=== PATIENT | female | born 1945 | race Caucasian/White ===

== ENCOUNTER 2016-05-29 12:43 | Outpatient (RCR) | payer MEDICARE, MEDICAID ==
--- OUTSIDE RECORDS SUMMARY | 2016-04-24 13:38 | XMS REPORT | Continuity of Care Document ---
Author Author [facility] Organization [facility] Address Unknown Phone Unavailable Allergies Active Description Code Type Severity Reaction Onset Reported/Identified Relationship to Patient Clinical Status Yes No Known Drug Allergies [id number] Drug Allergy Unknown N/ A 12/26/2015 Medications Problems Date Dx Coded Attending Type Code Diagnosis Diagnosed By 01/19/2014 FAB BEAVER MD Ot V76.12 02/19/2014 VERONA SHERIDAN APRN Ot 959.5 02/19/2014 VERONA SHERIDAN APRN Ot E849.0 02/19/2014 VERONA SHERIDAN APRN Ot E888.9 05/12/2014 Ot 173.31 05/12/2014 Ot 250.00 05/12/2014 Ot V58.69 06/01/2014 Ot 709.9 06/01/2014 Ot V72.63 06/01/2014 Ot V72.81 06/01/2014 Ot V74.8 06/08/2014 Ot 709.9 06/08/2014 Ot V72.63 06/08/2014 Ot V72.81 06/08/2014 Ot V74.8 12/29/2014 YU CASTRO Ot I34.8 01/03/2015 YU CASTRO Ot I34.8 01/19/2015 FAB BEAVER MD Ot Z12.31 01/24/2015 FAB BEAVER MD Ot Z12.31 12/03/2015 Ot 707.15 12/03/2015 Ot 715.36 12/03/2015 Ot 715.37 12/22/2015 SANJIV FRIEND, ENRIQUE Raymundo Ot Z01.818 ENCOUNTER FOR OTHER PREPROCEDURAL EXAMIN 12/22/2015 ENRIQUE KINCAID MD Ot Z86.010 PERSONAL HISTORY OF COLONIC POLYPS 12/22/2015 ENRIQUE KINCAID MD Ot Z01.818 ENCOUNTER FOR OTHER PREPROCEDURAL EXAMIN 12/22/2015 ENRIQUE KINCAID MD Ot Z86.010 PERSONAL HISTORY OF COLONIC POLYPS 12/26/2015 ENRIQUE KINCAID MD Ot K57.90 DVRTCLOS OF INTEST, PART UNSP, W/O PERF 12/26/2015 ENRIQUE KINCAID MD Ot Z12.11 ENCOUNTER FOR SCREENING FOR MALIGNANT NE 12/26/2015 ENRIQUE KINCAID MD Ot Z86.010 PERSONAL HISTORY OF COLONIC POLYPS 12/28/2015 FAB BEAVER MD Ot Z12.31 ENCNTR SCREEN MAMMOGRAM FOR MALIGNANT NE 12/29/2015 FAB BEAVER MD Ot Z12.31 ENCNTR SCREEN MAMMOGRAM FOR MALIGNANT NE 12/29/2015 FAB BEAVER MD Ot Z12.31 ENCNTR SCREEN MAMMOGRAM FOR MALIGNANT NE 01/05/2016 FAB BEAVER MD Ot Z12.31 ENCNTR SCREEN MAMMOGRAM FOR MALIGNANT NE 01/16/2016 FAB BEAVER MD Ot M25.551 PAIN IN RIGHT HIP 01/16/2016 FAB BEAVER MD Ot M25.552 PAIN IN LEFT HIP 01/17/2016 FAB BEAVER MD Ot M25.551 PAIN IN RIGHT HIP 01/17/2016 FAB BEAVER MD Ot M25.552 PAIN IN LEFT HIP 01/23/2016 FAB BEAVER MD Ot M25.551 PAIN IN RIGHT HIP 01/23/2016 FAB BEAVER MD Ot M25.552 PAIN IN LEFT HIP 01/24/2016 FAB BEAVER MD Ot M25.551 PAIN IN RIGHT HIP 01/24/2016 FAB BEAVER MD Ot M25.552 PAIN IN LEFT HIP 02/03/2016 FAB BEAVER MD Ot M25.551 PAIN IN RIGHT HIP 02/03/2016 FAB BEAVER MD Ot M25.552 PAIN IN LEFT HIP 02/15/2016 FAB BEAVER MD Ot M25.551 PAIN IN RIGHT HIP 02/15/2016 FAB BEAVER MD Ot M25.552 PAIN IN LEFT HIP 02/15/2016 FAB BEAVER MD Ot M25.551 PAIN IN RIGHT HIP 02/15/2016 FAB BEAVER MD Ot M25.552 PAIN IN LEFT HIP 03/01/2016 FAB BEAVER MD Ot M25.551 PAIN IN RIGHT HIP 03/01/2016 FAB BEAVER MD Ot M25.552 PAIN IN LEFT HIP 03/01/2016 SARANYA FRIEND, FAB Napoles Ot Z12.31 ENCNTR SCREEN MAMMOGRAM FOR MALIGNANT NE 04/04/2016 Ot 707.15 04/04/2016 Ot 715.36 04/04/2016 Ot 715.37 Procedures Results Encounters ACCT No. Visit Date/Time Discharge Status Pt. Type Provider Facility Loc./Unit Complaint [id number] 12/26/2015 06:35:00 2015 11:00:00 DIS Outpatient ENRIQUE KINCAID MD [facility] SDC POLYPS [id number] 12/22/2015 05:50:00 2015 12:20:00 DIS Outpatient ENRIQUE KINCAID MD [facility] PREOP POLYPS [id number] 12/29/2014 10:36:00 2014 23:59:59 CLS Outpatient FAB BEAVER MD [facility] RAD [id number] 12/09/2014 13:32:00 2014 23:59:59 CLS Outpatient YU CASTRO [facility] CARD [id number] 01/08/2014 12:39:00 2013 23:59:59 CLS Outpatient VERONA SHERIDAN APRN [facility] RAD [id number] 12/18/2013 10:46:00 2013 23:59:59 CLS Outpatient FAB BEAVER MD [facility] RAD [id number] 08/14/2013 10:08:00 2013 23:59:59 CLS Outpatient [id number] 12/22/2012 08:00:00 2012 10:55:00 DIS Outpatient [id number] 12/17/2012 07:18:00 2012 23:59:59 CLS Outpatient [id number] 12/10/2012 09:45:00 2012 23:59:59 CLS Outpatient [id number] 12/05/2012 09:20:00 2012 23:59:59 CLS Outpatient [id number] 12/05/2012 09:18:00 2012 23:59:59 CLS Outpatient [id number] 10/27/2012 09:33:00 2012 23:59:59 CLS Outpatient [id number] 10/17/2012 09:08:00 2012 23:59:59 CLS Outpatient [id number] 04/24/2016 11:01:00 PEN Preadmit VERONA SHERIDAN APRN [facility] WOUNDCARE [id number] 01/21/2016 09:01:00 ACT Outpatient FAB BEAVER MD [facility] RAD B HIP PAIN, ABNORMAL HIP XRAY [id number] 01/13/2016 13:10:00 ACT Outpatient FAB BEAVER MD [facility] RAD HIP PAIN [id number] 12/28/2015 11:28:00 ACT Outpatient FAB BEAVER MD [facility] RAD SCREENING [id number] 12/09/2015 15:07:00 ACT Outpatient DARRION REMY DO [facility] QUICK [id number] 05/12/2014 10:30:00 Document Registration [id number] 05/05/2014 10:35:00 Document Registration [id number] 12/27/2006 09:56:00 Document Registration
[~2016-05-29 12:43] MED LIST: ARPZ10T PO; ATEN25TA PO; ATRV10T PO; CLD600T PO; EST.625T PO; FENO135C PO; GEMF600T3 PO; KCL20TCR PO; LORA10TA7 PO; LYSI1000 PO; MEMA10TA PO; MEMA28CA PO; MTF500T PO; NF-LOVAZAC PO; NIA500ERT PO; OMEG1CAP PO; OMEG1CAP51 PO; PNT40TEC PO; POTA10TA6 PO; QTP100T PO; QTP25T PO; QUET100T PO; ROPI1TAB PO; ROPI1TAB2 PO; SITA50TA PO; TOPI100T PO; TRAM-21 PO; TRIA1CAP4 PO; VENL150T4 PO; VIT1CAPS31 PO; VITA0.4T4 PO; VNL75T PO
== END 2016-05-29 16:00 | disposition home or self-care (01) ==
LOC: WOUNDCARE 12:43
PROVIDERS: ATTEND Nurse Practitioner
DX: L03.011 Cellulitis of right finger (principal); S61.202D Unspecified open wound of right middle finger without damage to nail, subsequent encounter
CPT/HCPCS: 11042; 97597; 99212

== ENCOUNTER 2016-07-14 19:59 | Emergency (ER) | payer MEDICARE, MEDICAID ==
[~2016-07-14] VITALS: Ht 165.1 cm; Wt 70.8 kg
--- NOTE | 2016-07-14 21:02 | ED Fall/Injury ---
General Chief Complaint: Trauma-Non Activation Stated Complaint: FALL INJ L KNEE Nursing Triage Note: patient reports taking the trash out and tripped and fell, patient reports hematoma to LLE, denies hitting head or LOC. denies other injury Source: patient, family Exam Limitations: no limitations History of Present Illness Time seen by provider: 20:20 Allergies and Home Medications Allergies Coded Allergies: No Known Drug Allergies (Verified , 12/25/06) Home Medications Atenolol 25 Mg Tablet, 25 MG PO DAILY, (Reported) Fenofibrate 135 Mg Capsule.dr, 135 MG PO DAILY, (Reported) Loratadine 10 Mg Tablet, 10 MG PO DAILY, (Reported) Memantine HCl 28 Mg Cap.spr.24, 28 MG PO DAILY, (Reported) Metformin Hcl 500 Mg Tablet, 500 MG PO BID, (Reported) [place]-3 Acid Ethyl Esters 1 Gm Capsule, 1 GM PO BID, (Reported) Quetiapine Fumarate 100 Mg Tablet, 100 MG PO BID, (Reported) Ropinirole Hcl 1 Mg Tablet, 1 MG PO HS, (Reported) Sitagliptin Phosphate 50 Mg Tablet, 50 MG PO DAILY, (Reported) Venlafaxine Hcl 150 Mg Tab.osm.24, 150 MG PO BID, (Reported) Vit A/Vit C/Vit E/Zinc/Copper 1 Each Capsule, 1 CAP PO DAILY, (Reported) Past Ypxehww-Phkqmk-Kppzre Hx Patient Social History Alcohol Use: Denies Use Recreational Drug Use: No Smoking Status: Never a Smoker Recent Foreign Travel: No Contact w/Someone Who Travel: No Recent Infectious Disease Expo: No Recent Hopitalizations: No Immunizations Up To Date Date of Pneumonia Vaccine: July 22, 2015 Date of Influenza Vaccine: Dec 02, 2015 Seasonal Allergies Seasonal Allergies: Yes Surgeries HX Surgeries: Yes (skin lesions) Surgeries: Gallbladder, 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 Respiratory Hx Respiratory Disorders: No Cardiovascular Hx Cardiac Disorders: Yes Cardiac Disorders: Hypertension Neurological Hx Neurological Disorders: No Neurological Disorders: Dementia Reproductive System Hx Reproductive Disorders: No Genitourinary Hx Genitourinary Disorders: No Gastrointestinal Hx Gastrointestinal Disorders: No Musculoskeletal Hx Musculoskeletal Disorders: No Endocrine Hx Endocrine Disorders: Yes Endocrine Disorders: Diabetes, Non-Insulin dep HEENT HX ENT Disorders: No Cancer Hx Cancer: No Psychosocial Hx Psychiatric Problems: Yes Integumentary HX Skin/Integumentary Disorder: No Blood Transfusions Hx Blood Disorders: No Physical Exam Vital Signs Vital Sign - Last 12Hours 07/14/16 20:11 Temp 98.2 Pulse 91 Resp 18 B/P (MAP) 208/111 Pulse Ox 92 O2 Delivery Room Air Capillary Refill : Less Than 3 Seconds Progress/Results/Core Measures Results/Orders My Orders Orders - DUSTIN FRANKLIN Ct Head Wo (07/14/16 20:50) Tibia/Fibula, Left, 2 Views (07/14/16 20:50) Atenolol Tablet (Tenormin Tablet) (07/14/16 21:45) Vital Signs/I&O Vital Sign - Last 12Hours 07/14/16 20:11 Temp 98.2 Pulse 91 Resp 18 B/P (MAP) 208/111 Pulse Ox 92 O2 Delivery Room Air Blood Pressure Mean: 143 Departure Impression Impression: Primary Impression: Hematoma of left lower extremity Additional Impressions: Fall Hypertension Disposition: 01 HOME, SELF-CARE Condition: Improved Departure-Patient Inst. Decision time for Depature: 21:22 Referrals: FAB GRAVES MD (PCP/Family) Primary Care Physician Patient Instructions: HEMATOMA Add. Discharge Instructions: All discharge instructions reviewed with patient and/or family. Voiced understanding. Continue usual home medications. Ice pack for 20 minute intervals as needed for pain and swelling. Andrew wrap as instructed. Elevate the left leg on pillows. Follow-up with Dr. Graves this week for recheck, call for appointment time Saturday. Monitor blood pressures closely and record readings. Take the record to your appointment with Dr. Graves. Return to the emergency department for worsened pain, swelling, numbness, weakness, changes in behavior, neck pain, back pain, headache, vomiting, seizure, shortness of air, chest pain, or any other concerns. DUSTIN FRANKLIN July 14, 2016 21:02
--- NOTE | 2016-07-14 21:14 | Diagnostic Imaging Report ---
Clinical indication: Patient status post fall. Patient hurt her left lower leg. Patient has bruising noted on proximal end of the left tibia and fibula. Exam: X-ray of the left tibia and fibula, 4 views. Comparison: None. Findings: There is mild soft tissue swelling involving the soft tissue adjacent to the proximal tibia and fibula. There is no evidence of acute fracture or dislocation. There is no knee effusion. There is mild degenerative patellar spurs seen. There is mild spurring of the medial compartment. There is bony lucency and irregularity involving the distal tibia and distal fibula and mild irregularity of the talar dome. These findings may be from remote traumatic changes. Clinical correlation is suggested. Impression: 1.: There is no acute fracture or dislocation. 2: There is bony lucency, bony deformity, and hypertrophic changes involving the distal tibia, distal fibula, and talar dome which may be from remote traumatic changes. Clinical correlation for prior injury is suggested. If there is no history of injury to the left ankle region and there is pain in this region, then x-ray of the left ankle would be suggested. Dictated by: Dictated on workstation # [id number]
--- NOTE | 2016-07-14 21:18 | Diagnostic Imaging Report ---
Clinical indication: Patient fell. Patient didn't hit head. Exam: Axial CT scan of the brain performed without IV contrast. Comparison: Head CT without IV contrast dated 11/09/2006. Findings: There is no evidence of intracranial hemorrhage. There is no hydrocephalus or intraventricular hemorrhage. There is interval development of a roughly 9 mm low-density area in the right basal ganglia region which may represent a chronic lacunar infarct. Stable encephalomalacia involving the right frontal lobe region consistent with chronic cerebral infarct. This extends to the lateral right frontal lobe region and involves the centrum semiovale. There is also slight progression of some focal and patchy areas of low-attenuation changes in both cerebral hemispheres, likely representing chronic small vessel ischemic disease. There is brain parenchymal volume loss with the right side more than the left which has minimally progressed compared to the prior study. The extracranial soft tissue and skull are unremarkable. 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 Otherwise orbits are unremarkable. There is a small amount of mucosal thickening in the ethmoid sinus. Otherwise paranasal sinuses are unremarkable. Temporal bone structures are unremarkable. Impression: 1.: There is no definite CT evidence of interval acute cerebral infarction, intracranial hemorrhage, or mass seen. Given the diffuse low attenuation changes throughout the brain parenchyma which can obscure more subtle findings, if there is clinical concern for acute cerebral infarction, MRI of the brain would better evaluate. 2: There is progression of chronic small vessel ischemic disease and a chronic lacunar infarct in the right basal ganglia region. 3. Stable right cerebral hemisphere chronic cerebral infarct. Dictated by: Dictated on workstation # [id number]
[2016-07-14] MEDS ORDERED: ATENOLOL 25 MG (TENORMIN) TAB PO ONE (21:45)
[2016-07-14 22:09] VITALS: BP 199/110
== END 2016-07-14 22:09 | disposition home or self-care (01) ==
LOC: EDUNIT# 19:59 → ER 20:02
DX: S80.02XA Contusion of left knee, initial encounter (principal); I10 Essential (primary) hypertension; E11.9 Type 2 diabetes mellitus without complications; Z79.899 Other long term (current) drug therapy; Z79.84 Long term (current) use of oral hypoglycemic drugs; W01.0XXA Fall on same level from slipping, tripping and stumbling without subsequent striking against object, initial encounter; Y92.009 Unspecified place in unspecified non-institutional (private) residence as the place of occurrence of the external cause; Y99.8 Other external cause status
CPT/HCPCS: 70450; 73590; 99282

== ENCOUNTER → 2016-07-17 | Outpatient (CLI) | payer MEDICARE, MEDICAID | LOC: RAD 13:58 | PROVIDERS: ATTEND Internal Medicine Cardiovascular Disease | DX: I73.89 Other specified peripheral vascular diseases (principal) | CPT/HCPCS: 93923 ==

== ENCOUNTER 2016-10-15 19:39 | Emergency (ER) | payer MEDICARE, MEDICAID ==
[~2016-10-15] VITALS: Ht 165.1 cm; Wt 70.8 kg
[2016-10-15] MEDS ORDERED: ATOR10TA66 (20:12)
--- NOTE | 2016-10-15 20:41 | ED Lower Extremity ---
General Chief Complaint: Lower Extremity Stated Complaint: RT LEG SWELLING/BRUISING Nursing Triage Note: C/O RIGHT LEG SWELLING, OLD APPEARING BRUISE TON RIGHT POSTERIOR LEG, NO KNOWN INJURY. Nursing Sepsis Screen: No Definite Risk Source: patient Exam Limitations: no limitations History of Present Illness Time seen by provider: 20:40 Initial Comments To ER with bruising and pain behind the right knee. Uncertain when this may have started but the pain began today. No known injury. Onset: just prior to arrival Severity: moderate Pain/Injury Location: right knee Allergies and Home Medications Allergies Coded Allergies: No Known Drug Allergies (Verified , 12/25/06) Home Medications Atenolol 25 Mg Tablet, 25 MG PO DAILY, (Reported) Atorvastatin Calcium 10 Mg Tablet, #90 (Reported) Fenofibrate 135 Mg Capsule.dr, 135 MG PO DAILY, (Reported) Hydrocodone/Acetaminophen 1 Each Tablet, 1 EACH PO Q6H PRN for PAIN-SEVERE, #10 Prescribed by: ROD FLEMING on 10/15/162204 Loratadine 10 Mg Tablet, 10 MG PO DAILY, (Reported) Memantine HCl 28 Mg Cap.spr.24, 28 MG PO DAILY, (Reported) Metformin Hcl 500 Mg Tablet, 500 MG PO BID, (Reported) [place]-3 Acid Ethyl Esters 1 Gm Capsule, 1 GM PO BID, (Reported) Quetiapine Fumarate 100 Mg Tablet, 100 MG PO BID, (Reported) Ropinirole Hcl 1 Mg Tablet, 1 MG PO HS, (Reported) Sitagliptin Phosphate 50 Mg Tablet, 50 MG PO DAILY, (Reported) Venlafaxine Hcl 150 Mg Tab.osm.24, 150 MG PO BID, (Reported) Vit A/Vit C/Vit E/Zinc/Copper 1 Each Capsule, 1 CAP PO DAILY, (Reported) Constitutional: see HPI EENTM: see HPI Respiratory: no symptoms reported Cardiovascular: no symptoms reported Genitourinary: no symptoms reported Musculoskeletal: see HPI Skin: no symptoms reported Psychiatric/Neurological: No Symptoms Reported Past Utttyfi-Fnmjoj-Apljnd Hx Patient Social History Alcohol Use: Denies Use Recreational Drug Use: No Smoking Status: Never a Smoker 2nd Hand Smoke Exposure: No Recent Foreign Travel: No Contact w/Someone Who Travel: No Recent Infectious Disease Expo: No Recent Hopitalizations: No Immunizations Up To Date Tetanus Booster (TDap): Less than 5yrs Date of Pneumonia Vaccine: July 22, 2015 Date of Influenza Vaccine: Dec 02, 2015 Seasonal Allergies Seasonal Allergies: Yes Surgeries HX Surgeries: Yes (skin lesions) Surgeries: Gallbladder, 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 Respiratory Hx Respiratory Disorders: No Cardiovascular Hx Cardiac Disorders: Yes Cardiac Disorders: Hypertension Neurological Hx Neurological Disorders: No Neurological Disorders: Dementia Reproductive System : No Hx Reproductive Disorders: No 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 Genitourinary Hx Genitourinary Disorders: No Gastrointestinal Hx Gastrointestinal Disorders: No Musculoskeletal Hx Musculoskeletal Disorders: No Endocrine Hx Endocrine Disorders: Yes Endocrine Disorders: Diabetes, Non-Insulin dep HEENT HX ENT Disorders: No Cancer Hx Cancer: No Psychosocial Hx Psychiatric Problems: Yes Behavioral Health Disorders: Anxiety, Depression Integumentary HX Skin/Integumentary Disorder: No Blood Transfusions Hx Blood Disorders: No Physical Exam Vital Signs Vital Sign - Last 12Hours 10/15/16 20:12 Temp 98.9 Pulse 91 Resp 18 B/P (MAP) 190/110 Pulse Ox 96 O2 Delivery Room Air Capillary Refill : Less Than 3 Seconds General Appearance: WD/WN, no apparent distress HEENT: PERRL/EOMI, normal ENT inspection Neck: non-tender, full range of motion Cardiovascular: regular rate, rhythm, no murmur Respiratory: normal breath sounds, no respiratory distress, no accessory muscle use Gastrointestinal: normal bowel sounds, non tender, soft Hips: bilateral hip non-tender, bilateral hip normal inspection, bilateral hip normal range of motion Legs: right leg ecchymosis, right leg pain Knees: right knee ecchymosis, right knee pain Ankles: bilateral ankle non-tender, bilateral ankle normal inspection, bilateral ankle normal range of motion Feet: bilateral foot non-tender, bilateral foot normal inspection, bilateral foot normal range of motion Neurologic/Psychiatric: alert, normal mood/affect, oriented x 3 Skin: normal color, warm/dry Comments She has a strong dorsalis pedis pulse Progress/Results/Core Measures Results/Orders Lab Results Laboratory Tests Test 10/15/16 20:44 Range/Units White Blood Count 6.4 4.3-11.0 10^3/uL Red Blood Count 4.13 L 4.35-5.85 10^6/uL Hemoglobin 12.0 11.5-16.0 G/DL Hematocrit 36 35-52 % Mean Corpuscular Volume 87 80-99 FL Mean Corpuscular Hemoglobin 29 25-34 PG Mean Corpuscular Hemoglobin Concent 33 32-36 G/DL Red Cell Distribution Width 15.0 H 10.0-14.5 % Platelet Count 155 130-400 10^3/uL Mean Platelet Volume 9.3 7.4-10.4 FL Neutrophils (%) (Auto) 75 42-75 % Lymphocytes (%) (Auto) 15 12-44 % Monocytes (%) (Auto) 8 0-12 % Eosinophils (%) (Auto) 3 0-10 % Basophils (%) (Auto) 0 0-10 % Neutrophils # (Auto) 4.8 1.8-7.8 X 10^3 Lymphocytes # (Auto) 1.0 1.0-4.0 X 10^3 Monocytes # (Auto) 0.5 0.0-1.0 X 10^3 Eosinophils # (Auto) 0.2 0.0-0.3 10^3/uL Basophils # (Auto) 0.0 0.0-0.1 10^3/uL Sodium Level 140 135-145 MMOL/L Potassium Level 3.7 3.6-5.0 MMOL/L Chloride Level 102 98-107 MMOL/L Carbon Dioxide Level 28 21-32 MMOL/L Anion Gap 10 5-14 MMOL/L Blood Urea Nitrogen 27 H 7-18 MG/DL Creatinine 0.79 0.60-1.30 MG/DL Estimat Glomerular Filtration Rate > 60 BUN/Creatinine Ratio 34 Glucose Level 172 H 70-105 MG/DL Calcium Level 9.4 8.5-10.1 MG/DL Total Bilirubin 0.5 0.1-1.0 MG/DL Aspartate Amino Transf (AST/SGOT) 17 5-34 U/L Alanine Aminotransferase (ALT/SGPT) 19 0-55 U/L Alkaline Phosphatase 44 40-136 U/L Total Protein 6.6 6.4-8.2 GM/DL Albumin 4.0 3.2-4.5 GM/DL My Orders Orders - ROD FLEMING [employer]ATE MEDIA DIRECTOR Cbc With Automated Diff (10/15/16 20:39) Comprehensive Metabolic Panel (10/15/16 20:39) Us Venous Lower Ext Rt (10/15/16 20:39) Vital Signs/I&O Vital Sign - Last 12Hours 10/15/16 20:12 Temp 98.9 Pulse 91 Resp 18 B/P (MAP) 190/110 Pulse Ox 96 O2 Delivery Room Air Blood Pressure Mean: 136 Diagnostic Imaging Diagonstic Imaging: Xray Comments NAME: WILLIAM DO [facility] REC#: [id number] PT STATUS: REG ER : 1945 PHYSICIAN: ROD FLEMING APRN ADMIT DATE: 10/15/16/ER Draft Date of Exam:10/15/16 US VENOUS LOWER EXT RT INDICATION: Right leg pain. Redness. Swelling. COMPARISON: None TECHNIQUE: Duplex, lara-scale and color-flow imaging of the right lower extremity venous system was performed. FINDINGS: The common femoral vein, superficial femoral vein, profunda femoris, and popliteal veins are normal. These vessels show normal compressibility, color flow, and doppler augmentation. The deep calf veins, although not very well seen, demonstrate no distinct intraluminal thrombus. Complex fluid collection is seen behind the knee extending into the mid calf and measures 11 x 1.8 x 3.5 cm. Findings are likely on the basis of a large Castano's cyst. There is some edema of the soft tissues of the calf, as well. IMPRESSION: 1. No evidence of DVT in the right lower extremity. 2. Probable complex/hemorrhagic large Castano's cyst. Dictated on workstation # [id number] Dict: 10/15/162157 Trans: 10/15/162200 [facility] [id number] Interpreted by: NEGAR VILLELA Electronically signed by: Departure Impression Impression: Primary Impression: Hemorrhagic bakers cyst Disposition: 01 HOME, SELF-CARE Condition: Stable Departure-Patient Inst. Decision time for Depature: 22:04 Referrals: FAB BEAVER MD (PCP/Family) Primary Care Physician Patient Instructions: Castano's Cyst Add. Discharge Instructions: 1.. Nadrew wrap to the knee 2. Cool compresses to the leg 3. Follow-up with Dr. Beaver later this week for recheck 4. All discharge instructions reviewed with patient and/or family. Voiced understanding. Scripts Hydrocodone/Acetaminophen (Popejoy 5-325 Tablet) 1 Each Tablet 1 EACH PO Q6H Y for PAIN-SEVERE, #10 TAB Prov: ROD FLEMING APRN 10/15/16 Copy Copies To 1: FAB BEAVER MD, PETER J APRN Oct 15, 2016 20:41
[2016-10-15 20:49] LABS: BASOPHILS % (AUTO) 0 % (0-10); EOSINOPHILS # (AUTO) 0.2 10^3/uL (0.0-0.3); EOSINOPHILS % (AUTO) 3 % (0-10); LYMPHOCYTES % (AUTO) 15 % (12-44); MEAN CORPUSCULAR HEMOGLOBIN 29 PG (25-34); MEAN CORPUSCULAR HGB CONC 33 G/DL (32-36); MEAN CORPUSCULAR VOLUME 87 FL (80-99); MEAN PLATELET VOLUME 9.3 FL (7.4-10.4); MONOCYTES # (AUTO) 0.5 X 10^3 (0.0-1.0); MONOCYTES % (AUTO) 8 % (0-12); NEUTROPHILS # (AUTO) 4.8 X 10^3 (1.8-7.8); NEUTROPHILS % (AUTO) 75 % (42-75); PLATELET COUNT 155 10^3/uL (130-400); RED BLOOD COUNT 4.13 10^6/uL (4.35-5.85); WHITE BLOOD COUNT 6.4 10^3/uL (4.3-11.0)
[2016-10-15 21:10] LABS: ALANINE AMINOTRANSFERASE 19 U/L (0-55); ANION GAP 10 MMOL/L (5-14); ASPARTATE AMINO TRANSFERASE 17 U/L (5-34); BILIRUBIN,TOTAL 0.5 MG/DL (0.1-1.0); BLOOD UREA NITROGEN 27 MG/DL (7-18); BUN/CREATININE RATIO 34; CALCIUM 9.4 MG/DL (8.5-10.1); CARBON DIOXIDE 28 MMOL/L (21-32); CHLORIDE 102 MMOL/L (98-107); CREATININE SERUM 0.79 MG/DL (0.60-1.30); GFR ESTIMATED > 60; GLUCOSE 172 MG/DL (70-105); POTASSIUM 3.7 MMOL/L (3.6-5.0); SODIUM 140 MMOL/L (135-145); TOTAL PROTEIN 6.6 GM/DL (6.4-8.2)
--- NOTE | 2016-10-15 22:02 | Diagnostic Imaging Report ---
INDICATION: Right leg pain. Redness. Swelling. COMPARISON: None TECHNIQUE: Duplex, lara-scale and color-flow imaging of the right lower extremity venous system was performed. FINDINGS: The common femoral vein, superficial femoral vein, profunda femoris, and popliteal veins are normal. These vessels show normal compressibility, color flow, and doppler augmentation. The deep calf veins, although not very well seen, demonstrate no distinct intraluminal thrombus. Complex fluid collection is seen behind the knee extending into the mid calf and measures 11 x 1.8 x 3.5 cm. Findings are likely on the basis of a large Castano's cyst. There is some edema of the soft tissues of the calf, as well. IMPRESSION: 1. No evidence of DVT in the right lower extremity. 2. Probable complex/hemorrhagic large Castano's cyst. Dictated by: Dictated on workstation # [id number]
[2016-10-15] MEDS ORDERED: HYDR-757 PO (22:05)
[2016-10-15 22:30] VITALS: BP 198/112
== END 2016-10-15 22:29 | disposition home or self-care (01) ==
LOC: EDUNIT# 19:39 → ER 19:41
DX: Z04.3 Encounter for examination and observation following other accident (principal)
CPT/HCPCS: 36415; 80053; 85025; 99283

== ENCOUNTER → 2016-12-28 | Outpatient (CLI) | payer MEDICARE, MEDICAID ==
[~2016-12-28] MED LIST changes: +ATOR10TA66; +HYDR-757 PO
--- NOTE | 2017-01-01 13:56 | Diagnostic Imaging Report ---
EXAMINATION: Bilateral screening mammogram 2D views with tomosynthesis. The current study was also evaluated with a Computer Aided Detection (CAD) system. INDICATION: Screening. PERSONAL HISTORY: No current complaints stated on the questionnaire. COMPARISON: 12/28/2015. FINDINGS: The breasts are composed of scattered fibroglandular densities. There are occasional benign-appearing calcifications. Allowing for technique and positional differences, no suspicious change is seen. IMPRESSION: No significant change. ACR BI-RADS Category 2: Benign findings. Result letter will be mailed to the patient. Note: At least 10% of breast cancer is not imaged by mammography. Dictated by: Dictated on workstation # [id number]
== END ==
LOC: RAD 10:42
PROVIDERS: ATTEND Nurse Practitioner
DX: Z12.31 Encounter for screening mammogram for malignant neoplasm of breast (principal)
CPT/HCPCS: 77067

== ENCOUNTER → 2017-01-18 | Outpatient (CLI) | payer MEDICARE, MEDICAID ==
--- NOTE | 2017-01-18 15:27 | Diagnostic Imaging Report ---
INDICATION: Right hip pain. COMPARISON: 01/13/2016 FINDINGS: Two dedicated radiographic views of the right hip were obtained. There are moderate degenerative changes of the right hip. There is also moderate prominence of the femoral neck in the subcapital region suggestive of underlying cam deformity. No acute abnormalities are seen. There is no radiographic evidence of acute fracture or dislocation. Femoral acetabular joint spaces otherwise maintained. No unexpected radiopaque foreign bodies are seen. IMPRESSION: 1. No radiographic evidence of acute fracture or dislocation of the right hip. 2. Moderate degenerative changes with potential cam type deformity. Dictated by: Dictated on workstation # [id number]
== END ==
LOC: RAD 14:07
PROVIDERS: ATTEND Internal Medicine
DX: M16.11 Unilateral primary osteoarthritis, right hip (principal)
CPT/HCPCS: 73502

== ENCOUNTER 2017-06-10 21:22 | Emergency (ER) | payer MEDICARE, MEDICAID ==
[~2017-06-10] VITALS: Ht 166.4 cm; Wt 66.5 kg
[~2017-06-10 21:22] MED LIST changes: +ACET-2267 PO; +ACET-2469 PO; +ANTI1CAP2 PO; +ASPI-586 PO; +ATEN50TA PO; -ATOR10TA66; +ATOR10TA66 PO; +LOSA100T28 PO; +LOSA50TA36 PO; +NAPR-1071 PO
--- OUTSIDE RECORDS SUMMARY | 2017-06-10 21:52 | XMS REPORT | Continuity of Care Document ---
Author Author [facility] Organization [facility] Address Unknown Phone Unavailable Allergies Active Description Code Type Severity Reaction Onset Reported/Identified Relationship to Patient Clinical Status Yes No Known Drug Allergies [id number] Drug Allergy Unknown N/A 12/26/2015 Medications There is no data. Problems Date Dx Coded Attending Type Code Diagnosis Diagnosed By 12/22/2012 SANJIV FRIEND, ENRIQUE Raymundo Ot 211.4 BENIGN NEOPL RECTUM/ANUS 12/22/2012 SANJIV FRIEND, ENRIQUE Raymundo Ot 250.00 DIAB TOBY WO COMPL, TYPE II OR UNSPEC TY 12/22/2012 SANJIV FRIEND, ENRIQUE Raymundo Ot 272.4 HYPERLIPIDEMIA NEC/NOS 12/22/2012 SANJIV FRIEND, ENRIQUE Raymundo Ot 401.9 HYPERTENSION NOS 12/22/2012 SANJIV FRIEND, ENRIQUE Raymundo Ot 562.10 DIVERTICULOSIS COLON (W/O MENT OF HEMORR 12/22/2012 SANJIV FRIEND, ENRIQUE Raymundo Ot V16.0 FAMILY HX-GI MALIGNANCY 12/22/2012 SANJIV FRIEND, ENRIQUE Raymundo Ot V67.09 SURGERY FOLLOW-UP, OTHER SURGERY 01/19/2014 SARANYA FRIEND, FAB Napoles Ot V76.12 02/19/2014 VERONA SHERIDAN APRN Ot 959.5 02/19/2014 VERONA SHERIDAN SILHOUETTE ARTIST Ot E849.0 02/19/2014 VERONA SHERIDAN SILHOUETTE ARTIST Ot E888.9 05/12/2014 Ot 173.31 BASAL CELL CARCINOMA OF SKIN OF OTH UN 05/12/2014 Ot 250.00 DIAB TOBY WO COMPL, TYPE II OR UNSPEC TY 05/12/2014 Ot V58.69 OTH MED,LT, CURRENT USE 06/01/2014 Ot 709.9 06/01/2014 Ot V72.63 06/01/2014 Ot V72.81 06/01/2014 Ot V74.8 06/08/2014 Ot 709.9 06/08/2014 Ot V72.63 06/08/2014 Ot V72.81 06/08/2014 Ot V74.8 12/29/2014 GLORIA YU L VARITYPIST Ot I34.8 01/03/2015 YU CASTRO VARITYPIST Ot I34.8 01/19/2015 AFB BEAVER MD Ot Z12.31 01/24/2015 FAB BEAVER MD Ot Z12.31 12/03/2015 Ot 707.15 12/03/2015 Ot 715.36 12/03/2015 Ot 715.37 12/22/2015 SANJIV FRIEND, ENRIQUE Raymundo Ot Z01.818 ENCOUNTER FOR OTHER PREPROCEDURAL EXAMIN 12/22/2015 SANJIV FRIEND, ENRIQUE Raymundo Ot Z86.010 PERSONAL HISTORY OF COLONIC POLYPS 12/22/2015 SANJIV FRIEND, ENRIQUE Raymundo Ot Z01.818 ENCOUNTER FOR OTHER PREPROCEDURAL EXAMIN 12/22/2015 ENRIQUE KINCAID MD Ot Z86.010 PERSONAL HISTORY OF COLONIC POLYPS 12/22/2015 SANJIV FRIEND, ENRIQUE Raymundo Ot Z01.818 ENCOUNTER FOR OTHER PREPROCEDURAL EXAMIN 12/22/2015 SANJIV FRIEND, ENRIQUE Raymundo Ot Z86.010 PERSONAL HISTORY OF COLONIC POLYPS 12/26/2015 SANJIV FRIEND, ENRIQUE Raymundo Ot K57.90 DVRTCLOS OF INTEST, PART UNSP, W/O PERF 12/26/2015 SANJIV FRIEND, ENRIQUE Raymundo Ot Z12.11 ENCOUNTER FOR SCREENING FOR MALIGNANT NE 12/26/2015 SANJIV FRIEND, ENRIQUE Raymundo Ot Z86.010 PERSONAL HISTORY OF COLONIC POLYPS [...] Ot M25.552 PAIN IN LEFT HIP 01/23/2016 SARANYA FRIEND, FAB Napoles Ot M25.551 PAIN IN RIGHT HIP 01/23/2016 [...] LEFT HIP 03/01/2016 FAB BEAVER MD Ot Z12.31 ENCNTR SCREEN MAMMOGRAM FOR MALIGNANT NE 04/04/2016 Ot 707.15 04/04/2016 Ot 715.36 04/04/2016 Ot 715.37 05/29/2016 VERONA SHERIDAN SILHOUETTE ARTIST Ot L03.011 CELLULITIS OF RIGHT FINGER 05/29/2016 VERONA SHERIDAN SILHOUETTE ARTIST Ot S61.202D UNSP OPEN WOUND OF R MID FINGER W/O [place] 05/29/2016 VERONA SHERIDAN SILHOUETTE ARTIST Ot L03.011 CELLULITIS OF RIGHT FINGER 05/29/2016 VERONA SHERIDAN SILHOUETTE ARTIST Ot S61.202D UNSP OPEN WOUND OF R MID FINGER W/O [place] 07/14/2016 DUSTIN DESIR Ot E11.9 TYPE 2 DIABETES MELLITUS WITHOUT COMPLIC 07/14/2016 DUSTIN DESIR Ot I10 ESSENTIAL (PRIMARY) HYPERTENSION 07/14/2016 DUSTIN DESIR Ot S80.02XA CONTUSION OF LEFT KNEE, INITIAL ENCOUNTE 07/14/2016 DUSTIN DESIR Ot W01.0XXA FALL SAME LEV FROM SLIP/TRIP W/O STRIKE 07/14/2016 NOEMI MARTINEZ DUSTIN L Ot Y92.[address] IN [facility] NON-INSTITUT (PRIVATE 07/14/2016 DUSTIN DESIR Ot Y99.8 OTHER EXTERNAL CAUSE STATUS 07/14/2016 DUSTIN DESIR Ot 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 07/14/2016 DUSTIN DESIR Ot Z79.899 OTHER RAIL CAR REPAIRER (CURRENT) DRUG THERAPY 07/16/2016 MABLE FRIEND FACC, ALI FACP CCDS Ot I73.89 OTHER SPECIFIED PERIPHERAL VASCULAR DISE 07/17/2016 MABLE FRIEND FACC, ALI FACP CCDS Ot I73.89 OTHER SPECIFIED PERIPHERAL VASCULAR DISE 07/17/2016 MABLE FRIEND FACC, ALI FACP CCDS Ot I73.89 OTHER SPECIFIED PERIPHERAL VASCULAR DISE 07/20/2016 DUSTIN DESIR Ot E11.9 TYPE 2 DIABETES MELLITUS WITHOUT COMPLIC 07/20/2016 DUSTIN DESIR Ot I10 ESSENTIAL (PRIMARY) HYPERTENSION 07/20/2016 DUSTIN DESIR Ot S80.02XA CONTUSION OF LEFT KNEE, INITIAL ENCOUNTE 07/20/2016 DUSTIN DESIR Ot W01.0XXA FALL SAME LEV FROM SLIP/TRIP W/O STRIKE 07/20/2016 DUSTIN DESIR Ot Y92.[address] IN [facility] NON-INSTIT[facility] (PRIVATE 07/20/2016 DUSTIN DESIR Ot Y99.8 OTHER EXTERNAL CAUSE STATUS 07/20/2016 DUSTIN DESIR Ot Z79.84 GROUP HOME (CURRENT) USE OF ORAL HYPOGLYC 07/20/2016 DUSTIN DESIR Ot Z79.899 OTHER GROUP HOME (CURRENT) DRUG THERAPY 08/13/2016 MABLE FRIEND FACC, ALI FACP CCDS Ot I73.89 OTHER SPECIFIED PERIPHERAL VASCULAR DISE 08/17/2016 MABLE FRIEND FACC, ALI FACP CCDS Ot I73.89 OTHER SPECIFIED PERIPHERAL VASCULAR DISE 10/15/2016 ROD FLEMING SILHOUETTE ARTIST Ot E11.9 TYPE 2 DIABETES MELLITUS WITHOUT COMPLIC 10/15/2016 ROD FLEMING SILHOUETTE ARTIST Ot F32.9 MAJOR DEPRESSIVE DISORDER, SINGLE EPISOD 10/15/2016 ROD FLEMING APRN Ot F41.9 ANXIETY DISORDER, UNSPECIFIED 10/15/2016 ROD FLEMING SILHOUETTE ARTIST Ot I10 ESSENTIAL (PRIMARY) HYPERTENSION 10/15/2016 ROD FLEMING SILHOUETTE ARTIST Ot M71.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 [HENAO] 10/15/2016 ROD FLEMING APRN Ot M79.661 PAIN IN RIGHT LOWER LEG 10/15/2016 ROD FLEMING APRN Ot M79.81 NONTRAUMATIC HEMATOMA OF SOFT TISSUE 10/15/2016 ROD FLEMING SILHOUETTE ARTIST Ot Z79.84 GROUP HOME (CURRENT) USE OF ORAL HYPOGLYC 10/15/2016 ROD FLEMING SILHOUETTE ARTIST Ot Z90.710 ACQUIRED ABSENCE OF BOTH CERVIX AND UTER 10/22/2016 ROD FLEMING APRN Ot E11.9 TYPE 2 DIABETES MELLITUS WITHOUT COMPLIC 10/22/2016 ROD FLEMING APRN Ot F32.9 MAJOR DEPRESSIVE DISORDER, SINGLE EPISOD 10/22/2016 ROD FLEMING APRN Ot F41.9 ANXIETY DISORDER, UNSPECIFIED 10/22/2016 ROD FLEMING APRN Ot I10 ESSENTIAL (PRIMARY) HYPERTENSION 10/22/2016 ROD FLEMING APRN Ot M71.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 [HENAO] 10/22/2016 ROD FLEMING APRN Ot M79.81 NONTRAUMATIC HEMATOMA OF SOFT TISSUE 10/22/2016 ROD FLEMING SILHOUETTE ARTIST Ot Z79.84 GROUP HOME (CURRENT) USE OF ORAL HYPOGLYC 10/22/2016 ROD FLEMING APRN Ot Z90.710 ACQUIRED ABSENCE OF BOTH CERVIX AND UTER 12/16/2016 ROD FLEMING APRN Ot E11.9 TYPE 2 DIABETES MELLITUS WITHOUT COMPLIC 12/16/2016 ROD FLEMING APRN Ot F32.9 MAJOR DEPRESSIVE DISORDER, SINGLE EPISOD 12/16/2016 ROD FLEMING APRN Ot F41.9 ANXIETY DISORDER, UNSPECIFIED 12/16/2016 ROD FLEMING SILHOUETTE ARTIST Ot I10 ESSENTIAL (PRIMARY) HYPERTENSION 12/16/2016 ROD FLEMING SILHOUETTE ARTIST Ot M71.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 [HENAO] 12/16/2016 ROD FLEMING APRN Ot M79.661 PAIN IN RIGHT LOWER LEG 12/16/2016 ROD FLEMING APRN Ot M79.81 NONTRAUMATIC HEMATOMA OF SOFT TISSUE 12/16/2016 ROD FLEMING SILHOUETTE ARTIST Ot 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 12/16/2016 ROD FLEMING SILHOUETTE ARTIST Ot Z90.710 ACQUIRED ABSENCE OF BOTH CERVIX AND UTER 01/21/2017 VERONA SHERIDAN SILHOUETTE ARTIST Ot Z12.31 ENCNTR SCREEN MAMMOGRAM FOR MALIGNANT NE 01/29/2017 VERONA SHERIDAN SILHOUETTE ARTIST Ot Z12.31 ENCNTR SCREEN MAMMOGRAM FOR MALIGNANT NE 02/12/2017 SARANYA FRIEND, FAB Napoles Ot M16.11 UNILATERAL PRIMARY OSTEOARTHRITIS, RIGHT 02/22/2017 FAB BEAVER MD Ot M16.11 UNILATERAL PRIMARY OSTEOARTHRITIS, RIGHT 06/08/2017 Ot 272.4 HYPERLIPIDEMIA NEC/NOS 06/08/2017 Ot 401.9 HYPERTENSION NOS 06/08/2017 Ot 272.4 HYPERLIPIDEMIA NEC/NOS 06/08/2017 Ot 443.9 PERIPH VASCULAR DIS NOS 06/08/2017 Ot V58.69 OTH MED,LT, CURRENT USE 06/08/2017 Ot V58.83 ENCOUNTER FOR THERAPEUTIC DRUG MONITORIN 06/08/2017 Ot 276.8 HYPOPOTASSEMIA 06/08/2017 BAIMA, YU L VARITYPIST Ot 272.4 HYPERLIPIDEMIA NEC/NOS 06/08/2017 BAIMA, YU L VARITYPIST Ot 401.9 HYPERTENSION NOS 06/08/2017 BAIMA, YU L VARITYPIST Ot V58.69 OTH MED,LT,CURRENT USE 06/08/2017 BAIMA, YU L VARITYPIST Ot 276.8 HYPOPOTASSEMIA 06/08/2017 FAB BEAVER MD Ot V76.12 OTH SCREEN MAMMO-MALIGN NEOPLASM OF ROSALIND 06/08/2017 BAIMA, YU L VARITYPIST Ot 272.4 HYPERLIPIDEMIA NEC/NOS 06/08/2017 BAIMA, YU L VARITYPIST Ot V58.69 OTH MED,LT,CURRENT USE 06/08/2017 FAB BEAVER MD Ot 715.33 LOC OSTEOART NOS-FOREARM 06/08/2017 SANJIV FRIEND, ENRIQUE Raymundo Ot V72.84 EXAM PRE-OPERATIVE NOS 06/08/2017 BAIMA, YU L VARITYPIST Ot 250.00 DIAB TOBY WO COMPL, TYPE II OR UNSPEC TY 06/08/2017 BAIMA, YU L VARITYPIST Ot 272.4 HYPERLIPIDEMIA NEC/NOS 06/08/2017 YU CASTRO VARITYPIST Ot 401.9 HYPERTENSION NOS 06/08/2017 YU CASTRO VARITYPIST Ot 443.9 PERIPH VASCULAR DIS NOS 06/08/2017 FAB BEAVER MD Ot V76.12 OTH SCREEN MAMMO-MALIGN NEOPLASM OF ROSALIND 06/08/2017 VERONA SHERIDAN SILHOUETTE ARTIST Ot 959.5 FINGER INJURY NOS 06/08/2017 VERONA SHERIDAN SILHOUETTE ARTIST Ot E849.0 ACCIDENT IN HOME 06/08/2017 VERONA SHERIDAN SILHOUETTE ARTIST Ot E888.9 FALL NOS 06/08/2017 Ot 709.9 SKIN DISORDER NOS 06/08/2017 Ot V72.63 PRE- PROCEDURAL LABORATORY EXAMINATION 06/08/2017 Ot V72.81 EXAM-PRE- OPERATIVE CARDIOVASCULAR 06/08/2017 Ot V74.8 SCREEN- BACTERIAL DIS NEC 06/08/2017 DIOMEDESUY HUIZAR VARITYPIST Ot 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 06/08/2017 FAB BEAVER MD Ot Z12.31 ENCNTR SCREEN MAMMOGRAM FOR MALIGNANT NE 06/08/2017 FAB BEAVER MD Ot Z12.31 ENCNTR SCREEN MAMMOGRAM FOR MALIGNANT NE 06/08/2017 FAB BEAVER MD Ot M25.551 PAIN IN RIGHT HIP 06/08/2017 FAB BEAVER MD Ot M25.552 PAIN IN LEFT HIP 06/08/2017 FAB BEAVER MD Ot M25.551 PAIN IN RIGHT HIP 06/08/2017 FAB BEAVER MD Ot M25.552 PAIN IN LEFT HIP 06/08/2017 MABLE FRIEND FACC, ALI FACP CCDS Ot I73.89 OTHER SPECIFIED PERIPHERAL VASCULAR DISE 06/08/2017 VERONA SHERIDAN APRN Ot Z12.31 ENCNTR SCREEN MAMMOGRAM FOR MALIGNANT NE 06/08/2017 FAB BEAVER MD Ot M16.11 UNILATERAL PRIMARY OSTEOARTHRITIS, RIGHT Procedures There is no data. Results Test Result Range Complete blood count (CBC) with automated white blood cell (WBC) differential - 10/15/16 20:44 Blood leukocytes automated count (number/volume) 6.4 10*3/uL 4.3-11.0 Blood erythrocytes automated count (number/volume) 4.13 10*6/uL 4.35-5.85 Venous blood hemoglobin measurement (mass/volume) 12.0 g/dL 11.5-16.0 Blood hematocrit (volume fraction) 36 % 35-52 Automated erythrocyte mean corpuscular volume 87 [foz_us] 80-99 Automated erythrocyte mean corpuscular hemoglobin (mass per erythrocyte) 29 pg 25-34 Automated erythrocyte mean corpuscular hemoglobin concentration measurement ( mass/volume) 33 g/dL 32-36 Automated erythrocyte distribution width ratio 15.0 % 10.0-14.5 Automated blood platelet count (count/volume) 155 10*3/uL 130-400 Automated blood platelet mean volume measurement 9.3 [foz_us] 7.4-10.4 Automated blood neutrophils/100 leukocytes 75 % 42-75 Automated blood lymphocytes/100 leukocytes 15 % 12-44 Blood monocytes/100 leukocytes 8 % 0-12 Automated blood eosinophils/100 leukocytes 3 % 0-10 Automated blood basophils/100 leukocytes 0 % 0-10 Blood neutrophils automated count (number/volume) 4.8 10*3 1.8-7.8 Blood lymphocytes automated count (number/volume) 1.0 10*3 1.0-4.0 Blood monocytes automated count (number/volume) 0.5 10*3 0.0-1.0 Automated eosinophil count 0.2 10*3/uL 0.0-0.3 Automated blood basophil count (count/volume) 0.0 10*3/uL 0.0-0.1 Comprehensive metabolic panel - 10/15/16 20:44 Serum or plasma sodium measurement (moles/volume) 140 mmol/L 135-145 Serum or plasma potassium measurement (moles/volume) 3.7 mmol/L 3.6-5.0 Serum or plasma chloride measurement (moles/volume) 102 mmol/L 98-107 Carbon dioxide 28 mmol/L 21-32 Serum or plasma anion gap determination (moles/volume) 10 mmol/L 5-14 Serum or plasma urea nitrogen measurement (mass/volume) 27 mg/dL 7-18 Serum or plasma creatinine measurement (mass/volume) 0.79 mg/dL 0.60-1.30 Serum or plasma urea nitrogen/creatinine mass ratio 34 NRG Serum or plasma creatinine measurement with calculation of estimated glomerular filtration rate > NRG Serum or plasma glucose measurement (mass/volume) 172 mg/dL 70-105 Serum or plasma calcium measurement (mass/volume) 9.4 mg/dL 8.5-10.1 Serum or plasma total bilirubin measurement (mass/volume) 0.5 mg/dL 0.1-1.0 Serum or plasma alkaline phosphatase measurement (enzymatic activity/volume) 44 U/L 40-136 Serum or plasma aspartate aminotransferase measurement (enzymatic activity/ volume) 17 U/L 5-34 Serum or plasma alanine aminotransferase measurement (enzymatic activity/volume ) 19 U/L 0-55 Serum or plasma protein measurement (mass/volume) 6.6 g/dL 6.4-8.2 Serum or plasma albumin measurement (mass/volume) 4.0 g/dL 3.2-4.5 Complete blood count (CBC) with automated white blood cell (WBC) differential - 06/07/17 21:20 Blood leukocytes automated count (number/volume) 5.5 10*3/uL 4.3-11.0 Blood erythrocytes automated count (number/volume) 4.76 10*6/uL 4.35-5.85 Venous blood hemoglobin measurement (mass/volume) 13.5 g/dL 11.5-16.0 Blood hematocrit (volume fraction) 40 % 35-52 Automated erythrocyte mean corpuscular volume 84 [foz_us] 80-99 Automated erythrocyte mean corpuscular hemoglobin (mass per erythrocyte) 28 pg 25-34 Automated erythrocyte mean corpuscular hemoglobin concentration measurement ( mass/volume) 34 g/dL 32-36 Automated erythrocyte distribution width ratio 15.6 % 10.0-14.5 Automated blood platelet count (count/volume) 171 10*3/uL 130-400 Automated blood platelet mean volume measurement 9.7 [foz_us] 7.4-10.4 Automated blood neutrophils/100 leukocytes 70 % 42-75 Automated blood lymphocytes/100 leukocytes 16 % 12-44 Blood monocytes/100 leukocytes 10 % 0-12 Automated blood eosinophils/100 leukocytes 4 % 0-10 Automated blood basophils/100 leukocytes 0 % 0-10 Blood neutrophils automated count (number/volume) 3.8 10*3 1.8-7.8 Blood lymphocytes automated count (number/volume) 0.9 10*3 1.0-4.0 Blood monocytes automated count (number/volume) 0.6 10*3 0.0-1.0 Automated eosinophil count 0.2 10*3/uL 0.0-0.3 Automated blood basophil count (count/volume) 0.0 10*3/uL 0.0-0.1 PT panel in platelet poor plasma by coagulation assay - 06/07/17 21:20 Prothrombin time (PT) in platelet poor plasma by coagulation assay 14.4 s 12.2-14.7 INR in platelet poor plasma or blood by coagulation assay 1.1 0.8-1.4 Activated partial thromboplastin time (aPTT) in platelet poor plasma bycoagulation assay - 06/07/17 21:20 Activated partial thromboplastin time (aPTT) in platelet poor plasma bycoagulation assay 29 s 24-35 Comprehensive metabolic panel - 06/07/17 21:20 Serum or plasma sodium measurement (moles/volume) 137 mmol/L 135-145 Serum or plasma potassium measurement (moles/volume) 4.0 mmol/L 3.6-5.0 Serum or plasma chloride measurement (moles/volume) 100 mmol/L 98-107 Carbon dioxide 25 mmol/L 21-32 Serum or plasma anion gap determination (moles/volume) 12 mmol/L 5-14 Serum or plasma urea nitrogen measurement (mass/volume) 30 mg/dL 7-18 Serum or plasma creatinine measurement (mass/volume) 0.83 mg/dL 0.60-1.30 Serum or plasma urea nitrogen/creatinine mass ratio 36 NRG Serum or plasma creatinine measurement with calculation of estimated glomerular filtration rate > NRG Serum or plasma glucose measurement (mass/volume) 148 mg/dL 70-105 Serum or plasma calcium measurement (mass/volume) 9.5 mg/dL 8.5-10.1 Serum or plasma total bilirubin measurement (mass/volume) 0.5 mg/dL 0.1-1.0 Serum or plasma alkaline phosphatase measurement (enzymatic activity/volume) 39 U/L 40-136 Serum or plasma aspartate aminotransferase measurement (enzymatic activity/ volume) 28 U/L 5-34 Serum or plasma alanine aminotransferase measurement (enzymatic activity/volume ) 20 U/L 0-55 Serum or plasma protein measurement (mass/volume) 7.2 g/dL 6.4-8.2 Serum or plasma albumin measurement (mass/volume) 4.4 g/dL 3.2-4.5 Magnesium - 06/07/17 21:20 Magnesium 2.4 mg/dL 1.8-2.4 Serum or plasma troponin i.cardiac measurement (mass/volume) - 06/07/17 21:20 Serum or plasma troponin i.cardiac measurement (mass/volume) < ng/ mL <0.30 Serum or plasma lithium measurement (moles/volume) - 06/07/17 21:20 BNP level 333.6 pg/mL <100.0 Complete blood count (CBC) with automated white blood cell (WBC) differential - 06/08/17 05:30 Blood leukocytes automated count (number/volume) 8.9 10*3/uL 4.3-11.0 Blood erythrocytes automated count (number/volume) 4.64 10*6/uL 4.35-5.85 Venous blood hemoglobin measurement (mass/volume) 13.0 g/dL 11.5-16.0 Blood hematocrit (volume fraction) 39 % 35-52 Automated erythrocyte mean corpuscular volume 84 [foz_us] 80-99 Automated erythrocyte mean corpuscular hemoglobin (mass per erythrocyte) 28 pg 25-34 Automated erythrocyte mean corpuscular hemoglobin concentration measurement ( mass/volume) 33 g/dL 32-36 Automated erythrocyte distribution width ratio 15.7 % 10.0-14.5 Automated blood platelet count (count/volume) 186 10*3/uL 130-400 Automated blood platelet mean volume measurement 9.6 [foz_us] 7.4-10.4 Automated blood neutrophils/100 leukocytes 77 % 42-75 Automated blood lymphocytes/100 leukocytes 13 % 12-44 Blood monocytes/100 leukocytes 9 % 0-12 Automated blood eosinophils/100 leukocytes 1 % 0-10 Automated blood basophils/100 leukocytes 0 % 0-10 Blood neutrophils automated count (number/volume) 6.8 10*3 1.8-7.8 Blood lymphocytes automated count (number/volume) 1.1 10*3 1.0-4.0 Blood monocytes automated count (number/volume) 0.8 10*3 0.0-1.0 Automated eosinophil count 0.1 10*3/uL 0.0-0.3 Automated blood basophil count (count/volume) 0.0 10*3/uL 0.0-0.1 Comprehensive metabolic panel - 06/08/17 05:30 Serum or plasma sodium measurement (moles/volume) 135 mmol/L 135-145 Serum or plasma potassium measurement (moles/volume) 4.1 mmol/L 3.6-5.0 Serum or plasma chloride measurement (moles/volume) 100 mmol/L 98-107 Carbon dioxide 21 mmol/L 21-32 Serum or plasma anion gap determination (moles/volume) 14 mmol/L 5-14 Serum or plasma urea nitrogen measurement (mass/volume) 30 mg/dL 7-18 Serum or plasma creatinine measurement (mass/volume) 0.82 mg/dL 0.60-1.30 Serum or plasma urea nitrogen/creatinine mass ratio 37 NRG Serum or plasma creatinine measurement with calculation of estimated glomerular filtration rate > NRG Serum or plasma glucose measurement (mass/volume) 136 mg/dL 70-105 Serum or plasma calcium measurement (mass/volume) 9.1 mg/dL 8.5-10.1 Serum or plasma total bilirubin measurement (mass/volume) 0.5 mg/dL 0.1-1.0 Serum or plasma alkaline phosphatase measurement (enzymatic activity/volume) 36 U/L 40-136 Serum or plasma aspartate aminotransferase measurement (enzymatic activity/ volume) 29 U/L 5-34 Serum or plasma alanine aminotransferase measurement (enzymatic activity/volume ) 18 U/L 0-55 Serum or plasma protein measurement (mass/volume) 6.9 g/dL 6.4-8.2 Serum or plasma albumin measurement (mass/volume) 4.1 g/dL 3.2-4.5 THYROID STIMULATING HORMONE - 06/08/17 05:30 THYROID STIMULATING HORMONE 5.36 u[iU]/mL 0.35-4.94 Capillary blood glucose measurement by glucometer (mass/volume) - 06/08/17 05: 48 Capillary blood glucose measurement by glucometer (mass/volume) 159 mg/dL 70-110 Capillary blood glucose measurement by glucometer (mass/volume) - 06/08/17 10: 58 Capillary blood glucose measurement by glucometer (mass/volume) 172 mg/dL 70-110 Capillary blood glucose measurement by glucometer (mass/volume) - 06/08/17 15: 32 Capillary blood glucose measurement by glucometer (mass/volume) 130 mg/dL 70-110 Capillary blood glucose measurement by glucometer (mass/volume) - 06/09/17 06: 25 Capillary blood glucose measurement by glucometer (mass/volume) 135 mg/dL 70-110 Encounters ACCT No. Visit Date/Time Discharge Status Pt. Type Provider Facility Loc./Unit Complaint [id number] 01/18/2017 14:07:00 01/18/2017 23:59:59 CLS Outpatient FAB BEAVER MD [facility] RAD M25.551 [id number] 12/28/2016 10:42:00 12/28/2016 23:59:59 CLS Outpatient VERONA SHERIDAN APRN [facility] RAD SCREENING Z12.31 [id number] 10/15/2016 19:41:00 10/15/2016 22:29:00 DIS Emergency ROD FLEMING SILHOUETTE ARTIST [facility] ER RT LEG SWELLING/BRUISING [id number] 07/17/2016 13:58:00 07/17/2016 23:59:59 CLS Outpatient MABLE FRIEND FACC, BETH AGUDELO CCDS [facility] RAD I73.89 [id number] 07/14/2016 20:02:00 07/14/2016 22:09:00 DIS Emergency DUSTIN DESIR [facility] ER FALL INJ L KNEE [id number] 05/29/2016 12:43:00 05/29/2016 16:00:00 DIS Outpatient VERONA SHERIDAN APRN [facility] WOUNDCARE [id number] 01/21/2016 09:01:00 01/21/2016 23:59:59 CLS Outpatient FAB BEAVER MD [facility] RAD B HIP PAIN, ABNORMAL HIP XRAY [id number] 01/13/2016 13:10:00 01/13/2016 23:59:59 CLS Outpatient FAB BEAVER MD [facility] RAD HIP PAIN [id number] 12/28/2015 11:28:00 12/28/2015 23:59:59 CLS Outpatient FAB BEAVER MD [facility] RAD SCREENING [id number] 12/26/2015 06:35:00 12/26/2015 11:00:00 DIS Outpatient ENRIQUE KINCAID MD [facility] SDC POLYPS [id number] 12/22/2015 05:50:00 12/22/2015 12:20:00 DIS Outpatient ENRIQUE KICNAID MD [facility] PREOP POLYPS [id number] 12/09/2015 15:07:00 12/09/2015 23:59:59 CLS Outpatient COLDARRION MARTIN DO [facility] QUICK [id number] 12/29/2014 10:36:00 12/29/2014 23:59:59 CLS Outpatient FAB BEAVER MD [facility] RAD SCREENING [id number] 12/09/2014 13:32:00 12/09/2014 23:59:59 CLS Outpatient YU CASTRO [facility] CARD MITRAL REGURGITATION ,HYPERLIPIDEMIA [id number] 01/08/2014 12:39:00 01/08/2014 23:59:59 CLS Outpatient VERONA SHERIDAN APRN [facility] RAD POST TRAUMA, FELL AT HOME [id number] 12/18/2013 10:46:00 12/18/2013 23:59:59 CLS Outpatient FAB BEAVER MD [facility] RAD ROUTINE [id number] 08/14/2013 10:08:00 08/14/2013 23:59:59 CLS Outpatient YU CASTRO [facility] LAB HYPERLIPIDEMIA, HYPERTENSION,PAD,DM II [id number] 12/22/2012 08:00:00 12/22/2012 10:55:00 DIS Outpatient ENRIQUE KINCAID MD [facility] SDC HISTORY OF POLYPS [id number] 12/17/2012 07:18:00 12/17/2012 23:59:59 CLS Outpatient ENRIQUE KINCAID MD [facility] PREOP HISTORY OF POLYPS [id number] 12/10/2012 09:45:00 12/10/2012 23:59:59 CLS Outpatient FAB BEAVER MD [facility] RAD SCREENING [id number] 12/05/2012 09:20:00 12/05/2012 23:59:59 CLS Outpatient FAB BEAVER MD [facility] RAD RT WRIST WITHOUT FALL [id number] 12/05/2012 09:18:00 12/05/2012 23:59:59 CLS Outpatient YU CASTRO [facility] LAB HYPERLIADEMIA [id number] 10/27/2012 09:33:00 10/27/2012 23:59:59 CLS Outpatient DIOMEDESBHUPENDRAYU [facility] LAB HYPOKALEMIA [id number] 10/17/2012 09:08:00 10/17/2012 23:59:59 CLS Outpatient DIOMEDESBHUPENDRAYU [facility] LAB HYPERTENSION, HYPERLIPADEMIA [id number] 06/07/2017 22:55:00 ACT Inpatient KENNEDI FRIEND, ESTRELLITA Raymundo [facility] 4TH HYPERTENSIVE URGENCY;CHF [id number] 05/12/2014 10:30:00 Document Registration [id number] 05/05/2014 10:35:00 Document Registration [id number] 04/17/2012 08:37:00 Document Registration [id number] 04/11/2012 09:38:00 Document Registration [id number] 12/26/2011 09:03:00 Document Registration [id number] 12/27/2006 09:56:00 Document Registration [id number] 12/09/2014 13:34:08 ACT Document Registration
--- NOTE | 2017-06-10 22:22 | ED Cardiac General ---
History of Present Illness General Chief Complaint: Cardiac/General Problems Stated Complaint: ELEV BP Nursing Triage Note: HIGH BLOOD PRESSURE ABRIL PATRICIA'Dony FROM [facility]OS[facility] 06/09/17 FOR SAME Source: patient, family (daughter) Exam Limitations: no limitations History of Present Illness Date Seen by Provider: Jun 10, 2017 Time Seen by Provider: 21:57 Initial Comments The patient presents to the ER by private conveyance with her family and a chief complaint that she was noted to have high blood pressure this evening at 7 :00 when they checked it. Systolic was in the 180s to 190 range. The patient had just been discharged from the inpatient service in the last day with a chief complaint then of high blood pressure. She is not having any neurologic symptoms nor she ever had a stroke that they know of. There were told he had strokelike changes on the CT scan of her head however. She's not had a heart attack but she does have a history of coronary artery disease for which she is on aspirin, atorvastatin, atenolol and losartan. When she was discharged a double her losartan and atenolol. She has not been on any other blood pressure medicines nor has she had problems with her blood pressure like this before. She is not having any chest pain, shortness of breath. While she was here they found some fluid around her lungs so they did put her on some water pills, Lasix for 2 days temporarily. She has no longer on the Lasix. She started to have a left temporal/frontal headache since she got here. She has been active today and eating and drinking normal for herself. The daughter denies any facial droop, slurred speech, weakness or falls. Allergies and Home Medications Allergies Coded Allergies: No Known Drug Allergies (Verified , 12/25/06) Home Medications Acetaminophen 500 Mg Tablet, 1,000 MG PO DAILY, (Reported) Acetaminophen 500 Mg Tablet, 500 MG PO HS, (Reported) Acetaminophen/Diphenhydramine 1 Each Tablet, 1 EACH PO HS, (Reported) Antiox#10/Om3/Dha/Epa/Lut/Zeax 1 Each Capsule, 1 EACH PO DAILY, (Reported) Aspirin 81 Mg Tablet., 81 MG PO DAILY, (Reported) Atenolol 50 Mg Tablet, 50 MG PO DAILY Prescribed by: ESTRELLITA KOLB on 06/09/17 1033 Atorvastatin Calcium 10 Mg Tablet, 10 MG PO HS, (Reported) Fenofibrate 135 Mg Capsule.dr, 135 MG PO DAILY, (Reported) Loratadine 10 Mg Tablet, 10 MG PO DAILY, (Reported) Losartan Potassium 100 Mg Tablet, 100 MG PO DAILY Prescribed by: ESTRELLITA KOLB on 06/09/17 1033 Memantine HCl 28 Mg Cap.spr.24, 28 MG PO HS, (Reported) Metformin Hcl 500 Mg Tablet, 500 MG PO BID, (Reported) Naproxen 500 Mg Tablet, 500 MG PO DAILY PRN for BREAKTHROUGH PAIN, (Reported) Hartley-3 Acid Ethyl Esters 1 Gm Capsule, 2 GM PO BID, (Reported) Quetiapine Fumarate 100 Mg Tablet, 100 MG PO HS, (Reported) Quetiapine Fumarate 100 Mg Tablet, 50 MG PO DAILY, (Reported) Sitagliptin Phosphate 50 Mg Tablet, 50 MG PO DAILY, (Reported) Venlafaxine Hcl 150 Mg Tab.osm.24, 150 MG PO DAILY, (Reported) Patient Home Medication List Home Medication List Reviewed: Yes Review of Systems Constitutional: No chills, No diaphoresis, No fever, No malaise EENTM: No Blurred Vision, No Double Vision Respiratory: Denies Cough, Denies Shortness of Air Cardiovascular: Denies Chest Pain, Denies Edema Gastrointestinal: Denies Abdomen Distended, Denies Abdominal Pain, Denies Constipated, Denies Diarrhea, Denies Nausea, Denies Poor Appetite Genitourinary: Denies Burning, Denies Discharge Musculoskeletal: No back pain, No joint pain Skin: No pruritus, No rash Psychiatric/Neurological: Headache, Denies Numbness, Denies Paresthesia Past [id number] Hx Patient Social History Alcohol Use: Denies Use Recreational Drug Use: No Smoking Status: Never a Smoker 2nd Hand Smoke Exposure: No Recent Foreign Travel: No Contact w/Someone Who Travel: No Recent Infectious Disease Expo: No Recent Hopitalizations: Yes (HYPERTENSION) Immunizations Up To Date Tetanus Booster (TDap): Less than 5yrs Date of Pneumonia Vaccine: Nov 02, 2016 Date of Influenza Vaccine: Dec 02, 2015 Seasonal Allergies Seasonal Allergies: Yes Past Medical History Surgeries: Yes Eye Surgery, Gallbladder, 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, Orthopedic Respiratory: No Cardiac: Yes (MILD MITRAL REGURGITATION) High Cholesterol, Hypertension, Valvular Heart Disease Neurological: Yes Dementia, Stroke : No Reproductive Disorders: No Female Reproductive Disorders: Denies 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 History: 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, Menopausal Sexually Transmitted Disease: No HIV/AIDS: No Genitourinary: No Gastrointestinal: Yes (DYSPLASTIC COLON POLYPS) Diverticulosis, Hemorrhoids, Polyps Musculoskeletal: Yes (RESTLESS LEGS; OSTEOMYELITIS RIGHT FOOT) Arthritis Endocrine: Yes Diabetes, Non-Insulin dep HEENT: Yes (LEFT EYE REMOVED/ PROSTHETIC EYE; WEARS GLASSES; ALL TEETH REMOVED) Cataract Loss of Vision: Left Cancer: Yes Skin Did You Recieve Any Treatments: Yes What Type of Treatment Did You: Surgical Intervention Psychosocial: Yes (SELF MUTILATION-"PICKS" ) Sleep Difficulties, Anxiety, Depression Integumentary: Yes (FOOT ULCERS; STAPH INFECTION; OSTEOMYELITIS RIGHT FOOT; BEARDEN TO FINGERS) Blood Disorders: No Family Medical History No Pertinent Family Hx Physical Exam Vital Signs Vital Signs - First Documented 06/10/17 21:40 Temp 97.8 Pulse 69 Resp 18 B/P (MAP) 224/109 (147) Pulse Ox 90 O2 Delivery Room Air Capillary Refill : Less Than 3 Seconds General Appearance: No Apparent Distress, WD/WN HEENT: PERRL/EOMI, TMs Normal, Normal ENT Inspection, Pharynx Normal Neck: Full Range of Motion, Normal Inspection, Non Tender, Supple Respiratory: Chest Non Tender, Lungs Clear, Normal Breath Sounds, No Accessory Muscle Use, No Respiratory Distress Cardiovascular: Regular Rate, Rhythm, No Edema, Normal Peripheral Pulses Gastrointestinal: Normal Bowel Sounds, Non Tender, Soft Extremity: Normal Capillary Refill, No Pedal Edema Neurologic/Psychiatric: Alert, Oriented x3, No Motor/Sensory Deficits, Normal Mood/Affect, medical assembly II-XII Norm as Tested Skin: Normal Color, Warm/Dry Progress/Results/Core Measures Lab Results Laboratory Tests Test 06/10/17 22:30 06/10/17 23:00 Range/Units White Blood Count 6.7 4.3-11.0 10^3/uL Red Blood Count 5.11 4.35-5.85 10^6/uL Hemoglobin 14.3 11.5-16.0 G/DL Hematocrit 43 35-52 % Mean Corpuscular Volume 83 80-99 FL Mean Corpuscular Hemoglobin 28 25-34 PG Mean Corpuscular Hemoglobin Concent 34 32-36 G/DL Red Cell Distribution Width 15.7 H 10.0-14.5 % Platelet Count 181 130-400 10^3/uL Mean Platelet Volume 9.5 7.4-10.4 FL Neutrophils (%) (Auto) 68 42-75 % Lymphocytes (%) (Auto) 19 12-44 % Monocytes (%) (Auto) 10 0-12 % Eosinophils (%) (Auto) 3 0-10 % Basophils (%) (Auto) 0 0-10 % Neutrophils # (Auto) 4.6 1.8-7.8 X 10^3 Lymphocytes # (Auto) 1.2 1.0-4.0 X 10^3 Monocytes # (Auto) 0.7 0.0-1.0 X 10^3 Eosinophils # (Auto) 0.2 0.0-0.3 10^3/uL Basophils # (Auto) 0.0 0.0-0.1 10^3/uL Sodium Level 137 135-145 MMOL/L Potassium Level 4.0 3.6-5.0 MMOL/L Chloride Level 98 98-107 MMOL/L Carbon Dioxide Level 29 21-32 MMOL/L Anion Gap 10 5-14 MMOL/L Blood Urea Nitrogen 36 H 7-18 MG/DL Creatinine 1.04 0.60-1.30 MG/DL Estimat Glomerular Filtration Rate 52 BUN/Creatinine Ratio 35 Glucose Level 151 H 70-105 MG/DL Calcium Level 9.9 8.5-10.1 MG/DL Magnesium Level 2.3 1.8-2.4 MG/DL Total Bilirubin 0.4 0.1-1.0 MG/DL Aspartate Amino Transf (AST/SGOT) 17 5-34 U/L Alanine Aminotransferase (ALT/SGPT) 18 0-55 U/L Alkaline Phosphatase 44 40-136 U/L Troponin I < 0.30 <0.30 NG/ML Total Protein 7.0 6.4-8.2 GM/DL Albumin 4.2 3.2-4.5 GM/DL Urine Color YELLOW Urine Clarity CLEAR Urine pH 6.5 5-9 Urine Specific [place] 1.010 L 1.016-1.022 Urine Protein NEGATIVE NEGATIVE Urine Glucose (UA) NEGATIVE NEGATIVE Urine Ketones NEGATIVE NEGATIVE Urine Nitrite NEGATIVE NEGATIVE Urine Bilirubin NEGATIVE NEGATIVE Urine Urobilinogen NORMAL NORMAL MG/DL Urine Leukocyte Esterase 1+ H NEGATIVE Urine RBC (Auto) 1+ H NEGATIVE Urine RBC NONE /HPF Urine WBC 0-2 /HPF Urine Squamous Epithelial Cells RARE /HPF Urine Crystals NONE /LPF Urine Bacteria NONE /HPF Urine Casts NONE /LPF Urine Mucus NEGATIVE /LPF Urine Culture Indicated NO My Orders Orders - [facility] Cbc With Automated Diff (06/10/17 22:15) Comprehensive Metabolic Panel (06/10/17 22:15) Magnesium (06/10/17 22:15) Troponin I (06/10/17 22:15) Ua Culture If Indicated (06/10/17 22:15) Ekg Tracing (06/10/17 22:15) Continuous Ekg Monitoring (06/10/17 22:15) Hydrocodone/Apap 5/325 Tablet (Lortab 5 (06/10/17 22:45) Medications Given in ED Current Medications Medications Dose Ordered Sig/Darius Route Start Time Stop Time Status Last Admin Dose Admin Acetaminophen/ Hydrocodone Bitart 0.5 tab ONCE ONCE PO 06/10/17 22:45 06/10/17 22:46 DC 06/10/17 22:46 0.5 TAB Vital Signs/I&O 06/10/17 06/10/17 21:40 22:46 Temp 97.8 97.8 Pulse 69 Resp 18 B/P (MAP) 224/109 (147) Pulse Ox 90 O2 Delivery Room Air Blood Pressure Mean: 147 Progress Note : Time: 22:20 Progress Note For the first 15-20 minutes we'll have her rest in bed and watch her blood pressure. We'll check an EKG, some blood work included troponin, CBC, CMP. We' ll also check a CRP/ESR given her headache make sure there is no inflammatory process. Review the records demonstrates she was discharged in a higher dose of her atenolol 50 mg and losartan 100 mg with plan to do a slow decrease her blood pressure over the next few days. The patient is still asymptomatic except for the headache. The patient seemed to respond well to the Lasix so we made add some hydrochlorothiazide Initial ECG Impression Date: Jun 10, 2017 Initial ECG Impression Time: 21:59 Initial ECG Rate: 68 Initial ECG Rhythm: Normal Sinus Initial ECG Intervals: Normal Initial ECG Impression: Normal, Nonspecific Changes Comment No ST segment elevation or depression. Departure Communication (PCP) Discussed the case with True, nurse practitioner for Dr. Beaver. She will come indicate with her team about the patient's leg pain as well as her blood pressure which is 133/93 presently with the patient resting comfortably. Impression Primary Impression: Asymptomatic hypertension Disposition: HOME, SELF-CARE Condition: Stable Departure-Patient Inst. Decision time for Depature: 23:44 Referrals: FAB BEAVER MD (PCP/Family) Primary Care Physician Patient Instructions: High Blood Pressure in Adults Add. Discharge Instructions: Follow-up with your primary care provider tomorrow. Discuss your leg pain as well as your blood pressure issues. All discharge instructions reviewed with patient and/or family. Voiced understanding. Copy Copies To 1: FAB BEAVER MD, TITUS J Jun 10, 2017 22:22
[2017-06-10 22:35] LABS: BASOPHILS % (AUTO) 0 % (0-10); EOSINOPHILS # (AUTO) 0.2 10^3/uL (0.0-0.3); EOSINOPHILS % (AUTO) 3 % (0-10); HEMATOCRIT 43 % (35-52); HEMOGLOBIN 14.3 G/DL (11.5-16.0); LYMPHOCYTES # (AUTO) 1.2 X 10^3 (1.0-4.0); LYMPHOCYTES % (AUTO) 19 % (12-44); MEAN CORPUSCULAR HEMOGLOBIN 28 PG (25-34); MEAN CORPUSCULAR HGB CONC 34 G/DL (32-36); MEAN CORPUSCULAR VOLUME 83 FL (80-99); MEAN PLATELET VOLUME 9.5 FL (7.4-10.4); MONOCYTES # (AUTO) 0.7 X 10^3 (0.0-1.0); MONOCYTES % (AUTO) 10 % (0-12); NEUTROPHILS # (AUTO) 4.6 X 10^3 (1.8-7.8); NEUTROPHILS % (AUTO) 68 % (42-75); PLATELET COUNT 181 10^3/uL (130-400); RED BLOOD COUNT 5.11 10^6/uL (4.35-5.85); RED CELL DISTRIBUTION WIDTH 15.7 % (10.0-14.5); WHITE BLOOD COUNT 6.7 10^3/uL (4.3-11.0)
[2017-06-10] MEDS ORDERED: HYDROcodone/APAP 5 MG/325 MG (LORTAB) TAB PO ONE (22:45)
[2017-06-10 22:54] LABS: ALANINE AMINOTRANSFERASE 18 U/L (0-55); ALBUMIN 4.2 GM/DL (3.2-4.5); ALKALINE PHOSPHATASE 44 U/L (40-136); BILIRUBIN,TOTAL 0.4 MG/DL (0.1-1.0); BUN/CREATININE RATIO 35; CALCIUM 9.9 MG/DL (8.5-10.1); CARBON DIOXIDE 29 MMOL/L (21-32); CHLORIDE 98 MMOL/L (98-107); CREATININE SERUM 1.04 MG/DL (0.60-1.30); GFR ESTIMATED 52; GLUCOSE 151 MG/DL (70-105); MAGNESIUM 2.3 MG/DL (1.8-2.4); SODIUM 137 MMOL/L (135-145)
[2017-06-10 23:08] LABS: BILIRUBIN,URINE NEGATIVE (NEGATIVE); CLARITY,URINE CLEAR; COLOR,URINE YELLOW; GLUCOSE, URINE (UA) NEGATIVE (NEGATIVE); KETONES,URINE NEGATIVE (NEGATIVE); LEUKOCYTE ESTERASE ,URINE 1+ (NEGATIVE); NITRITE,URINE NEGATIVE (NEGATIVE); PH,URINE 6.5 (5-9); PROTEIN,URINE NEGATIVE (NEGATIVE); UROBILINOGEN,URINE NORMAL (NORMAL)
[2017-06-10 23:15] LABS: SQUAMOUS EPITHELIAL CELL,UR RARE /HPF; WBC,URINE 0-2 /HPF
[2017-06-10 23:52] VITALS: BP 133/93
== END 2017-06-10 23:48 | disposition home or self-care (01) ==
LOC: EDUNIT# 21:22 → ER 21:23
DX: I10 Essential (primary) hypertension (principal); F41.9 Anxiety disorder, unspecified; F32.9 Major depressive disorder, single episode, unspecified; E78.00 Pure hypercholesterolemia, unspecified; F03.90 Unspecified dementia, unspecified severity, without behavioral disturbance, psychotic disturbance, mood disturbance, and anxiety; G47.9 Sleep disorder, unspecified; E11.9 Type 2 diabetes mellitus without complications; G25.81 Restless legs syndrome; I25.10 Atherosclerotic heart disease of native coronary artery without angina pectoris; Z87.828 Personal history of other (healed) physical injury and trauma; Z87.2 Personal history of diseases of the skin and subcutaneous tissue; Z90.710 Acquired absence of both cervix and uterus; Z86.73 Personal history of transient ischemic attack (TIA), and cerebral infarction without residual deficits; Z79.82 Long term (current) use of aspirin; Z79.84 Long term (current) use of oral hypoglycemic drugs
CPT/HCPCS: 36415; 80053; 81000; 83735; 84484; 85025; 93005

== ENCOUNTER 2017-08-16 23:20 | Emergency (ER) | payer MEDICARE, MEDICAID ==
[~2017-08-16] VITALS: Ht 162.6 cm; Wt 65.8 kg
--- OUTSIDE RECORDS SUMMARY | 2017-08-16 23:28 | XMS REPORT | Continuity of Care Document ---
Author Author [facility] Organization [facility] Address Unknown Phone Unavailable Allergies Active Description Code Type Severity Reaction Onset Reported/Identified Relationship to Patient Clinical Status Yes No Known Drug Allergies [id number] Drug Allergy Unknown N/A 12/26/2015 Medications There [...] (W/O MENT OF HEMORR 12/22/2012 SANJIV FRIEND, ENIRQUE Raymundo Ot V16.0 FAMILY HX-GI MALIGNANCY 12/22/2012 SANJIV FRIEND, ENRIQUE Raymundo Ot V67.09 SURGERY FOLLOW-UP, OTHER SURGERY 01/19/2014 SARANYA FRIEND, FAB Napoles Ot V76.12 02/19/2014 VERONA SHERIDAN APRN Ot 959.5 02/19/2014 VERONA SHERIDAN [employer] STORAGE WORKER Ot E849.0 02/19/2014 VERONA SHERIDAN [employer] STORAGE WORKER Ot E888.9 05/12/2014 Ot 173.31 BASAL CELL CARCINOMA OF SKIN OF OTH UN 05/12/2014 Ot 250.00 DIAB TOBY WO COMPL, TYPE II OR UNSPEC TY 05/12/2014 Ot V58.69 OTH MED,LT, CURRENT USE 06/01/2014 Ot 709.9 06/01/2014 Ot V72.63 06/01/2014 Ot V72.81 06/01/2014 Ot V74.8 06/08/2014 Ot 709.9 06/08/2014 Ot V72.63 06/08/2014 Ot V72.81 06/08/2014 Ot V74.8 12/29/2014 GLORIA YU L FRONT END TECHNICIAN Ot I34.8 01/03/2015 YU CASTRO FRONT END TECHNICIAN Ot I34.8 01/19/2015 FAB BEAVER MD Ot [...] 715.36 04/04/2016 Ot 715.37 05/29/2016 VERONA SHERIDAN [employer]ORAGE WORKER Ot L03.011 CELLULITIS OF RIGHT FINGER 05/29/2016 VERONA SHERIDAN MET[employer] STORAGE WORKER Ot S61.202D UNSP OPEN WOUND OF R MID FINGER W/O [place] 05/29/2016 VERONA SHERIDAN MET[employer] STORAGE WORKER Ot L03.011 CELLULITIS OF RIGHT FINGER 05/29/2016 VERONA SHERIDAN MET[employer] STORAGE WORKER Ot S61.202D UNSP OPEN WOUND OF R MID FINGER W/O [place] 07/14/2016 DUSTIN DESIR Ot E11.9 TYPE 2 DIABETES MELLITUS WITHOUT COMPLIC 07/14/2016 DUSTIN DESIR Ot I10 ESSENTIAL (PRIMARY) HYPERTENSION 07/14/2016 DUSTIN DESIR Ot S80.02XA CONTUSION OF LEFT KNEE, INITIAL ENCOUNTE 07/14/2016 DUSTIN DESIR Ot W01.0XXA FALL SAME LEV FROM SLIP/TRIP W/O STRIKE 07/14/2016 NOEMI MARTINEZ DUSTIN L Ot Y92.[address] IN [facility] NON-INSTIT[facility] (PRIVATE 07/14/2016 DUSTIN DESIR Ot Y99.8 OTHER EXTERNAL CAUSE STATUS 07/14/2016 DUSTIN DESIR Ot Z79.84 TRANSPORTATION REFRIGERATION TECHNICIAN (CURRENT) USE OF ORAL HYPOGLYC 07/14/2016 DUSTIN DESIR Ot Z79.899 OTHER TRANSPORTATION REFRIGERATION TECHNICIAN (CURRENT) DRUG THERAPY 07/16/2016 MABLE FRIEND FACC, [...] DUSTIN DESIR Ot Y92.[address] IN [facility] NON-INSTIT[facility] (PRIVATE 07/20/2016 DUSTIN DESIR Ot Y99.8 OTHER EXTERNAL CAUSE STATUS 07/20/2016 DUSTIN DESIR Ot Z79.84 JAIL (CURRENT) USE OF ORAL HYPOGLYC 07/20/2016 DUSTIN DESIR Ot Z79.899 OTHER JAIL (CURRENT) DRUG THERAPY 08/13/2016 MABLE FRIEND FACC, ALI FACP CCDS Ot I73.89 OTHER SPECIFIED PERIPHERAL VASCULAR DISE 08/17/2016 MABLE FRIEND FACC, ALI FACP CCDS Ot I73.89 OTHER SPECIFIED PERIPHERAL VASCULAR DISE 10/15/2016 ROD FLEMING [employer] STORAGE WORKER Ot E11.9 TYPE 2 DIABETES MELLITUS WITHOUT COMPLIC 10/15/2016 ROD FLEMING [employer] STORAGE WORKER Ot F32.9 MAJOR DEPRESSIVE DISORDER, SINGLE EPISOD 10/15/2016 ROD FLEMING APRN Ot F41.9 ANXIETY DISORDER, UNSPECIFIED 10/15/2016 ROD FLEMING [employer] STORAGE WORKER Ot I10 ESSENTIAL (PRIMARY) HYPERTENSION 10/15/2016 ROD FLEMING [employer] STORAGE WORKER Ot M71.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 [HENAO] 10/15/2016 ROD FLEMING APRN Ot M79.661 PAIN IN RIGHT LOWER LEG 10/15/2016 ROD FLEMING APRN Ot M79.81 NONTRAUMATIC HEMATOMA OF SOFT TISSUE 10/15/2016 ROD FLEMING [employer]ORAGE WORKER Ot Z79.84 JAIL (CURRENT) USE OF ORAL HYPOGLYC 10/15/2016 ROD FLEMING MET[employer] STORAGE WORKER Ot Z90.710 ACQUIRED ABSENCE OF BOTH CERVIX AND UTER 10/22/2016 ROD FLEMING APRN Ot E11.9 TYPE 2 DIABETES MELLITUS WITHOUT COMPLIC 10/22/2016 ROD FLEMING APRN Ot F32.9 MAJOR DEPRESSIVE DISORDER, SINGLE EPISOD 10/22/2016 ROD FLEMING APRN Ot F41.9 ANXIETY DISORDER, UNSPECIFIED 10/22/2016 ROD FLEMING APRN Ot I10 ESSENTIAL (PRIMARY) HYPERTENSION 10/22/2016 ROD FLEIMNG APRN Ot M71.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 [HENAO] 10/22/2016 ROD FLEMING APRN Ot M79.81 NONTRAUMATIC HEMATOMA OF SOFT TISSUE 10/22/2016 ROD FLEMING MET[employer] STORAGE WORKER Ot Z79.84 JAIL (CURRENT) USE OF ORAL HYPOGLYC 10/22/2016 ROD FLEMING APRN Ot Z90.710 ACQUIRED ABSENCE OF BOTH CERVIX AND UTER 12/16/2016 ROD FLEMING APRN Ot E11.9 TYPE 2 DIABETES MELLITUS WITHOUT COMPLIC 12/16/2016 ROD FLEMING APRN Ot F32.9 MAJOR DEPRESSIVE DISORDER, SINGLE EPISOD 12/16/2016 ROD FLEMING APRN Ot F41.9 ANXIETY DISORDER, UNSPECIFIED 12/16/2016 ROD FLEMING MET[employer] STORAGE WORKER Ot I10 ESSENTIAL (PRIMARY) HYPERTENSION 12/16/2016 ROD FLEMING METAL STORAGE WORKER Ot M71.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 [HENAO] 12/16/2016 ROD FLEMING APRN Ot M79.661 PAIN IN RIGHT LOWER LEG 12/16/2016 ROD FLEMING APRN Ot M79.81 NONTRAUMATIC HEMATOMA OF SOFT TISSUE 12/16/2016 ROD FLEMING [employer] STORAGE WORKER Ot Z79.84 TRANSPORTATION REFRIGERATION TECHNICIAN (CURRENT) USE OF ORAL HYPOGLYC 12/16/2016 ROD FLEMING MET[employer] STORAGE WORKER Ot Z90.710 ACQUIRED ABSENCE OF BOTH CERVIX AND UTER 01/21/2017 VERONA SHERIDAN MET[employer] STORAGE WORKER Ot Z12.31 ENCNTR SCREEN MAMMOGRAM FOR MALIGNANT NE 01/29/2017 VERONA SHERIDAN [employer]ORAGE WORKER Ot Z12.31 ENCNTR SCREEN MAMMOGRAM FOR MALIGNANT [...] Ot 276.8 HYPOPOTASSEMIA 06/08/2017 BAIMA, YU L FRONT END TECHNICIAN Ot 272.4 HYPERLIPIDEMIA NEC/NOS 06/08/2017 BAIMA, YU L FRONT END TECHNICIAN Ot 401.9 HYPERTENSION NOS 06/08/2017 BAIMA, YU L FRONT END TECHNICIAN Ot V58.69 OTH MED,LT,CURRENT USE 06/08/2017 BAIMA, YU L FRONT END TECHNICIAN Ot 276.8 HYPOPOTASSEMIA 06/08/2017 FAB BEAVER MD Ot V76.12 OTH SCREEN MAMMO-MALIGN NEOPLASM OF [place] 06/08/2017 BAIMA, YU L FRONT END TECHNICIAN Ot 272.4 HYPERLIPIDEMIA NEC/NOS 06/08/2017 BAIMA, YU L FRONT END TECHNICIAN Ot V58.69 OTH MED,LT,CURRENT USE 06/08/2017 FAB BEAVER MD Ot 715.33 LOC OSTEOART NOS-FOREARM 06/08/2017 SANJIV FRIEND, ENRIQUE Raymundo Ot V72.84 EXAM PRE-OPERATIVE NOS 06/08/2017 BAIMA, YU L FRONT END TECHNICIAN Ot 250.00 DIAB TOBY WO COMPL, TYPE II OR UNSPEC TY 06/08/2017 BAIMA, YU L FRONT END TECHNICIAN Ot 272.4 HYPERLIPIDEMIA NEC/NOS 06/08/2017 YU CASTRO FRONT END TECHNICIAN Ot 401.9 HYPERTENSION NOS 06/08/2017 YU CASTRO FRONT END TECHNICIAN Ot 443.9 PERIPH VASCULAR DIS NOS 06/08/2017 FAB BEAVER MD Ot V76.12 OTH SCREEN MAMMO-MALIGN NEOPLASM OF [place] 06/08/2017 VERONA SHERIDAN [employer]ORAGE WORKER Ot 959.5 FINGER INJURY NOS 06/08/2017 VERONA SHERIDAN [employer] STORAGE WORKER Ot E849.0 ACCIDENT IN HOME 06/08/2017 VERONA SHERIDAN [employer] STORAGE WORKER Ot E888.9 FALL NOS 06/08/2017 Ot 709.9 SKIN DISORDER NOS 06/08/2017 Ot V72.63 PRE- PROCEDURAL LABORATORY EXAMINATION 06/08/2017 Ot V72.81 EXAM-PRE- OPERATIVE CARDIOVASCULAR 06/08/2017 Ot V74.8 SCREEN- BACTERIAL DIS NEC 06/08/2017 DIOMEDESYU HUIZAR FRONT END TECHNICIAN Ot 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 [...] MD Ot M16.11 UNILATERAL PRIMARY OSTEOARTHRITIS, RIGHT 06/09/2017 ESTRELLITA KOLB MD Ot E11.9 TYPE 2 DIABETES MELLITUS WITHOUT COMPLIC 06/09/2017 ESTRELLITA KOLB MD Ot E78.00 PURE HYPERCHOLESTEROLEMIA, UNSPECIFIED 06/09/2017 ESTRELLITA KOLB MD Ot F03.90 UNSPECIFIED DEMENTIA WITHOUT BEHAVIORAL 06/09/2017 ESTRELLITA KOLB MD Ot F32.9 MAJOR DEPRESSIVE DISORDER, SINGLE EPISOD 06/09/2017 ESTRELLITA KOLB MD Ot F41.9 ANXIETY DISORDER, UNSPECIFIED 06/09/2017 ESTRELLITA KOLB MD Ot G25.81 RESTLESS LEGS SYNDROME 06/09/2017 ESTRELLITA KOLB MD Ot I10 ESSENTIAL (PRIMARY) HYPERTENSION 06/09/2017 ESTRELLITA KOLB MD Ot I16.0 HYPERTENSIVE URGENCY 06/09/2017 ESTRELLITA KOLB MD Ot I34.0 NONRHEUMATIC MITRAL (VALVE) INSUFFICIENC 06/09/2017 ESTRELLITA KOLB MD Ot M19.91 PRIMARY OSTEOARTHRITIS, UNSPECIFIED SITE 06/09/2017 ESTRELLITA KOLB MD Ot Z79.82 TRANSPORTATION REFRIGERATION TECHNICIAN (CURRENT) USE OF ASPIRIN 06/09/2017 ESTRELLITA KOLB MD Ot Z79.84 JAIL (CURRENT) USE OF ORAL HYPOGLYC 06/09/2017 ESTRELLITA KOLB MD Ot Z79.899 OTHER TRANSPORTATION REFRIGERATION TECHNICIAN (CURRENT) DRUG THERAPY 06/09/2017 ESTRELLITA KOLB MD Ot E11.9 TYPE 2 DIABETES MELLITUS WITHOUT COMPLIC 06/09/2017 ESTRELLITA KOLB MD Ot E78.00 PURE HYPERCHOLESTEROLEMIA, UNSPECIFIED 06/09/2017 ESTRELLITA KOLB MD Ot F03.90 UNSPECIFIED DEMENTIA WITHOUT BEHAVIORAL 06/09/2017 ESTRELLITA KOLB MD, Ot F32.9 MAJOR DEPRESSIVE DISORDER, SINGLE EPISOD 06/09/2017 ESTRELLITA KOLB MD Ot F41.9 ANXIETY DISORDER, UNSPECIFIED 06/09/2017 ESTRELLITA KOLB MD Ot G25.81 RESTLESS LEGS SYNDROME 06/09/2017 ESTRELLITA KOLB MD Ot I10 ESSENTIAL (PRIMARY) HYPERTENSION 06/09/2017 ESTRELLITA KOLB MD Ot I16.0 HYPERTENSIVE URGENCY 06/09/2017 ESTRELLITA KOLB MD Ot I34.0 NONRHEUMATIC MITRAL (VALVE) INSUFFICIENC 06/09/2017 ESTRELLITA KOLB MD Ot M19.91 PRIMARY OSTEOARTHRITIS, UNSPECIFIED SITE 06/09/2017 ESTRELLITA KOLB MD Ot Z79.82 JAIL (CURRENT) USE OF ASPIRIN 06/09/2017 ESTRELLITA KOLB MD, Ot Z79.84 TRANSPORTATION REFRIGERATION TECHNICIAN (CURRENT) USE OF ORAL HYPOGLYC 06/09/2017 ESTRELLITA KOLB MD Ot Z79.899 OTHER JAIL (CURRENT) DRUG THERAPY 06/10/2017 GENO HARMON MD Ot E11.9 TYPE 2 DIABETES MELLITUS WITHOUT COMPLIC 06/10/2017 GENO HARMON MD Ot E78.00 PURE HYPERCHOLESTEROLEMIA, UNSPECIFIED 06/10/2017 GENO HARMON MD Ot F03.90 UNSPECIFIED DEMENTIA WITHOUT BEHAVIORAL 06/10/2017 GENO HARMON MD Ot F32.9 MAJOR DEPRESSIVE DISORDER, SINGLE EPISOD 06/10/2017 GENO HARMON MD Ot F41.9 ANXIETY DISORDER, UNSPECIFIED 06/10/2017 GENO HARMON MD Ot G25.81 RESTLESS LEGS SYNDROME 06/10/2017 GENO HARMON MD Ot G47.9 SLEEP DISORDER, UNSPECIFIED 06/10/2017 GENO HARMON MD Ot I10 ESSENTIAL (PRIMARY) HYPERTENSION 06/10/2017 GENO HARMON MD Ot I25.10 ATHSCL HEART DISEASE OF [place] CORONARY 06/10/2017 GENO HARMON MD Ot Z79.82 JAIL (CURRENT) USE OF ASPIRIN 06/10/2017 GENO HARMON MD Ot Z79.84 JAIL (CURRENT) USE OF ORAL HYPOGLYC 06/10/2017 GENO HARMON MD Ot Z86.73 PRSNL HX OF TIA (TIA), AND CEREB INFRC W 06/10/2017 GENO HARMON MD Ot Z87.2 PERSONAL HISTORY OF DISEASES OF THE SKIN 06/10/2017 GENO HARMON MD Ot Z87.828 PERSONAL HISTORY OF OTH (HEALED) PHYSICA 06/10/2017 GENO HARMON MD Ot Z90.710 ACQUIRED ABSENCE OF BOTH CERVIX AND UTER 06/12/2017 GENO HARMON MD Ot E11.9 TYPE 2 DIABETES MELLITUS WITHOUT COMPLIC 06/12/2017 GENO HARMON MD Ot E78.00 PURE HYPERCHOLESTEROLEMIA, UNSPECIFIED 06/12/2017 GENO HARMON MD Ot F03.90 UNSPECIFIED DEMENTIA WITHOUT BEHAVIORAL 06/12/2017 GENO HARMON MD Ot F32.9 MAJOR DEPRESSIVE DISORDER, SINGLE EPISOD 06/12/2017 GENO HARMON MD Ot F41.9 ANXIETY DISORDER, UNSPECIFIED 06/12/2017 GENO HARMON MD, Ot G25.81 RESTLESS LEGS SYNDROME 06/12/2017 GENO HARMON MD, Ot G47.9 SLEEP DISORDER, UNSPECIFIED 06/12/2017 GEON HARMON MD Ot I10 ESSENTIAL (PRIMARY) HYPERTENSION 06/12/2017 GENO HARMON MD, Ot I25.10 ATHSCL HEART DISEASE OF [place] CORONARY 06/12/2017 GENO HARMON MD, Ot Z79.82 JAIL (CURRENT) USE OF ASPIRIN 06/12/2017 GENO HARMON MD, Ot Z79.84 JAIL (CURRENT) USE OF ORAL HYPOGLYC 06/12/2017 GENO HARMON MD, Ot Z86.73 PRSNL HX OF TIA (TIA), AND CEREB INFRC W 06/12/2017 GENO HARMON MD, Ot Z87.2 PERSONAL HISTORY OF DISEASES OF THE SKIN 06/12/2017 GENO HARMON MD, Ot Z87.828 PERSONAL HISTORY OF OTH (HEALED) PHYSICA 06/12/2017 GENO HARMON MD, Ot Z90.710 ACQUIRED ABSENCE OF BOTH CERVIX AND UTER Procedures There is no data. Results Test [...] measurement by glucometer (mass/volume) 135 mg/dL 70-110 Capillary blood glucose measurement by glucometer (mass/volume) - 06/09/17 09: 48 Capillary blood glucose measurement by glucometer (mass/volume) 145 mg/dL 70-110 Complete blood count (CBC) with automated white blood cell (WBC) differential - 06/10/17 22:30 Blood leukocytes automated count (number/volume) 6.7 10*3/uL 4.3-11.0 Blood erythrocytes automated count (number/volume) 5.11 10*6/uL 4.35-5.85 Venous blood hemoglobin measurement (mass/volume) 14.3 g/dL 11.5-16.0 Blood hematocrit (volume fraction) 43 % 35-52 Automated erythrocyte mean corpuscular volume 83 [foz_us] 80-99 Automated erythrocyte mean corpuscular hemoglobin (mass per erythrocyte) 28 pg 25-34 Automated erythrocyte mean corpuscular hemoglobin concentration measurement ( mass/volume) 34 g/dL 32-36 Automated erythrocyte distribution width ratio 15.7 % 10.0-14.5 Automated blood platelet count (count/volume) 181 10*3/uL 130-400 Automated blood platelet mean volume measurement 9.5 [foz_us] 7.4-10.4 Automated blood neutrophils/100 leukocytes 68 % 42-75 Automated blood lymphocytes/100 leukocytes 19 % 12-44 Blood monocytes/100 leukocytes 10 % 0-12 Automated blood eosinophils/100 leukocytes 3 % 0-10 Automated blood basophils/100 leukocytes 0 % 0-10 Blood neutrophils automated count (number/volume) 4.6 10*3 1.8-7.8 Blood lymphocytes automated count (number/volume) 1.2 10*3 1.0-4.0 Blood monocytes automated count (number/volume) 0.7 10*3 0.0-1.0 Automated eosinophil count 0.2 10*3/uL 0.0-0.3 Automated blood basophil count (count/volume) 0.0 10*3/uL 0.0-0.1 Comprehensive metabolic panel - 06/10/17 22:30 Serum or plasma sodium measurement (moles/volume) 137 mmol/L 135-145 Serum or plasma potassium measurement (moles/volume) 4.0 mmol/L 3.6-5.0 Serum or plasma chloride measurement (moles/volume) 98 mmol/L 98-107 Carbon dioxide 29 mmol/L 21-32 Serum or plasma anion gap determination (moles/volume) 10 mmol/L 5-14 Serum or plasma urea nitrogen measurement (mass/volume) 36 mg/dL 7-18 Serum or plasma creatinine measurement (mass/volume) 1.04 mg/dL 0.60-1.30 Serum or plasma urea nitrogen/creatinine mass ratio 35 NRG Serum or plasma creatinine measurement with calculation of estimated glomerular filtration rate 52 NRG Serum or plasma glucose measurement (mass/volume) 151 mg/dL 70-105 Serum or plasma calcium measurement (mass/volume) 9.9 mg/dL 8.5-10.1 Serum or plasma total bilirubin measurement (mass/volume) 0.4 mg/dL 0.1-1.0 Serum or plasma alkaline phosphatase measurement (enzymatic activity/volume) 44 U/L 40-136 Serum or plasma aspartate aminotransferase measurement (enzymatic activity/ volume) 17 U/L 5-34 Serum or plasma alanine aminotransferase measurement (enzymatic activity/volume ) 18 U/L 0-55 Serum or plasma protein measurement (mass/volume) 7.0 g/dL 6.4-8.2 Serum or plasma albumin measurement (mass/volume) 4.2 g/dL 3.2-4.5 Magnesium - 06/10/17 22:30 Magnesium 2.3 mg/dL 1.8-2.4 Serum or plasma troponin i.cardiac measurement (mass/volume) - 06/10/17 22:30 Serum or plasma troponin i.cardiac measurement (mass/volume) < ng/ mL <0.30 Complete urinalysis with reflex to culture - 06/10/17 23:00 Urine color determination YELLOW NRG Urine clarity determination CLEAR NRG Urine pH measurement by test strip 6.5 5-9 Specific gravity of urine by test strip 1.010 1.016- 1.022 Urine protein assay by test strip, semi-quantitative NEGATIVE NEGATIVE Urine glucose detection by automated test strip NEGATIVE NEGATIVE Erythrocytes detection in urine sediment by light microscopy 1+ NEGATIVE Urine ketones detection by automated test strip NEGATIVE NEGATIVE Urine nitrite detection by test strip NEGATIVE NEGATIVE Urine total bilirubin detection by test strip NEGATIVE NEGATIVE Urine urobilinogen measurement by automated test strip (mass/volume) NORMAL NORMAL Urine leukocyte esterase detection by dipstick 1+ NEGATIVE Automated urine sediment erythrocyte count by microscopy (number/high power field) NONE NRG Automated urine sediment leukocyte count by microscopy (number/high power field ) [HPF] NRG Bacteria detection in urine sediment by light microscopy NONE NRG Squamous epithelial cells detection in urine sediment by light microscopy RARE NRG Crystals detection in urine sediment by light microscopy NONE NRG Casts detection in urine sediment by light microscopy NONE NRG Mucus detection in urine sediment by light microscopy NEGATIVE NRG Complete urinalysis with reflex to culture NO NRG Encounters ACCT No. Visit Date/Time Discharge Status Pt. Type Provider Facility Loc./Unit Complaint [id number] 06/10/2017 21:23:00 06/10/2017 23:48:00 DIS Emergency GENO HARMON MD [facility] ER ELEV BP [id number] 06/07/2017 22:55:00 06/09/2017 10:35:00 DIS Outpatient ESTRELLITA KOLB MD [facility] 4TH HYPERTENSIVE URGENCY;CHF [id number] 01/18/2017 14:07:00 01/18/2017 23:59:59 CLS Outpatient FAB BEAVER MD [facility] RAD M25.551 [id number] 12/28/2016 10:42:00 12/28/2016 23:59:59 CLS Outpatient VERONA SHERIDAN APRN [facility] RAD SCREENING Z12.31 [id number] 10/15/2016 19:41:00 10/15/2016 22:29:00 DIS Emergency ROD FLEMING [employer]ORAGE WORKER [facility] ER RT LEG SWELLING/BRUISING [id number] 07/17/2016 13:58:00 07/17/2016 23:59:59 CLS Outpatient AMBLE FRIEND FACC, BETH AGUDELO CCDS [facility] RAD I73.89 [id number] 07/14/2016 20:02:00 07/14/2016 22:09:00 DIS Emergency DUSTIN DESIR [facility] ER FALL INJ L KNEE [id number] 05/29/2016 12:43:00 05/29/2016 16:00:00 DIS Outpatient VERONA SHERIDAN APRN [facility] WOUNDCARE [id number] 01/21/2016 09:01:00 01/21/2016 23:59:59 CLS Outpatient FAB BEAVER MD [facility] RAD B HIP PAIN, ABNORMAL HIP XRAY [id number] 01/13/2016 13:10:00 01/13/2016 23:59:59 CLS Outpatient FAB BEAVER MD [facility] RAD HIP PAIN [id number] 12/28/2015 11:28:00 12/28/2015 23:59:59 CLS Outpatient FAB BEAVER MD [facility] RAD SCREENING [id number] 12/26/2015 06:35:00 12/26/2015 11:00:00 DIS Outpatient ENRIQUE KINCAID MD [facility] SDC POLYPS [id number] 12/22/2015 05:50:00 12/22/2015 12:20:00 DIS Outpatient ENRIQUE KINCAID MD [facility] PREOP POLYPS [id number] 12/09/2015 15:07:00 12/09/2015 23:59:59 CLS Outpatient DARRION REMY DO [facility] QUICK [id number] 12/29/2014 10:36:00 12/29/2014 23:59:59 CLS Outpatient FAB BEAVER MD [facility] RAD SCREENING [id number] 12/09/2014 13:32:00 12/09/2014 23:59:59 CLS Outpatient YU CASTRO [facility] CARD MITRAL REGURGITATION ,HYPERLIPIDEMIA [id number] 01/08/2014 12:39:00 01/08/2014 23:59:59 CLS Outpatient VERONA SHERIDAN APRN [facility] RAD POST TRAUMA, FELL AT HOME [id number] 12/18/2013 10:46:00 12/18/2013 23:59:59 CLS Outpatient FAB BEAVER MD [facility] RAD ROUTINE [id number] 08/14/2013 10:08:00 08/14/2013 23:59:59 CLS Outpatient YU CASTRO [facility] LAB HYPERLIPIDEMIA, HYPERTENSION,PAD,DM II [id number] 12/22/2012 08:00:00 12/22/2012 10:55:00 DIS Outpatient ENRIQUE KINCAID MD [facility] SDC HISTORY OF POLYPS [id number] 12/17/2012 07:18:00 12/17/2012 23:59:59 CLS Outpatient ENRIQUE KINCAID MD [facility] PREOP HISTORY OF POLYPS [id number] 12/10/2012 09:45:00 12/10/2012 23:59:59 CLS Outpatient FAB BEAVER MD [facility] RAD SCREENING [id number] 12/05/2012 09:20:00 12/05/2012 23:59:59 CLS Outpatient FAB BEAVER MD [facility] RAD RT WRIST WITHOUT FALL [id number] 12/05/2012 09:18:00 12/05/2012 23:59:59 CLS Outpatient YU CASTRO [facility] LAB HYPERLIADEMIA [id number] 10/27/2012 09:33:00 10/27/2012 23:59:59 CLS Outpatient YU CASTRO [facility] LAB HYPOKALEMIA [id number] 10/17/2012 09:08:00 10/17/2012 23:59:59 CLS Outpatient YU CASTRO [facility] LAB HYPERTENSION, HYPERLIPADEMIA [id number] 05/12/2014 10:30:00 Document Registration [id number] 05/05/2014 10:35:00 Document Registration [id number] 04/17/2012 08:37:00 Document Registration [id number] 04/11/2012 09:38:00 Document Registration [id number] 12/26/2011 09:03:00 Document Registration [id number] 12/27/2006 09:56:00 Document Registration [email or web address] 12/09/2014 13:34:08 ACT Document Registration
[2017-08-16] MEDS ORDERED: KETOROLAC 30 MG/ML VIAL IM ONE (23:30)
[2017-08-16] MEDS ORDERED: GABAPENTIN 300 MG (NEURONTIN) CAP PO ONE (23:30)
[2017-08-17] MEDS ORDERED: oxyCODONE/APAP 5/325MG (PERCOCET 5) TABLET PO ONE ×2 (00:45→01:45)
[2017-08-17] MEDS ORDERED: amLODIPine 5 MG (NORVASC) TAB PO ONE (01:45)
[2017-08-17] MEDS ORDERED: predniSONE 20 MG TAB PO ONE (01:45)
[2017-08-17] MEDS ORDERED: PRD10T PO (03:02)
[2017-08-17] MEDS ORDERED: OXYC-197 PO (03:02)
[2017-08-17] MEDS ORDERED: AMLO10TA2 PO (03:04)
--- NOTE | 2017-08-17 03:04 | ED General ---
General Chief Complaint: General Problems/Pain Stated Complaint: BACK PAIN Nursing Triage Note: PATIENT IS HERE FOR SCIATIC PAIN THAT SHE STATES IS MORE SEVERE TODAY. Nursing Sepsis Screen: No Definite Risk Source of Information: Patient, Caregiver, EMS Exam Limitations: No Limitations History of Present Illness Date Seen by Provider: Aug 16, 2017 Time Seen by Provider: 23:21 Initial Comments This 71-year-old woman presents to the emergency room via EMS with reports of uncontrolled sciatic pain that radiates down her right thigh. This has been an ongoing problem for her but has worsened in recent days. She is accompanied later by a care provider to states patient use to be fairly sedated with multiple medications. She is much more alert and active since reducing those medications but now her pain is less controlled. She has not had any MRI imaging of the affected areas. She has been seen by [facility] and is scheduled to have some injection therapy performed. Patient is also noted to be significantly hypertensive. They report having x-rays of the affected area done previously. Allergies and Home Medications Allergies Coded Allergies: No Known Drug Allergies (Verified , 12/25/06) Home Medications Acetaminophen 500 Mg Tablet, 1,000 MG PO DAILY, (Reported) Acetaminophen 500 Mg Tablet, 500 MG PO HS, (Reported) Acetaminophen/Diphenhydramine 1 Each Tablet, 1 EACH PO HS, (Reported) Amlodipine Besylate 10 Mg Tablet, 10 MG PO DAILY Prescribed by: AARTI GROSS on 08/17/17 0304 Antiox#10/Om3/Dha/Epa/Lut/Zeax 1 Each Capsule, 1 EACH PO DAILY, (Reported) Aspirin 81 Mg Tablet., 81 MG PO DAILY, (Reported) Atenolol 50 Mg Tablet, 50 MG PO DAILY Prescribed by: ESTRELLITA KOLB on 06/09/17 1033 Atorvastatin Calcium 10 Mg Tablet, 10 MG PO HS, (Reported) Fenofibrate 135 Mg Capsule.dr, 135 MG PO DAILY, (Reported) Loratadine 10 Mg Tablet, 10 MG PO DAILY, (Reported) Losartan Potassium 100 Mg Tablet, 100 MG PO DAILY Prescribed by: ESTRELLITA KOLB on 06/09/17 1033 Memantine HCl 28 Mg Cap.spr.24, 28 MG PO HS, (Reported) Metformin Hcl 500 Mg Tablet, 500 MG PO BID, (Reported) Naproxen 500 Mg Tablet, 500 MG PO DAILY PRN for BREAKTHROUGH PAIN, (Reported) Stuart-3 Acid Ethyl Esters 1 Gm Capsule, 2 GM PO BID, (Reported) Oxycodone HCl/Acetaminophen 1 Each Tablet, 0.5-1 EACH PO Q4H PRN for PAIN- MODERATE TO SEVERE Prescribed by: AARTI GROSS on 08/17/17301 Prednisone 10 Mg Tab, 10 MG PO DAILY Prescribed by: AARTI GROSS on 08/17/17301 Quetiapine Fumarate 100 Mg Tablet, 100 MG PO HS, (Reported) Quetiapine Fumarate 100 Mg Tablet, 50 MG PO DAILY, (Reported) Sitagliptin Phosphate 50 Mg Tablet, 50 MG PO DAILY, (Reported) Venlafaxine Hcl 150 Mg Tab.osm.24, 150 MG PO DAILY, (Reported) Patient Home Medication List Home Medication List Reviewed: Yes Review of Systems Constitutional: no symptoms reported EENTM: no symptoms reported Respiratory: no symptoms reported Cardiovascular: no symptoms reported Gastrointestinal: no symptoms reported Genitourinary: no symptoms reported : No Musculoskeletal: see HPI Skin: no symptoms reported Psychiatric/Neurological: Other (Dystonic facial movements, chronic) Hematologic/Lymphatic: No Symptoms Reported Past Sbhvfsp-Xuovbr-Olxogz Hx Patient Social History Alcohol Use: Denies Use Recreational Drug Use: No Smoking Status: Never a Smoker 2nd Hand Smoke Exposure: No Recent Foreign Travel: No Contact w/Someone Who Travel: No Recent Infectious Disease Expo: No Recent Hopitalizations: Yes (HYPERTENSION) Physical Abuse: No Sexual Abuse: No Immunizations Up To Date Tetanus Booster (TDap): Less than 5yrs Date of Pneumonia Vaccine: Nov 02, 2016 Date of Influenza Vaccine: Dec 02, 2015 Seasonal Allergies Seasonal Allergies: Yes Past Medical History Surgeries: Yes Eye Surgery, Gallbladder, 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, Orthopedic Respiratory: No Cardiac: Yes (MILD MITRAL REGURGITATION) High Cholesterol, Hypertension, Valvular Heart Disease Neurological: Yes Dementia, Stroke Reproductive Disorders: No Female Reproductive Disorders: Denies 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, Menopausal Sexually Transmitted Disease: No HIV/AIDS: No Genitourinary: No Gastrointestinal: Yes (DYSPLASTIC COLON POLYPS) Diverticulosis, Hemorrhoids, Polyps Musculoskeletal: Yes (RESTLESS LEGS; OSTEOMYELITIS RIGHT FOOT, sciatica) Arthritis Endocrine: Yes Diabetes, Non-Insulin dep HEENT: Yes (LEFT EYE REMOVED/ PROSTHETIC EYE; WEARS GLASSES; ALL TEETH REMOVED) Cataract Loss of Vision: Left Cancer: Yes Skin Did You Recieve Any Treatments: Yes What Type of Treatment Did You: Surgical Intervention Psychosocial: Yes (SELF MUTILATION-"PICKS" ) Sleep Difficulties, Anxiety, Depression Nursing Suicide Risk Score: 0 Integumentary: Yes (FOOT ULCERS; STAPH INFECTION; OSTEOMYELITIS RIGHT FOOT; BEARDEN TO FINGERS) Blood Disorders: No Family Medical History No Pertinent Family Hx Physical Exam Vital Signs Vital Signs - First Documented 08/16/17 23:21 Temp 98.0 Pulse 92 Resp 18 B/P (MAP) 191/101 (131) Pulse Ox 94 O2 Delivery Room Air Capillary Refill : Less Than 3 Seconds General Appearance: No Apparent Distress, WD/WN HEENT: PERRL/EOMI, Normal ENT Inspection Neck: Normal Inspection Respiratory: Lungs Clear, Normal Breath Sounds, No Accessory Muscle Use, No Respiratory Distress Cardiovascular: Regular Rate, Rhythm, No Edema, No Murmur, Normal Peripheral Pulses Gastrointestinal: Normal Bowel Sounds, Non Tender, Soft Back: Normal Inspection, No Vertebral Tenderness Extremity: Normal Inspection, Non Tender, Other (Normal right pedal pulse) Neurologic/Psychiatric: Alert, Oriented x3, No Motor/Sensory Deficits, Normal Mood/Affect, va underwriter II-XII Norm as Tested, Other (Dystonic facial movements, chronic) Skin: Normal Color, Warm/Dry Progress/Results/Core Measures Suspected Sepsis Recent Fever Within 48 Hours: No Infection Criteria Present: None New/Unexplained Altered Menta: No Sepsis Screen: No Definite Risk SIRS Temperature:98.0 Pulse: 92 Respiratory Rate: 18 Blood Pressure 191 /101 Mean: 131 Results/Orders My Orders Orders - AARTI OREILLY MD Ketorolac Injection (Toradol Injection) (08/16/17 23:30) Gabapentin Capsule/Tablet (Neurontin Cap (08/16/17 23:30) Oxycodone/Apap 5/325mg Tablet (Percocet (08/17/17 00:45) Amlodipine Tablet (Norvasc Tablet) (08/17/17 01:45) Prednisone Tablet (Deltasone Tablet) (08/17/17 01:45) Oxycodone/Apap 5/325mg Tablet (Percocet (08/17/17 01:45) Medications Given in ED Vital Signs/I&O Capillary Refill : Less Than 3 Seconds Blood Pressure Mean: 131 Progress Note : Progress Note Series of treatments were tried. First an injection of Toradol and oral dose of gabapentin. This did not significantly improve her pain or hypertension. Next oxycodone 2.5 mg was given. This also did not significantly improve her symptoms. She was next given amlodipine and prednisone. She comments that prednisone has been the treatment most effective in the past. Finally, she was given a second dose of oxycodone 2.5 mg. She finally was beginning to get relief and blood pressure was dropping after those treatments. See discharge instructions. Departure Impression Primary Impression: Sciatica Qualified Codes: M54.31 - Sciatica, right side Additional Impression: Hypertensive urgency Disposition: HOME, SELF-CARE Condition: Improved Departure-Patient Inst. Decision time for Depature: 02:50 Referrals: FAB BEAVER MD (PCP/Family) Primary Care Physician Patient Instructions: High Blood Pressure (DC), Sciatica Add. Discharge Instructions: Follow-up with your primary care provider as soon as possible. Use your medications as prescribed. Consider using a stool softener such as Colace when you're taking narcotic pain medications such as Percocet. Monitor your blood sugars closely while you are taking steroids (prednisone). Increase your amlodipine to 10 mg daily as prescribed. Return to care if symptoms worsen. All discharge instructions reviewed with patient and/or family. Voiced understanding. Scripts Amlodipine Besylate (Amlodipine Besylate) 10 Mg Tablet 10 MG PO DAILY, #30 TAB Prov: AARTI OREILLY MD 08/17/17 Oxycodone HCl/Acetaminophen (Percocet 5-325 mg Tablet) 1 Each Tablet 0.5-1 EACH PO Q4H PRN for PAIN-MODERATE TO SEVERE, #15 TAB Prov: AARTI OREILLY MD 08/17/17 Prednisone (Prednisone) 10 Mg Tab 10 MG PO DAILY, #5 TAB Prov: AARTI OREILLY MD 08/17/17 Copy Copies To 1: FAB BEAVER MD, JOSHUA T MD Aug 17, 2017 03:04
[2017-08-17 03:10] VITALS: BP 175/98
== END 2017-08-17 03:10 | disposition home or self-care (01) ==
LOC: EDUNIT# 23:20 → ER 23:21
DX: M54.31 Sciatica, right side (principal); E78.00 Pure hypercholesterolemia, unspecified; I10 Essential (primary) hypertension; F03.90 Unspecified dementia, unspecified severity, without behavioral disturbance, psychotic disturbance, mood disturbance, and anxiety; E11.9 Type 2 diabetes mellitus without complications; F41.9 Anxiety disorder, unspecified; F32.9 Major depressive disorder, single episode, unspecified; G25.81 Restless legs syndrome; Z86.73 Personal history of transient ischemic attack (TIA), and cerebral infarction without residual deficits; Z90.710 Acquired absence of both cervix and uterus; Z87.2 Personal history of diseases of the skin and subcutaneous tissue; Z79.82 Long term (current) use of aspirin; Z79.84 Long term (current) use of oral hypoglycemic drugs; Z79.52 Long term (current) use of systemic steroids
CPT/HCPCS: 96372; 99284

== ENCOUNTER → 2017-08-21 | Outpatient (CLI) | payer MEDICARE, MEDICAID ==
[~2017-08-21] MED LIST changes: +AMLO10TA2 PO; +OXYC-197 PO; +PRD10T PO
--- NOTE | 2017-08-21 16:19 | Diagnostic Imaging Report ---
INDICATION: Fall. Pain. COMPARISON: 06/08/2017. FINDINGS: Two views of the chest are obtained. Heart size is mildly enlarged unchanged. There is no central venous congestion. No pneumothorax, mediastinal widening or pleural fluid. Lungs are clear. Osseous structures appear unremarkable. IMPRESSION: No acute abnormalities demonstrated. Stable mild cardiomegaly without evidence of failure. Dictated by: Dictated on workstation # [id number]
--- NOTE | 2017-08-21 18:38 | Diagnostic Imaging Report ---
INDICATION: Right rib pain. FINDINGS: Three views of the right ribs show no fracture, dislocation or other acute abnormalities. IMPRESSION: Negative right ribs. Dictated by: Dictated on workstation # [id number]
== END ==
LOC: RAD 12:18
PROVIDERS: ATTEND Nurse Practitioner
DX: I51.7 Cardiomegaly (principal); R07.81 Pleurodynia; R06.02 Shortness of breath; W19.XXXA Unspecified fall, initial encounter; Y92.009 Unspecified place in unspecified non-institutional (private) residence as the place of occurrence of the external cause
CPT/HCPCS: 71046; 71100

== ENCOUNTER → 2017-11-07 | Outpatient (CLI) | payer MEDICARE, MEDICAID ==
[~2017-11-07] MED LIST changes: -AMLO10TA2 PO; +AMLO10TA6 PO; +HYDR-4226 PO; -HYDR-757 PO; -LOSA100T28 PO; +LOSA100T8 PO; -LOSA50TA36 PO; +LOSA50TA7 PO; -OXYC-197 PO; +OXYC1TAB87 PO
== END ==
LOC: CARD 12:43
PROVIDERS: ATTEND Nurse Practitioner Family
DX: I34.0 Nonrheumatic mitral (valve) insufficiency (principal); I10 Essential (primary) hypertension
CPT/HCPCS: 93306

== ENCOUNTER → 2017-12-06 | Outpatient (CLI) | payer MEDICARE, MEDICAID ==
--- NOTE | 2017-12-06 12:53 | Diagnostic Imaging Report ---
INDICATION: Routine screening. COMPARISON: Comparison is made with prior exam from 12/28/2016 and 12/28/2015. TECHNIQUE: 2D and 3D bilateral screening mammography was performed with CAD. FINDINGS: Both breasts are heterogeneously dense, limiting the sensitivity of mammography. There are scattered benign-appearing calcifications. No mass or malignant appearing microcalcifications are seen. Axillae are unremarkable. IMPRESSION: No mammographic features suspicious for malignancy are identified. ACR BI-RADS Category 2: Benign findings. Result letter will be mailed to the patient. Note: At least 10% of breast cancer is not imaged by mammography. Dictated by: Dictated on workstation # [id number]
== END ==
LOC: RAD 09:04
PROVIDERS: ATTEND Physician Assistant
DX: Z12.31 Encounter for screening mammogram for malignant neoplasm of breast (principal)
CPT/HCPCS: 77067

== ENCOUNTER 2018-02-08 12:13 | Emergency (ER) | payer MEDICARE, MEDICAID ==
[~2018-02-08] VITALS: Ht 162.6 cm; Wt 65.8 kg
--- OUTSIDE RECORDS SUMMARY | 2018-02-08 12:20 | XMS REPORT | Continuity of Care Document ---
Author Author [facility] Organization [facility] Address Unknown Phone Unavailable Allergies Active Description Code Type Severity Reaction Onset Reported/Identified Relationship to Patient Clinical Status Yes No Known Drug Allergies [id number] Drug Allergy Unknown N/A 12/26/2015 Medications There is no data. Problems Date Dx Coded Attending Type Code Diagnosis Diagnosed By 12/22/2012 SANJIV FRIEND, ENRIQUE Raymundo Ot 211.4 BENIGN NEOPL RECTUM/ANUS 12/22/2012 SANJIV FRIEND, ENRIQUE Raymundo Ot 250.00 DIAB TOBY WO COMPL, TYPE II OR UNSPEC TY 12/22/2012 ENRIQUE KINCAID MD Ot 272.4 HYPERLIPIDEMIA NEC/NOS 12/22/2012 SANJIV FRIEND, ENRIQUE Raymundo Ot 401.9 HYPERTENSION NOS 12/22/2012 SANJIV FRIEND, ENRIQUE Raymundo Ot 562.10 DIVERTICULOSIS COLON (W/O MENT OF HEMORR 12/22/2012 SANJIV FRIEND, ENRIQUE Raymundo Ot V16.0 FAMILY HX-GI MALIGNANCY 12/22/2012 SANJIV FRIEND, ENRIQUE Raymundo Ot V67.09 SURGERY FOLLOW-UP, OTHER SURGERY 01/19/2014 SARANYA FRIEND, FAB Napoles Ot V76.12 02/19/2014 VERONA SHERIDAN APRN Ot 959.5 02/19/2014 VERONA SHERIDAN LEAF STRIPPER Ot E849.0 02/19/2014 VERONA SHERIDAN LEAF STRIPPER Ot E888.9 05/12/2014 Ot 173.31 BASAL CELL CARCINOMA OF SKIN OF OTH UN 05/12/2014 Ot 250.00 DIAB TOBY WO COMPL, TYPE II OR UNSPEC TY 05/12/2014 Ot V58.69 OTH MED,LT, CURRENT USE 06/01/2014 Ot 709.9 06/01/2014 Ot V72.63 06/01/2014 Ot V72.81 06/01/2014 Ot V74.8 06/08/2014 Ot 709.9 06/08/2014 Ot V72.63 06/08/2014 Ot V72.81 06/08/2014 Ot V74.8 12/29/2014 YU CASTRO CLOSER ON Ot I34.8 01/03/2015 YU CASTRO CLOSER ON Ot I34.8 01/19/2015 FAB BEAVER MD Ot [...] Ot M25.551 PAIN IN RIGHT HIP 01/23/2016 SARANYA FRIEND, FAB Napoles Ot M25.552 PAIN IN LEFT HIP 01/24/2016 SARANYA FRIEND, FAB Napoles Ot M25.551 PAIN IN RIGHT HIP 01/24/2016 FAB BEAVER MD Ot M25.552 PAIN IN LEFT HIP 02/03/2016 SARANYA FRIEND, FAB Napoles Ot M25.551 PAIN IN RIGHT HIP 02/03/2016 FAB BEAVER MD Ot M25.552 PAIN IN LEFT HIP 02/15/2016 FAB BEAVER MD Ot M25.551 PAIN IN RIGHT HIP 02/15/2016 SARANYA FRIEND, FAB Napoles Ot M25.552 PAIN IN LEFT HIP 02/15/2016 [...] 715.36 04/04/2016 Ot 715.37 05/29/2016 VERONA SHERIDAN APRN Ot L03.011 CELLULITIS OF RIGHT FINGER 05/29/2016 VERONA SHERIDAN LEAF STRIPPER Ot S61.202D UNSP OPEN WOUND OF R MID FINGER W/O [place] 05/29/2016 VERONA SHERIDAN LEAF STRIPPER Ot L03.011 CELLULITIS OF RIGHT FINGER 05/29/2016 VERONA SHERIDAN LEAF STRIPPER Ot S61.202D UNSP OPEN WOUND OF R MID FINGER W/O [place] 07/14/2016 DUSTIN DESIR Ot E11.9 TYPE 2 DIABETES MELLITUS WITHOUT COMPLIC 07/14/2016 DUSTIN DESIR Ot I10 ESSENTIAL (PRIMARY) HYPERTENSION 07/14/2016 DUSTIN DESIR Ot S80.02XA CONTUSION OF LEFT KNEE, INITIAL ENCOUNTE 07/14/2016 DUSTIN DESIR Ot W01.0XXA FALL SAME LEV FROM SLIP/TRIP W/O STRIKE 07/14/2016 NOEMI MARTINEZ DUSTIN L Ot Y92.[address] IN [facility] NON[facility] (PRIVATE 07/14/2016 DUSTIN DESIR Ot Y99.8 OTHER EXTERNAL CAUSE STATUS 07/14/2016 DUSTIN DESIR Ot Z79.84 FPC (CURRENT) USE OF ORAL HYPOGLYC 07/14/2016 DUSTIN DESIR Ot Z79.899 OTHER FPC (CURRENT) DRUG THERAPY 07/16/2016 MABLE FRIEND FACC, [...] Ot I10 ESSENTIAL (PRIMARY) HYPERTENSION 07/20/2016 DUSTIN DSEIR Ot S80.02XA CONTUSION OF LEFT KNEE, INITIAL ENCOUNTE 07/20/2016 DUSTIN DESIR Ot W01.0XXA FALL SAME LEV FROM SLIP/TRIP W/O STRIKE 07/20/2016 DUSTIN DESIR Ot Y92.[address] IN [facility] NON[facility] (PRIVATE 07/20/2016 DUSTIN DESIR Ot Y99.8 OTHER EXTERNAL CAUSE STATUS 07/20/2016 DUSTIN DESIR Ot Z79.84 INTERLOCKING AND SIGNAL MECHANIC (CURRENT) USE OF ORAL HYPOGLYC 07/20/2016 DUSTIN DESIR Ot Z79.899 OTHER INTERLOCKING AND SIGNAL MECHANIC (CURRENT) DRUG THERAPY 08/13/2016 MABLE FRIEND FACC, ALI FACP CCDS Ot I73.89 OTHER SPECIFIED PERIPHERAL VASCULAR DISE 08/17/2016 MABLE FRIEND FACC, ALI FACP CCDS Ot I73.89 OTHER SPECIFIED PERIPHERAL VASCULAR DISE 10/15/2016 ROD FLEMING LEAF STRIPPER Ot E11.9 TYPE 2 DIABETES MELLITUS WITHOUT COMPLIC 10/15/2016 ROD FLEMING LEAF STRIPPER Ot F32.9 MAJOR DEPRESSIVE DISORDER, SINGLE EPISOD 10/15/2016 ROD FLEMING APRN Ot F41.9 ANXIETY DISORDER, UNSPECIFIED 10/15/2016 ROD FLEMING LEAF STRIPPER Ot I10 ESSENTIAL (PRIMARY) HYPERTENSION 10/15/2016 ROD FLEMING LEAF STRIPPER Ot M71.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 [[place]NAO] 10/15/2016 ROD FLEMING APRN Ot M79.661 PAIN IN RIGHT LOWER LEG 10/15/2016 ROD FLEMING APRN Ot M79.81 NONTRAUMATIC HEMATOMA OF SOFT TISSUE 10/15/2016 ROD FLEMING LEAF STRIPPER Ot Z79.84 FPC (CURRENT) USE OF ORAL HYPOGLYC 10/15/2016 ROD FLEMING LEAF STRIPPER Ot Z90.710 ACQUIRED ABSENCE OF BOTH CERVIX [...] HEMATOMA OF SOFT TISSUE 10/22/2016 ROD FLEMING LEAF STRIPPER Ot Z79.84 INTERLOCKING AND SIGNAL MECHANIC (CURRENT) USE OF ORAL HYPOGLYC 10/22/2016 ROD FLEMING APRN Ot Z90.710 ACQUIRED ABSENCE OF BOTH CERVIX AND UTER 12/16/2016 ROD FLEMING APRN Ot E11.9 TYPE 2 DIABETES MELLITUS WITHOUT COMPLIC 12/16/2016 ROD FLEMING APRN Ot F32.9 MAJOR DEPRESSIVE DISORDER, SINGLE EPISOD 12/16/2016 ROD FLEMING APRN Ot F41.9 ANXIETY DISORDER, UNSPECIFIED 12/16/2016 ROD FLEMING APRN Ot I10 ESSENTIAL (PRIMARY) HYPERTENSION 12/16/2016 ROD FLEMING LEAF STRIPPER Ot M71.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 [[place]] 12/16/2016 ROD FLEMING APRN Ot M79.661 PAIN IN RIGHT LOWER LEG 12/16/2016 ROD FLEMING APRN Ot M79.81 NONTRAUMATIC HEMATOMA OF SOFT TISSUE 12/16/2016 ROD FLEMING LEAF STRIPPER Ot Z79.84 FPC (CURRENT) USE OF ORAL HYPOGLYC 12/16/2016 ROD FLEMING LEAF STRIPPER Ot Z90.710 ACQUIRED ABSENCE OF BOTH CERVIX AND UTER 01/21/2017 VERONA SHERIDAN LEAF STRIPPER Ot Z12.31 ENCNTR SCREEN MAMMOGRAM FOR MALIGNANT NE 01/29/2017 VERONA SHERIDAN LEAF STRIPPER Ot Z12.31 ENCNTR SCREEN MAMMOGRAM FOR MALIGNANT [...] Ot 276.8 HYPOPOTASSEMIA 06/08/2017 BAIMA, YU L CLOSER ON Ot 272.4 HYPERLIPIDEMIA NEC/NOS 06/08/2017 BAIMA, YU L CLOSER ON Ot 401.9 HYPERTENSION NOS 06/08/2017 BAIMA, YU L CLOSER ON Ot V58.69 OTH MED,LT,CURRENT USE 06/08/2017 BAIMA, YU L CLOSER ON Ot 276.8 HYPOPOTASSEMIA 06/08/2017 FAB BEAVER MD Ot V76.12 OTH SCREEN MAMMO-MALIGN NEOPLASM OF [place] 06/08/2017 BAIMA, YU L CLOSER ON Ot 272.4 HYPERLIPIDEMIA NEC/NOS 06/08/2017 BAIMA, YU L CLOSER ON Ot V58.69 OTH MED,LT,CURRENT USE 06/08/2017 FAB BEAVER MD Ot 715.33 LOC OSTEOART NOS-FOREARM 06/08/2017 SANJIV FRIEND, ENRIQUE Raymundo Ot V72.84 EXAM PRE-OPERATIVE NOS 06/08/2017 BAIMA, YU L CLOSER ON Ot 250.00 DIAB TOBY WO COMPL, TYPE II OR UNSPEC TY 06/08/2017 BAIMA, YU L CLOSER ON Ot 272.4 HYPERLIPIDEMIA NEC/NOS 06/08/2017 YU CASTRO CLOSER ON Ot 401.9 HYPERTENSION NOS 06/08/2017 YU CASTRO CLOSER ON Ot 443.9 PERIPH VASCULAR DIS NOS 06/08/2017 FAB BEAVER MD Ot V76.12 OTH SCREEN MAMMO-MALIGN NEOPLASM OF [place] 06/08/2017 VERONA SHERIDAN LEAF STRIPPER Ot 959.5 FINGER INJURY NOS 06/08/2017 VERONA SHERIDAN LEAF STRIPPER Ot E849.0 ACCIDENT IN HOME 06/08/2017 VERONA SHERIDAN LEAF STRIPPER Ot E888.9 FALL NOS 06/08/2017 Ot 709.9 SKIN DISORDER NOS 06/08/2017 Ot V72.63 PRE- PROCEDURAL LABORATORY EXAMINATION 06/08/2017 Ot V72.81 EXAM-PRE- OPERATIVE CARDIOVASCULAR 06/08/2017 Ot V74.8 SCREEN- BACTERIAL DIS NEC 06/08/2017 YU CASTRO CLOSER ON Ot 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 06/08/2017 FAB BEAVER MD Ot Z12.31 ENCNTR SCREEN MAMMOGRAM FOR MALIGNANT NE 06/08/2017 FAB BEAVER MD Ot Z12.31 ENCNTR SCREEN MAMMOGRAM FOR MALIGNANT NE 06/08/2017 FAB EBAVER MD Ot M25.551 PAIN IN RIGHT HIP [...] SITE 06/09/2017 ESTRELLITA KOLB MD Ot Z79.82 INTERLOCKING AND SIGNAL MECHANIC (CURRENT) USE OF ASPIRIN 06/09/2017 ESTRELLITA KOLB MD Ot Z79.84 FPC (CURRENT) USE OF ORAL HYPOGLYC 06/09/2017 ESTRELLITA KOLB MD Ot Z79.899 OTHER INTERLOCKING AND SIGNAL MECHANIC (CURRENT) DRUG THERAPY 06/09/2017 ESTRELLITA KOLB MD Ot E11.9 TYPE 2 DIABETES MELLITUS WITHOUT COMPLIC 06/09/2017 ESTRELLITA KOLB MD Ot E78.00 PURE HYPERCHOLESTEROLEMIA, UNSPECIFIED 06/09/2017 ESTRELLITA KOLB MD Ot F03.90 UNSPECIFIED DEMENTIA WITHOUT BEHAVIORAL 06/09/2017 ESTRELLITA KOLB MD, Ot F32.9 MAJOR DEPRESSIVE DISORDER, SINGLE EPISOD 06/09/2017 ESTRELLITA KOLB MD, Ot F41.9 ANXIETY DISORDER, UNSPECIFIED 06/09/2017 ESTRELLITA KOLB MD Ot G25.81 RESTLESS LEGS SYNDROME 06/09/2017 ESTRELLITA KOLB MD Ot I10 ESSENTIAL (PRIMARY) HYPERTENSION 06/09/2017 ESTRELLITA KOLB MD Ot I16.0 HYPERTENSIVE URGENCY 06/09/2017 ESTRELLITA KOLB MD Ot I34.0 NONRHEUMATIC MITRAL (VALVE) INSUFFICIENC 06/09/2017 ESTRELLITA KOLB MD Ot M19.91 PRIMARY OSTEOARTHRITIS, UNSPECIFIED SITE 06/09/2017 ESTRELLITA KOLB MD Ot Z79.82 INTERLOCKING AND SIGNAL MECHANIC (CURRENT) USE OF ASPIRIN 06/09/2017 ESTRELLITA KOLB MD Ot Z79.84 FPC (CURRENT) USE OF ORAL HYPOGLYC 06/09/2017 ESTRELLITA KOLB MD Ot Z79.899 OTHER INTERLOCKING AND SIGNAL MECHANIC (CURRENT) DRUG THERAPY 06/10/2017 GENO HARMON MD [...] MD Ot I25.10 ATHSCL HEART DISEASE OF [place] CORONARY 06/10/2017 GENO HARMON MD Ot Z79.82 FPC (CURRENT) USE OF ASPIRIN 06/10/2017 GENO HARMON MD Ot Z79.84 FPC (CURRENT) USE OF ORAL HYPOGLYC 06/10/2017 GENO [...] MAJOR DEPRESSIVE DISORDER, SINGLE EPISOD 06/12/2017 GENO HAMRON MD, Ot F41.9 ANXIETY DISORDER, UNSPECIFIED 06/12/2017 GENO HARMON MD, Ot G25.81 RESTLESS LEGS SYNDROME 06/12/2017 GENO HARMON MD, Ot G47.9 SLEEP DISORDER, UNSPECIFIED 06/12/2017 GENO HARMON MD, Ot I10 ESSENTIAL (PRIMARY) HYPERTENSION 06/12/2017 GENO HARMON MD, Ot I25.10 ATHSCL HEART DISEASE OF [place] CORONARY 06/12/2017 GENO HARMON MD, Ot Z79.82 FPC (CURRENT) USE OF ASPIRIN 06/12/2017 GENO HARMON MD, Ot Z79.84 INTERLOCKING AND SIGNAL MECHANIC (CURRENT) USE OF ORAL HYPOGLYC 06/12/2017 GENO HARMON MD, Ot Z86.73 PRSNL HX OF TIA (TIA), AND CEREB INFRC W 06/12/2017 GENO HARMON MD, Ot Z87.2 PERSONAL HISTORY OF DISEASES OF THE SKIN 06/12/2017 GENO HARMON MD, Ot Z87.828 PERSONAL HISTORY OF OTH (HEALED) PHYSICA 06/12/2017 GENO HARMON MD, Ot Z90.710 ACQUIRED ABSENCE OF BOTH CERVIX AND UTER 08/17/2017 AARTI OREILLY MD Ot E11.9 TYPE 2 DIABETES MELLITUS WITHOUT COMPLIC 08/17/2017 AARTI OREILLY MD Ot E78.00 PURE HYPERCHOLESTEROLEMIA, UNSPECIFIED 08/17/2017 AARTI OREILLY MD Ot F03.90 UNSPECIFIED DEMENTIA WITHOUT BEHAVIORAL 08/17/2017 AARTI OREILLY MD Ot F32.9 MAJOR DEPRESSIVE DISORDER, SINGLE EPISOD 08/17/2017 AARTI OREILLY MD, Ot F41.9 ANXIETY DISORDER, UNSPECIFIED 08/17/2017 AARTI OREILLY MD, Ot G25.81 RESTLESS LEGS SYNDROME 08/17/2017 AARTI OREILLY MD, Ot I10 ESSENTIAL (PRIMARY) HYPERTENSION 08/17/2017 AARTI OREILLY MD, Ot M54.31 SCIATICA, RIGHT SIDE 08/17/2017 AARTI OREILLY MD Ot Z79.52 FPC (CURRENT) USE OF SYSTEMIC STER 08/17/2017 AARTI OREILLY MD, Ot Z79.82 FPC (CURRENT) USE OF ASPIRIN 08/17/2017 AARTI OREILLY MD Ot Z79.84 INTERLOCKING AND SIGNAL MECHANIC (CURRENT) USE OF ORAL HYPOGLYC 08/17/2017 AARTI OREILLY MD Ot Z86.73 PRSNL HX OF TIA (TIA), AND CEREB INFRC W 08/17/2017 AARTI OREILLY MD, Ot Z87.2 PERSONAL HISTORY OF DISEASES OF THE SKIN 08/17/2017 AARTI OREILLY MD, Ot Z90.710 ACQUIRED ABSENCE OF BOTH CERVIX AND UTER 08/19/2017 AARTI OREILLY MD Ot E11.9 TYPE 2 DIABETES MELLITUS WITHOUT COMPLIC 08/19/2017 AARTI OREILLY MD Ot E78.00 PURE HYPERCHOLESTEROLEMIA, UNSPECIFIED 08/19/2017 AARTI OREILLY MD Ot F03.90 UNSPECIFIED DEMENTIA WITHOUT BEHAVIORAL 08/19/2017 AARTI OREILLY MD Ot F32.9 MAJOR DEPRESSIVE DISORDER, SINGLE EPISOD 08/19/2017 AARTI OREILLY MD Ot F41.9 ANXIETY DISORDER, UNSPECIFIED 08/19/2017 AARTI OREILLY MD, Ot G25.81 RESTLESS LEGS SYNDROME 08/19/2017 AARTI OREILLY MD Ot I10 ESSENTIAL (PRIMARY) HYPERTENSION 08/19/2017 AARTI OREILLY MD Ot M54.31 SCIATICA, RIGHT SIDE 08/19/2017 AARTI OREILLY MD Ot Z79.52 INTERLOCKING AND SIGNAL MECHANIC (CURRENT) USE OF SYSTEMIC STER 08/19/2017 AARTI OREILLY MD Ot Z79.82 FPC (CURRENT) USE OF ASPIRIN 08/19/2017 AARTI OREILLY MD Ot Z79.84 INTERLOCKING AND SIGNAL MECHANIC (CURRENT) USE OF ORAL HYPOGLYC 08/19/2017 AARTI OREILLY MD Ot Z86.73 PRSNL HX OF TIA (TIA), AND CEREB INFRC W 08/19/2017 AARTI OREILLY MD, Ot Z87.2 PERSONAL HISTORY OF DISEASES OF THE SKIN 08/19/2017 AARTI OREILLY MD Ot Z90.710 ACQUIRED ABSENCE OF BOTH CERVIX AND UTER 08/22/2017 VERONA SHERIDAN LEAF STRIPPER Ot I51.7 CARDIOMEGALY 08/22/2017 VERONA SHERIDAN R LEAF STRIPPER Ot R06.02 SHORTNESS OF BREATH 08/22/2017 VERONA SHERIDAN R LEAF STRIPPER Ot R07.81 PLEURODYNIA 08/22/2017 VERONA SHERIDAN LEAF STRIPPER Ot W19.XXXA UNSPECIFIED FALL, INITIAL ENCOUNTER 08/22/2017 VERONA SHERIDAN LEAF STRIPPER Ot Y92.[address] IN [facility] (PRIVATE 08/30/2017 VERONA SHERIDAN LEAF STRIPPER Ot I51.7 CARDIOMEGALY 08/30/2017 VERONA SHERIDAN LEAF STRIPPER Ot R06.02 SHORTNESS OF BREATH 08/30/2017 VERONA SHERIDAN R LEAF STRIPPER Ot R07.81 PLEURODYNIA 08/30/2017 VERONA SHERIDAN R LEAF STRIPPER Ot W19.XXXA UNSPECIFIED FALL, INITIAL ENCOUNTER 08/30/2017 VERONA SHERIDAN R LEAF STRIPPER Ot Y92.[address] IN [facility] (PRIVATE 11/01/2017 BAIMA, YU L CLOSER ON Ot 272.4 HYPERLIPIDEMIA NEC/NOS 11/01/2017 BAIMA, YU L CLOSER ON Ot 401.9 HYPERTENSION NOS 11/01/2017 BAIMA, YU L CLOSER ON Ot V58.69 OTH MED,LT,CURRENT USE 11/01/2017 BAIMA, YU L CLOSER ON Ot 276.8 HYPOPOTASSEMIA 11/01/2017 SARANYA FRIEND, FAB Napoles Ot V76.12 OTH SCREEN MAMMO-MALIGN NEOPLASM OF ROSAILND 11/01/2017 BAIMA, YU L CLOSER ON Ot 272.4 HYPERLIPIDEMIA NEC/NOS 11/01/2017 BAIMA, YU L CLOSER ON Ot V58.69 OTH MED,LT,CURRENT USE 11/01/2017 SARANYA FRIEND, FAB Napoles Ot 715.33 LOC OSTEOART NOS-FOREARM 11/01/2017 SANJIV FRIEND, ENRIQUE Raymundo Ot V72.84 EXAM PRE-OPERATIVE NOS 11/01/2017 BAIMA, YU L CLOSER ON Ot 250.00 DIAB TOBY WO COMPL, TYPE II OR UNSPEC TY 11/01/2017 BAIMA, YU L CLOSER ON Ot 272.4 HYPERLIPIDEMIA NEC/NOS 11/01/2017 YU CASTRO CLOSER ON Ot 401.9 HYPERTENSION NOS 11/01/2017 YU CASTRO CLOSER ON Ot 443.9 PERIPH VASCULAR DIS NOS 11/01/2017 FAB BEAVER MD Ot V76.12 OTH SCREEN MAMMO-MALIGN NEOPLASM OF [place] 11/01/2017 VERONA SHERIDAN LEAF STRIPPER Ot 959.5 FINGER INJURY NOS 11/01/2017 VERONA SHERIDNA APRN Ot E849.0 ACCIDENT IN HOME 11/01/2017 VERONA SHERIDAN LEAF STRIPPER Ot E888.9 FALL NOS 11/01/2017 Ot 709.9 SKIN DISORDER NOS 11/01/2017 Ot V72.63 PRE- PROCEDURAL LABORATORY EXAMINATION 11/01/2017 Ot V72.81 EXAM-PRE- OPERATIVE CARDIOVASCULAR 11/01/2017 Ot V74.8 SCREEN- BACTERIAL DIS NEC 11/01/2017 DIOMEDESYU HUIZAR CLOSER ON Ot 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 11/01/2017 FAB BEAVER MD Ot Z12.31 ENCNTR SCREEN MAMMOGRAM FOR MALIGNANT NE 11/01/2017 FAB BEAVER MD Ot Z12.31 ENCNTR SCREEN MAMMOGRAM FOR MALIGNANT NE 11/01/2017 FAB BEAVER MD Ot M25.551 PAIN IN RIGHT HIP 11/01/2017 FAB BEAVER MD Ot M25.552 PAIN IN LEFT HIP 11/01/2017 FAB BEAVER MD Ot M25.551 PAIN IN RIGHT HIP 11/01/2017 FAB BEAVER MD Ot M25.552 PAIN IN LEFT HIP 11/01/2017 MABLE FRIEND FACC, BETH FACP CCDS Ot I73.89 OTHER SPECIFIED PERIPHERAL VASCULAR DISE 11/01/2017 VERONA SHERIDAN LEAF STRIPPER Ot Z12.31 ENCNTR SCREEN MAMMOGRAM FOR MALIGNANT NE 11/01/2017 FAB BEAVER MD Ot M16.11 UNILATERAL PRIMARY OSTEOARTHRITIS, RIGHT 11/01/2017 VERONA SHERIDAN LEAF STRIPPER Ot I51.7 CARDIOMEGALY 11/01/2017 VERONA SHERIDAN LEAF STRIPPER Ot R06.02 SHORTNESS OF BREATH 11/01/2017 VERONA SHERIDAN LEAF STRIPPER Ot R07.81 PLEURODYNIA 11/01/2017 VERONA SHERIDAN LEAF STRIPPER Ot W19.XXXA UNSPECIFIED FALL, INITIAL ENCOUNTER 11/01/2017 VERONA SHERIDAN LEAF STRIPPER Ot Y92.[address] [facility] [address] IN [facility] (PRIVATE 11/11/2017 BAIMA, YU L CLOSER ON Ot I10 ESSENTIAL (PRIMARY) HYPERTENSION 11/11/2017 BAIMA, YU L CLOSER ON Ot I34.0 NONRHEUMATIC MITRAL (VALVE) INSUFFICIENC 11/20/2017 BAIMA, YU L CLOSER ON Ot I10 ESSENTIAL (PRIMARY) HYPERTENSION 11/20/2017 BAIMA, YU L CLOSER ON Ot I34.0 NONRHEUMATIC MITRAL (VALVE) INSUFFICIENC 12/06/2017 BAIMA, YU L CLOSER ON Ot 272.4 HYPERLIPIDEMIA NEC/NOS 12/06/2017 BAIMA, YU L CLOSER ON Ot 401.9 HYPERTENSION NOS 12/06/2017 BAIMA, YU L CLOSER ON Ot V58.69 OTH MED,LT,CURRENT USE 12/06/2017 BAIMA, YU L CLOSER ON Ot 276.8 HYPOPOTASSEMIA 12/06/2017 SARANYA FRIEND, FAB Napoles Ot V76.12 OTH SCREEN MAMMO-MALIGN NEOPLASM OF [place] 12/06/2017 BAIMA, YU L CLOSER ON Ot 272.4 HYPERLIPIDEMIA NEC/NOS 12/06/2017 BAIMA, YU L CLOSER ON Ot V58.69 OTH MED,LT,CURRENT USE 12/06/2017 SARANYA FRIEND, FAB Napoles Ot 715.33 LOC OSTEOART NOS-FOREARM 12/06/2017 SANJIV FRIEND, ENRIQUE Raymundo Ot V72.84 EXAM PRE-OPERATIVE NOS 12/06/2017 BAIMA, YU L CLOSER ON Ot 250.00 DIAB TOBY WO COMPL, TYPE II OR UNSPEC TY 12/06/2017 BAIMA, YU L CLOSER ON Ot 272.4 HYPERLIPIDEMIA NEC/NOS 12/06/2017 BAIMA, YU L CLOSER ON Ot 401.9 HYPERTENSION NOS 12/06/2017 BAIMA, YU L CLOSER ON Ot 443.9 PERIPH VASCULAR DIS NOS 12/06/2017 SARANYA FRIEND, FAB Napoles Ot V76.12 OTH SCREEN MAMMO-MALIGN NEOPLASM OF ROSALIND 12/06/2017 VERONA SHERIDAN LEAF STRIPPER Ot 959.5 FINGER INJURY NOS 12/06/2017 VERONA SHERIDAN LEAF STRIPPER Ot E849.0 ACCIDENT IN HOME 12/06/2017 VERONA SHERIDAN LEAF STRIPPER Ot E888.9 FALL NOS 12/06/2017 Ot 709.9 SKIN DISORDER NOS 12/06/2017 Ot V72.63 PRE- PROCEDURAL LABORATORY EXAMINATION 12/06/2017 Ot V72.81 EXAM-PRE- OPERATIVE CARDIOVASCULAR 12/06/2017 Ot V74.8 SCREEN- BACTERIAL DIS NEC 12/06/2017 YU CASTRO Ot 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 12/06/2017 FAB BEAVER MD Ot Z12.31 ENCNTR SCREEN MAMMOGRAM FOR MALIGNANT NE 12/06/2017 FAB BEAVER MD Ot Z12.31 ENCNTR SCREEN MAMMOGRAM FOR MALIGNANT NE 12/06/2017 FAB BEAVER MD Ot M25.551 PAIN IN RIGHT HIP 12/06/2017 FAB BEAVER MD Ot M25.552 PAIN IN LEFT HIP 12/06/2017 FAB BEAVER MD Ot M25.551 PAIN IN RIGHT HIP 12/06/2017 FAB BEAVER MD Ot M25.552 PAIN IN LEFT HIP 12/06/2017 MABLE FRIEND FACC, ALI FACP CCDS Ot I73.89 OTHER SPECIFIED PERIPHERAL VASCULAR DISE 12/06/2017 VERONA SHERIDAN APRN Ot Z12.31 ENCNTR SCREEN MAMMOGRAM FOR MALIGNANT NE 12/06/2017 FAB BEAVER MD Ot M16.11 UNILATERAL PRIMARY OSTEOARTHRITIS, RIGHT 12/06/2017 VERONA SHERIDAN APRN Ot I51.7 CARDIOMEGALY 12/06/2017 VERONA SHERIDAN APRN Ot R06.02 SHORTNESS OF BREATH 12/06/2017 VERONA SHERIDAN APRN Ot R07.81 PLEURODYNIA 12/06/2017 VERONA SHERIDAN APRN Ot W19.XXXA UNSPECIFIED FALL, INITIAL ENCOUNTER 12/06/2017 VERONA SHERIDAN APRN Ot Y92.[address] [facility] [address] IN [facility] (PRIVATE 12/06/2017 YU CASTRO Ot I10 ESSENTIAL (PRIMARY) HYPERTENSION 12/06/2017 YU CASTRO Ot I34.0 NONRHEUMATIC MITRAL (VALVE) INSUFFICIENC 12/06/2017 DUSTIN DESIR Ot Z12.31 ENCNTR SCREEN MAMMOGRAM FOR MALIGNANT NE 12/09/2017 DUSTIN DESIR Ot Z12.31 ENCNTR SCREEN MAMMOGRAM FOR MALIGNANT NE 12/12/2017 DUSTIN DESIR Ot Z12.31 ENCNTR SCREEN MAMMOGRAM FOR MALIGNANT NE Procedures There is no data. Results Test [...] Status Pt. Type Provider Facility Loc./Unit Complaint [id number] 12/06/2017 09:04:00 12/06/2017 23:59:59 CLS Outpatient DUSTIN DESIR [facility] RAD SCREENING [id number] 11/07/2017 12:43:00 11/07/2017 23:59:59 CLS Outpatient YU CASTRO CLOSER ON [facility] CARD MITRAL VALVE REGURGITATION,HTN [id number] 08/21/2017 12:18:00 08/21/2017 23:59:59 CLS Outpatient VERONA SHERIDAN APRN [facility] RAD FALL AT HOME ON RIGHT SIDE,SOB,PAIN R RIBS [id number] 08/16/2017 23:21:00 08/17/2017 03:10:00 DIS Emergency DENILSON FRIEND, AARTI Gonzalez [facility] ER BACK PAIN [id number] 06/10/2017 21:23:00 06/10/2017 23:48:00 DIS Emergency EDEN FRIEND, GENO Dougherty [facility] ER ELEV BP [id number] 06/07/2017 22:55:00 06/09/2017 10:35:00 DIS Inpatient KENNEDI FRIEND, ESTRELLITA Raymundo [facility] 4TH HYPERTENSIVE URGENCY;CHF [id number] 01/18/2017 14:07:00 01/18/2017 23:59:59 CLS Outpatient FAB BEAVER MD [facility] RAD M25.551 [id number] 12/28/2016 10:42:00 12/28/2016 23:59:59 CLS Outpatient VERONA SHERIDAN APRN [facility] RAD SCREENING Z12.31 [id number] 10/15/2016 19:41:00 10/15/2016 22:29:00 DIS Emergency ROD FLEMING LEAF STRIPPER [facility] ER RT LEG SWELLING/BRUISING [id number] 07/17/2016 13:58:00 07/17/2016 23:59:59 CLS Outpatient MABLE FRIEND FACC, BETH AGUDELO CCDS [facility] RAD I73.89 [id number] 07/14/2016 20:02:00 07/14/2016 22:09:00 DIS Emergency DUSTIN DESIR [facility] ER FALL INJ L KNEE [id number] 05/29/2016 12:43:00 05/29/2016 16:00:00 DIS Outpatient VERONA SHERIDAN APRN [facility] WOUNDCARE [id number] 01/21/2016 09:01:00 01/21/2016 23:59:59 CLS Outpatient FAB BEAVER MD [facility] RAD B HIP PAIN, ABNORMAL HIP XRAY [id number] 01/13/2016 13:10:00 01/13/2016 23:59:59 CLS Outpatient FAB BEAVER MD [facility] RAD HIP PAIN [id number] 12/28/2015 11:28:00 12/28/2015 23:59:59 CLS Outpatient FAB BEAVER MD [facility] RAD SCREENING [id number] 12/26/2015 06:35:00 12/26/2015 11:00:00 DIS Outpatient ENRIQUE KINCAID MD [facility] SDC POLYPS [id number] 12/22/2015 05:50:00 12/22/2015 12:20:00 DIS Outpatient ENRIQUE KINCAID MD [facility] PREOP POLYPS [id number] 12/09/2015 15:07:00 12/09/2015 23:59:59 CLS Outpatient COLDARRION MARTIN DO [facility] QUICK [id number] 12/29/2014 10:36:00 12/29/2014 23:59:59 CLS Outpatient FAB BEAVER MD [facility] RAD SCREENING [id number] 12/09/2014 13:32:00 12/09/2014 23:59:59 CLS Outpatient YU CASTRO [facility] CARD MITRAL REGURGITATION ,HYPERLIPIDEMIA [id number] 01/08/2014 12:39:00 01/08/2014 23:59:59 CLS Outpatient ARVIN VERONAOscar Stephen APRN [facility] RAD POST TRAUMA, FELL AT HOME [id number] 12/18/2013 10:46:00 12/18/2013 23:59:59 CLS Outpatient FAB BEAVER MD [facility] RAD ROUTINE [id number] 08/14/2013 10:08:00 08/14/2013 23:59:59 CLS Outpatient YU CASTRO [facility] LAB HYPERLIPIDEMIA, HYPERTENSION,PAD,DM II [id number] 12/22/2012 08:00:00 12/22/2012 10:55:00 DIS [facility] [id number] 12/17/2012 07:18:00 12/17/2012 23:59:59 CLS Outpatient ENRIQUE KINCAID MD [facility] PREOP HISTORY OF POLYPS [id number] 12/10/2012 09:45:00 12/10/2012 23:59:59 CLS Outpatient FAB BEAVER MD [facility] RAD SCREENING [id number] 12/05/2012 09:20:00 12/05/2012 23:59:59 CLS Outpatient FAB BEAVER MD [facility] RAD RT WRIST WITHOUT FALL [id number] 12/05/2012 09:18:00 12/05/2012 23:59:59 CLS Outpatient YU CASTRO [facility] LAB HYPERLIADEMIA [id number] 10/27/2012 09:33:00 10/27/2012 23:59:59 CLS Outpatient DIOMEDESBHUPENDRAYU [facility] LAB HYPOKALEMIA [id number] 10/17/2012 09:08:00 10/17/2012 23:59:59 CLS Outpatient DIOMEDESBHUPENDRAYU [facility] LAB HYPERTENSION, HYPERLIPADEMIA [id number] 05/12/2014 10:30:00 Document Registration [id number] 05/05/2014 10:35:00 Document Registration [id number] 04/17/2012 08:37:00 Document Registration [id number] 04/11/2012 09:38:00 Document Registration [id number] 12/26/2011 09:03:00 Document Registration [id number] 12/27/2006 09:56:00 Document Registration [email or web address] 12/09/2014 13:34:08 ACT Document Registration
--- NOTE | 2018-02-08 12:26 | ED Cough/URI ---
General Stated Complaint: CHEST CONGESTION/COUGH Source: patient, caregiver Exam Limitations: no limitations History of Present Illness Date Seen by Provider: Feb 08, 2018 Time Seen by Provider: 12:26 Initial Comments To ER with c/o dry cough x4 days with no fevers. TO Er per pOV from home with her caregiver thru [facility]. Timing/Duration: constant Severity/Quality: dry cough Prior Episodes/Possible Cause: no prior episodes Modifying Factors: Worse With Activity Associated Symptoms: cough Allergies and Home Medications Allergies Coded Allergies: No Known Drug Allergies (Verified , 12/25/06) Home Medications Acetaminophen 500 Mg Tablet, 1,000 MG PO DAILY, (Reported) Acetaminophen 500 Mg Tablet, 500 MG PO HS, (Reported) Acetaminophen/Diphenhydramine 1 Each Tablet, 1 EACH PO HS, (Reported) Albuterol Sulfate 1 Puff Puff, 2 PUFF IH Q4H 1 PUFF = 90 MCG Prescribed by: ROD FLEMING on 02/08/18 1327 Amlodipine Besylate 10 Mg Tablet, 10 MG PO DAILY Prescribed by: AARTI GROSS on 08/17/17 0304 Antiox#10/Om3/Dha/Epa/Lut/Zeax 1 Each Capsule, 1 EACH PO DAILY, (Reported) Aspirin 81 Mg Tablet.dr, 81 MG PO DAILY, (Reported) Atenolol 50 Mg Tablet, 50 MG PO DAILY Prescribed by: ESTRELLITA KOLB on 06/09/17 1033 Atorvastatin Calcium 10 Mg Tablet, 10 MG PO HS, (Reported) Cefuroxime Axetil 250 Mg Tablet, 250 MG PO BID Prescribed by: ROD FLEMING on 02/08/18 1327 Fenofibrate 135 Mg Capsule.dr, 135 MG PO DAILY, (Reported) Loratadine 10 Mg Tablet, 10 MG PO DAILY, (Reported) Losartan Potassium 100 Mg Tablet, 100 MG PO DAILY Prescribed by: ESTRELLITA KOLB on 06/09/17 1033 Memantine HCl 28 Mg Cap.spr.24, 28 MG PO HS, (Reported) Metformin Hcl 500 Mg Tablet, 500 MG PO BID, (Reported) Naproxen 500 Mg Tablet, 500 MG PO DAILY PRN for BREAKTHROUGH PAIN, (Reported) Peridot-3 Acid Ethyl Esters 1 Gm Capsule, 2 GM PO BID, (Reported) Oxycodone HCl/Acetaminophen 1 Each Tablet, 0.5-1 EACH PO Q4H PRN for PAIN- MODERATE TO SEVERE Prescribed by: AARTI GROSS on 08/17/17301 Prednisone 10 Mg Tab, 10 MG PO DAILY Prescribed by: AARTI GROSS on 08/17/17301 Prednisone 20 Mg Tab, 40 MG PO DAILY Prescribed by: ROD FLEMING on 02/08/18 1327 Quetiapine Fumarate 100 Mg Tablet, 100 MG PO HS, (Reported) Quetiapine Fumarate 100 Mg Tablet, 50 MG PO DAILY, (Reported) Sitagliptin Phosphate 50 Mg Tablet, 50 MG PO DAILY, (Reported) Venlafaxine Hcl 150 Mg Tab.osm.24, 150 MG PO DAILY, (Reported) Patient Home Medication List Home Medication List Reviewed: Yes Review of Systems Review of Systems Constitutional: see HPI; No chills EENTM: see HPI Respiratory: see HPI, cough; No short of breath Cardiovascular: no symptoms reported Genitourinary: no symptoms reported Musculoskeletal: no symptoms reported Skin: no symptoms reported Psychiatric/Neurological: No Symptoms Reported Past Lfdddcr-Gmynvc-Epneqt Hx Patient Social History 2nd Hand Smoke Exposure: No Recent Foreign Travel: No Contact w/Someone Who Travel: No Recent Hopitalizations: Yes (HYPERTENSION) Immunizations Up To Date Tetanus Booster (TDap): Less than 5yrs Date of Pneumonia Vaccine: Nov 02, 2016 Date of Influenza Vaccine: Dec 02, 2015 Seasonal Allergies Seasonal Allergies: Yes Past Medical History Surgeries: Yes Eye Surgery, Gallbladder, 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, Orthopedic Respiratory: No Cardiac: Yes (MILD MITRAL REGURGITATION) High Cholesterol, Hypertension, Valvular Heart Disease Neurological: Yes Dementia, Stroke Reproductive Disorders: No Female Reproductive Disorders: Denies 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: 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, Menopausal Sexually Transmitted Disease: No HIV/AIDS: No Genitourinary: No Gastrointestinal: Yes (DYSPLASTIC COLON POLYPS) Diverticulosis, Hemorrhoids, Polyps Musculoskeletal: Yes (RESTLESS LEGS; OSTEOMYELITIS RIGHT FOOT, sciatica) Arthritis Endocrine: Yes Diabetes, Non-Insulin dep HEENT: Yes (LEFT EYE REMOVED/ PROSTHETIC EYE; WEARS GLASSES; ALL TEETH REMOVED) Cataract Loss of Vision: Left Cancer: Yes Skin Did You Recieve Any Treatments: Yes What Type of Treatment Did You: Surgical Intervention Psychosocial: Yes (SELF MUTILATION-"PICKS" ) Sleep Difficulties, Anxiety, Depression Integumentary: Yes (FOOT ULCERS; STAPH INFECTION; OSTEOMYELITIS RIGHT FOOT; BEARDEN TO FINGERS) Blood Disorders: No Family Medical History No Pertinent Family Hx Physical Exam Vital Signs - First Documented Capillary Refill : Height: 5'4.00" Weight: 145lbs. 0oz. 65.206436rt; 24.0 BMI Method:Stated General Appearance: WD/WN, no apparent distress Eyes: Bilateral Eye Normal Inspection, Bilateral Eye PERRL, Bilateral Eye EOMI HEENT: PERRL/EOMI, normal ENT inspection Respiratory: no respiratory distress, no accessory muscle use, crackles (RLL) Gastrointestinal: normal bowel sounds, non tender, soft Extremities: normal capillary refill; No pedal edema Neurologic/Psychiatric: alert, normal mood/affect, oriented x 3 Skin: normal color, warm/dry Progress/Results/Core Measures Suspected Sepsis SIRS Temperature: Pulse: Respiratory Rate: Blood Pressure / Mean: Results/Orders My Orders Orders - ROD FLEMING APRN Chest Pa/Lat (2 View) (02/08/18 12:20) Albuterol/Ipra Inhalation Soln (Duoneb I (02/08/18 12:30) Svn Small Volume Nebulizer (02/08/18 12:20) Medications Given in ED Current Medications Medications Dose Ordered Sig/Darius Route Start Time Stop Time Status Last Admin Dose Admin Albuterol/ Ipratropium 3 ml ONCE ONCE INH 02/08/18 12:30 02/08/18 12:31 DC 02/08/18 12:42 3 ML Vital Signs/I&O 02/08/18 02/08/18 12:17 12:17 Temp 97.5 Pulse 71 Resp 20 B/P (MAP) 156/65 (95) Pulse Ox 93 O2 Delivery Room Air Room Air Capillary Refill : Diagnostic Imaging Diagonstic Imaging: Xray Plain Films/CT/US/NM/MRI: chest Comments NAME: WILLIAM DO MED REC#: [id number] PT STATUS: REG ER : 1945 PHYSICIAN: ROD FLEMING APRN ADMIT DATE: 02/08/18/ER Draft Date of Exam:02/08/18 CHEST PA/LAT (2 VIEW) EXAM: CHEST PA/LAT (2 VIEWS). INDICATION: Cough. Shortness of air. COMPARISON: Rib radiographs 08/21/2017. FINDINGS: Normal heart size and central pulmonary vascularity. No dense consolidation, pleural effusion, or pneumothorax. No acute osseous findings. IMPRESSION: No acute radiographic findings. Dictated on workstation # [id number] Dict: 02/08/18 1318 Trans: 02/08/18 1323 [id number] Interpreted by: TARA CAMARENA MD Electronically signed by: Departure Communication (Admissions) She did drop to 89% on room air prior to the breathing treatment so 1 L of supplemental oxygen was applied via nasal cannula. 1335- She has been off of the supplemental oxygen for about 25 minutes and she is at 93% SPO2 on room air. Impression Primary Impression: Bronchitis Disposition: HOME, SELF-CARE Condition: Stable Departure-Patient Inst. Decision time for Depature: 13:25 Referrals: FAB BEAVER MD (PCP/Family) Primary Care Physician Patient Instructions: Acute Bronchitis, Adult (DC) Add. Discharge Instructions: 1. Use 2 puffs of the inhaler every 4 hours 2. Steroids and antibiotics as directed. Scripts Prednisone (Prednisone) 20 Mg Tab 40 MG PO DAILY, #8 TAB Prov: ROD FLEMING WEB CONTENT WRITER 02/08/18 Cefuroxime Axetil (Cefuroxime) 250 Mg Tablet 250 MG PO BID, #10 TAB Prov: ROD FLEMING APRN 02/08/18 Albuterol Sulfate (PROAIR HFA) 1 Puff Puff 2 PUFF IH Q4H, #1 PUFF 1 PUFF = 90 MCG Prov: ROD FLEMING APRN 02/08/18 ROD FLEMING APRN Feb 08, 2018 12:26
[2018-02-08] MEDS ORDERED: RT-ALBUTEROL/IPRATROPIUM 3 ML (DUONEB) VIAL INH ONE (12:30)
--- NOTE | 2018-02-08 13:24 | Diagnostic Imaging Report ---
EXAM: CHEST PA/LAT (2 VIEWS). INDICATION: Cough. Shortness of air. COMPARISON: Rib radiographs 08/21/2017. FINDINGS: Normal heart size and central pulmonary vascularity. No dense consolidation, pleural effusion, or pneumothorax. No acute osseous findings. IMPRESSION: No acute radiographic findings. Dictated by: Dictated on workstation # [id number]
[2018-02-08] MEDS ORDERED: RT-ALBUINH IH (13:27)
[2018-02-08] MEDS ORDERED: CEFU250T80 PO (13:27)
[2018-02-08] MEDS ORDERED: PRD20T PO (13:27)
[2018-02-08 13:39] VITALS: BP 164/87
== END 2018-02-08 13:39 | disposition home or self-care (01) ==
LOC: EDUNIT# 12:13 → ER 12:15
DX: J40 Bronchitis, not specified as acute or chronic (principal); E78.00 Pure hypercholesterolemia, unspecified; I10 Essential (primary) hypertension; F03.90 Unspecified dementia, unspecified severity, without behavioral disturbance, psychotic disturbance, mood disturbance, and anxiety; E11.9 Type 2 diabetes mellitus without complications; F41.9 Anxiety disorder, unspecified; F32.9 Major depressive disorder, single episode, unspecified; Z85.828 Personal history of other malignant neoplasm of skin; Z86.010 Personal history of colon polyps; Z87.19 Personal history of other diseases of the digestive system; Z86.73 Personal history of transient ischemic attack (TIA), and cerebral infarction without residual deficits; Z79.82 Long term (current) use of aspirin; Z79.52 Long term (current) use of systemic steroids; Z79.84 Long term (current) use of oral hypoglycemic drugs; Z90.710 Acquired absence of both cervix and uterus
CPT/HCPCS: 71046

== ENCOUNTER → 2018-07-01 | Outpatient (CLI) | payer MEDICARE, MEDICAID ==
[~2018-07-01] VITALS: Ht 172.7 cm; Wt 71.2 kg
[~2018-07-01] MED LIST changes: -AMLO10TA6 PO; +AMLO10TA7 PO; +CATHETER FLUSH 10 ML SYR IV PRN; +CEFU250T80 PO; +LOSA100T57 PO; -LOSA100T8 PO; +LOSA50TA63 PO; -LOSA50TA7 PO; +PRD20T PO; +REGADENOSON 0.4 MG/5 ML SYR (LEXISCAN) IV ONE; +RT-ALBUINH IH
[2018-07-01 09:12] VITALS: BP 149/88
[2018-07-01 09:14] VITALS: BP 152/85
--- NOTE | 2018-07-03 15:43 | STRESS TEST ---
DATE OF SERVICE: 07/01/2018 RESTING AND POST REGADENOSON TECHNETIUM-99M TETROFOSMIN SPECT CT IMAGING ORDERING PHYSICIAN: Amy Leon APRN PRIMARY PHYSICIAN: Dr. Graves. CLINICAL DIAGNOSIS: Chest discomfort. Baseline images were carried out after injection of 10.55 mCi of technetium-99m Tetrofosmin. This was followed by 0.4 mg of Regadenoson and 31.5 mCi of technetium-99m Tetrofosmin for stress imaging. The electrocardiogram showed sinus rhythm at baseline. It did not change significantly with the Regadenoson infusion. The patient tolerated the procedure well and did not report symptoms. Review of images at rest and following stress does not indicate any significant perfusion defects consistent with the significant myocardial ischemia or infarction. Gated images showed normal global left ventricular systolic function with a normal regional wall motion. Left ventricular ejection fraction is calculated to be 73%. Left ventricular end diastolic volume is 55 mL. TID is absent (1). CONCLUSIONS: 1. No evidence of any significant myocardial ischemia or infarction on this study. 2. Normal regional wall motion. 3. Normal global left ventricular systolic function with a calculated ejection fraction of 73%. Job ID: [id number] DocumentID: [id number] Dictated Date: 07/03/2018 13:12:38 Progressive Care Unit Registered Nurse Date: 07/03/2018 15:43:00 Dictated By: BETH AKINS MD, MA, FACP, FACC,
== END ==
LOC: CARD 07:36
PROVIDERS: ATTEND Nurse Practitioner Family
DX: R07.89 Other chest pain (principal); E11.9 Type 2 diabetes mellitus without complications
CPT/HCPCS: 78452; 93017

== ENCOUNTER 2018-08-31 01:13 | Emergency (ER) | payer MEDICARE, MEDICAID ==
[~2018-08-31] VITALS: Ht 165.1 cm; Wt 68.0 kg
[~2018-08-31 01:13] MED LIST changes: -CATHETER FLUSH 10 ML SYR IV PRN; -REGADENOSON 0.4 MG/5 ML SYR (LEXISCAN) IV ONE
--- OUTSIDE RECORDS SUMMARY | 2018-08-31 01:20 | XMS REPORT | Continuity of Care Document ---
Author Organization Unknown Address Unknown Allergies Active Description Code Type Severity Reaction Onset Reported/Identified Relationship to Patient Clinical Status Yes No Known Drug Allergies [id number] Drug Allergy Unknown N/A 12/26/2015 Medications There [...] SHERIDAN APRN Ot 959.5 02/19/2014 VERONA SHERIDAN MAGISTRATE ASSISTANT Ot E849.0 02/19/2014 VERONA SHERIDAN MAGISTRATE ASSISTANT Ot E888.9 05/12/2014 Ot 173.31 BASAL CELL CARCINOMA OF SKIN OF OTH UN 05/12/2014 Ot 250.00 DIAB TOBY WO COMPL, TYPE II OR UNSPEC TY 05/12/2014 Ot V58.69 OTH MED,LT,CURRENT USE 06/01/2014 Ot 709.9 06/01/2014 Ot V72.63 06/01/2014 Ot V72.81 06/01/2014 Ot V74.8 06/08/2014 Ot 709.9 06/08/2014 Ot V72.63 06/08/2014 Ot V72.81 06/08/2014 Ot V74.8 12/29/2014 YU CASTRO SHOW HOST Ot I34.8 01/03/2015 YU CASTRO SHOW HOST Ot I34.8 01/19/2015 FAB BEAVER MD Ot [...] M25.551 PAIN IN RIGHT HIP 02/03/2016 FAB BEVAER MD Ot M25.552 PAIN IN LEFT HIP [...] CELLULITIS OF RIGHT FINGER 05/29/2016 VERONA SHERIDAN MAGISTRATE ASSISTANT Ot S61.202D UNSP OPEN WOUND OF R MID FINGER W/O [place] 05/29/2016 VERONA SHERIDAN APRN Ot L03.011 CELLULITIS OF RIGHT FINGER 05/29/2016 VERONA SHERIDAN MAGISTRATE ASSISTANT Ot S61.202D UNSP OPEN WOUND OF R MID FINGER W/O [place] 07/14/2016 DUSTIN DESIR Ot E11.9 TYPE 2 DIABETES MELLITUS WITHOUT COMPLIC 07/14/2016 DUSTIN DESIR Ot I10 ESSENTIAL (PRIMARY) HYPERTENSION 07/14/2016 DUSTIN DESIR Ot S80.02XA CONTUSION OF LEFT KNEE, INITIAL ENCOUNTE 07/14/2016 DUSTIN DESIR Ot W01.0XXA FALL SAME LEV FROM SLIP/TRIP W/O STRIKE 07/14/2016 DUSTIN DESIR Ot Y92.[address] IN [facility] NON-[facility] (PRIVATE 07/14/2016 DUSTIN DESIR Ot Y99.8 OTHER EXTERNAL CAUSE STATUS 07/14/2016 DUSTIN DESIR Ot Z79.84 CONSTRUCTION CODE ADMINISTRATOR (CURRENT) USE OF ORAL HYPOGLYC 07/14/2016 DUSTIN DESIR Ot Z79.899 OTHER CONSTRUCTION CODE ADMINISTRATOR (CURRENT) DRUG THERAPY 07/16/2016 MABLE FRIEND FACC, BETH FACP CCDS Ot [...] DUSTIN DESIR Ot Y92.[address] IN [facility] NON[facility] (PRIVATE 07/20/2016 DUSTIN DESIR Ot Y99.8 OTHER EXTERNAL CAUSE STATUS 07/20/2016 DUSTIN DESIR Ot Z79.84 CONSTRUCTION CODE ADMINISTRATOR (CURRENT) USE OF ORAL HYPOGLYC 07/20/2016 DUSTIN DESIR Ot Z79.899 OTHER [facility] (CURRENT) DRUG THERAPY 08/13/2016 MABLE FRIEND FACC, ALI FACP CCDS Ot I73.89 OTHER SPECIFIED PERIPHERAL VASCULAR DISE 08/17/2016 MABLE FRIEND FACC, ALI FACP CCDS Ot I73.89 OTHER SPECIFIED PERIPHERAL VASCULAR DISE 10/15/2016 ROD FLEMING APRN Ot E11.9 TYPE 2 DIABETES MELLITUS WITHOUT COMPLIC 10/15/2016 ROD FLEMING MAGISTRATE ASSISTANT Ot F32.9 MAJOR DEPRESSIVE DISORDER, SINGLE EPISOD 10/15/2016 ROD FLEMING MAGISTRATE ASSISTANT Ot F41.9 ANXIETY DISORDER, UNSPECIFIED 10/15/2016 ROD FLEMING MAGISTRATE ASSISTANT Ot I10 ESSENTIAL (PRIMARY) HYPERTENSION 10/15/2016 ROD FLEMING APRN Ot M71.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 [[place]] 10/15/2016 ROD FLEMING APRN Ot M79.661 PAIN IN RIGHT LOWER LEG 10/15/2016 ROD FLEMING APRN Ot M79.81 NONTRAUMATIC HEMATOMA OF SOFT TISSUE 10/15/2016 ROD FLEMING APRN Ot Z79.84 CONSTRUCTION CODE ADMINISTRATOR (CURRENT) USE OF ORAL HYPOGLYC 10/15/2016 ROD FLEMING APRN Ot Z90.710 ACQUIRED ABSENCE [...] HEMATOMA OF SOFT TISSUE 10/22/2016 ROD FLEMING APRN Ot Z79.84 CONSTRUCTION CODE ADMINISTRATOR (CURRENT) USE OF ORAL HYPOGLYC 10/22/2016 ROD FLEMING APRN Ot Z90.710 ACQUIRED ABSENCE OF BOTH CERVIX AND UTER 12/16/2016 ROD FLEMING APRN Ot E11.9 TYPE 2 DIABETES MELLITUS WITHOUT COMPLIC 12/16/2016 ROD FLEMING APRN Ot F32.9 MAJOR DEPRESSIVE DISORDER, SINGLE EPISOD 12/16/2016 ROD FLEMING APRN Ot F41.9 ANXIETY DISORDER, UNSPECIFIED 12/16/2016 ROD FLEMING MAGISTRATE ASSISTANT Ot I10 ESSENTIAL (PRIMARY) HYPERTENSION 12/16/2016 ROD FLEMING MAGISTRATE ASSISTANT Ot M71.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 [HENAO] 12/16/2016 ROD FLEMING APRN Ot M79.661 PAIN IN RIGHT LOWER LEG 12/16/2016 ROD FLEMING APRN Ot M79.81 NONTRAUMATIC HEMATOMA OF SOFT TISSUE 12/16/2016 ROD FLEMING MAGISTRATE ASSISTANT Ot Z79.84 CONSTRUCTION CODE ADMINISTRATOR (CURRENT) USE OF ORAL HYPOGLYC 12/16/2016 ROD FLEMING MAGISTRATE ASSISTANT Ot Z90.710 ACQUIRED ABSENCE OF BOTH CERVIX AND UTER 01/21/2017 VERONA SHERIDAN MAGISTRATE ASSISTANT Ot Z12.31 ENCNTR SCREEN MAMMOGRAM FOR MALIGNANT NE 01/29/2017 VERONA SHERIDAN MAGISTRATE ASSISTANT Ot Z12.31 ENCNTR SCREEN MAMMOGRAM FOR MALIGNANT NE 02/12/2017 SARANYA FRIEND, FAB Napoles Ot M16.11 UNILATERAL PRIMARY OSTEOARTHRITIS, RIGHT 02/22/2017 FAB BEAVER MD Ot M16.11 UNILATERAL PRIMARY OSTEOARTHRITIS, RIGHT 06/08/2017 Ot 272.4 HYPERLIPIDEMIA NEC/NOS 06/08/2017 Ot 401.9 HYPERTENSION NOS 06/08/2017 Ot 272.4 HYPERLIPIDEMIA NEC/NOS 06/08/2017 Ot 443.9 PERIPH VASCULAR DIS NOS 06/08/2017 Ot V58.69 OTH MED,LT,CURRENT USE 06/08/2017 Ot V58.83 ENCOUNTER FOR THERAPEUTIC DRUG MONITORIN 06/08/2017 Ot 276.8 HYPOPOTASSEMIA 06/08/2017 BAIMA, YU L SHOW HOST Ot 272.4 HYPERLIPIDEMIA NEC/NOS 06/08/2017 BAIMA, YU L SHOW HOST Ot 401.9 HYPERTENSION NOS 06/08/2017 BAIMA, YU L SHOW HOST Ot V58.69 OTH MED,LT,CURRENT USE 06/08/2017 BAIMA, YU L SHOW HOST Ot 276.8 HYPOPOTASSEMIA 06/08/2017 SARANYA FRIEND, FAB Napoles Ot V76.12 OTH SCREEN MAMMO-MALIGN NEOPLASM OF [place] 06/08/2017 BAIMA, YU L SHOW HOST Ot 272.4 HYPERLIPIDEMIA NEC/NOS 06/08/2017 BAIMA, YU L SHOW HOST Ot V58.69 OTH MED,LT,CURRENT USE 06/08/2017 FAB BEAVER MD Ot 715.33 LOC OSTEOART NOS-FOREARM 06/08/2017 SANJIV FRIEND, ENRIQUE Raymundo Ot V72.84 EXAM PRE-OPERATIVE NOS 06/08/2017 BAIMA, YU L SHOW HOST Ot 250.00 DIAB TOBY WO COMPL, TYPE II OR UNSPEC TY 06/08/2017 BAIMA, YU L SHOW HOST Ot 272.4 HYPERLIPIDEMIA NEC/NOS 06/08/2017 YU CASTRO SHOW HOST Ot 401.9 HYPERTENSION NOS 06/08/2017 DIOMEDESYU HUIZAR SHOW HOST Ot 443.9 PERIPH VASCULAR DIS NOS 06/08/2017 FAB BEAVER MD Ot V76.12 OTH SCREEN MAMMO-MALIGN NEOPLASM OF [place] 06/08/2017 VERONA SHERIDAN MAGISTRATE ASSISTANT Ot 959.5 FINGER INJURY NOS 06/08/2017 VERONA SHERIDAN MAGISTRATE ASSISTANT Ot E849.0 ACCIDENT IN HOME 06/08/2017 VERONA SHERIDAN MAGISTRATE ASSISTANT Ot E888.9 FALL NOS 06/08/2017 Ot 709.9 SKIN DISORDER NOS 06/08/2017 Ot V72.63 PRE-PROCEDURAL LABORATORY EXAMINATION 06/08/2017 Ot V72.81 [id number] CARDIOVASCULAR 06/08/2017 Ot V74.8 SCREEN-BACTERIAL DIS NEC 06/08/2017 GLORIA YU Treva SHOW HOST Ot 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 [...] IN LEFT HIP 06/08/2017 MABLE FRIEND FACC, BETH FACP CCDS Ot I73.89 OTHER SPECIFIED PERIPHERAL VASCULAR DISE 06/08/2017 VERONA SHERIDAN MAGISTRATE ASSISTANT Ot Z12.31 ENCNTR SCREEN MAMMOGRAM FOR MALIGNANT [...] SITE 06/09/2017 ESTRELLITA KOLB MD Ot Z79.82 FCI (CURRENT) USE OF ASPIRIN 06/09/2017 ESTRELLITA KOLB MD Ot Z79.84 CONSTRUCTION CODE ADMINISTRATOR (CURRENT) USE OF ORAL HYPOGLYC 06/09/2017 ESTRELLITA KOLB MD Ot Z79.899 OTHER CONSTRUCTION CODE ADMINISTRATOR (CURRENT) DRUG THERAPY 06/09/2017 ESTRELLITA KOLB MD [...] SITE 06/09/2017 ESTRELLITA KOLB MD Ot Z79.82 CONSTRUCTION CODE ADMINISTRATOR (CURRENT) USE OF ASPIRIN 06/09/2017 ESTRELLITA KOLB MD Ot Z79.84 [facility]CI (CURRENT) USE OF ORAL HYPOGLYC 06/09/2017 KENNEDI FRIENDESTRELLITA M Ot Z79.899 OTHER CONSTRUCTION CODE ADMINISTRATOR (CURRENT) DRUG THERAPY 06/10/2017 GENO HARMON MD [...] MD Ot I25.10 ATHSCL HEART DISEASE OF [place] CORONARY 06/10/2017 GENO HARMON MD Ot Z79.82 CONSTRUCTION CODE ADMINISTRATOR (CURRENT) USE OF ASPIRIN 06/10/2017 GENO HARMON MD Ot Z79.84 [facility] (CURRENT) USE OF ORAL HYPOGLYC 06/10/2017 GENO [...] I10 ESSENTIAL (PRIMARY) HYPERTENSION 06/12/2017 GENO HARMON MD Ot I25.10 ATHSCL HEART DISEASE OF [place] CORONARY 06/12/2017 GENO HARMON MD, Ot Z79.82 CONSTRUCTION CODE ADMINISTRATOR (CURRENT) USE OF ASPIRIN 06/12/2017 GENO HARMON MD, Ot Z79.84 [facility] (CURRENT) USE OF ORAL HYPOGLYC 06/12/2017 GENO [...] I10 ESSENTIAL (PRIMARY) HYPERTENSION 08/17/2017 AARTI OREILLY MD Ot M54.31 SCIATICA, RIGHT SIDE 08/17/2017 AARTI OREILLY MD Ot Z79.52 [facility]CI (CURRENT) USE OF SYSTEMIC STER 08/17/2017 AARTI OREILLY MD Ot Z79.82 CONSTRUCTION CODE ADMINISTRATOR (CURRENT) USE OF ASPIRIN 08/17/2017 AARTI OREILLY MD Ot Z79.84 CONSTRUCTION CODE ADMINISTRATOR (CURRENT) USE OF ORAL HYPOGLYC 08/17/2017 AARTI [...] DEPRESSIVE DISORDER, SINGLE EPISOD 08/19/2017 AARTI OREILLY MD, Ot F41.9 ANXIETY DISORDER, UNSPECIFIED 08/19/2017 AARTI OREILLY MD, Ot G25.81 RESTLESS LEGS SYNDROME 08/19/2017 AARTI OREILLY MD, Ot I10 ESSENTIAL (PRIMARY) HYPERTENSION 08/19/2017 AARTI OREILLY MD, Ot M54.31 SCIATICA, RIGHT SIDE 08/19/2017 AARTI OREILLY MD Ot Z79.52 CONSTRUCTION CODE ADMINISTRATOR (CURRENT) USE OF SYSTEMIC STER 08/19/2017 AARTI OREILLY MD, Ot Z79.82 [facility]CI (CURRENT) USE OF ASPIRIN 08/19/2017 AARTI OREILLY MD Ot Z79.84 [facility] (CURRENT) USE OF ORAL HYPOGLYC 08/19/2017 AARTI OREILLY MD, Ot Z86.73 PRSNL HX OF TIA (TIA), AND CEREB INFRC W 08/19/2017 AARTI OREILLY MD, Ot Z87.2 PERSONAL HISTORY OF DISEASES OF THE SKIN 08/19/2017 AARTI OREILLY MD, Ot Z90.710 ACQUIRED ABSENCE OF BOTH CERVIX AND UTER 08/22/2017 VERONA SHERIDAN MAGISTRATE ASSISTANT Ot I51.7 CARDIOMEGALY 08/22/2017 VERONA SHERIDAN MAGISTRATE ASSISTANT Ot R06.02 SHORTNESS OF BREATH 08/22/2017 VERONA SHERIDAN MAGISTRATE ASSISTANT Ot R07.81 PLEURODYNIA 08/22/2017 VERONA SHERIDAN MAGISTRATE ASSISTANT Ot W19.XXXA UNSPECIFIED FALL, INITIAL ENCOUNTER 08/22/2017 VERONA SHERIDAN MAGISTRATE ASSISTANT Ot Y92.[address] IN [facility] 08/30/2017 VERONA SHERIDAN MAGISTRATE ASSISTANT Ot I51.7 CARDIOMEGALY 08/30/2017 VERONA SHERIDAN MAGISTRATE ASSISTANT Ot R06.02 SHORTNESS OF BREATH 08/30/2017 VERONA SHERIDAN MAGISTRATE ASSISTANT Ot R07.81 PLEURODYNIA 08/30/2017 VERONA SHERIDAN MAGISTRATE ASSISTANT Ot W19.XXXA UNSPECIFIED FALL, INITIAL ENCOUNTER 08/30/2017 VERONA SHERIDAN MAGISTRATE ASSISTANT Ot Y92.[address] IN [facility] NON[facility] (PRIVATE 11/01/2017 BAIMA, YU L SHOW HOST Ot 272.4 HYPERLIPIDEMIA NEC/NOS 11/01/2017 BAIMA, YU L SHOW HOST Ot 401.9 HYPERTENSION NOS 11/01/2017 BAIMA, YU L SHOW HOST Ot V58.69 OTH MED,LT,CURRENT USE 11/01/2017 BAIMA, UY L SHOW HOST Ot 276.8 HYPOPOTASSEMIA 11/01/2017 SARANYA FRIEND, FAB Napoles Ot V76.12 OTH SCREEN MAMMO-MALIGN NEOPLASM OF [place] 11/01/2017 BAIMA, YU L SHOW HOST Ot 272.4 HYPERLIPIDEMIA NEC/NOS 11/01/2017 BAIMA, YU L SHOW HOST Ot V58.69 OTH MED,LT,CURRENT USE 11/01/2017 SARANYA FRIEND, FAB Napoles Ot 715.33 LOC OSTEOART NOS-FOREARM 11/01/2017 SANJIV FRIEND, ENRIQUE Raymundo Ot V72.84 EXAM PRE-OPERATIVE NOS 11/01/2017 BAIMA, YU L SHOW HOST Ot 250.00 DIAB TOBY WO COMPL, TYPE II OR UNSPEC TY 11/01/2017 BAIMA, YU L SHOW HOST Ot 272.4 HYPERLIPIDEMIA NEC/NOS 11/01/2017 BAIMA, YU L SHOW HOST Ot 401.9 HYPERTENSION NOS 11/01/2017 YU CASTRO SHOW HOST Ot 443.9 PERIPH VASCULAR DIS NOS 11/01/2017 SARANYA FRIEND, FAB Napoles Ot V76.12 OTH SCREEN MAMMO-MALIGN NEOPLASM OF [place] 11/01/2017 VERONA SHERIDAN MAGISTRATE ASSISTANT Ot 959.5 FINGER INJURY NOS 11/01/2017 VERONA SHERIDAN APRN Ot E849.0 ACCIDENT IN HOME 11/01/2017 VERONA SHERIDAN MAGISTRATE ASSISTANT Ot E888.9 FALL NOS 11/01/2017 Ot 709.9 SKIN DISORDER NOS 11/01/2017 Ot V72.63 PRE-PROCEDURAL LABORATORY EXAMINATION 11/01/2017 Ot V72.81 [id number] CARDIOVASCULAR 11/01/2017 Ot V74.8 SCREEN-BACTERIAL DIS NEC 11/01/2017 YU CASTRO SHOW HOST Ot 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 [...] SPECIFIED PERIPHERAL VASCULAR DISE 11/01/2017 VERONA SHERIDAN APRN Ot Z12.31 ENCNTR SCREEN MAMMOGRAM FOR MALIGNANT NE 11/01/2017 FAB BEAVER MD Ot M16.11 UNILATERAL PRIMARY OSTEOARTHRITIS, RIGHT 11/01/2017 VERONA SHERIDAN APRN Ot I51.7 CARDIOMEGALY 11/01/2017 VERONA SHERIDAN APRN Ot R06.02 SHORTNESS OF BREATH 11/01/2017 VERONA SHERIDAN APRN Ot R07.81 PLEURODYNIA 11/01/2017 VERONA SHERIDAN APRN Ot W19.XXXA UNSPECIFIED FALL, INITIAL ENCOUNTER 11/01/2017 VERONA SHERIDAN APRN Ot Y92.[address] [facility] [address] IN [facility] NON-[facility] (PRIVATE 11/11/2017 BAIMA, YU L SHOW HOST Ot I10 ESSENTIAL (PRIMARY) HYPERTENSION 11/11/2017 BAIMA, YU L SHOW HOST Ot I34.0 NONRHEUMATIC MITRAL (VALVE) INSUFFICIENC 11/20/2017 BAIMA, YU L SHOW HOST Ot I10 ESSENTIAL (PRIMARY) HYPERTENSION 11/20/2017 BAIMA, YU L SHOW HOST Ot I34.0 NONRHEUMATIC MITRAL (VALVE) INSUFFICIENC 12/06/2017 BAIMA, YU L SHOW HOST Ot 272.4 HYPERLIPIDEMIA NEC/NOS 12/06/2017 BAIMA, YU L SHOW HOST Ot 401.9 HYPERTENSION NOS 12/06/2017 BAIMA, YU L SHOW HOST Ot V58.69 OTH MED,LT,CURRENT USE 12/06/2017 BAIMA, YU L SHOW HOST Ot 276.8 HYPOPOTASSEMIA 12/06/2017 SARANYA FRIEND, FAB Napoles Ot V76.12 OTH SCREEN MAMMO-MALIGN NEOPLASM OF [place] 12/06/2017 BAIMA, YU L SHOW HOST Ot 272.4 HYPERLIPIDEMIA NEC/NOS 12/06/2017 BAIMA, YU L SHOW HOST Ot V58.69 OTH MED,LT,CURRENT USE 12/06/2017 SARANYA FRIEND, FAB Napoles Ot 715.33 LOC OSTEOART NOS-FOREARM 12/06/2017 SANJIV FRIEND, ENRIQUE Raymundo Ot V72.84 EXAM PRE-OPERATIVE NOS 12/06/2017 BAIMA, YU L SHOW HOST Ot 250.00 DIAB TOBY WO COMPL, TYPE II OR UNSPEC TY 12/06/2017 BAIMA, YU L SHOW HOST Ot 272.4 HYPERLIPIDEMIA NEC/NOS 12/06/2017 BAIMA, YU L SHOW HOST Ot 401.9 HYPERTENSION NOS 12/06/2017 BAIMA, YU L SHOW HOST Ot 443.9 PERIPH VASCULAR DIS NOS 12/06/2017 SARANYA FRIEND, FAB Napoles Ot R76.12 OTH SCREEN MAMMO-MALIGN NEOPLASM OF [place] 12/06/2017 VERONA SHERIDAN MAGISTRATE ASSISTANT Ot 959.5 FINGER INJURY NOS 12/06/2017 VERONA SHERIDAN MAGISTRATE ASSISTANT Ot E849.0 ACCIDENT IN HOME 12/06/2017 VERONA SHERIDAN MAGISTRATE ASSISTANT Ot E888.9 FALL NOS 12/06/2017 Ot 709.9 SKIN DISORDER NOS 12/06/2017 Ot V72.63 PRE-PROCEDURAL LABORATORY EXAMINATION 12/06/2017 Ot V72.81 [id number] CARDIOVASCULAR 12/06/2017 Ot V74.8 SCREEN-BACTERIAL DIS NEC 12/06/2017 YU CASTRO Ot 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 12/06/2017 FAB BEAVRE MD Ot Z12.31 ENCNTR SCREEN MAMMOGRAM FOR [...] SHERIDAN APRN Ot R07.81 PLEURODYNIA 12/06/2017 VERONA SHERIADN APRN Ot W19.XXXA UNSPECIFIED FALL, INITIAL ENCOUNTER 12/06/2017 VERONA SHERIDAN APRN Ot Y92.[address] [facility] [address] IN [facility] NON[facility] (PRIVATE 12/06/2017 YU CASTRO Ot I10 ESSENTIAL (PRIMARY) HYPERTENSION 12/06/2017 YU CASTRO Ot I34.0 NONRHEUMATIC MITRAL (VALVE) INSUFFICIENC 12/06/2017 DUSTIN DESIR Ot Z12.31 ENCNTR SCREEN MAMMOGRAM FOR MALIGNANT NE 12/09/2017 DUSTIN DESIR Ot Z12.31 ENCNTR SCREEN MAMMOGRAM FOR MALIGNANT NE 12/12/2017 DUSTIN DESIR Ot Z12.31 ENCNTR SCREEN MAMMOGRAM FOR MALIGNANT NE 02/08/2018 ROD FLEMING APRN Ot E11.9 TYPE 2 DIABETES MELLITUS WITHOUT COMPLIC 02/08/2018 ROD FLEMING APRN Ot E78.00 PURE HYPERCHOLESTEROLEMIA, UNSPECIFIED 02/08/2018 ROD FLEMING APRN Ot F03.90 UNSPECIFIED DEMENTIA WITHOUT BEHAVIORAL 02/08/2018 ROD FLEMING APRN Ot F32.9 MAJOR DEPRESSIVE DISORDER, SINGLE EPISOD 02/08/2018 ROD FLEMING APRN Ot F41.9 ANXIETY DISORDER, UNSPECIFIED 02/08/2018 ROD FLEMING APRN Ot I10 ESSENTIAL (PRIMARY) HYPERTENSION 02/08/2018 ROD FLEMING APRN Ot J40 BRONCHITIS, NOT SPECIFIED ACUTE OR CH 02/08/2018 ROD FLEMING APRN Ot R05 COUGH 02/08/2018 ROD FLEMING APRN Ot Z79.52 FCI (CURRENT) USE OF SYSTEMIC STER 02/08/2018 ROD FLEMING APRN Ot Z79.82 [facility] (CURRENT) USE OF ASPIRIN 02/08/2018 ROD FLEMING APRN Ot Z79.84 [facility] (CURRENT) USE OF ORAL HYPOGLYC 02/08/2018 ROD FLEMING APRN Ot Z85.828 PERSONAL HISTORY OF OTHER MALIGNANT NEOP 02/08/2018 ROD FLEMING APRN Ot Z86.010 PERSONAL HISTORY OF COLONIC POLYPS 02/08/2018 ROD FLEMING APRN Ot Z86.73 PRSNL HX OF TIA (TIA), AND CEREB INFRC W 02/08/2018 ROD FLEMING APRN Ot Z87.19 PERSONAL HISTORY OF OTHER DISEASES OF TH 02/08/2018 ROD FLEMING APRN Ot Z90.710 ACQUIRED ABSENCE OF BOTH CERVIX AND UTER 02/11/2018 ROD FLEMING APRN Ot E11.9 TYPE 2 DIABETES MELLITUS WITHOUT COMPLIC 02/11/2018 ROD FLEMING APRN Ot E78.00 PURE HYPERCHOLESTEROLEMIA, UNSPECIFIED 02/11/2018 ROD FLEMING APRN Ot F03.90 UNSPECIFIED DEMENTIA WITHOUT BEHAVIORAL 02/11/2018 ROD FLEMING APRN Ot F32.9 MAJOR DEPRESSIVE DISORDER, SINGLE EPISOD 02/11/2018 ROD FLEMING APRN Ot F41.9 ANXIETY DISORDER, UNSPECIFIED 02/11/2018 ROD FLEMING APRN Ot I10 ESSENTIAL (PRIMARY) HYPERTENSION 02/11/2018 ROD FLEMING APRN Ot J40 BRONCHITIS, NOT SPECIFIED ACUTE OR CH 02/11/2018 ROD FLEMING APRN Ot R05 COUGH 02/11/2018 ROD FLEMING APRN Ot Z79.52 [facility]CI (CURRENT) USE OF SYSTEMIC STER 02/11/2018 ROD FLEMING APRN Ot Z79.82 CONSTRUCTION CODE ADMINISTRATOR (CURRENT) USE OF ASPIRIN 02/11/2018 ROD FLEMING APRN Ot Z79.84 CONSTRUCTION CODE ADMINISTRATOR (CURRENT) USE OF ORAL HYPOGLYC 02/11/2018 ROD FLEMING APRN Ot Z85.828 PERSONAL HISTORY OF OTHER MALIGNANT NEOP 02/11/2018 ROD FLEMING APRN Ot Z86.010 PERSONAL HISTORY OF COLONIC POLYPS 02/11/2018 ROD FLEMING APRN Ot Z86.73 PRSNL HX OF TIA (TIA), AND CEREB INFRC W 02/11/2018 ROD FLEMING APRN Ot Z87.19 PERSONAL HISTORY OF OTHER DISEASES OF TH 02/11/2018 ROD FLEMING APRN Ot Z90.710 ACQUIRED ABSENCE OF BOTH CERVIX AND UTER 02/11/2018 ROD FLEMING APRN Ot E11.9 TYPE 2 DIABETES MELLITUS WITHOUT COMPLIC 02/11/2018 ROD FLEMING APRN Ot E78.00 PURE HYPERCHOLESTEROLEMIA, UNSPECIFIED 02/11/2018 ROD FLEMING APRN Ot F03.90 UNSPECIFIED DEMENTIA WITHOUT BEHAVIORAL 02/11/2018 ROD FLEMING APRN Ot F32.9 MAJOR DEPRESSIVE DISORDER, SINGLE EPISOD 02/11/2018 ROD FLEMING APRN Ot F41.9 ANXIETY DISORDER, UNSPECIFIED 02/11/2018 ROD FLEMING APRN Ot I10 ESSENTIAL (PRIMARY) HYPERTENSION 02/11/2018 ROD FLEMING APRN Ot J40 BRONCHITIS, NOT SPECIFIED ACUTE OR CH 02/11/2018 ROD FLEMING APRN Ot R05 COUGH 02/11/2018 ROD FLEMING APRN Ot Z79.52 CONSTRUCTION CODE ADMINISTRATOR (CURRENT) USE OF SYSTEMIC STER 02/11/2018 ROD FLEMING APRN Ot Z79.82 CONSTRUCTION CODE ADMINISTRATOR (CURRENT) USE OF ASPIRIN 02/11/2018 ROD FLEMING MAGISTRATE ASSISTANT Ot Z79.84 [facility]CI (CURRENT) USE OF ORAL HYPOGLYC 02/11/2018 ROD FLEMING MAGISTRATE ASSISTANT Ot Z85.828 PERSONAL HISTORY OF OTHER MALIGNANT NEOP 02/11/2018 ROD FLEMING MAGISTRATE ASSISTANT Ot Z86.010 PERSONAL HISTORY OF COLONIC POLYPS 02/11/2018 ROD FLEMING MAGISTRATE ASSISTANT Ot Z86.73 PRSNL HX OF TIA (TIA), AND CEREB INFRC W 02/11/2018 ROD FLEMING MAGISTRATE ASSISTANT Ot Z87.19 PERSONAL HISTORY OF OTHER DISEASES OF TH 02/11/2018 ROD FLEMING MAGISTRATE ASSISTANT Ot Z90.710 ACQUIRED ABSENCE OF BOTH CERVIX AND UTER 06/17/2018 YU CASTRO SHOW HOST Ot 250.00 DIAB TOBY WO COMPL, TYPE II OR UNSPEC TY 06/17/2018 YU CASTRO L SHOW HOST Ot 272.4 HYPERLIPIDEMIA NEC/NOS 06/17/2018 YU CASTRO L SHOW HOST Ot 401.9 HYPERTENSION NOS 06/17/2018 YU CASTRO L SHOW HOST Ot 443.9 PERIPH VASCULAR DIS NOS 06/17/2018 FAB BEAVER MD Ot V76.12 OTH SCREEN MAMMO-MALIGN NEOPLASM OF [place] 06/17/2018 VERONA SHERIDAN MAGISTRATE ASSISTANT Ot 959.5 FINGER INJURY NOS 06/17/2018 VERONA SHERIDAN MAGISTRATE ASSISTANT Ot E849.0 ACCIDENT IN HOME 06/17/2018 VERONA SHERIDAN MAGISTRATE ASSISTANT Ot E888.9 FALL NOS 06/17/2018 Ot 709.9 SKIN DISORDER NOS 06/17/2018 Ot V72.63 PRE-PROCEDURAL LABORATORY EXAMINATION 06/17/2018 Ot V72.81 [id number] CARDIOVASCULAR 06/17/2018 Ot V74.8 SCREEN-BACTERIAL DIS NEC 06/17/2018 YU CASTRO SHOW HOST Ot 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 06/17/2018 FAB BEAVER MD Ot Z12.31 ENCNTR SCREEN MAMMOGRAM FOR MALIGNANT NE 06/17/2018 FAB BEAVER MD Ot Z12.31 ENCNTR SCREEN MAMMOGRAM FOR MALIGNANT NE 06/17/2018 FAB BEAVER MD Ot M25.551 PAIN IN RIGHT HIP 06/17/2018 FAB BEAVER MD Ot M25.552 PAIN IN LEFT HIP 06/17/2018 FAB BEAVER MD Ot M25.551 PAIN IN RIGHT HIP 06/17/2018 FAB BEAVER MD Ot M25.552 PAIN IN LEFT HIP 06/17/2018 MABLE FRIEND FAC, [facility] CCDS Ot I73.89 OTHER SPECIFIED PERIPHERAL VASCULAR DISE 06/17/2018 VERONA SHERIDAN MAGISTRATE ASSISTANT Ot Z12.31 ENCNTR SCREEN MAMMOGRAM FOR MALIGNANT NE 06/17/2018 SARANYA FRIEND, FAB Napoles Ot M16.11 UNILATERAL PRIMARY OSTEOARTHRITIS, RIGHT 06/17/2018 VERONA SHERIDAN MAGISTRATE ASSISTANT Ot I51.7 CARDIOMEGALY 06/17/2018 VERONA SHERIDAN MAGISTRATE ASSISTANT Ot R06.02 SHORTNESS OF BREATH 06/17/2018 VERONA SHERIDAN MAGISTRATE ASSISTANT Ot R07.81 PLEURODYNIA 06/17/2018 VERONA SHERIDAN MAGISTRATE ASSISTANT Ot W19.XXXA UNSPECIFIED FALL, INITIAL ENCOUNTER 06/17/2018 VERONA SHERIDAN MAGISTRATE ASSISTANT Ot Y92.[address] [facility] [address] IN [facility]PR[facility] 06/17/2018 YU CASTRO L SHOW HOST Ot I10 ESSENTIAL (PRIMARY) HYPERTENSION 06/17/2018 GLORIA YU L SHOW HOST Ot I34.0 NONRHEUMATIC MITRAL (VALVE) INSUFFICIENC 06/17/2018 DUSTIN DESIR Ot Z12.31 ENCNTR SCREEN MAMMOGRAM FOR MALIGNANT NE 07/02/2018 GLORIA YU L SHOW HOST Ot E11.9 TYPE 2 DIABETES MELLITUS WITHOUT COMPLIC 07/02/2018 BAIMA, YU L SHOW HOST Ot R07.89 OTHER CHEST PAIN 07/07/2018 BAIMA, YU L SHOW HOST Ot E11.9 TYPE 2 DIABETES MELLITUS WITHOUT COMPLIC 07/07/2018 BAIMA, YU L SHOW HOST Ot R07.89 OTHER CHEST PAIN 07/18/2018 BAIMA, YU L SHOW HOST Ot E11.9 TYPE 2 DIABETES MELLITUS WITHOUT COMPLIC 07/18/2018 BAIMA, YU L SHOW HOST Ot R07.89 OTHER CHEST PAIN 08/01/2018 BAIMA, YU L SHOW HOST Ot E11.9 TYPE 2 DIABETES MELLITUS WITHOUT COMPLIC 08/01/2018 BAIMA, YU L SHOW HOST Ot R07.89 OTHER CHEST PAIN Procedures There is no data. Results Test [...] Automated erythrocyte mean corpuscular hemoglobin concentration measurement (mass/volume) 33 g/dL 32-36 Automated erythrocyte distribution width ratio 15.0 % 10.0- 14.5 Automated blood platelet count (count/volume) 155 10*3/uL [...] Blood monocytes automated count (number/volume) 0.5 10*3 0.0- 1.0 Automated eosinophil count 0.2 10*3/uL 0.0-0.3 Automated [...] Serum or plasma aspartate aminotransferase measurement (enzymatic activity/volume) 17 U/L 5-34 Serum or plasma alanine aminotransferase measurement (enzymatic activity/volume) 19 U/L 0-55 Serum or plasma protein [...] Automated erythrocyte mean corpuscular hemoglobin concentration measurement (mass/volume) 34 g/dL 32-36 Automated erythrocyte distribution width ratio 15.6 % 10.0- 14.5 Automated blood platelet count (count/volume) 171 10*3/uL [...] Blood monocytes automated count (number/volume) 0.6 10*3 0.0- 1.0 Automated eosinophil count 0.2 10*3/uL 0.0-0.3 Automated [...] Serum or plasma aspartate aminotransferase measurement (enzymatic activity/volume) 28 U/L 5-34 Serum or plasma alanine aminotransferase measurement (enzymatic activity/volume) 20 U/L 0-55 Serum or plasma protein measurement (mass/volume) 7.2 g/dL 6.4-8.2 Serum or plasma albumin measurement (mass/volume) 4.4 g/dL 3.2-4.5 Magnesium - 06/07/17 21:20 Magnesium 2.4 mg/dL 1.8-2.4 Serum or plasma troponin i.cardiac measurement (mass/volume) - 06/07/17 21:20 Serum or plasma troponin i.cardiac measurement (mass/volume) < ng/mL <0.30 Serum or plasma lithium measurement (moles/volume) [...] Automated erythrocyte mean corpuscular hemoglobin concentration measurement (mass/volume) 33 g/dL 32-36 Automated erythrocyte distribution width ratio 15.7 % 10.0- 14.5 Automated blood platelet count (count/volume) 186 10*3/uL [...] Blood monocytes automated count (number/volume) 0.8 10*3 0.0- 1.0 Automated eosinophil count 0.1 10*3/uL 0.0-0.3 Automated [...] Serum or plasma aspartate aminotransferase measurement (enzymatic activity/volume) 29 U/L 5-34 Serum or plasma alanine aminotransferase measurement (enzymatic activity/volume) 18 U/L 0-55 Serum or plasma protein measurement (mass/volume) 6.9 g/dL 6.4-8.2 Serum or plasma albumin measurement (mass/volume) 4.1 g/dL 3.2-4.5 THYROID STIMULATING HORMONE - 06/08/17 05:30 THYROID STIMULATING HORMONE 5.36 u[iU]/mL 0.35-4.94 Capillary blood glucose measurement by glucometer (mass/volume) - 06/08/17 05:48 Capillary blood glucose measurement by glucometer (mass/volume) 159 mg/dL 70-110 Capillary blood glucose measurement by glucometer (mass/volume) - 06/08/17 10:58 Capillary blood glucose measurement by glucometer (mass/volume) 172 mg/dL 70-110 Capillary blood glucose measurement by glucometer (mass/volume) - 06/08/17 15:32 Capillary blood glucose measurement by glucometer (mass/volume) 130 mg/dL 70-110 Capillary blood glucose measurement by glucometer (mass/volume) - 06/09/17 06:25 Capillary blood glucose measurement by glucometer (mass/volume) 135 mg/dL 70-110 Capillary blood glucose measurement by glucometer (mass/volume) - 06/09/17 09:48 Capillary blood glucose measurement by glucometer (mass/volume) [...] Automated erythrocyte mean corpuscular hemoglobin concentration measurement (mass/volume) 34 g/dL 32-36 Automated erythrocyte distribution width ratio 15.7 % 10.0- 14.5 Automated blood platelet count (count/volume) 181 10*3/uL [...] Blood monocytes automated count (number/volume) 0.7 10*3 0.0- 1.0 Automated eosinophil count 0.2 10*3/uL 0.0-0.3 Automated [...] Serum or plasma aspartate aminotransferase measurement (enzymatic activity/volume) 17 U/L 5-34 Serum or plasma alanine aminotransferase measurement (enzymatic activity/volume) 18 U/L 0-55 Serum or plasma protein measurement (mass/volume) 7.0 g/dL 6.4-8.2 Serum or plasma albumin measurement (mass/volume) 4.2 g/dL 3.2-4.5 Magnesium - 06/10/17 22:30 Magnesium 2.3 mg/dL 1.8-2.4 Serum or plasma troponin i.cardiac measurement (mass/volume) - 06/10/17 22:30 Serum or plasma troponin i.cardiac measurement (mass/volume) < ng/mL <0.30 Complete urinalysis with reflex to culture - 06/10/17 23:00 Urine color determination YELLOW NRG Urine clarity determination CLEAR NRG Urine pH measurement by test strip 6.5 5-9 Specific gravity of urine by test strip 1.010 1.016-1.022 Urine protein assay by test strip, semi-quantitative [...] sediment leukocyte count by microscopy (number/high power field) [HPF] NRG Bacteria detection in urine sediment [...] Status Pt. Type Provider Facility Loc./Unit Complaint [id number] 07/01/2018 07:36:00 07/01/2018 23:59:59 CLS Outpatient YU CASTRO SHOW HOST Via [facility] CARD CHEST PAIN [id number] 02/08/2018 12:15:00 02/08/2018 13:39:00 DIS Emergency ROD FLEMING MAGISTRATE ASSISTANT Via [facility] ER CHEST CONGESTION/COUGH [id number] 12/06/2017 09:04:00 12/06/2017 23:59:59 CLS Outpatient DUSTIN DESIR [facility] RAD SCREENING [id number] 11/07/2017 12:43:00 11/07/2017 23:59:59 CLS Outpatient YU CASTRO SHOW HOST Via [facility] CARD MITRAL VALVE REGURGITATION,HTN [id number] 08/21/2017 12:18:00 08/21/2017 23:59:59 CLS Outpatient VERONA SHERIDAN MAGISTRATE ASSISTANT Via [facility] RAD FALL AT HOME ON RIGHT SIDE,SOB,PAIN R RIBS [id number] 08/16/2017 23:21:00 08/17/2017 03:10:00 DIS Emergency DENILSON FRIEND, AARTI Gonzalez [facility] ER BACK PAIN [id number] 06/10/2017 21:23:00 06/10/2017 23:48:00 DIS Emergency EDEN FRIEND, GENO Dougherty [facility] ER ELEV BP [id number] 06/07/2017 22:55:00 06/09/2017 10:35:00 DIS Inpatient KENNEDI FRIEND, ESTRELLITA Raymundo [facility] 4TH HYPERTENSIVE URGENCY;CHF [id number] 01/18/2017 14:07:00 01/18/2017 23:59:59 CLS Outpatient FAB BEAVER MD [facility] RAD M25.551 [id number] 12/28/2016 10:42:00 12/28/2016 23:59:59 CLS Outpatient VERONA SHERIDAN APRN [facility] RAD SCREENING Z12.31 [id number] 10/15/2016 19:41:00 10/15/2016 22:29:00 DIS Emergency ROD FLEMING APRN [facility] ER RT LEG SWELLING/BRUISING [id number] 07/17/2016 13:58:00 07/17/2016 23:59:59 CLS Outpatient MABLE FRIEND FACC, BETH AGUDELO CCDS [facility] RAD I73.89 [id number] 07/14/2016 20:02:00 07/14/2016 22:09:00 DIS Emergency DUSTIN DESIR [facility] ER FALL INJ L KNEE [id number] 05/29/2016 12:43:00 05/29/2016 16:00:00 DIS Outpatient VERONA SHERIDAN APRN [facility] WOUNDCARE [id number] 01/21/2016 09:01:00 01/21/2016 23:59:59 CLS Outpatient FAB BEAVER MD [facility] RAD B HIP PAIN, ABNORMAL HIP XRAY [id number] 01/13/2016 13:10:00 01/13/2016 23:59:59 CLS Outpatient FAB BEAVER MD [facility] RAD HIP PAIN [id number] 12/28/2015 11:28:00 12/28/2015 23:59:59 CLS Outpatient FAB BEAVER MD [facility] RAD SCREENING [id number] 12/26/2015 06:35:00 12/26/2015 11:00:00 DIS Outpatient ENRIQUE KINCAID MD [facility] SDC POLYPS [id number] 12/22/2015 05:50:00 12/22/2015 12:20:00 DIS Outpatient ENRIQUE KINCAID MD [facility] PREOP POLYPS [id number] 12/09/2015 15:07:00 12/09/2015 23:59:59 CLS Outpatient DARRION REMY DO [facility] QUICK [id number] 12/29/2014 10:36:00 12/29/2014 23:59:59 CLS Outpatient FAB BEAVER MD [facility] RAD SCREENING [id number] 12/09/2014 13:32:00 12/09/2014 23:59:59 CLS Outpatient YU CASTRO [facility] CARD MITRAL REGURGITATION,HYPERLIPIDEMIA [id number] 01/08/2014 12:39:00 01/08/2014 23:59:59 CLS Outpatient VERONA SHERIDAN APRN [facility] RAD POST TRAUMA, FELL AT HOME [id number] 12/18/2013 10:46:00 12/18/2013 23:59:59 CLS Outpatient FAB BEAVER MD [facility] RAD ROUTINE [id number] 08/14/2013 10:08:00 08/14/2013 23:59:59 CLS Outpatient YU CASTRO [facility] LAB HYPERLIPIDEMIA,HYPERTENSION,PAD,DM II [id number] 12/22/2012 08:00:00 12/22/2012 10:55:00 DIS Outpatient ENRIQUE KINCAID MD [facility] SDC HISTORY OF POLYPS [id number] 12/17/2012 07:18:00 12/17/2012 23:59:59 CLS Outpatient ENRIQUE KINCAID MD [facility] PREOP HISTORY OF POLYPS [id number] 12/10/2012 09:45:00 12/10/2012 23:59:59 CLS Outpatient FAB BEAVER MD [facility] RAD SCREENING [id number] 12/05/2012 09:20:00 12/05/2012 23:59:59 CLS Outpatient FAB BEAVER MD [facility] RAD RT WRIST WITHOUT FALL [id number] 12/05/2012 09:18:00 12/05/2012 23:59:59 CLS Outpatient YU CASTROP [facility] LAB HYPERLIADEMIA [id number] 10/27/2012 09:33:00 10/27/2012 23:59:59 CLS Outpatient YU CASTROP [facility] LAB HYPOKALEMIA [id number] 10/17/2012 09:08:00 10/17/2012 23:59:59 CLS Outpatient YU CASTROP [facility] LAB HYPERTENSION,HYPERLIPADEMIA [id number] 05/12/2014 10:30:00 Document Registration [id number] 05/05/2014 10:35:00 Document Registration [id number] 04/17/2012 08:37:00 Document Registration [id number] 04/11/2012 09:38:00 Document Registration [id number] 12/26/2011 09:03:00 Document Registration [id number] 12/27/2006 09:56:00 Document Registration
--- NOTE | 2018-08-31 02:20 | ED Lower Extremity ---
General Chief Complaint: Lower Extremity Stated Complaint: RIGHT FOOT SWELLING Nursing Triage Note: Pt amb to room #5 via personal walker assistance with care partner @ side. C/o swelling and diabetic ulcer to rt foot. Pt reports @ approx 2130 yesterday evening (08/30/18) she woke up with swelling to rt lower extremity and a "new" ulcer to superior aspect of foot. superficial ulcer noted to 4th toe of rt foot. Trace edema noted to rt lower extremity. Denies pain. Nursing Sepsis Screen: No Definite Risk Source: patient (PT IS LIMITED HISTORIAN--HAS HX OF DEMENTIA), old records (ALL PMH IS FROM OLD RECORDS) History of Present Illness Date Seen by Provider: Aug 31, 2018 Time Seen by Provider: 01:40 Initial Comments PT ARRIVES VIA POV FROM HOME, WITH TIME STUDY STATISTICIAN ( PT HAS TIME STUDY STATISTICIAN DURING THE DAY ) C/O SWELLING TO RIGHT FOOT--NOTICED WHEN SHE WOKE UP AT 2130 TONIGHT PT HAS SORE TO TOP OF RIGHT FOOT FOR A COUPLE OF WEEKS--STATES SHE HAS HIT HER FOOT ON HER WALKER SEVERAL TIMES NOTICED THAT IT "BROKE OPEN AGAIN" --NOTICED THAT EARLIER TODAY NO DRAINAGE NO BLEEDING NO STREAKS NO PARESTHESIAS OR MOTOR DEFICITS PT IS DIABETIC PT DENIES HISTORY OF FOOT ULCERS OR INFECTIONS, BUT PER OLD CHART, SHE HAS HAD OSTEOMYELITIS OF RIGHT FOOT IN 2009, AND HISTORY OF FOOT ULCERS AND DEBRIDEMENTS, ALONG WITH OTHER FOOT SURGERIES TO RIGHT FOOT. PT HAS MULTIPLE SORES/SCARS/SCABS TO FEET, LOWER LEGS, FOREARMS AND HANDS, AND FACE FROM CHRONIC "PICKING" PCP: DR. BEAVER Allergies and Home Medications Allergies Coded Allergies: No Known Drug Allergies (Verified , 12/25/06) Home Medications Acetaminophen 500 Mg Tablet, 1,000 MG PO DAILY, (Reported) Acetaminophen 500 Mg Tablet, 500 MG PO HS, (Reported) Acetaminophen/Diphenhydramine 1 Each Tablet, 1 EACH PO HS, (Reported) Albuterol Sulfate 1 Puff Puff, 2 PUFF IH Q4H 1 PUFF = 90 MCG Prescribed by: ROD FELMING on 02/08/18 1327 Amlodipine Besylate 10 Mg Tablet, 10 MG PO DAILY Prescribed by: AARTI GROSS on 08/17/17 0304 Antiox#10/Om3/Dha/Epa/Lut/Zeax 1 Each Capsule, 1 EACH PO DAILY, (Reported) Aspirin 81 Mg Tablet.dr, 81 MG PO DAILY, (Reported) Atenolol 50 Mg Tablet, 50 MG PO DAILY Prescribed by: ESTRELLITA KOLB on 06/09/17 1033 Atorvastatin Calcium 10 Mg Tablet, 10 MG PO HS, (Reported) Cefuroxime Axetil 250 Mg Tablet, 250 MG PO BID Prescribed by: ROD FLEMING on 02/08/18 132 Fenofibrate 135 Mg Capsule.dr, 135 MG PO DAILY, (Reported) Loratadine 10 Mg Tablet, 10 MG PO DAILY, (Reported) Losartan Potassium 100 Mg Tablet, 100 MG PO DAILY Prescribed by: ESTRELLITA KOLB on 06/09/17 1033 Memantine HCl 28 Mg Cap.spr.24, 28 MG PO HS, (Reported) Metformin Hcl 500 Mg Tablet, 500 MG PO BID, (Reported) Naproxen 500 Mg Tablet, 500 MG PO DAILY PRN for BREAKTHROUGH PAIN, (Reported) [place]-3 Acid Ethyl Esters 1 Gm Capsule, 2 GM PO BID, (Reported) Oxycodone HCl/Acetaminophen 1 Each Tablet, 0.5-1 EACH PO Q4H PRN for PAIN- MODERATE TO SEVERE Prescribed by: AARTI GROSS on 08/17/17 030 Prednisone 10 Mg Tab, 10 MG PO DAILY Prescribed by: AARTI GROSS on 08/17/17301 Prednisone 20 Mg Tab, 40 MG PO DAILY Prescribed by: ROD FLEMING on 02/08/18 132 Quetiapine Fumarate 100 Mg Tablet, 100 MG PO HS, (Reported) Quetiapine Fumarate 100 Mg Tablet, 50 MG PO DAILY, (Reported) Sitagliptin Phosphate 50 Mg Tablet, 50 MG PO DAILY, (Reported) Venlafaxine Hcl 150 Mg Tab.osm.24, 150 MG PO DAILY, (Reported) Patient Home Medication List Home Medication List Reviewed: Yes Review of Systems Constitutional: No fever Musculoskeletal: see HPI Skin: see HPI Psychiatric/Neurological: No Symptoms Reported Past Wwwzekk-Kcltac-Owymwn Hx Patient Social History Alcohol Use: Denies Use Recreational Drug Use: No Smoking Status: Never a Smoker 2nd Hand Smoke Exposure: No Recent Foreign Travel: No Contact w/Someone Who Travel: No Recent Infectious Disease Expo: No Recent Hopitalizations: Yes (HYPERTENSION) Immunizations Up To Date Tetanus Booster (TDap): Less than 5yrs Date of Pneumonia Vaccine: Nov 02, 2016 Date of Influenza Vaccine: Dec 02, 2015 Seasonal Allergies Seasonal Allergies: Yes Past Medical History Surgeries: Yes (COLONOSCOPIES/POLYPECTOMIES; REMOVAL OF SKIN LESIONS; DEBRIDEMENT OF FOOT ULCER; RIGHT GREAT TOE PINNING; PLATING OF RIGHT 5TH METATARSAL; LEFT EYE REMOVED. ) Eye Surgery, Gallbladder, 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, Orthopedic Respiratory: No Cardiac: Yes (MILD MITRAL REGURGITATION) High Cholesterol, Hypertension, Valvular Heart Disease Neurological: Yes Dementia, Stroke Reproductive Disorders: No Female Reproductive Disorders: Denies RN APPEALS History: 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, Menopausal Sexually Transmitted Disease: No HIV/AIDS: No Genitourinary: No Gastrointestinal: Yes (DYSPLASTIC COLON POLYPS) Diverticulosis, Hemorrhoids, Polyps Musculoskeletal: Yes (RESTLESS LEGS; OSTEOMYELITIS RIGHT FOOT, SCIATICA) Arthritis Endocrine: Yes Diabetes, Non-Insulin dep HEENT: Yes (LEFT EYE REMOVED/ PROSTHETIC EYE; WEARS GLASSES; ALL TEETH REMOVED) Cataract Loss of Vision: Left Cancer: Yes Skin Did You Recieve Any Treatments: Yes What Type of Treatment Did You: Surgical Intervention Psychosocial: Yes (SELF MUTILATION-"PICKS" ) Sleep Difficulties, Anxiety, Depression Integumentary: Yes (FOOT ULCERS; STAPH INFECTION; OSTEOMYELITIS RIGHT FOOT; BEARDEN TO FINGERS) Blood Disorders: No Family Medical History No Pertinent Family Hx Physical Exam Vital Signs Vital Signs - First Documented 08/31/18 01:28 Temp 96.5 Pulse 77 Resp 17 B/P (MAP) 166/95 (118) Pulse Ox 94 O2 Delivery Room Air Capillary Refill : Less Than 3 Seconds Height, Weight, BMI Height: 5'5.00" Weight: 150lbs. 0.0oz. 68.466471pn; 23.9 BMI Method:Stated General Appearance: WD/WN, no apparent distress, other (CONSTANT BODY MOVEMENTS; CONSTANT MOUTH MOVEMENTS AND LIP LICKING) HEENT: other (LEFT EYE MISSING/PROSTHETIC EYE IN PLACE; EDENTULOUS/DENTURES IN PLACE, WITH VERY CHAPPED LIPS AND PERIORAL SKIN FROM CONSTANT LIP LICKING. ) Cardiovascular: regular rate, rhythm Respiratory: normal breath sounds Feet: right foot other (DORSAL ASPECT OF RIGHT FOOT WITH QUARTER-SIZED SHALLOW ULCER, AND SMALLER ONE TO DORSAL ASPECT OF 4TH TOE. MILD / EARLY SCABBING NOTED. NO ACTIVE BLEEDING, NO DRAINAGE, NO STREAKS. MILD ERYTHEMA TO SURROUNDING SKIN TO DORSUM OF FOOT, AND SWELLING AND ERYTHEMA TO RIGHT 4TH TOE. RIGHT FOOT WITH MILD SWELLING. NO STREAKS. NO AREAS OF FLUCTUANCE; MOTOR/SENSORY/VASCULAR INTACT. MULJTIPLE SORES/SCARS/SCABS TO LOWER LEGS AND FEET OF VARIOUS AGES. 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, no motor/sensory deficits, alert, normal mood/affect, oriented x 3 (BUT LIMITED MEMORY) Progress/Results/Core Measures Results/Orders Lab Results Laboratory Tests Test 08/31/18 01:37 08/31/18 03:16 Range/Units Glucometer 153 H 70-110 MG/DL White Blood Count 5.8 4.3-11.0 10^3/uL Red Blood Count 4.73 4.35-5.85 10^6/uL Hemoglobin 13.1 11.5-16.0 G/DL Hematocrit 39 35-52 % Mean Corpuscular Volume 83 80-99 FL Mean Corpuscular Hemoglobin 28 25-34 PG Mean Corpuscular Hemoglobin Concent 33 32-36 G/DL Red Cell Distribution Width 15.5 H 10.0-14.5 % Platelet Count 164 130-400 10^3/uL Mean Platelet Volume 9.4 7.4-10.4 FL Neutrophils (%) (Auto) 70 42-75 % Lymphocytes (%) (Auto) 19 12-44 % Monocytes (%) (Auto) 9 0-12 % Eosinophils (%) (Auto) 3 0-10 % Basophils (%) (Auto) 0 0-10 % Neutrophils # (Auto) 4.1 1.8-7.8 X 10^3 Lymphocytes # (Auto) 1.1 1.0-4.0 X 10^3 Monocytes # (Auto) 0.5 0.0-1.0 X 10^3 Eosinophils # (Auto) 0.2 0.0-0.3 10^3/uL Basophils # (Auto) 0.0 0.0-0.1 10^3/uL Sodium Level 141 135-145 MMOL/L Potassium Level 3.8 3.6-5.0 MMOL/L Chloride Level 104 98-107 MMOL/L Carbon Dioxide Level 25 21-32 MMOL/L Anion Gap 12 5-14 MMOL/L Blood Urea Nitrogen 30 H 7-18 MG/DL Creatinine 0.96 0.60-1.30 MG/DL Estimat Glomerular Filtration Rate 57 BUN/Creatinine Ratio 31 Glucose Level 137 H 70-105 MG/DL Calcium Level 10.1 8.5-10.1 MG/DL Corrected Calcium 8.5-10.1 MG/DL Total Bilirubin 0.4 0.1-1.0 MG/DL Aspartate Amino Transf (AST/SGOT) 19 5-34 U/L Alanine Aminotransferase (ALT/SGPT) 22 0-55 U/L Alkaline Phosphatase 50 40-136 U/L Total Protein 7.4 6.4-8.2 GM/DL Albumin 4.6 H 3.2-4.5 GM/DL My Orders Orders - ALESSIA PARKER DO Foot, Right, 3 View (08/31/18 01:50) Accucheck Stat ONCE (08/31/18 03:05) Ed Iv/Invasive Line Start (08/31/18 03:05) Cbc With Automated Diff (08/31/18 03:05) Comprehensive Metabolic Panel (08/31/18 03:05) Erythrocyte Sedimentation Rate (08/31/18 03:05) Wound Culture (08/31/18 03:05) Ketorolac Injection (Toradol Injection) (08/31/18 03:05) Clindamycin Injection (Cleocin Injection (08/31/18 03:05) Wound Dressing-Ed (08/31/18 03:05) Mupirocin Ointment (Bactroban Ointment (08/31/18 09:00) Mupirocin Ointment (Bactroban Ointment (08/31/18 03:18) Clindamycin Injection (Cleocin Injection (08/31/18 03:19) Vital Signs/I&O 08/31/18 01:28 Temp 96.5 Pulse 77 Resp 17 B/P (MAP) 166/95 (118) Pulse Ox 94 O2 Delivery Room Air Blood Pressure Mean: 118 FSBG Bedside Testing Finger Stick Blood Glucose: 153 Blood Glucose Action Taken: rn notified Departure Impression Primary Impression: CELLULITIS RIGHT FOOT, INCLUDING TOES Additional Impression: Diabetic foot ulcer Disposition: 01 HOME, SELF-CARE Condition: Stable Departure-Patient Inst. Referrals: FAB BEAVER MD (PCP/Family) Primary Care Physician Patient Instructions: Cellulitis (Skin Infection), Adult (DC), Diabetic Foot Ulcer (DC) Add. Discharge Instructions: CLEAN WOUNDS TWICE A DAY WITH ANTIBACTERIAL SOAP AND WATER, APPLY ANTIBIOTIC OINTMENT AND FRESH DRESSING TWICE A DAY ELEVATE FOOT MUCH POSSIBLE CONTINUE YOUR REGULAR MEDICATIONS PRESCRIBED FOLLOW UP WITH DR. BEAVER IN 1-2 DAYS FOR FURTHER CARE All discharge instructions reviewed with patient and/or family. Voiced understanding. Scripts Mupirocin (Mupirocin) 1 Gm Oin.pf.stephanie 1 GM TP BID, #22 TUBE Prov: ALESSIA PARKER DO 08/31/18 Clindamycin HCl (Clindamycin HCl) 300 Mg Capsule 300 MG PO QID for FOR INFECTION, #40 CAP Prov: ALESSIA PARKER DO 08/31/18 ALESSIA PARKER DO Aug 31, 2018 02:20
[2018-08-31] MEDS ORDERED: KETOROLAC 30 MG/ML VIAL IVP STA (03:05)
[2018-08-31] MEDS ORDERED: CLINDAMYCIN 600 MG/4ML (CLEOCIN) VIAL IV STA (03:05)
[2018-08-31] MEDS ORDERED: MUPIROCIN 2% OINT 22 GM (BACTROBAN) TUBE ONE (03:18)
[2018-08-31] MEDS ORDERED: CLINDAMYCIN 300 MG/2ML (CLEOCIN) VIAL ONE (03:19)
[2018-08-31 03:34] LABS: BASOPHILS % (AUTO) 0 % (0-10); EOSINOPHILS # (AUTO) 0.2 10^3/uL (0.0-0.3); EOSINOPHILS % (AUTO) 3 % (0-10); HEMATOCRIT 39 % (35-52); HEMOGLOBIN 13.1 G/DL (11.5-16.0); LYMPHOCYTES # (AUTO) 1.1 X 10^3 (1.0-4.0); LYMPHOCYTES % (AUTO) 19 % (12-44); MEAN CORPUSCULAR HEMOGLOBIN 28 PG (25-34); MEAN CORPUSCULAR HGB CONC 33 G/DL (32-36); MEAN CORPUSCULAR VOLUME 83 FL (80-99); MEAN PLATELET VOLUME 9.4 FL (7.4-10.4); MONOCYTES # (AUTO) 0.5 X 10^3 (0.0-1.0); MONOCYTES % (AUTO) 9 % (0-12); NEUTROPHILS # (AUTO) 4.1 X 10^3 (1.8-7.8); NEUTROPHILS % (AUTO) 70 % (42-75); PLATELET COUNT 164 10^3/uL (130-400); RED CELL DISTRIBUTION WIDTH 15.5 % (10.0-14.5); WHITE BLOOD COUNT 5.8 10^3/uL (4.3-11.0)
[2018-08-31 03:48] LABS: ALANINE AMINOTRANSFERASE 22 U/L (0-55); ALBUMIN 4.6 GM/DL (3.2-4.5); ALKALINE PHOSPHATASE 50 U/L (40-136); BILIRUBIN,TOTAL 0.4 MG/DL (0.1-1.0); BUN/CREATININE RATIO 31; CALCIUM 10.1 MG/DL (8.5-10.1); CARBON DIOXIDE 25 MMOL/L (21-32); CHLORIDE 104 MMOL/L (98-107); CREATININE SERUM 0.96 MG/DL (0.60-1.30); GFR ESTIMATED 57; GLUCOSE 137 MG/DL (70-105); POTASSIUM 3.8 MMOL/L (3.6-5.0); SODIUM 141 MMOL/L (135-145); TOTAL PROTEIN 7.4 GM/DL (6.4-8.2)
[2018-08-31 04:03] LABS: ERYTHROCYTE SEDIMENTATION RATE 4 MM/HR (0-30)
[2018-08-31] MEDS ORDERED: CLIN300C11 PO (04:04)
[2018-08-31] MEDS ORDERED: MUPI1OIN6 TP (04:04)
[2018-08-31 04:30] VITALS: BP 152/84
--- NOTE | 2018-08-31 07:06 | Diagnostic Imaging Report ---
INDICATION: Right foot pain, history of ORIF. COMPARISON: 06/02/2007. FINDINGS: 3 views of the right foot demonstrate stable prior ORIF. There is worsening degeneration of first metatarsophalangeal joint and third metatarsophalangeal joint. Healed fracture deformity seen in the fourth metatarsal. There is no acute fracture or dislocation. No unexpected radiopaque foreign body. IMPRESSION: No acute fracture or dislocation. Dictated by: Dictated on workstation # [id number]
[2018-08-31] MEDS ORDERED: MUPIROCIN 2% OINT 22 GM (BACTROBAN) TUBE TOP SCH (09:00)
== END 2018-08-31 04:30 | disposition home or self-care (01) ==
LOC: EDUNIT# 01:13 → ER 01:15
DX: L03.115 Cellulitis of right lower limb (principal); E11.621 Type 2 diabetes mellitus with foot ulcer; E11.69 Type 2 diabetes mellitus with other specified complication; M86.9 Osteomyelitis, unspecified; I10 Essential (primary) hypertension; E78.00 Pure hypercholesterolemia, unspecified; F03.90 Unspecified dementia, unspecified severity, without behavioral disturbance, psychotic disturbance, mood disturbance, and anxiety; F41.9 Anxiety disorder, unspecified; F32.9 Major depressive disorder, single episode, unspecified; Z85.828 Personal history of other malignant neoplasm of skin; Z86.010 Personal history of colon polyps; Z86.73 Personal history of transient ischemic attack (TIA), and cerebral infarction without residual deficits; Z90.710 Acquired absence of both cervix and uterus; Z79.82 Long term (current) use of aspirin; Z79.84 Long term (current) use of oral hypoglycemic drugs
CPT/HCPCS: 36415; 73630; 80053; 82962; 85025; 85652; 87070; 87077; 87186; 87205

== ENCOUNTER → 2018-09-23 | Outpatient (CLI) | payer MEDICARE, MEDICAID ==
[~2018-09-23] MED LIST changes: +CLIN300C11 PO; +MUPI1OIN6 TP
== END ==
LOC: WOUNDCARE 09:27
PROVIDERS: ATTEND Nurse Practitioner
DX: E11.621 Type 2 diabetes mellitus with foot ulcer (principal); L97.512 Non-pressure chronic ulcer of other part of right foot with fat layer exposed
CPT/HCPCS: 11042; 87070; 87075; 87077; 87186; 87205

== ENCOUNTER → 2018-09-30 | Outpatient (CLI) | payer MEDICARE, MEDICAID | LOC: WOUNDCARE 08:13 | PROVIDERS: ATTEND Nurse Practitioner | DX: E11.621 Type 2 diabetes mellitus with foot ulcer (principal); E11.52 Type 2 diabetes mellitus with diabetic peripheral angiopathy with gangrene; L97.512 Non-pressure chronic ulcer of other part of right foot with fat layer exposed; I96 Gangrene, not elsewhere classified | CPT/HCPCS: 11042 ==

== ENCOUNTER → 2018-10-07 | Outpatient (CLI) | payer MEDICARE, MEDICAID | LOC: WOUNDCARE 09:23 | PROVIDERS: ATTEND Nurse Practitioner | DX: E11.621 Type 2 diabetes mellitus with foot ulcer (principal); L97.512 Non-pressure chronic ulcer of other part of right foot with fat layer exposed; E11.52 Type 2 diabetes mellitus with diabetic peripheral angiopathy with gangrene; I96 Gangrene, not elsewhere classified | CPT/HCPCS: 11042 ==

== ENCOUNTER → 2018-10-14 | Outpatient (CLI) | payer MEDICARE, MEDICAID | LOC: WOUNDCARE 09:17 | PROVIDERS: ATTEND Nurse Practitioner | DX: E11.621 Type 2 diabetes mellitus with foot ulcer (principal); L97.511 Non-pressure chronic ulcer of other part of right foot limited to breakdown of skin; E11.52 Type 2 diabetes mellitus with diabetic peripheral angiopathy with gangrene; I96 Gangrene, not elsewhere classified | CPT/HCPCS: 99213 ==

== ENCOUNTER → 2018-10-21 | Outpatient (CLI) | payer MEDICARE, MEDICAID | LOC: WOUNDCARE 09:27 | PROVIDERS: ATTEND Nurse Practitioner | DX: E11.621 Type 2 diabetes mellitus with foot ulcer (principal); E11.52 Type 2 diabetes mellitus with diabetic peripheral angiopathy with gangrene; L97.511 Non-pressure chronic ulcer of other part of right foot limited to breakdown of skin; I96 Gangrene, not elsewhere classified | CPT/HCPCS: 99212 ==

== ENCOUNTER → 2018-12-16 | Outpatient (CLI) | payer MEDICARE, MEDICAID ==
--- NOTE | 2018-12-16 13:15 | Diagnostic Imaging Report ---
INDICATION: Routine screening. COMPARISON: Comparison is made with prior mammograms from 12/06/2017 and 12/28/2016. TECHNIQUE: 2-D and 3-D bilateral screening mammography was performed. The current study was also evaluated with a Computer Aided Detection (CAD) system. 3-D tomosynthesis was also performed and reviewed. FINDINGS: Scattered fibroglandular densities are identified bilaterally. There are benign calcifications bilaterally. Asymmetric density in the medial anterior right breast has been stable from multiple years. No new mass or malignant-appearing microcalcifications are seen. The axillae are unremarkable. IMPRESSION: No mammographic features suspicious for malignancy are identified. ACR BI-RADS Category 2: Benign findings. Result letter will be mailed to the patient. Note: At least 10% of breast cancer is not imaged by mammography. Dictated by: Dictated on workstation # [id number]
== END ==
LOC: RAD 10:07
PROVIDERS: ATTEND Internal Medicine
DX: Z12.31 Encounter for screening mammogram for malignant neoplasm of breast (principal)
CPT/HCPCS: 77067

== ENCOUNTER 2019-01-10 10:12 | Inpatient (IN) | payer MEDICARE, MEDICAID ==
[~2019-01-10] VITALS: Ht 165.1 cm; Wt 72.9 kg
[2019-01-10] VITALS (14 sets, daily range): BP systolic 89–132; BP diastolic 50–85
[2019-01-10] MEDS ORDERED: RT-ALBUTEROL/IPRATROPIUM 3 ML (DUONEB) VIAL ONE ×2 (10:23→18:35)
[2019-01-10] MEDS ORDERED: NS IV 500 ML 500 ML IV ONE (10:31)
[2019-01-10] MEDS ORDERED: RT-ALBUTEROL SULF 2.5 MG/3 ML PRE-MIX VIAL INH STA ×2 (10:43→10:59)
[2019-01-10] MEDS ORDERED: RT-ALBUTEROL SULF 2.5 MG/3 ML PRE-MIX VIAL ONE (10:43)
[2019-01-10 10:44] LABS: BASOPHILS % (AUTO) 0 % (0-10); EOSINOPHILS % (AUTO) 0 % (0-10); HEMATOCRIT 32 % (35-52); HEMOGLOBIN 10.7 G/DL (11.5-16.0); LYMPHOCYTES # (AUTO) 0.3 X 10^3 (1.0-4.0); LYMPHOCYTES % (AUTO) 2 % (12-44); MEAN CORPUSCULAR HEMOGLOBIN 28 PG (25-34); MEAN CORPUSCULAR HGB CONC 33 G/DL (32-36); MEAN CORPUSCULAR VOLUME 83 FL (80-99); MEAN PLATELET VOLUME 10.5 FL (7.4-10.4); MONOCYTES # (AUTO) 0.6 X 10^3 (0.0-1.0); MONOCYTES % (AUTO) 4 % (0-12); NEUTROPHILS # (AUTO) 14.3 X 10^3 (1.8-7.8); NEUTROPHILS % (AUTO) 94 % (42-75); PLATELET COUNT 171 10^3/uL (130-400); RED CELL DISTRIBUTION WIDTH 16.3 % (10.0-14.5); WHITE BLOOD COUNT 15.2 10^3/uL (4.3-11.0)
[2019-01-10] MEDS ORDERED: RT-ALBUTEROL/IPRATROPIUM 3 ML (DUONEB) VIAL INH ONE (10:45)
[2019-01-10 10:46] LABS: ABG BASE EXCESS -3.6 MMOL/L (-2.5-2.5); ABG OXYGEN SATURATION 91 % (94-100); ABG PCO2 34 MMHG (35-45); ABG PH 7.39 (7.37-7.43); ABG PO2 61 MMHG (79-93); ABG TCO2 21.6 MMOL/L (21.0-31.0)
[2019-01-10 10:47] LABS: ALLENS TEST POSITIVE; INSPIRED O2 10 L; PATIENT TEMP 36.6; VENTILATOR NO
[2019-01-10 10:48] LABS: BILIRUBIN,URINE 1+ (NEGATIVE); CLARITY,URINE CLOUDY; COLOR,URINE AMBER; GLUCOSE, URINE (UA) NEGATIVE (NEGATIVE); KETONES,URINE NEGATIVE (NEGATIVE); LEUKOCYTE ESTERASE ,URINE 1+ (NEGATIVE); NITRITE,URINE NEGATIVE (NEGATIVE); PROTEIN,URINE 1+ (NEGATIVE)
[2019-01-10 10:49] LABS: INR 1.6 (0.8-1.4); PROTHROMBIN TIME PATIENT 19.3 SEC (12.2-14.7)
--- NOTE | 2019-01-10 10:56 | Diagnostic Imaging Report ---
INDICATION: Shortness of breath. Frontal chest obtained at 10:40 a.m. and compared to 02/08/2018. Heart is normal in size. There is extensive new infiltrate in the left mid lung and base, suspicious for pneumonia. There is no pneumothorax or gross pleural fluid. Right lung shows no focal abnormality. IMPRESSION: New large area of extensive infiltrate in the left mid lung and base, suspicious for pneumonia. Follow-up is recommended. Dictated by: Dictated on workstation # [id number]
[2019-01-10] MEDS ORDERED: RT-IPRATROPIUM (ATROVENT) 0.5MG/2.5ML AMP IH ONE ×2 (10:58→11:00)
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
[2019-01-10] MEDS ORDERED: PIPERACILLIN SODIUM/TAZOBACTAM 4.5 GM in NS (IVPB) 100 ML IV ONE (11:00)
[2019-01-10 11:01] LABS: ALBUMIN 3.4 GM/DL (3.2-4.5); BILIRUBIN,TOTAL 0.8 MG/DL (0.1-1.0); CALCIUM 9.8 MG/DL (8.5-10.1); CREATININE SERUM 2.2 MG/DL (0.60-1.30); POTASSIUM 4.4 MMOL/L (3.6-5.0); TOTAL PROTEIN 6.8 GM/DL (6.4-8.2)
[2019-01-10] MEDS ORDERED: LACTATED RINGERS 1,000 ML IV ONE (11:10)
[2019-01-10 11:40] LABS: WBC,URINE 50-100 /HPF
[2019-01-10 11:42] LABS: BACTERIA,URINE FEW /HPF
[2019-01-10 11:43] LABS: AMORPHOUS SEDIMENT,UR MOD AMOR URATES /LPF; GRANULAR CASTS,URINE 0-2 /LPF; SQUAMOUS EPITHELIAL CELL,UR 0-2 /HPF
--- NOTE | 2019-01-10 12:15 | NUR ---
DR NUGENT NOTIFIED OF LACTIC ACID 3.74
[2019-01-10 12:32] LABS: LYMPHOCYTES % (MANUAL) 2 %; MONOCYTES % (MANUAL) 3 %; NEUTROPHILS % (MANUAL) 95 %; RBC MORPH NORMAL
[2019-01-10] MEDS ORDERED: VANCOMYCIN 1250 MG/NS 250 ML IVPB IV NR ×2 (13:41)
[2019-01-10] MEDS ORDERED: ONDANSETRON 4 MG/2 ML (SDV) Z0FRAN IVP PRN (13:45)
[2019-01-10] MEDS: NS IV 1000 ML 1,000 ML IV SCH ×2 (13:55→23:54)
[2019-01-10] MEDS ORDERED: VASOPRESSIN 20 UNITS/NS 100 ML DRIP IV SCH ×2 (14:15)
[2019-01-10] MEDS ORDERED: NOREPINEPHRINE 4 MG/NS 250 ML DRIP IV SCH ×2 (14:15)
--- NOTE | 2019-01-10 14:27 | History & Physical-Hospitalist ---
History of Present Illness HPI/Chief Complaint 73-year-old white female who is high functioning MR eze. She had been in her usual state of health until about 5 to 8 days ago when she choked on [place] grapes. since then she's been coughing and has become progressively hypoxic. She relates that she's been having trouble with choking and was told by her healthcare worker to put in her teeth when she eats but she is uncertain whether the that has helped recently or not. She denies having any recent weight loss or weight gain that she knows of. She has oral mouth movements most consistent with probable tardive diet. She is awake and alert and in no res piratory distress at the time of my interview and has no complaints other than related to her cough. Source: patient, RN/MD Exam Limitations: other Date Seen 01/10/19 Time Seen by a Provider: 14:00 Attending Physician Fab Hines MD Referring Physician Date of Admission Jan 10, 2019 at 11:50 Home Medications & Allergies Home Medications Reviewed patient Home Medication Reconciliation performed by pharmacy medication reconciliations copier repair technician and/or nursing. Patients Allergies have been reviewed. Allergies Allergies Coded Allergies No Known Drug Allergies ([id number]/24/07) Past Lvhtfjw-Isocej-Wqghso Hx Past Med/Social Hx: Reviewed Nursing Past Med/Soc Hx Patient Social History Marrital Status: single Employed/Student: unemployed Alcohol Use: Denies Use Recreational Drug Use: No Smoking Status: Never a Smoker Type Used: Cigarettes 2nd Hand Smoke Exposure: No Recent Foreign Travel: No Contact w/other who traveled: No Recent Hopitalizations: No Recent Infectious Disease Expo: No Immunizations Up To Date Tetanus Booster (TDap): Less than 5yrs Date of Pneumonia Vaccine: Nov 02, 2016 Date of Influenza Vaccine: Nov 30, 2018 Seasonal Allergies Seasonal Allergies: Yes Past Medical History Surgeries: Eye Surgery, Gallbladder, 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, Orthopedic Cardiac: High Cholesterol, Hypertension, Valvular Heart Disease Neurological: Dementia, Stroke Reproductive: No Sexually Transmitted Disease: No HIV/AIDS: No Female Reproductive Disorders: Denies 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, Menopausal Gastrointestinal: Diverticulosis, Hemorrhoids, Polyps Musculoskeletal: Arthritis Endocrine: Diabetes, Non-Insulin dep HEENT: Cataract Loss of Vision: Left Cancer: Skin Did You Recieve Any Treatments: Yes What Type of Treatment Did You: Surgical Intervention Psychosocial: Sleep Difficulties, Anxiety, Depression History of Blood Disorders: No Family History Reviewed Nursing Family Hx No Pertinent Family Hx Review of Systems Constitutional: see HPI EENTM: no symptoms reported Respiratory: cough, short of breath Cardiovascular: no symptoms reported Gastrointestinal: no symptoms reported Musculoskeletal: no symptoms reported Skin: no symptoms reported Psychiatric/Neurological: No Symptoms Reported Physical Exam Physical Exam Vital Signs Vital Signs - First Documented 01/10/19 11:05 FiO2 100 Capillary Refill : Less Than 3 Seconds Height, Weight, BMI Height: 5'5.00" Weight: 150lbs. 0.0oz. 68.344882zk; 26.74 BMI Method:Stated General Appearance: Chronically ill HEENT: Other (dry) Neck: Limited Range of Motion Respiratory: Crackles, Decreased Breath Sounds, Rales Cardiovascular: Regular Rate, Rhythm, Systolic Murmur Gastrointestinal: Normal Bowel Sounds, Non Tender, Soft Rectal: Deferred Back: Normal Inspection Extremity: No Calf Tenderness, No Pedal Edema Neurologic/Psychiatric: Alert, Normal Mood/Affect Skin: Warm/Dry Lymphatic: No Adenopathy Results Results/Procedures Labs Laboratory Tests 01/10/19 10:17 Patient resulted labs reviewed. Imaging: Reviewed Imaging Report Assessment/Plan Admission Diagnosis sepsis secondary to aspiration pneumonia-with an elevated lactic acid Hypoxia secondary to aspiration pneumonia Left lower lobe infiltrate-may require bronchoscopy because of the configuration of the pneumonia and possibility of obstruction Hypertension by history Will hold blood pressure medications because of hypotension Dysphagia we'll get speech study and changed to mechanical soft diet for now acute renal failure creatinine at 2.2 which was 0.9 in August of this year Elevated liver function tests most likely secondary to sepsis Admission Status: Inpatient Order (span 2 midnights) Reason for Inpatient Admission: Multiple comorbidities in a critically ill patient with multisystems been affected Clinical Quality Measures DVT/VTE Risk/Contraindication: Risk Factor Score Per Nursin RFS Level Per Nursing on Admit: 3=High Copy Copies To 1: FAB BEAVER MD, KATHLEEN M MD Jan 10, 2019 14:27 POS
[2019-01-10] MEDS: EPINEPHrine 1 MG INJECTION 2 MG in NS (IVPB) 248 ML IV SCH (14:36)
--- NOTE | 2019-01-10 15:50 | NUR ---
1550 This nurse notified of patients elevated HR, EKG obtained. Order received to consult Eleazar. Will continue to monitor. 1600 on ICU floor, this nurse notified of consult and updated him on patient. Orders received. Will continue to monitor. 1740 Cardizem protocol followed as ordered, HR remains elevated. This nurse updated , orders received. Will continue to monitor.
--- NOTE | 2019-01-10 16:09 | Consultation-Cardiology ---
HPI-Cardiology Cardiology Consultation: Date of Consultation 01/10/19 Time Seen by a Provider: 15:55 Date of Admission Attending Physician Roberta Vazquez MD Admitting Physician Al Graves MD Consulting Physician BETH AKINS MD, MA, FACP, FACC, FSCAI, CCDS HPI: Chief Complaint: Reason for consultation: PAF with RVR HPI 73 yo woman who suffers from tardive dyskinesia and states that she has been choking on her food and experiencing bouts of cough at home. She has been diagnosed with aspiration pneumonia and admitted to Dr Vazquez. Has developed A Fib in the hosp. Denies palp. Denies cp. Has chronic shortness of breath. Does not report focal weakness Review of Systems-Cardiology Review of Systems Constitutional: As described under HPI Eyes: No vision change Ears/Nose/Throat: No ear discharge, No nasal drainage, No recent hearing loss Respiratory: As described under HPI Cardiovascular: As described under HPI Gastrointestinal: No diarrhea, No nausea, No vomiting Genitourinary: No dysuria, No hematuria, No urine frequency changes Musculoskeletal: back pain (chronic) Skin: No rash, No ulcerations Psychiatric/Neurological: As described under HPI; No seizure, No focal weakness, No syncope Hematologic: No bleeding abnormalities All Other Systems Reviewed Negative Unless Noted: Yes QKY-Uhyruu-Hecefd Hx Patient Social History Marrital Status: single Employed/Student: unemployed Alcohol Use: Denies Use Recreational Drug Use: No Smoking Status: Never a Smoker Type Used: Cigarettes 2nd Hand Smoke Exposure: No Recent Foreign Travel: No Recent Infectious Disease Expo: No Hospitalization with Isolation: Denies Immunizations Up To Date Tetanus Booster (TDap): Less than 5yrs Date of Pneumonia Vaccine: Nov 02, 2016 Date of Influenza Vaccine: Nov 30, 2018 Past Medical History PMH As described under Assessment. Family Medical History Family Medical History: Does not report fam h/o early CAD or SCD Allergies and Home Medications Allergies Coded Allergies: No Known Drug Allergies (Verified , 12/25/06) Home Medications Acetaminophen 500 Mg Tablet, 1,000 MG PO DAILY, (Reported) Acetaminophen 500 Mg Tablet, 500 MG PO HS, (Reported) Acetaminophen/Diphenhydramine 1 Each Tablet, 1 EACH PO HS, (Reported) Albuterol Sulfate 1 Puff Puff, 2 PUFF IH Q4H 1 PUFF = 90 MCG Prescribed by: ROD FLEMING on 02/08/181326 Amlodipine Besylate 10 Mg Tablet, 10 MG PO DAILY Prescribed by: AARTI GROSS on 08/17/17303 Antiox#10/Om3/Dha/Epa/Lut/Zeax 1 Each Capsule, 1 EACH PO DAILY, (Reported) Aspirin 81 Mg Tablet.dr, 81 MG PO DAILY, (Reported) Atenolol 50 Mg Tablet, 50 MG PO DAILY Prescribed by: ESTRELLITA KOLB on 06/09/17 103 Atorvastatin Calcium 10 Mg Tablet, 10 MG PO HS, (Reported) Cefuroxime Axetil 250 Mg Tablet, 250 MG PO BID Prescribed by: ROD FLEMING on 02/08/181326 Clindamycin HCl 300 Mg Capsule, 300 MG PO QID Prescribed by: ALESSIA PARKER on 08/31/18403 Fenofibrate 135 Mg Capsule.dr, 135 MG PO DAILY, (Reported) Loratadine 10 Mg Tablet, 10 MG PO DAILY, (Reported) Losartan Potassium 100 Mg Tablet, 100 MG PO DAILY Prescribed by: ESTRELLITA KOLB on 06/09/171032 Memantine HCl 28 Mg Cap.spr.24, 28 MG PO HS, (Reported) Metformin Hcl 500 Mg Tablet, 500 MG PO BID, (Reported) Mupirocin 1 Gm Oin.pf.stephanie, 1 GM TP BID Prescribed by: ALESSIA PARKER on 08/31/18403 Naproxen 500 Mg Tablet, 500 MG PO DAILY PRN for BREAKTHROUGH PAIN, (Reported) [place]-3 Acid Ethyl Esters 1 Gm Capsule, 2 GM PO BID, (Reported) Oxycodone HCl/Acetaminophen 1 Each Tablet, 0.5-1 EACH PO Q4H PRN for PAIN- MODERATE TO SEVERE Prescribed by: AARTI GROSS on 08/17/17301 Prednisone 10 Mg Tab, 10 MG PO DAILY Prescribed by: AARTI GROSS on 08/17/17301 Prednisone 20 Mg Tab, 40 MG PO DAILY Prescribed by: ROD FLEMING on 02/08/181326 Quetiapine Fumarate 100 Mg Tablet, 100 MG PO HS, (Reported) Quetiapine Fumarate 100 Mg Tablet, 50 MG PO DAILY, (Reported) Sitagliptin Phosphate 50 Mg Tablet, 50 MG PO DAILY, (Reported) Venlafaxine Hcl 150 Mg Tab.osm.24, 150 MG PO DAILY, (Reported) Patient Home Medication List Home Medication List Reviewed: Yes Physical Exam-Cardiology Physical Exam Vital Signs/I&O 01/10/19 01/10/19 01/10/19 01/10/19 10:16 10:16 10:40 10:45 Temp 36.5 Pulse 103 Resp 28 B/P (MAP) 114/69 (84) Pulse Ox 92 92 91 90 O2 Delivery Non Rebreather Non Rebreather OxyMask OxyMask O2 Flow Rate 15.00 15.00 11.00 11.00 01/10/19 01/10/19 01/10/19 01/10/19 11:05 12:12 12:24 12:33 Pulse 111 112 Resp 17 B/P (MAP) 95/62 Pulse Ox 98 O2 Delivery Vapotherm Vapotherm Vapotherm O2 Flow Rate 93.00 35.00 100.00 FiO2 100 01/10/19 01/10/19 01/10/19 01/10/19 13:00 13:00 13:31 14:00 Pulse 109 109 105 Resp 11 39 B/P (MAP) 91/57 (68) 89/50 (63) Pulse Ox 98 93 O2 Delivery Vapotherm Vapotherm Vapotherm O2 Flow Rate 35.00 35.00 35.00 100.00 100.00 FiO2 100 01/10/19 01/10/19 15:00 15:41 Pulse 104 160 Resp 24 B/P (MAP) 104/67 (79) Pulse Ox 84 O2 Delivery Vapotherm O2 Flow Rate 35.00 100.00 Capillary Refill : Less Than 3 Seconds Constitutional: AAO x 3, well-developed, well-nourished HEENT: PERRL, other (edentulous jaws), EOMI, hearing is well preserved; No xanthelasmas are seen Respiratory: accessory muscle use, other (diminished air entry at both bases; diminished air entry in the L mid zone; scattered coarse rales and rhonchi) Cardiovascular: irregularly irregular, S1 and S2, systolic murmur (soft YI at card base) Gastrointestinal: No tender; soft; No guarding, No rebound; audible bowel sounds Extremities: No clubbing, No cyanosis, No significant edema Neurologic/Psychiatric: oriented x 3, other (coarse, involuntary movements of the face and neck; moves all limbs equally) Skin: normal color, warm/dry Data Review Labs Laboratory Tests 01/10/19 10:17: White Blood Count 15.2H, Red Blood Count 3.89L, Hemoglobin 10.7L, Hematocrit 32L , Mean Corpuscular Volume 83, Mean Corpuscular Hemoglobin 28, Mean Corpuscular Hemoglobin Concent 33, Red Cell Distribution Width 16.3H, Platelet Count 171, Mean Platelet Volume 10.5H, Neutrophils (%) (Auto) 94H, Lymphocytes (%) (Auto) 2L, Monocytes (%) (Auto) 4, Eosinophils (%) (Auto) 0, Basophils (%) (Auto) 0, Neutrophils # (Auto) 14.3H, Lymphocytes # (Auto) 0.3L, Monocytes # (Auto) 0.6, Eosinophils # (Auto) 0.0, Basophils # (Auto) 0.0, Neutrophils % (Manual) 95, Lymphocytes % (Manual) 2, Monocytes % (Manual) 3, Blood Morphology Comment NORMAL, Prothrombin Time 19.3H, INR Comment 1.6H, Activated Partial Thromboplast Time 34, Sodium Level 136, Potassium Level 4.4, Chloride Level 101, Carbon Dioxide Level 18L, Anion Gap 17H, Blood Urea Nitrogen 59H, Creatinine 2.20H, Estimat Glomerular Filtration Rate 22, BUN/Creatinine Ratio 27, Glucose Level 215H, Lactic Acid Level 3.31*H, Calcium Level 9.8, Corrected Calcium 10.3H, Total Bilirubin 0.8, Aspartate Amino Transf (AST/SGOT) 49H, Alanine Aminotransferase (ALT/SGPT) 61H, Alkaline Phosphatase 97, Total Protein 6.8, Albumin 3.4 01/10/19 10:26: Urine Color AMBERH, Urine Clarity CLOUDY, Urine pH 5.0, Urine Specific [place] >=1.030, Urine Protein 1+H, Urine Glucose (UA) NEGATIVE, Urine Ketones NEGATIVE, Urine Nitrite NEGATIVE, Urine Bilirubin 1+H, Urine Urobilinogen 0.2, Urine Leukocyte Esterase 1+H, Urine RBC (Auto) TRACE-I, Urine RBC 2-5H, Urine WBC 50- 100H, Urine Squamous Epithelial Cells 0-2, Urine Crystals PRESENTH, Urine Amorphous Sediment MOD PEGGY URATESH, Urine Bacteria FEWH, Urine Casts PRESENT, Urine Granular Casts 0-2H, Urine Mucus NEGATIVE, Urine Culture Indicated CULTURE PENDING 11/9/19 10:41: Blood Gas Puncture Site RIGHT RADIAL, Blood Gas Patient Temperature 36.6, Art erial Blood pH 7.39, Arterial Blood Partial Pressure CO2 34L, Arterial Blood Partial Pressure O2 61L, Arterial Blood HCO3 21L, Arterial Blood Total CO2 21.6, Arterial Blood Oxygen Saturation 91L, Arterial Blood Base Excess -3.6L, Filippo Test POSITIVE, Blood Gas Ventilator Setting NO, Blood Gas Inspired Oxygen 10 L 01/10/19 11:50: Lactic Acid Level 3.74*H 01/10/19 15:56: Glucometer 275H Microbiology 01/10/19 Influenza Types A,B Antigen (ZANDER) - Final, Complete Laboratory Tests 01/10/19 10:17 A/P-Cardiology Assessment/Admission Diagnosis Aspiration pneumonia with sepsis Acute kidney injury (PAULA) 3 PAF with RVR Peripheral arterial disease per seg pressures of 07/17/16 that showed TONG of 1.26 on th R and 0.78 on the Left (at the level of Left PT). 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 Harris H/o CVA. CT Head of 07/14/16: no acute changes, chronic small vessel disease, chronic lacunar infart in the R basal gaglia, chronic R cerebral hemisphere infarct Hypertension, by history Hyperlipidemia, primarily consisting of hypertriglyceridemia. This has been treated with a combination of Trilipix and Lovaza that the patient has tolerated well, followed by Dr Graves Borderline diabetes mellitus, maturity onset, being followed by Dr. Graves Tardive dyskinesia Echocardiogram of November 07, 2017 showed LVEF 60-65%. Mildly to moderately calcified annulus. Mild MR MPI o f 07/01/18: No ischemia or infarction, LVEF 73% Psychologic diathesis, including anxiety/depression, currently controlled. Mild bilat carotid arterial disease per September 2016 No evidence of any abdominal aortic aneurysm on abdominal aorta scan from Discussion and Recomendations * iv dilt for vent rate control * Apixaban for stroke prophylaxis * Monitor labs Clinical Quality Measures DVT/VTE Risk/Contraindication: Risk Factor Score Per Nursin RFS Level Per Nursing on Admit: 3=High BETH KAINS MD FACP FACC CCDS Jan 10, 2019 16:09 POS
[2019-01-10] MEDS ORDERED: APIXABAN 5 MG (ELIQUIS) TABLET PO NR (16:22)
[2019-01-10] MEDS: DILTIAZEM IV FOR DRIP 125 MG in NS (IVPB) 100 ML IV SCH (16:47)
[2019-01-10] MEDS: PIPERACILLIN/TAZO 4.5 GM/NS 100 ML IV SCH ×2 (16:50)
[2019-01-10] MEDS: inSUlin ASPART (NovoLOG) 1 UNIT/0.01 ML (CHARGE PER UNIT) SQ SCH ×2 (16:53→20:09)
[2019-01-10] MEDS ORDERED: RT-ALBUTEROL/IPRATROPIUM 3 ML (DUONEB) VIAL INH PRN (17:00)
[2019-01-10] MEDS ORDERED: meTOprolol 5 MG/5 ML (LOPRESSOR) VIAL ONE ×2 (17:49→19:44)
[2019-01-10] MEDS: meTOprolol 5 MG/5 ML (LOPRESSOR) VIAL IV SCH ×4 (17:58→23:54)
[2019-01-10] MEDS: oxyCODONE/APAP 5/325MG (PERCOCET 5) TABLET PO PRN (17:58)
[2019-01-10] MEDS: RT-ALBUTEROL/IPRATROPIUM 3 ML (DUONEB) VIAL INH SCH ×2 (18:40→22:13)
[2019-01-10] MEDS: QUEtiapine 100 MG (SEROquel) TAB IMMEDIATE RELEASE PO SCH (19:58)
[2019-01-10] MEDS: APIXABAN 5 MG (ELIQUIS) TABLET PO SCH (19:59)
[2019-01-10] MEDS: ACETAMINOPHEN 500 MG TAB (TYLENOL) PO SCH (19:59)
[2019-01-10] MEDS ORDERED: NS (IVPB) 50 ML ONE (20:55)
[2019-01-10] MEDS ORDERED: MEMANTINE 10 MG (NAMENDA) TABLET PO SCH (21:00)
[2019-01-10] MEDS: LACTATED RINGERS 1,000 ML IV ONE ×2 (21:12→21:49)
[2019-01-10] MEDS: DEXMEDETOMIDINE INJECTION 200 MCG in NS (IVPB) 50 ML IV SCH (21:13)
[2019-01-10] MEDS ORDERED: LACTATED RINGERS 500 ML IV SCH (21:15)
[2019-01-11] VITALS (27 sets, daily range): BP systolic 75–139; BP diastolic 43–83
[2019-01-11] MEDS: DEXMEDETOMIDINE INJECTION 200 MCG in NS (IVPB) 50 ML IV SCH ×3 (00:29→11:29)
[2019-01-11] MEDS ORDERED: LACTATED RINGERS 500 ML IV SCH (00:30)
[2019-01-11] MEDS: NS IV 1000 ML 1,000 ML IV SCH ×5 (00:30→21:14)
[2019-01-11 01:11] LABS: ABG BASE EXCESS -1.3 MMOL/L (-2.5-2.5); ABG OXYGEN SATURATION 95 % (94-100); ABG PCO2 37 MMHG (35-45); ABG PO2 66 MMHG (79-93); ABG TCO2 24.3 MMOL/L (21.0-31.0)
[2019-01-11 01:15] LABS: ALLENS TEST POSITIVE; INSPIRED O2 70% BIPAP; PATIENT TEMP 35.9; VENTILATOR NO
[2019-01-11] MEDS: PIPERACILLIN/TAZO 4.5 GM/NS 100 ML IV SCH ×6 (01:15→16:58)
[2019-01-11] MEDS: meTOprolol 5 MG/5 ML (LOPRESSOR) VIAL IV SCH ×4 (01:46→10:04)
[2019-01-11] MEDS: RT-ALBUTEROL/IPRATROPIUM 3 ML (DUONEB) VIAL INH SCH ×6 (01:49→21:53)
[2019-01-11 04:04] LABS: BASOPHILS % (AUTO) 0 % (0-10); EOSINOPHILS % (AUTO) 0 % (0-10); HEMATOCRIT 27 % (35-52); HEMOGLOBIN 8.8 G/DL (11.5-16.0); LYMPHOCYTES # (AUTO) 0.5 X 10^3 (1.0-4.0); LYMPHOCYTES % (AUTO) 5 % (12-44); MEAN CORPUSCULAR HEMOGLOBIN 27 PG (25-34); MEAN CORPUSCULAR HGB CONC 32 G/DL (32-36); MEAN CORPUSCULAR VOLUME 84 FL (80-99); MEAN PLATELET VOLUME 10.3 FL (7.4-10.4); MONOCYTES # (AUTO) 0.3 X 10^3 (0.0-1.0); MONOCYTES % (AUTO) 3 % (0-12); NEUTROPHILS # (AUTO) 9.5 X 10^3 (1.8-7.8); NEUTROPHILS % (AUTO) 93 % (42-75); PLATELET COUNT 138 10^3/uL (130-400); RED CELL DISTRIBUTION WIDTH 16.2 % (10.0-14.5); WHITE BLOOD COUNT 10.3 10^3/uL (4.3-11.0)
[2019-01-11 04:30] LABS: ALBUMIN 2.5 GM/DL (3.2-4.5); BILIRUBIN,TOTAL 0.6 MG/DL (0.1-1.0); CALCIUM 8.5 MG/DL (8.5-10.1); CREATININE SERUM 2.02 MG/DL (0.60-1.30); MAGNESIUM 2.1 MG/DL (1.6-2.4); PHOSPHORUS 2.1 MG/DL (2.3-4.7); POTASSIUM 4.6 MMOL/L (3.6-5.0); TOTAL PROTEIN 5.6 GM/DL (6.4-8.2)
[2019-01-11] MEDS ORDERED: DIGOXIN 0.25 MG/ML (LANOXIN) 2 ML AMP ONE (04:37)
[2019-01-11] MEDS ORDERED: DIGOXIN 0.25 MG/ML (LANOXIN) 2 ML AMP IV ONE (04:45)
[2019-01-11] MEDS: POTASSIUM CL 10MEQ/50ML IVPB 50 ML IV SCH (05:59)
[2019-01-11] MEDS: MAGNESIUM 1 GM/100 ML IVPB 100 ML IV SCH (06:00)
[2019-01-11] MEDS: KCL 20 MEQ TAB (K-DUR) PO SCH (06:00)
[2019-01-11] MEDS: inSUlin ASPART (NovoLOG) 1 UNIT/0.01 ML (CHARGE PER UNIT) SQ SCH ×3 (06:01→17:45)
--- NOTE | 2019-01-11 07:42 | Diagnostic Imaging Report ---
INDICATION: Dyspnea. TECHNIQUE: Single view chest 3:25 AM. CORRELATION STUDY: 01/10/2019 FINDINGS: Heart size remains enlarged. Increasing severity pulmonary vascular congestion and perihilar edema left greater than right. Asymmetric opacity over the left mid and lower lung field does persist but overall has increased. IMPRESSION: 1. Cardiac enlargement with increasing pulmonary vascular congestion. 2. Significant opacity over the left mid and lower lung field likely largely consolidation favoring pneumonia. Underlying effusions also suspect. Dictated by: Dictated on workstation # [id number]
--- NOTE | 2019-01-11 08:03 | Pulmonary Consultation ---
History of Present Illness History of Present Illness Date of Consultation 01/11/19 07:58 Time Seen by Provider: 07:58 Date of Admission History of Present Illness 73yo with hx of MR presented to ED secondary to progressive SOB and coughing. 6- 8 days ago she choked on grapes. She was found to be hypoxic in the ED and CXR shows left sided pneumonia. 73-year-old white female who is high functioning MR eze. She had been in her usual state of health until about 5 to 8 days ago when she choked on [place] grapes. since then she's been coughing and has become progressively hypo xic. She relates that she's been having trouble with choking and was told by her healthcare worker to put in her teeth when she eats but she is uncertain whether the that has helped recently or not. She denies having any recent weight loss or weight gain that she knows of. She has oral mouth movements most consistent with probable tardive diet. She is awake and alert and in no respiratory distress at the time of my interview and has no complaints other than related to her cough. Allergies and Home Medications Allergies Coded Allergies: No Known Drug Allergies (Verified , 12/25/06) Home Medications Acetaminophen 500 Mg Tablet, 1,000 MG PO DAILY, (Reported) Acetaminophen 500 Mg Tablet, 500 MG PO HS, (Reported) Acetaminophen/Diphenhydramine 1 Each Tablet, 1 EACH PO HS, (Reported) Albuterol Sulfate 1 Puff Puff, 2 PUFF IH Q4H 1 PUFF = 90 MCG Prescribed by: ROD FLEMING on 02/08/18 1327 Amlodipine Besylate 10 Mg Tablet, 10 MG PO DAILY Prescribed by: AARTI GROSS on 08/17/17 0304 Antiox#10/Om3/Dha/Epa/Lut/Zeax 1 Each Capsule, 1 EACH PO DAILY, (Reported) Aspirin 81 Mg Tablet.dr, 81 MG PO DAILY, (Reported) Atenolol 50 Mg Tablet, 50 MG PO DAILY Prescribed by: ESTRELLITA KOLB on 06/09/17 1033 Atorvastatin Calcium 10 Mg Tablet, 10 MG PO HS, (Reported) Cefuroxime Axetil 250 Mg Tablet, 250 MG PO BID Prescribed by: ROD FLEMING on 02/08/18 1327 Clindamycin HCl 300 Mg Capsule, 300 MG PO QID Prescribed by: ALESSIA PARKER on 08/31/18 0404 Fenofibrate 135 Mg Capsule.dr, 135 MG PO DAILY, (Reported) Loratadine 10 Mg Tablet, 10 MG PO DAILY, (Reported) Losartan Potassium 100 Mg Tablet, 100 MG PO DAILY Prescribed by: ESTRELLITA KOLB on 06/09/17 1033 Memantine HCl 28 Mg Cap.spr.24, 28 MG PO HS, (Reported) Metformin Hcl 500 Mg Tablet, 500 MG PO BID, (Reported) Mupirocin 1 Gm Oin.pf.stephanie, 1 GM TP BID Prescribed by: ALESSIA PARKER on 08/31/18 0404 Naproxen 500 Mg Tablet, 500 MG PO DAILY PRN for BREAKTHROUGH PAIN, (Reported) [place]-3 Acid Ethyl Esters 1 Gm Capsule, 2 GM PO BID, (Reported) Oxycodone HCl/Acetaminophen 1 Each Tablet, 0.5-1 EACH PO Q4H PRN for PAIN- MODERATE TO SEVERE Prescribed by: AARTI GROSS on 08/17/17 0302 Prednisone 10 Mg Tab, 10 MG PO DAILY Prescribed by: AARTI GROSS on 08/17/17 030 Prednisone 20 Mg Tab, 40 MG PO DAILY Prescribed by: ROD FLEMING on 02/08/18 1327 Quetiapine Fumarate 100 Mg Tablet, 100 MG PO HS, (Reported) Quetiapine Fumarate 100 Mg Tablet, 50 MG PO DAILY, (Reported) Sitagliptin Phosphate 50 Mg Tablet, 50 MG PO DAILY, (Reported) Venlafaxine Hcl 150 Mg Tab.osm.24, 150 MG PO DAILY, (Reported) Past Rqmqyad-Wqwety-Uylzde Hx Past Med/Social Hx: Reviewed Nursing Past Med/Soc Hx Patient Social History Alcohol Use: Denies Use Recreational Drug Use: No Smoking Status: Never a Smoker Type Used: Cigarettes 2nd Hand Smoke Exposure: No Recent Foreign Travel: No Contact w/Someone Who Travel: No Recent Infectious Disease Expo: No Recent Hopitalizations: No Physical Abuse: No Sexual Abuse: No Mistreated: No Fear: No Immunizations Up To Date Tetanus Booster (TDap): Less than 5yrs Date of Pneumonia Vaccine: Nov 02, 2016 Date of Influenza Vaccine: Nov 30, 2018 Seasonal Allergies Seasonal Allergies: Yes Past Medical History Surgeries: Yes Eye Surgery, Gallbladder, 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, Orthopedic Respiratory: No Cardiac: Yes (MILD MITRAL REGURGITATION) High Cholesterol, Hypertension, Valvular Heart Disease Neurological: Yes Dementia, Stroke Reproductive Disorders: No Female Reproductive Disorders: Denies 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, Menopausal Sexually Transmitted Disease: No HIV/AIDS: No Genitourinary: No Gastrointestinal: Yes (DYSPLASTIC COLON POLYPS) Diverticulosis, Hemorrhoids, Polyps Musculoskeletal: Yes (RESTLESS LEGS; OSTEOMYELITIS RIGHT FOOT, SCIATICA) Arthritis Endocrine: Yes Diabetes, Non-Insulin dep HEENT: Yes (LEFT EYE REMOVED/ PROSTHETIC EYE; WEARS GLASSES; ALL TEETH REMOVED) Cataract Loss of Vision: Left Cancer: Yes Skin Did You Recieve Any Treatments: Yes What Type of Treatment Did You: Surgical Intervention Psychosocial: Yes (SELF MUTILATION-"PICKS" ) Sleep Difficulties, Anxiety, Depression Integumentary: Yes (FOOT ULCERS; STAPH INFECTION; OSTEOMYELITIS RIGHT FOOT; BEARDEN TO FINGERS) Blood Disorders: No Family Medical History Reviewed Nursing Family Hx No Pertinent Family Hx Sepsis Event Evaluation Height, Weight, BMI Height: 5'5.00" Weight: 150lbs. 0.0oz. [id number]; 26.74 BMI Method:Stated Exam Exam Vital Signs Date Time Temp Pulse Resp B/P (MAP) Pulse Ox O2 Delivery O2 Flow Rate FiO2 01/11/19 06:51 99 33 94 60.00 01/11/19 06:00 118 28 96/71 (79) 97 NIV Bilevel 70.00 01/11/19 05:00 117 31 92/66 (75) 97 NIV Bilevel 70.00 01/11/19 04:00 35.9 01/11/19 04:00 118 32 81/64 (70) 95 NIV Bilevel 70.00 01/11/19 04:00 96 NIV Bilevel 70 01/11/19 03:00 110 21 87/66 (73) 96 NIV Bilevel 70.00 01/11/19 02:00 112 26 85/62 (70) 96 NIV Bilevel 70.00 01/11/19 01:50 100 30 95 70.00 01/11/19 01:00 95 01/11/19 01:00 95 22 82/58 (66) 92 NIV Bilevel 70.00 01/11/19 00:18 98 22 96 NIV Bilevel 70.00 01/11/19 00:00 96 NIV Bilevel 70 01/11/19 00:00 120 28 86/62 (70) 96 NIV Bilevel 80.00 01/10/19 23:25 80.00 01/10/19 23:18 101 95 NIV Bilevel 80.00 01/10/19 23:00 100 27 94/76 (82) 97 NIV Bilevel 100.00 01/10/19 22:14 99 19 96 100.00 01/10/19 21:24 141 32 92 100.00 01/10/19 21:20 130 28 104/68 (80) 93 NIV Bilevel 100.00 01/10/19 21:00 144 132/85 (101) 85 Vapotherm 40.00 100.00 01/10/19 20:46 120 29 121/77 (92) 89 Vapotherm 40.00 100.00 01/10/19 20:30 140 36 111/69 (83) 88 Vapotherm 40.00 100.00 01/10/19 20:00 131 111/72 (85) 90 Vapotherm 35.00 100.00 01/10/19 20:00 94 Vapotherm 35.00 100 01/10/19 19:00 157 01/10/19 19:00 137 115/74 (88) Vapotherm 35.00 100.00 01/10/19 18:37 Vapotherm 92.00 100 01/10/19 18:00 149 38 104/72 (83) 91 Vapotherm 35.00 100.00 01/10/19 17:00 163 41 96/71 (79) 91 Vapotherm 35.00 100.00 01/10/19 16:47 168 96/57 01/10/19 16:15 36.5 103 92 01/10/19 16:00 94 Vapotherm 35.00 100 01/10/19 16:00 163 42 107/66 (80) 93 Vapotherm 35.00 100.00 01/10/19 15:41 160 01/10/19 15:00 104 24 104/67 (79) 84 Vapotherm 35.00 100.00 01/10/19 14:00 105 39 89/50 (63) 93 Vapotherm 35.00 100.00 01/10/19 13:31 Vapotherm 35.00 100 01/10/19 13:00 109 01/10/19 13:00 109 11 91/57 (68) 98 Vapotherm 35.00 100.00 01/10/19 12:33 112 01/10/19 12:24 Vapotherm 35.00 100.00 01/10/19 12:12 111 17 95/62 98 Vapotherm 01/10/19 11:05 Vapotherm 93.00 100 01/10/19 10:45 90 OxyMask 11.00 01/10/19 10:40 91 OxyMask 11.00 01/10/19 10:16 92 Non Rebreather 15.00 01/10/19 10:16 36.5 103 28 114/69 (84) 92 Non Rebreather 15.00 I & O 01/11/19 07:00 Intake Total 3232.5 ml Output Total 590 ml Balance 2642.5 ml Height & Weight Height: 5'5.00" Weight: 150lbs. 0.0oz. [id number]; 26.74 BMI Method:Stated General Appearance: Chronically ill HEENT: Other (dry) Neck: Limited Range of Motion Respiratory: Crackles, Decreased Breath Sounds, Rales Cardiovascular: Regular Rate, Rhythm, Systolic Murmur Capillary Refill: Less Than 3 Seconds Extremity: No Calf Tenderness, No Pedal Edema Neurologic/Psychiatric: Alert, Normal Mood/Affect Skin: Warm/Dry Lymphatic: No Adenopathy Results Lab Laboratory Tests 01/10/19 10:17 01/11/19 03:47 Assessment/Plan Assessment/Plan Acute Respiratory failure PNA with probable aspiration -Currently on Vanco Zozyn -Currently on BiPAP -Pt has worsening respiratory failure. While in the ED she said no intubation but ok for chest compressions. Pt will without intubation and aggressive care. She is currently hypotensive, tachycardic and worsening respiratory failure. When I asked pt at bedside with RN present she stated "well I don't want to ". We tried to call patient's brother and when he didn't answer we called caregiver. Caregiver said pt is out of town on camping trip. Dr. Vazquez called Dr. Graves who is patient's PCP and he said pt has always wanted everything done. Dr. Graves advised to proceed with intubation based off of his previous interaction with pt and family. Will proceed with intubation, central line, and bronchoscopy. -MRSA swab pending Strep bacteremia -Continue Zosyn for now and await final cultures Afib RVR -Cardiology following Hypotension -Will do central line after intubation -Start Levophed -Give liter bolus Anemia -Monitor -Repeat later today and continue to monitor -Protonix -Check ARMANDO SANDRA DO Jan 11, 2019 08:03 POS
--- NOTE | 2019-01-11 08:15 | NUR ---
Attempted to contact brother, per Dr. Isabel's request, to discuss treatment goals. Unable to contact brother. This RN was able to contact care givers who will try to contact family. This RN et Dr. Isabel discussed with pt care goals and potential intubation. Pt in agreeance with intubation at this time
[2019-01-11] MEDS ORDERED: NOREPINEPHRINE 4 MG/4 ML (LEVOPHED) AMP IV ONE (08:31)
[2019-01-11] MEDS ORDERED: PROPOFOL DRIP (ICU) 100 ML IV ONE (08:31)
[2019-01-11] MEDS ORDERED: NS (IVPB) 250 ML ONE (08:31)
--- NOTE | 2019-01-11 09:24 | Progress Note - Hospitalist ---
Subjective HPI/CC On Admission Date Seen by Provider: Jan 11, 2019 Time Seen by Provider: 08:30 73-year-old white female who is high functioning MR eze. She had been in her usual state of health until about 5 to 8 days ago when she choked on [place] grapes. since then she's been coughing and has become progressively hypoxic. She relates that she's been having trouble with choking and was told by her healthcare worker to put in her teeth when she eats but she is uncertain whether the that has helped recently or not. She denies having any recent weight loss or weight gain that she knows of. She has oral mouth movements most consistent with probable tardive diet. She is awake and alert and in no respiratory distress at the time of my interview and has no complaints other than related to her cough. Subjective/Events-last exam The patient has become progressively more hypoxic overnight with increasing respiratory failure. Blood cultures become positive for gram-positive cocci in chains. The patient is on vancomycin and Zosyn. Dr. Isabel's currently placed a central line and is intubating the patient and progressing with a bronchoscopy. Patient's condition was discussed with Dr. LILY Graves this morning who advocates for aggressive treatment in this patient as these have been her previous wishes. Her zoo caretaker also expresses that the patient has desired aggressive medical care. She is currently on pressors and again being intubated and undergoing bronchoscopy by Dr. Isabel and is not available for further comment. In addition she went into atrial fibrillation yesterday afternoon with rapid ventricular response and is been on a Cardizem drip by Dr. Epperson. Review of Systems Pulmonary: Dyspnea Focused Exam Lactate Level 01/10/19 10:17: Lactic Acid Level 3.31*H 01/10/19 11:50: Lactic Acid Level 3.74*H 01/11/19 05:19: Lactic Acid Level 1.11 Lactic Acid Level Laboratory Tests Test 01/11/19 05:19 Lactic Acid Level 1.11 MMOL/L (0.50-2.00) Objective Exam Vital Signs Vital Signs Date Time Temp Pulse Resp B/P (MAP) Pulse Ox O2 Delivery O2 Flow Rate FiO2 01/11/19 08:00 36.2 01/11/19 06:51 94 60.00 01/11/19 06:00 NIV Bilevel 01/11/19 04:00 70 Capillary Refill : Less Than 3 Seconds General Appearance: Chronically ill Neck: Limited Range of Motion Respiratory: Crackles, Decreased Breath Sounds Cardiovascular: Irregularly Irregular, Tachycardia Gastrointestinal: Normal Bowel Sounds, Non Tender, Soft Extremity: No Pedal Edema Results/Procedures Lab Laboratory Tests 01/10/19 10:17 01/11/19 03:47 Patient resulted labs reviewed. Imaging: Reviewed Imaging Report Assessment/Plan Assessment and Plan Assess & Plan/Chief Complaint Sepsis secondary to aspiration pneumonia-with an elevated lactic acid-now with acute respiratory failure Hypoxia secondary to aspiration pneumonia- Undergoing bronchoscopy Left lower lobe infiltrate-may require bronchoscopy because of the configuration of the pneumonia and possibility of obstruction Hypertension by history Will hold blood pressure medications because of hypotension Dysphagia we'll get speech study and changed to mechanical soft diet for now- will need further evaluation when extubated acute renal failure creatinine at 2.2 which was 0.9 in August of this year- secondary to sepsis Elevated liver function tests most likely secondary to sepsis Admission Status: Inpatient Order (span 2 midnights) Reason for Inpatient Admission: Multiple comorbidities in a critically ill patient with multisystems been affected Problem List Diagnosis/Problems Critical Care Critically Ill Patient CC TIME : Critical Care Start Date: Jan 11, 2019 Critical Care Start Time: 08:30 Stop date: Jan 11, 2019 Stop Time: 09:30 Clinical Quality Measures DVT/VTE Risk/Contraindication: Risk Factor Score Per Nursin RFS Level Per Nursing on Admit: 3=High ALLISON HUI MD Jan 11, 2019 09:24 POS
--- NOTE | 2019-01-11 09:45 | NUR ---
Intubation timeline - 904 administered 4mg versed IV 904 administered 5mL propofol IV 905 - Bronch started by Dr. Isabel 06 - 3mL propofol given, pt intubated with size 8.0ETT 912 Bronch complete 918 OG placed, auscultated, et placed to LIWS 27 - 50mg rocuronium given 43 - Rt IJ TL CL placed by Dr. Isabel
--- NOTE | 2019-01-11 09:58 | Pulmonary Procedures ---
Pulmonary Procedures Date of Procedure Date of Service: Jan 11, 2019 Bronch Bronchoscopy with bilateral bronchial washes Preop DX Aspiration Postop DX: Copious amounts of sputum Complications: none After informed consent obtained and formal time out pt was sedated using propofol and Versed. Bronchoscope was advanced through ET tube. An anatomical tour was undertaken down to the segmental bronchi bilaterally. No endobronchial lesions noted. Bilateral washes were obtained. Pt tolerated procedure well. No complications noted. Stat CXR is pending. ARMANDO SANDRA DO Jan 11, 2019 09:58 POS
--- NOTE | 2019-01-11 09:59 | Pulmonary Procedures ---
Pulmonary Procedures Date of Procedure Date of Service: Jan 11, 2019 Reason for Intubation: acute respiratory failure Time of Intubation: 09:00 Intubation Method: orotracheal Tube Size: 8 Medications: Propofol, Versed Positive End Tide CO2: Yes Breath Sounds after Intubation: bilateral-equal Intubation Complications: no complications Post Intubation Xray: Yes ARMANDO SANDRA DO Jan 11, 2019 09:59 POS
--- NOTE | 2019-01-11 10:00 | Pulmonary Procedures ---
Pulmonary Procedures Date of Procedure Date of Service: Jan 11, 2019 Lumen: triple (US guided) Central Line Procedure: betadine prep, sterile drapes applied Position: internal jugular (R) Anesthesia: Lidocaine Complications: none Post Position: sutured, good blood return (Distal port not working), position confirmed w/ CXR ARMANDO SANDRA DO Jan 11, 2019 10:00 POS
[2019-01-11] MEDS: NOREPINEPHRINE 4 MG in NS (IVPB) 250 ML IV SCH ×2 (10:06→17:05)
[2019-01-11] MEDS: PROPOFOL DRIP (ICU) 100 ML IV SCH ×3 (10:06→23:24)
--- NOTE | 2019-01-11 10:10 | Diagnostic Imaging Report ---
INDICATION: Mechanical ventilation, infiltrate. TECHNIQUE: Single view chest 9:54 AM. CORRELATION STUDY: 01/11/2019 FINDINGS: Since prior study, there has been interval intubation. ET tube projects over the trachea, tip below the clavicles. Gastric tube has been placed, passed below left hemidiaphragm and edge of film. A right IJ central line has also been placed. There is medial angulation at the tip. This may be reflective of positioning into the azygos vein. Heart size and mediastinum are generally stable with presence of pulmonary vascular congestion and edema. Scattered bilateral pulmonary opacities are present. This remains most pronounced over the left mid and lower lung field. IMPRESSION: 1. Interval intubation placement of additional support lines and tubes. The right IJ central line tip may be positioned in the azygos vein. 2. Extensive infiltrate and likely effusion through the left lung again demonstrated. Additional probable right pleural effusion. Some atelectasis or infiltrate at the right lung base also suggested. Vascular congestion is present. Called to [facility] at 10:07 a.m. by cvb. Dictated by: Dictated on workstation # [id number]
--- NOTE | 2019-01-11 10:35 | NUR ---
Anesthesia in room et Lt radial art line placed
[2019-01-11] MEDS ORDERED: ROCURONIUM 10 MG/ML 5 ML SYRINGE IV ONE (10:48)
[2019-01-11] MEDS ORDERED: MIDAZOLAM 5 MG/5 ML (VERSED) VIAL IV ONE (10:48)
--- NOTE | 2019-01-11 10:53 | Anesthesia-Procedure Note ---
Procedures/Interventions Procedure Start/Stop/Diagnosis Date of Procedure: Jan 11, 2019 Start Time: 10:20 Referring Physician: Maame Preprocedural Diagnosis: Resp Failure Brief History Called by House Joey to start A-Line on newly intubated pt per consult request of Dr. Isabel. Brief hx obtained from chart and RN. Pt was sedated on vent. Rt arm prepped and draped. Attempted x2 with #20 G Arrow cath with good blood return but unable to thread catheter either time. I moved to left arm which was also prepped and draped. #22 g Arrow passed easily x1 attempt with good blood return and waveform on monitor. Sterile dressing applied and secured with tape. Left pt in care of RN with report, wrist restraints per RN. Stop Time: 10:45 Postprocedural Diagnosis: Resp Failure Arterial Line Arterial Line Catheter: 22G Type: Radial Location: Left Procedure: prepped, draped in sterile fashion, good wave-form was obtained, patient tolerated procedure well, no immediate complications, post procedure a marques cleaned, post procedure dressing applied NNEKA GOMEZ CRNA Jan 11, 2019 10:52 POS
[2019-01-11 11:07] LABS: ABG BASE EXCESS -6.8 MMOL/L (-2.5-2.5); ABG OXYGEN SATURATION 98 % (94-100); ABG PCO2 44 MMHG (35-45); ABG PO2 103 MMHG (79-93); ABG TCO2 20.7 MMOL/L (21.0-31.0)
[2019-01-11 11:09] LABS: ABG PH 7.25 (7.37-7.43); ALLENS TEST POSITIVE; PATIENT TEMP 36; VENTILATOR YES
--- NOTE | 2019-01-11 11:14 | Progress Note - Cardiology ---
Cardiology SOAP Progress Note Subjective: Worsening shortness of breath led to intubation and mech vent Currently sedated and not able to provide history Objective: I&O/Vital Signs 01/10/19 01/10/19 01/11/19 01/11/19 23:18 23:25 00:00 00:00 Pulse 101 120 Resp 28 B/P (MAP) 86/62 (70) Pulse Ox 95 96 96 O2 Delivery NIV Bilevel NIV Bilevel NIV Bilevel O2 Flow Rate 80.00 80.00 80.00 FiO2 70 01/11/19 01/11/19 01/11/19 01/11/19 00:18 01:00 01:00 01:50 Pulse 98 95 95 100 Resp 22 22 30 B/P (MAP) 82/58 (66) Pulse Ox 96 92 95 O2 Delivery NIV Bilevel NIV Bilevel O2 Flow Rate 70.00 70.00 70.00 01/11/19 01/11/19 01/11/19 01/11/19 02:00 03:00 04:00 04:00 Pulse 112 110 118 Resp 26 21 32 B/P (MAP) 85/62 (70) 87/66 (73) 81/64 (70) Pulse Ox 96 96 96 95 O2 Delivery NIV Bilevel NIV Bilevel NIV Bilevel NIV Bilevel O2 Flow Rate 70.00 70.00 70.00 FiO2 70 01/11/19 01/11/19 01/11/19 01/11/19 04:00 05:00 06:00 06:51 Temp 35.9 Pulse 117 118 99 Resp 31 28 33 B/P (MAP) 92/66 (75) 96/71 (79) Pulse Ox 97 97 94 O2 Delivery NIV Bilevel NIV Bilevel O2 Flow Rate 70.00 70.00 60.00 01/11/19 01/11/19 01/11/19 01/11/19 07:00 07:00 08:00 08:00 Temp 36.2 Pulse 115 115 128 Resp 32 32 B/P (MAP) 101/59 (73) 79/57 (64) Pulse Ox 96 95 O2 Delivery NIV Bilevel NIV Bilevel O2 Flow Rate 70.00 70.00 01/11/19 01/11/19 01/11/19 01/11/19 09:00 09:15 10:00 10:05 Pulse 118 106 Resp 36 17 B/P (MAP) 96/69 (78) 75/52 (60) 75/52 Pulse Ox 98 98 O2 Delivery NIV Bilevel Mechanical Ventilator NIV Bilevel O2 Flow Rate 70.00 100.00 100.00 01/11/19 01/11/19 01/11/19 10:06 10:30 11:00 Pulse 114 Resp 23 B/P (MAP) 84/62 Pulse Ox 95 FiO2 90 01/11/19 00:00 Intake Total 2732.5 ml Output Total 400 ml Balance 2332.5 ml Weight (Pounds): 150 Weight (Ounces): 0.0 Weight (Calculated Kilograms): 68.505943 Constitutional: well-developed, well-nourished, other (on mech vent) Respiratory: accessory muscle use, other (diminished air entry at both bases; diminished air entry in the L mid zone; scattered coarse rales and rhonchi) Cardiovascular: irregularly irregular, S1 and S2, systolic murmur (soft YI at card base) Gastrointestional: No tender; soft; No guarding, No rebound; audible bowel sounds Extremities: No clubbing, No cyanosis, No significant edema Neurologic/Psychiatric: oriented x 3, other (coarse, involuntary movements of the face and neck; moves all limbs equally) Skin: normal color, warm/dry; No rash on exposed areas, No ulcerations on exposed areas Results/Procedures: Labs Laboratory Tests 01/10/19 11:50: Lactic Acid Level 3.74*H 01/10/19 15:56: Glucometer 275H 01/10/19 16:50: Glucometer 292H 01/10/19 20:06: Glucometer 261H 01/11/19 01:05: Blood Gas Puncture Site RIGH TBRACHIAL, Blood Gas Patient Temperature 35.9, Arterial Blood pH 7.40, Arterial Blood Partial Pressure CO2 37, Arterial Blood Partial Pressure O2 66L, Arterial Blood HCO3 23, Arterial Blood Total CO2 24.3, Arterial Blood Oxygen Saturation 95, Arterial Blood Base Excess -1.3, Filippo Test POSITIVE, Blood Gas Ventilator Setting NO, Blood Gas Inspired Oxygen 70% BIPAP 01/11/19 03:47: White Blood Count 10.3, Red Blood Count 3.25L, Hemoglobin 8.8L, Hematocrit 27L, Mean Corpuscular Volume 84, Mean Corpuscular Hemoglobin 27, Mean Corpuscular Hemoglobin Concent 32, Red Cell Distribution Width 16.2H, Platelet Count 138, Mean Platelet Volume 10.3, Neutrophils (%) (Auto) 93H, Lymphocytes (%) (Auto) 5L , Monocytes (%) (Auto) 3, Eosinophils (%) (Auto) 0, Basophils (%) (Auto) 0, Neutrophils # (Auto) 9.5H, Lymphocytes # (Auto) 0.5L, Monocytes # (Auto) 0.3, Eosinophils # (Auto) 0.0, Basophils # (Auto) 0.0, Sodium Level 139, Potassium Level 4.6, Chloride Level 107, Carbon Dioxide Level 20L, Anion Gap 12, Blood Urea Nitrogen 62H, Creatinine 2.02H, Estimat Glomerular Filtration Rate 24, BUN/Creatinine Ratio 31, Glucose Level 165H, Calcium Level 8.5, Corrected Calcium 9.7, Phosphorus Level 2.1L, Magnesium Level 2.1, Total Bilirubin 0.6, Aspartate Amino Transf (AST/SGOT) 38H, Alanine Aminotransferase (ALT/SGPT) 47, Alkaline Phosphatase 70, Total Protein 5.6L, Albumin 2.5L, Triglycerides Level 318H 01/11/19 05:19: Lactic Acid Level 1.11 01/11/19 08:25: Glucometer 167H 01/11/19 10:58: Blood Gas Puncture Site LEFT RADIAL, Blood Gas Patient Temperature 36, Arterial Blood pH 7.25*L, Arterial Blood Partial Pressure CO2 44, Arterial Blood Partial Pressure O2 103H, Arterial Blood HCO3 19L, Arterial Blood Total CO2 20.7L, Arterial Blood Oxygen Saturation 98, Arterial Blood Base Excess -6.8L, Filippo Test POSITIVE, Blood Gas Ventilator Setting YES, Blood Gas Inspired Oxygen UNK Microbiology 01/10/19 Blood Culture - Preliminary, Resulted Gram Positive Cocci In Chains See Comments 01/10/19 Influenza Types A,B Antigen (ZANDER) - Final, Complete 01/10/19 Urine Culture - Preliminary, Resulted Gram Negative David Laboratory Tests 01/10/19 10:17 01/11/19 03:47 A/P: Assessment: Type 1 acute respiratory failure due to aspiration pneumonia with sepsis Acute kidney injury (PAULA) 3 PAF with RVR Peripheral arterial disease per seg pressures of 07/17/16 that showed TONG of 1.26 on th R and 0.78 on the Left (at the level of Left PT). 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 Harris H/o CVA. CT Head of 07/14/16: no acute changes, chronic small vessel disease, chronic lacunar infart in the R basal gaglia, chronic R cerebral hemisphere infarct Hypertension, by history Hyperlipidemia, primarily consisting of hypertriglyceridemia. This has been treated with a combination of Trilipix and Lovaza that the patient has tolerated well, followed by Dr Graves Borderline diabetes mellitus, maturity onset, being followed by Dr. Graves Tardive dyskinesia Echocardiogram of November 07, 2017 showed LVEF 60-65%. Mildly to moderately calcified annulus. Mild MR MPI o f 07/01/18: No ischemia or infarction, LVEF 73% Psychologic diathesis, including anxiety/depression, currently controlled. Mild bilat carotid arterial disease per September 2016 No evidence of any abdominal aortic aneurysm on abdominal aorta scan from Plan: * Vent rate improved after [facility] vent. D/c iv beta-nuha * Continue and titrate iv dilt for vent rate control * Change oral apixaban to enoxaparin for stroke prophylaxis * Adjust dose of enoxaparin for renal failure * Repeat echo * Continue iv fluids * Monitor labs Clinical Quality Measures Type of Care: Type of Care: BETH Gaines MD FACP FAC CCDS Jan 11, 2019 11:14 POS
[2019-01-11] MEDS: ASPIRIN E.C. 81 MG (ECOTRIN) TAB PO SCH (11:20)
[2019-01-11] MEDS: APIXABAN 5 MG (ELIQUIS) TABLET PO SCH (11:21)
[2019-01-11] MEDS: VENlafaxine 75 MG (EFFEXOR) TAB PO SCH (11:21)
[2019-01-11] MEDS: QUEtiapine 25 MG (SEROquel) TAB IMMEDIATE RELEASE PO SCH (11:21)
[2019-01-11] MEDS ORDERED: ENOXAPARIN 100 MG/1 ML (LOVENOX) SYR SC SCH (12:00)
[2019-01-11 12:32] LABS: ABG BASE EXCESS -6.9 MMOL/L (-2.5-2.5); ABG OXYGEN SATURATION 96 % (94-100); ABG PCO2 39 MMHG (35-45); ABG PO2 84 MMHG (79-93); ABG TCO2 19.8 MMOL/L (21.0-31.0)
[2019-01-11 12:33] LABS: ALLENS TEST POSITIVE; VENTILATOR YES
[2019-01-11 12:34] LABS: PATIENT TEMP 36
[2019-01-11] MEDS: VANCOMYCIN 1 GM/NS 250 ML IVPB IV SCH ×2 (13:04)
[2019-01-11] MEDS: DILTIAZEM IV FOR DRIP 125 MG in NS (IVPB) 100 ML IV SCH (13:05)
[2019-01-11] MEDS: EPINEPHrine 1 MG INJECTION 2 MG in NS (IVPB) 248 ML IV SCH (14:18)
[2019-01-11] MEDS: DEXMEDETOMIDINE INJECTION 1,000 MCG in NS (IVPB) 250 ML IV SCH ×2 (14:39→23:25)
[2019-01-11] MEDS ORDERED: LIDOCAINE PF 1% 2 ML VIAL IJ ONE (15:52)
[2019-01-11] MEDS: QUEtiapine 100 MG (SEROquel) TAB IMMEDIATE RELEASE PO SCH (20:54)
[2019-01-11] MEDS: ARTIFICIAL TEARS OINT (LACRI-LUBE) 3.5 GM TUBE OU SCH (20:54)
[2019-01-11] MEDS: ACETAMINOPHEN 500 MG TAB (TYLENOL) PO SCH (20:55)
[2019-01-11] MEDS: MEMANTINE 5 MG (NAMENDA) TABLET PO SCH (20:55)
--- NOTE | 2019-01-11 21:09 | NUR ---
This RN notified EICU of coffee ground output from , this RN also requested order for Protonix.
[2019-01-11] MEDS: PANTOPRAZOLE 40 MG (PROTONIX) VIAL IV SCH (22:22)
[2019-01-12] VITALS (30 sets, daily range): BP systolic 94–132; BP diastolic 35–53
[2019-01-12] MEDS: PIPERACILLIN/TAZO 4.5 GM/NS 100 ML IV SCH ×4 (00:23→08:13)
[2019-01-12] MEDS: inSUlin ASPART (NovoLOG) 1 UNIT/0.01 ML (CHARGE PER UNIT) SQ SCH ×4 (00:23→18:16)
[2019-01-12 00:50] LABS: OCCULT BLOOD,GASTRIC FLUID POSITIVE (NEGATIVE)
[2019-01-12 01:34] LABS: BASOPHILS % (AUTO) 0 % (0-10); EOSINOPHILS % (AUTO) 0 % (0-10); HEMATOCRIT 28 % (35-52); HEMOGLOBIN 9.1 G/DL (11.5-16.0); LYMPHOCYTES # (AUTO) 0.4 X 10^3 (1.0-4.0); LYMPHOCYTES % (AUTO) 3 % (12-44); MEAN CORPUSCULAR HEMOGLOBIN 27 PG (25-34); MEAN CORPUSCULAR HGB CONC 33 G/DL (32-36); MEAN CORPUSCULAR VOLUME 84 FL (80-99); MEAN PLATELET VOLUME 10.3 FL (7.4-10.4); MONOCYTES # (AUTO) 0.4 X 10^3 (0.0-1.0); MONOCYTES % (AUTO) 3 % (0-12); NEUTROPHILS # (AUTO) 12.3 X 10^3 (1.8-7.8); NEUTROPHILS % (AUTO) 94 % (42-75); PLATELET COUNT 175 10^3/uL (130-400); RED CELL DISTRIBUTION WIDTH 16.9 % (10.0-14.5)
[2019-01-12 01:52] LABS: CALCIUM 7.6 MG/DL (8.5-10.1); CREATININE SERUM 1.28 MG/DL (0.60-1.30); MAGNESIUM 2.1 MG/DL (1.6-2.4); PHOSPHORUS 2.7 MG/DL (2.3-4.7); POTASSIUM 3.7 MMOL/L (3.6-5.0)
[2019-01-12] MEDS: RT-ALBUTEROL/IPRATROPIUM 3 ML (DUONEB) VIAL INH SCH ×6 (01:53→22:01)
[2019-01-12 03:10] LABS: ABG BASE EXCESS -7.3 MMOL/L (-2.5-2.5); ABG OXYGEN SATURATION 99 % (94-100); ABG PCO2 32 MMHG (35-45); ABG PH 7.35 (7.37-7.43); ABG PO2 106 MMHG (79-93); ABG TCO2 18.4 MMOL/L (21.0-31.0)
[2019-01-12 03:23] LABS: ALLENS TEST POSITIVE; INSPIRED O2 75%; PATIENT TEMP 36.1; VENTILATOR YES
[2019-01-12] MEDS: POTASSIUM CL 10MEQ/50ML IVPB 50 ML IV SCH (04:14)
[2019-01-12] MEDS: MAGNESIUM 1 GM/100 ML IVPB 100 ML IV SCH (04:14)
[2019-01-12] MEDS: KCL 20 MEQ TAB (K-DUR) PO SCH (04:14)
[2019-01-12] MEDS: PROPOFOL DRIP (ICU) 100 ML IV SCH ×4 (05:12→22:05)
--- NOTE | 2019-01-12 05:41 | Pulmonary Progress Note ---
Subjective Time Seen by a Provider: 05:14 Subjective/Events-last exam Pt is sedated on vent Sepsis Event Evaluation Height, Weight, BMI Height: 5'5.00" Weight: 150lbs. 0.0oz. 68.792299eb; 26.74 BMI Method:Stated Focused Exam Lactate Level 01/10/19 10:17: Lactic Acid Level 3.31*H 01/10/19 11:50: Lactic Acid Level 3.74*H 01/11/19 05:19: Lactic Acid Level 1.11 Exam Exam Vital Signs Date Time Temp Pulse Resp B/P (MAP) Pulse Ox O2 Delivery O2 Flow Rate FiO2 01/12/19 05:12 122/51 01/12/19 04:00 96 Mechanical Ventilator 75 01/12/19 04:00 77 26 121/50 (73) 97 Mechanical Ventilator 75.00 01/12/19 03:34 36.1 01/12/19 03:00 82 25 115/44 (67) 97 Mechanical Ventilator 75.00 01/12/19 02:00 77 24 114/44 (67) 96 Mechanical Ventilator 75.00 01/12/19 01:53 76 26 96 75 01/12/19 01:00 79 26 110/46 (67) 96 Mechanical Ventilator 75.00 01/12/19 00:49 80 01/12/19 00:00 96 Mechanical Ventilator 75 01/12/19 00:00 84 26 118/47 (70) 96 Mechanical Ventilator 75.00 01/12/19 00:00 36.6 01/11/19 23:24 115/47 01/11/19 23:00 89 28 115/48 (70) 96 Mechanical Ventilator 75.00 01/11/19 22:00 85 25 113/43 (66) 96 Mechanical Ventilator 75.00 01/11/19 21:53 86 28 96 75 01/11/19 21:00 92 27 129/47 (74) 96 Mechanical Ventilator 75.00 01/11/19 20:00 98 27 136/48 (77) 95 Mechanical Ventilator 75.00 01/11/19 20:00 96 Mechanical Ventilator 75 01/11/19 19:35 37.2 01/11/19 19:00 97 29 135/50 (78) 96 Mechanical Ventilator 75.00 01/11/19 19:00 97 01/11/19 18:23 81 31 96 75 01/11/19 18:00 81 31 138/55 (82) 96 Mechanical Ventilator 75.00 01/11/19 17:00 82 20 139/55 (83) 95 Mechanical Ventilator 75.00 01/11/19 16:59 139/57 01/11/19 16:00 96 Mechanical Ventilator 75 01/11/19 16:00 81 26 138/54 (82) 96 Mechanical Ventilator 75.00 01/11/19 15:21 36.4 01/11/19 15:00 83 26 128/48 (74) 96 Mechanical Ventilator 75.00 01/11/19 14:00 84 21 96/83 (87) 93 Mechanical Ventilator 100.00 01/11/19 13:52 78 26 95 75 01/11/19 13:05 135/48 01/11/19 13:00 80 01/11/19 13:00 80 24 134/47 (76) 97 Mechanical Ventilator 100.00 01/11/19 12:30 125 01/11/19 12:00 96 Mechanical Ventilator 100 01/11/19 12:00 123 24 104/45 (64) 94 Mechanical Ventilator 100.00 01/11/19 11:00 109 19 114/53 (73) 96 Mechanical Ventilator 100.00 01/11/19 11:00 114 23 95 90 01/11/19 10:30 01/11/19 10:06 84/62 01/11/19 10:05 75/52 01/11/19 10:00 106 17 75/52 (60) 98 Mechanical Ventilator 100.00 01/11/19 09:15 Mechanical Ventilator 100.00 01/11/19 09:15 20 01/11/19 09:00 118 36 96/69 (78) 98 NIV Bilevel 70.00 01/11/19 08:00 128 32 79/57 (64) 95 NIV Bilevel 70.00 01/11/19 08:00 93 NIV Bilevel 70 01/11/19 08:00 36.2 01/11/19 07:00 115 32 101/59 (73) 96 NIV Bilevel 70.00 01/11/19 07:00 115 01/11/19 06:51 99 33 94 60.00 01/11/19 06:00 118 28 96/71 (79) 97 NIV Bilevel 70.00 I & O 01/12/19 07:00 Intake Total 4257 ml Output Total 900 ml Balance 3357 ml Height & Weight Height: 5'5.00" Weight: 150lbs. 0.0oz. 68.262561ow; 26.74 BMI Method:Stated General Appearance: Chronically ill, Other (sedated on vent) Neck: Limited Range of Motion Respiratory: Crackles, Decreased Breath Sounds Cardiovascular: Irregularly Irregular, Tachycardia Capillary Refill: Less Than 3 Seconds Extremity: No Pedal Edema Neurologic/Psychiatric: Alert, Normal Mood/Affect Skin: Warm/Dry Lymphatic: No Adenopathy Results Lab Laboratory Tests 01/10/19 10:17 01/11/19 03:47 01/12/19 01:25 Assessment/Plan Assessment/Plan Acute Respiratory failure PNA with probable aspiration -Currently on Vanco Zozyn -Cont vent care -MRSA swab pending Strep bacteremia -Continue Zosyn for now and await final cultures Afib RVR -Cardiology following Hypotension - Levophed -Give liter bolus Anemia -Monitor -Protonix ARMANDO SANDRA DO Jan 12, 2019 05:41 POS
[2019-01-12] MEDS: NS IV 1000 ML 1,000 ML IV SCH ×2 (06:45→16:53)
--- NOTE | 2019-01-12 07:48 | Diagnostic Imaging Report ---
INDICATION: Confirm line placement COMPARISON: Imaging from the same date TECHNIQUE: Single radiograph of the chest dated 01/12/2019 at 0722 FINDINGS: Endotracheal tube is present with the distal tip approximately 1.7 cm above the level of the yoselin. Right IJ central venous catheter is present with the distal tip within the lower aspect of the superior vena cava. Enteric catheter is present extending into the stomach. The cardiac silhouette is stable. Veiling opacity within the left lung is again identified likely not significantly changed given differences in positioning. The right lung is grossly clear without focal pulmonary opacity. No significant right pleural effusion. No pneumothorax. Osseous structures are stable. IMPRESSION: Slight advancement of endotracheal tube with distal tip now overlying the tracheal air column approximately 1.7 cm above the level of the yoselin. Persistent left-sided pleural effusion. The remainder of the examination appears stable. Dictated by: Dictated on workstation # [id number]
--- NOTE | 2019-01-12 07:52 | Diagnostic Imaging Report ---
INDICATION: Dyspnea. 0348 hours. FINDINGS: Since examination of one day earlier, there has been mild overall improvement in aeration of the lungs, however, there is continued generalized opacification of left hemithorax with blunting of both costophrenic sulci. No pneumothorax is seen. Support tubes are in stable position. IMPRESSION: Bilateral pleural fluid with associated edema and/or pneumonitis has shown mild interval improvement. Dictated by: Dictated on workstation # [id number]
[2019-01-12] MEDS: PANTOPRAZOLE 40 MG (PROTONIX) VIAL IV SCH ×2 (08:12→20:33)
[2019-01-12] MEDS: ASPIRIN E.C. 81 MG (ECOTRIN) TAB PO SCH (08:13)
[2019-01-12] MEDS: ARTIFICIAL TEARS OINT (LACRI-LUBE) 3.5 GM TUBE OU SCH ×2 (08:13→20:33)
[2019-01-12] MEDS: VENlafaxine 75 MG (EFFEXOR) TAB PO SCH (08:13)
[2019-01-12] MEDS: MEMANTINE 5 MG (NAMENDA) TABLET PO SCH ×2 (08:13→20:33)
[2019-01-12] MEDS: oxyCODONE/APAP 5/325MG (PERCOCET 5) TABLET PO PRN (08:14)
[2019-01-12] MEDS: QUEtiapine 25 MG (SEROquel) TAB IMMEDIATE RELEASE PO SCH (08:14)
--- NOTE | 2019-01-12 08:15 | Physical Therapy Progress Note ---
Therapy Progress Note Patient currently intubated and sedated. PT will continue to monitor. CHRIS BRAUN PT Jan 12, 2019 08:15 POS
[2019-01-12] MEDS: DEXMEDETOMIDINE INJECTION 1,000 MCG in NS (IVPB) 250 ML IV SCH ×2 (08:21→16:50)
--- NOTE | 2019-01-12 09:11 | Progress Note - Cardiology ---
Cardiology SOAP Progress Note Subjective: Not able to communicate (on mech vent, sedated) Objective: I&O/Vital Signs 01/11/19 01/11/19 01/11/19 01/11/19 21:53 22:00 23:00 23:24 Pulse 86 85 89 Resp 28 25 28 B/P (MAP) 113/43 (66) 115/48 (70) 115/47 Pulse Ox 96 96 96 O2 Delivery Mechanical Ventilator Mechanical Ventilator O2 Flow Rate 75.00 75.00 FiO2 75 01/12/19 01/12/19 01/12/19 01/12/19 00:00 00:00 00:00 00:49 Temp 36.6 Pulse 84 80 Resp 26 B/P (MAP) 118/47 (70) Pulse Ox 96 96 O2 Delivery Mechanical Ventilator Mechanical Ventilator O2 Flow Rate 75.00 FiO2 75 01/12/19 01/12/19 01/12/19 01/12/19 01:00 01:53 02:00 03:00 Pulse 79 76 77 82 Resp 26 26 24 25 B/P (MAP) 110/46 (67) 114/44 (67) 115/44 (67) Pulse Ox 96 96 96 97 O2 Delivery Mechanical Ventilator Mechanical Ventilator Mechanical Ventilator O2 Flow Rate 75.00 75.00 75.00 FiO2 75 01/12/19 01/12/19 01/12/19 01/12/19 03:34 04:00 04:00 05:00 Temp 36.1 Pulse 77 72 Resp 26 25 B/P (MAP) 121/50 (73) 121/51 (74) Pulse Ox 97 96 98 O2 Delivery Mechanical Ventilator Mechanical Ventilator Mechanical Ventilator O2 Flow Rate 75.00 75.00 FiO2 75 01/12/19 01/12/19 01/12/19 01/12/19 05:12 06:00 06:00 07:00 Pulse 80 80 79 Resp 27 27 B/P (MAP) 122/51 117/48 (71) Pulse Ox 96 95 O2 Delivery Mechanical Ventilator O2 Flow Rate 75.00 FiO2 55 01/12/19 00:00 Intake Total 2137 ml Output Total 500 ml Balance 1637 ml Weight (Pounds): 150 Weight (Ounces): 0.0 Weight (Calculated Kilograms): 68.824073 Constitutional: well-developed, well-nourished, other (on mech vent) Respiratory: accessory muscle use, other (diminished air entry at both bases; diminished air entry in the L mid zone; scattered coarse rales and rhonchi) Cardiovascular: irregularly irregular, S1 and S2, systolic murmur (soft YI at card base) Gastrointestional: No tender; soft; No guarding, No rebound; audible bowel sounds Extremities: No clubbing, No cyanosis, No significant edema Neurologic/Psychiatric: oriented x 3, other (coarse, involuntary movements of the face and neck; moves all limbs equally) Skin: normal color, warm/dry; No rash on exposed areas, No ulcerations on exposed areas Results/Procedures: Labs Laboratory Tests 01/11/19 10:58: Blood Gas Puncture Site LEFT RADIAL, Blood Gas Patient Temperature 36, Arterial Blood pH 7.25*L, Arterial Blood Partial Pressure CO2 44, Arterial Blood Partial Pressure O2 103H, Arterial Blood HCO3 19L, Arterial Blood Total CO2 20.7L, Arterial Blood Oxygen Saturation 98, Arterial Blood Base Excess -6.8L, Filippo Test POSITIVE, Blood Gas Ventilator Setting YES, Blood Gas Inspired Oxygen [facility] 01/11/19 11:32: Glucometer 179 01/11/19 12:25: Blood Gas Puncture Site RIGHT RADIAL, Blood Gas Patient Temperature 36, Arterial Blood pH 7.30*L, Arterial Blood Partial Pressure CO2 39, Arterial Blood Partial Pressure O2 84, Arterial Blood HCO3 19L, Arterial Blood Total CO2 19.8L, Arterial Blood Oxygen Saturation 96, Arterial Blood Base Excess -6.9L, Filippo Test POSITIVE, Blood Gas Ventilator Setting YES, Blood Gas Inspired Oxygen [facility] 01/11/19 17:41: Glucometer 167H 01/12/19 00:21: Glucometer 178H 01/12/19 00:35: Gastric Fluid Occult Blood POSITIVE 01/12/19 01:25: White Blood Count 13.0H, Red Blood Count 3.33L, Hemoglobin 9.1L, Hematocrit 28L, Mean Corpuscular Volume 84, Mean Corpuscular Hemoglobin 27, Mean Corpuscular H emoglobin Concent 33, Red Cell Distribution Width 16.9H, Platelet Count 175, Me an Platelet Volume 10.3, Neutrophils (%) (Auto) 94H, Lymphocytes (%) (Auto) 3L, Monocytes (%) (Auto) 3, Eosinophils (%) (Auto) 0, Basophils (%) (Auto) 0, Neutrophils # (Auto) 12.3H, Lymphocytes # (Auto) 0.4L, Monocytes # (Auto) 0.4, Eosinophils # (Auto) 0.0, Basophils # (Auto) 0.0, Sodium Level 144, Potassium Level 3.7, Chloride Level 116H, Carbon Dioxide Level 16L, Anion Gap 12, Blood Urea Nitrogen 43H, Creatinine 1.28, Estimat Glomerular Filtration Rate 41, BUN/Creatinine Ratio 34, Glucose Level 186H, Calcium Level 7.6L, Phosphorus Level 2.7, Magnesium Level 2.1 01/12/19 03:00: Blood Gas Puncture Site LEFT RADIAL, Blood Gas Patient Temperature 36.1, Arterial Blood pH 7.35L, Arterial Blood Partial Pressure CO2 32L, Arterial Blood Partial Pressure O2 106H, Arterial Blood HCO3 17*L, Arterial Blood Total CO2 18.4L, Arterial Blood Oxygen Saturation 99, Arterial Blood Base Excess -7.3L, Filippo Test POSITIVE, Blood Gas Ventilator Setting YES, Blood Gas Inspired Oxygen 75% 01/12/19 06:40: Glucometer 206H 01/12/19 06:50: Lactic Acid Level 0.70 Microbiology 01/10/19 Blood Culture - Preliminary, Resulted Streptococcus pneumoniae 01/11/19 Gram Stain - Final, Resulted 01/11/19 Sputum Culture, Resulted Pending 01/10/19 Urine Culture - Preliminary, Resulted Proteus mirabilis Laboratory Tests 01/10/19 10:17 01/11/19 03:47 01/12/19 01:25 A/P: Assessment: Type 1 acute respiratory failure due to aspiration pneumonia with sepsis Acute kidney injury (PAULA) 3, improved PAF with RVR, currently NSR Peripheral arterial disease per seg pressures of 07/17/16 that showed TONG of 1.26 on th R and 0.78 on the Left (at the level of Left PT). 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 Harris H/o CVA. CT Head of 07/14/16: no acute changes, chronic small vessel disease, chronic lacunar infart in the R basal gaglia, chronic R cerebral hemisphere infarct Hypertension, by history Hyperlipidemia, primarily consisting of hypertriglyceridemia. This has been treated with a combination of Trilipix and Lovaza that the patient has tolerated well, followed by Dr Graves Borderline diabetes mellitus, maturity onset, being followed by Dr. Graves Tardive dyskinesia Echo of 01/11/19: mild conc LVH, LVEF 60-65%, mild MR, RVSP 35 mmHg MPI of 07/01/18: No ischemia or infarction, LVEF 73% Psychologic diathesis, including anxiety/depression, currently controlled. Mild bilat carotid arterial disease per September 2016 No evidence of any abdominal aortic aneurysm on abdominal aorta scan from Plan: * Continue current regimen * Monitor labs Clinical Quality Measures Type of Care: Type of Care: Pallative Care BETH AKINS MD FACP FAC CCDS Jan 12, 2019 09:11 POS
--- NOTE | 2019-01-12 10:35 | NUR ---
Received dietary consult d/t pt's status on vent. At this time, pt is NPO and enteral nutrition has not been initiated, per discussion with RN. Should pt remain NPO for more than 3 days, would recommend the following: Jevity 1.5 at goal rate of 45 ml/hr. Begin at 10 ml/hr and increase by 10 ml q6h as tolerated. At goal rate, provides 1620 kcal (21 kcal/kg) and 69 g Pro (0.9 g Pro/kg), with 820 ml free water. Flush with 125 ml H2O q6h. With flushes, provides 1320 ml free water. Will continue to follow and assess pt for oral or enteral nutrition needs when appropriate. Kelly Rojas, MS, RD, LD
--- NOTE | 2019-01-12 11:46 | Occ Therapy Progress Note ---
Therapy Progress Note Pt is on mechanical ventilation currently, OT to check following day to assess if pt able to participate in skilled OT eval/ treatment sessions. KOJO GOLDBERG OTR Jan 12, 2019 11:46 POS
[2019-01-12] MEDS: ENOXAPARIN 100 MG/1 ML (LOVENOX) SYR SC SCH (12:00)
[2019-01-12] MEDS: VANCOMYCIN 1 GM/NS 250 ML IVPB IV SCH ×2 (13:15)
[2019-01-12] MEDS: EPINEPHrine 1 MG INJECTION 2 MG in NS (IVPB) 248 ML IV SCH (13:15)
--- NOTE | 2019-01-12 13:39 | Progress Note - Hospitalist ---
Subjective HPI/CC On Admission Date Seen by Provider: Jan 12, 2019 Time Seen by Provider: 08:45 dyspnea Subjective/Events-last exam She remains intubated and sedated. Focused Exam Lactate Level 01/10/19 11:50: Lactic Acid Level 3.74*H 01/11/19 05:19: Lactic Acid Level 1.11 01/12/19 06:50: Lactic Acid Level 0.70 Objective Exam Vital Signs Vital Signs Date Time Temp Pulse Resp B/P (MAP) Pulse Ox O2 Delivery O2 Flow Rate FiO2 01/12/19 12:00 77 21 123/48 (73) 96 Mechanical Ventilator 75.00 01/12/19 12:00 75 01/12/19 12:00 36.6 Capillary Refill : Less Than 3 Seconds General Appearance: No Apparent Distress, WD/WN HEENT: Other (endotracheal tube in place) Respiratory: No Respiratory Distress, Rhonci, Other (mechanically ventilated) Cardiovascular: Regular Rate, Rhythm, No Edema, No Murmur Gastrointestinal: Normal Bowel Sounds, Soft Extremity: Normal Inspection, No Pedal Edema Neurologic/Psychiatric: Other (sedated) Results/Procedures Lab Laboratory Tests 01/12/19 01:25 Patient resulted labs reviewed. Imaging: Reviewed Imaging Report Assessment/Plan Assessment and Plan Assess & Plan/Chief Complaint Community acquired pneumonia Strep pneumonia bacteremia Acute hypoxemic respiratory failure -Remains intubated and sedated -Continue antibiotics -Pulmonology following AFib with RVR Septic shock-resolved, off pressors Dysphagia-further evaluation following extubation HTN-holding home meds PAULA-improving DVT Prophylaxis: Lovenox Critical Care Critically Ill Patient Diagnosis/Problems Diagnosis/Problems (1) CAP (community acquired pneumonia) Status: Acute (2) Acute hypoxemic respiratory failure Status: Acute (3) Bacteremia due to Streptococcus Status: Acute Clinical Quality Measures DVT/VTE Risk/Contraindication: Risk Factor Score Per Nursin RFS Level Per Nursing on Admit: 3=High MUKESH BARBOSA MD Jan 12, 2019 13:39 POS
--- NOTE | 2019-01-12 16:17 | NUR ---
Pastoral care visit, no family present, pt on vent, family grinder watch parts arrived, Renée Torres, he advised pt active in his temple, limited family.
[2019-01-12] MEDS: cefTRIAXone FOR IV USE 2,000 MG in WATER (STERILE) FOR INJECTION 20 ML IV SCH (16:51)
[2019-01-12] MEDS: DILTIAZEM IV FOR DRIP 125 MG in NS (IVPB) 100 ML IV SCH (16:54)
[2019-01-12] MEDS ORDERED: LACTATED RINGERS 1,000 ML IV ONE (18:29)
[2019-01-12] MEDS ORDERED: LACTATED RINGERS 1,000 ML IV SCH (18:30)
[2019-01-12] MEDS: QUEtiapine 100 MG (SEROquel) TAB IMMEDIATE RELEASE PO SCH (20:33)
[2019-01-12] MEDS: ACETAMINOPHEN 500 MG TAB (TYLENOL) PO SCH (20:36)
[2019-01-13] VITALS (30 sets, daily range): BP systolic 104–144; BP diastolic 38–67
[2019-01-13] MEDS: ENOXAPARIN 100 MG/1 ML (LOVENOX) SYR SC SCH ×2 (00:01→11:55)
[2019-01-13] MEDS: NS IV 1000 ML 1,000 ML IV SCH (00:01)
[2019-01-13] MEDS: inSUlin ASPART (NovoLOG) 1 UNIT/0.01 ML (CHARGE PER UNIT) SQ SCH ×4 (00:01→18:01)
[2019-01-13] MEDS: RT-ALBUTEROL/IPRATROPIUM 3 ML (DUONEB) VIAL INH SCH ×6 (02:12→21:51)
[2019-01-13] MEDS: PROPOFOL DRIP (ICU) 100 ML IV SCH ×6 (02:41→21:25)
[2019-01-13] MEDS: DEXMEDETOMIDINE INJECTION 1,000 MCG in NS (IVPB) 250 ML IV SCH ×3 (02:41→19:26)
[2019-01-13 02:49] LABS: BASOPHILS % (AUTO) 0 % (0-10); EOSINOPHILS # (AUTO) 0.1 10^3/uL (0.0-0.3); EOSINOPHILS % (AUTO) 1 % (0-10); HEMATOCRIT 27 % (35-52); HEMOGLOBIN 8.7 G/DL (11.5-16.0); LYMPHOCYTES # (AUTO) 0.4 X 10^3 (1.0-4.0); LYMPHOCYTES % (AUTO) 5 % (12-44); MEAN CORPUSCULAR HEMOGLOBIN 27 PG (25-34); MEAN CORPUSCULAR HGB CONC 32 G/DL (32-36); MEAN CORPUSCULAR VOLUME 85 FL (80-99); MEAN PLATELET VOLUME 10.1 FL (7.4-10.4); MONOCYTES # (AUTO) 0.3 X 10^3 (0.0-1.0); MONOCYTES % (AUTO) 4 % (0-12); NEUTROPHILS # (AUTO) 7.9 X 10^3 (1.8-7.8); NEUTROPHILS % (AUTO) 91 % (42-75); PLATELET COUNT 156 10^3/uL (130-400); RED CELL DISTRIBUTION WIDTH 17.1 % (10.0-14.5); WHITE BLOOD COUNT 8.7 10^3/uL (4.3-11.0)
[2019-01-13 02:49] LABS: ABG BASE EXCESS -6.6 MMOL/L (-2.5-2.5); ABG OXYGEN SATURATION 96 % (94-100); ABG PCO2 35 MMHG (35-45); ABG PO2 78 MMHG (79-93); ABG TCO2 19.3 MMOL/L (21.0-31.0)
[2019-01-13 02:50] LABS: ABG PH 7.34 (7.37-7.43); ALLENS TEST ARTLINE; INSPIRED O2 45%; PATIENT TEMP 36.6; VENTILATOR YES
[2019-01-13 03:16] LABS: BUN/CREATININE RATIO 35; CALCIUM 6.8 MG/DL (8.5-10.1); CARBON DIOXIDE 15 MMOL/L (21-32); CHLORIDE 121 MMOL/L (98-107); CREATININE SERUM 0.69 MG/DL (0.60-1.30); GFR ESTIMATED > 60; GLUCOSE 165 MG/DL (70-105); MAGNESIUM 1.9 MG/DL (1.6-2.4); POTASSIUM 2.9 MMOL/L (3.6-5.0); SODIUM 144 MMOL/L (135-145); TRIGLYCERIDES 589 MG/DL (<150)
[2019-01-13] MEDS: POTASSIUM CL 10MEQ/50ML IVPB 50 ML IV SCH ×6 (03:55→07:52)
[2019-01-13] MEDS ORDERED: POTASSIUM PHOSPHATE INJ 30 MM in NS (IVPB) 250 ML IV ONE (04:30)
[2019-01-13] MEDS ORDERED: CALCIUM GLUC. 10% 4.65 MEQ/10 ML VIAL IV ONE (04:45)
--- NOTE | 2019-01-13 05:22 | Pulmonary Progress Note ---
Subjective Time Seen by a Provider: 05:24 Subjective/Events-last exam Sedated on vent Sepsis Event Evaluation Height, Weight, BMI Height: 5'5.00" Weight: 150lbs. 0.0oz. 68.310532dq; 26.74 BMI Method:Stated Focused Exam Lactate Level 01/10/19 11:50: Lactic Acid Level 3.74*H 01/11/19 05:19: Lactic Acid Level 1.11 01/12/19 06:50: Lactic Acid Level 0.70 Exam Exam Vital Signs Date Time Temp Pulse Resp B/P (MAP) Pulse Ox O2 Delivery O2 Flow Rate FiO2 01/13/19 04:00 79 12 106/50 (68) 94 Mechanical Ventilator 45.00 01/13/19 03:00 84 24 124/52 (76) 95 Mechanical Ventilator 45.00 01/13/19 02:41 122/50 01/13/19 02:13 82 26 95 50 01/13/19 02:13 83 26 119/47 (71) 95 Mechanical Ventilator 45.00 01/13/19 02:00 82 23 123/49 (73) 96 Mechanical Ventilator 50.00 01/13/19 01:00 86 01/13/19 01:00 86 23 132/53 (79) 96 Mechanical Ventilator 50.00 01/13/19 00:00 89 23 132/53 (79) 95 Mechanical Ventilator 50.00 01/13/19 00:00 Mechanical Ventilator 50 01/13/19 00:00 36.4 01/12/19 23:00 93 18 132/53 (79) 96 Mechanical Ventilator 50.00 01/12/19 22:05 131/52 01/12/19 22:01 92 22 97 50 01/12/19 22:00 93 20 127/50 (75) 96 Mechanical Ventilator 50.00 01/12/19 21:00 98 24 129/51 (77) 96 Mechanical Ventilator 50.00 01/12/19 20:00 98 21 129/43 (71) 97 Mechanical Ventilator 50.00 01/12/19 20:00 36.0 01/12/19 20:00 Mechanical Ventilator 50 01/12/19 19:00 98 01/12/19 19:00 98 22 122/42 (68) 96 Mechanical Ventilator 50.00 01/12/19 18:58 98 22 96 50 01/12/19 18:00 99 23 94/36 (55) 94 Mechanical Ventilator 75.00 01/12/19 17:00 111 25 100/35 (56) 93 Mechanical Ventilator 75.00 01/12/19 16:53 101/37 01/12/19 16:14 111 24 92 50 01/12/19 16:00 36.4 01/12/19 16:00 110 24 116/42 (66) 95 Mechanical Ventilator 75.00 01/12/19 16:00 95 Mechanical Ventilator 50 01/12/19 15:00 112 22 118/42 (67) 95 Mechanical Ventilator 75.00 01/12/19 14:18 82 28 87 45 01/12/19 14:00 78 22 123/47 (72) 93 Mechanical Ventilator 75.00 01/12/19 13:00 75 23 122/49 (73) 95 Mechanical Ventilator 75.00 01/12/19 13:00 76 01/12/19 12:00 77 21 123/48 (73) 96 Mechanical Ventilator 75.00 01/12/19 12:00 94 Mechanical Ventilator 75 01/12/19 12:00 36.6 01/12/19 11:21 113/48 01/12/19 11:00 77 24 110/46 (67) 94 Mechanical Ventilator 75.00 01/12/19 10:34 68 22 94 40 01/12/19 10:00 71 21 115/48 (70) 97 Mechanical Ventilator 75.00 01/12/19 09:00 75 21 120/50 (73) 97 Mechanical Ventilator 75.00 01/12/19 08:00 75 22 118/52 (74) 97 Mechanical Ventilator 75.00 01/12/19 08:00 37.1 01/12/19 08:00 94 Mechanical Ventilator 75 01/12/19 07:00 80 23 121/50 (73) 96 Mechanical Ventilator 75.00 01/12/19 07:00 79 01/12/19 06:00 80 27 117/48 (71) 95 Mechanical Ventilator 75.00 01/12/19 06:00 80 27 96 55 I & O 01/13/19 07:00 Intake Total 4120 ml Output Total 1500 ml Balance 2620 ml Height & Weight Height: 5'5.00" Weight: 150lbs. 0.0oz. 68.262787wb; 26.74 BMI Method:Stated General Appearance: Chronically ill, Other (sedated on vent) Neck: Limited Range of Motion Respiratory: Crackles, Decreased Breath Sounds Cardiovascular: Irregularly Irregular, Tachycardia Capillary Refill: Less Than 3 Seconds Extremity: No Pedal Edema Neurologic/Psychiatric: Alert, Normal Mood/Affect Skin: Warm/Dry Lymphatic: No Adenopathy Results Lab Laboratory Tests 01/12/19 01:25 01/13/19 02:39 Assessment/Plan Assessment/Plan Acute Respiratory failure with PNA -Abx change to Rocephin 01/12 based on cultures -Start TF -Will start weaning vent tomorrow -Decrease PEEP to 8 -D/C central line secondary to position on CXR. -Keep art line for now Nonanion gap hyperchloremic metabolic acidosis -Change IVF to 1/2 NS Strep bacteremia -Rocephin Afib RVR -Cardiology following Hypotension - resolved Anemia -Monitor -Protonix ARMANDO SANDRA DO Jan 13, 2019 05:22 POS
[2019-01-13] MEDS: KCL 20 MEQ TAB (K-DUR) PO SCH (06:07)
[2019-01-13] MEDS: MAGNESIUM 1 GM/100 ML IVPB 100 ML IV SCH (06:07)
[2019-01-13] MEDS: D5 1/2 NS W/KCL 20 MEQ/L 1,000 ML IV SCH ×2 (06:35→15:29)
--- NOTE | 2019-01-13 07:46 | Diagnostic Imaging Report ---
INDICATION: Dyspnea. COMPARISON: 01/12/2019. FINDINGS: Single frontal radiographic view of the chest was obtained and demonstrates indwelling endotracheal tube below the clavicular heads and above the yoselin. Gastric tube is seen with tip in the stomach. Cardiac silhouette remains mildly enlarged. Pulmonary vasculature is mildly prominent. Lungs continue to show mild diffuse prominence of the interstitium with hazy opacification of the left base and obscuration of the left hemidiaphragm. No pneumothorax is seen. Overall, aeration is stable compared to prior exam. IMPRESSION: 1. Lines and tubes as above. 2. Stable cardiomegaly with probable mild pulmonary vascular congestion and interstitial pulmonary edema. 3. Stable airspace disease within the left base suspicious for effusion. Dictated by: Dictated on workstation # [id number]
[2019-01-13] MEDS: PANTOPRAZOLE 40 MG (PROTONIX) VIAL IV SCH ×2 (07:50→20:54)
[2019-01-13] MEDS: VENlafaxine 75 MG (EFFEXOR) TAB PO SCH (07:51)
[2019-01-13] MEDS: QUEtiapine 25 MG (SEROquel) TAB IMMEDIATE RELEASE PO SCH (07:51)
[2019-01-13] MEDS: MEMANTINE 5 MG (NAMENDA) TABLET PO SCH ×2 (07:51→20:54)
[2019-01-13] MEDS: ASPIRIN E.C. 81 MG (ECOTRIN) TAB PO SCH (07:51)
[2019-01-13] MEDS: ARTIFICIAL TEARS OINT (LACRI-LUBE) 3.5 GM TUBE OU SCH ×2 (07:52→20:54)
--- NOTE | 2019-01-13 08:12 | Physical Therapy Progress Note ---
Therapy Progress Note Patient intubated and sedated. PT will continue to monitor. 0 tx CHRIS BRAUN PT Jan 13, 2019 08:12 POS
--- NOTE | 2019-01-13 08:15 | Progress Note - Cardiology ---
Cardiology SOAP Progress Note Subjective: Not able to provide any history. [facility] Sedated Objective: I&O/Vital Signs 01/12/19 01/12/19 01/12/19 01/12/19 21:00 22:00 22:01 22:05 Pulse 98 93 92 Resp 24 20 22 B/P (MAP) 129/51 (77) 127/50 (75) 131/52 Pulse Ox 96 96 97 O2 Delivery Mechanical Ventilator Mechanical Ventilator O2 Flow Rate 50.00 50.00 FiO2 50 01/12/19 01/13/19 01/13/19 01/13/19 23:00 00:00 00:00 00:00 Temp 36.4 Pulse 93 89 Resp 18 23 B/P (MAP) 132/53 (79) 132/53 (79) Pulse Ox 96 95 O2 Delivery Mechanical Ventilator Mechanical Ventilator Mechanical Ventilator O2 Flow Rate 50.00 50.00 FiO2 50 01/13/19 01/13/19 01/13/19 01/13/19 01:00 01:00 02:00 02:13 Pulse 86 86 82 83 Resp 23 23 26 B/P (MAP) 132/53 (79) 123/49 (73) 119/47 (71) Pulse Ox 96 96 95 O2 Delivery Mechanical Ventilator Mechanical Ventilator Mechanical Ventilator O2 Flow Rate 50.00 50.00 45.00 01/13/19 01/13/19 01/13/19 01/13/19 02:13 02:41 03:00 04:00 Pulse 82 84 Resp 26 24 B/P (MAP) 122/50 124/52 (76) Pulse Ox 95 95 O2 Delivery Mechanical Ventilator Mechanical Ventilator O2 Flow Rate 45.00 FiO2 50 45 01/13/19 01/13/19 01/13/19 01/13/19 04:00 04:00 05:00 06:00 Temp 36.6 Pulse 79 79 78 Resp 12 21 25 B/P (MAP) 106/50 (68) 123/54 (77) 122/54 (76) Pulse Ox 94 94 95 O2 Delivery Mechanical Ventilator Mechanical Ventilator Mechanical Ventilator O2 Flow Rate 45.00 45.00 45.00 01/13/19 01/13/19 06:37 06:47 Pulse 77 Resp 25 B/P (MAP) 119/53 Pulse Ox 95 FiO2 45 01/13/19 00:00 Intake Total 3760 ml Output Total 1000 ml Balance 2760 ml Weight (Pounds): 150 Weight (Ounces): 0.0 Weight (Calculated Kilograms): 68.896397 Constitutional: well-developed, well-nourished, other ([facility]) Respiratory: accessory muscle use, other (diminished air entry at both bases; diminished air entry in the L mid zone; scattered coarse rales and rhonchi) Cardiovascular: irregularly irregular, S1 and S2, systolic murmur (soft YI at card base) Gastrointestional: No tender; soft; No guarding, No rebound; audible bowel sounds Extremities: No clubbing, No cyanosis, No significant edema Neurologic/Psychiatric: oriented x 3, other (coarse, involuntary movements of the face and neck; moves all limbs equally) Skin: normal color, warm/dry; No rash on exposed areas, No ulcerations on exposed areas Results/Procedures: Labs Laboratory Tests 01/12/19 13:13: Glucometer 176H 01/12/19 18:11: Glucometer 241H 01/12/19 23:03: Glucometer 192H 01/13/19 02:39: White Blood Count 8.7, Red Blood Count 3.20L, Hemoglobin 8.7L, Hematocrit 27L, Mean Corpuscular Volume 85, Mean Corpuscular Hemoglobin 27, Mean Corpuscular Hemoglobin Concent 32, Red Cell Distribution Width 17.1H, Platelet Count 156, Mean Platelet Volume 10.1, Neutrophils (%) (Auto) 91H, Lymphocytes (%) (Auto) 5L , Monocytes (%) (Auto) 4, Eosinophils (%) (Auto) 1, Basophils (%) (Auto) 0, Neutrophils # (Auto) 7.9H, Lymphocytes # (Auto) 0.4L, Monocytes # (Auto) 0.3, Eosinophils # (Auto) 0.1, Basophils # (Auto) 0.0, Sodium Level 144, Potassium Level 2.9L, Chloride Level 121H, Carbon Dioxide Level 15L, Anion Gap 8, Blood Urea Nitrogen 24H, Creatinine 0.69, Estimat Glomerular Filtration Rate > 60, BUN/Creatinine Ratio 35, Glucose Level 165H, Calcium Level 6.8L, Phosphorus Level 2.0L, Magnesium Level 1.9, Triglycerides Level 589#H 01/13/19 02:40: Blood Gas Puncture Site LEFT ARTLINE, Blood Gas Patient Temperature 36.6, Arterial Blood pH 7.34*L, Arterial Blood Partial Pressure CO2 35, Arterial Blood Partial Pressure O2 78L, Arterial Blood HCO3 18L, Arterial Blood Total CO2 19.3L , Arterial Blood Oxygen Saturation 96, Arterial Blood Base Excess -6.6L, Filippo Test ARTLINE, Blood Gas Ventilator Setting YES, Blood Gas Inspired Oxygen 45% Microbiology 01/10/19 Blood Culture - Preliminary, Resulted Streptococcus pneumoniae 01/11/19 Gram Stain - Final, Resulted 01/11/19 Sputum Culture - Preliminary, Resulted Staphylococcus epidermidis Culture In Progress 01/10/19 Urine Culture - Final, Complete Proteus mirabilis Laboratory Tests 01/12/19 01:25 01/13/19 02:39 A/P: Assessment: Type 1 acute respiratory failure due to aspiration pneumonia with sepsis Acute kidney injury (PAULA) 3, resolved PAF with RVR, currently NSR Peripheral arterial disease per seg pressures of 07/17/16 that showed TONG of 1.26 on th R and 0.78 on the Left (at the level of Left PT). 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 Harris H/o CVA. CT Head of 07/14/16: no acute changes, chronic small vessel disease, chronic lacunar infart in the R basal gaglia, chronic R cerebral hemisphere infarct Hypertension, by history Hyperlipidemia, primarily consisting of hypertriglyceridemia. This has been treated with a combination of Trilipix and Lovaza that the patient has tolerated well, followed by Dr Graves Borderline diabetes mellitus, maturity onset, being followed by Dr. Graves Tardive dyskinesia Echo of 01/11/19: mild conc LVH, LVEF 60-65%, mild MR, RVSP 35 mmHg MPI of 07/01/18: No ischemia or infarction, LVEF 73% Psychologic diathesis, including anxiety/depression, currently controlled. Mild bilat carotid arterial disease per September 2016 Plan: * Replenish K * Continue current regimen * Monitor labs Clinical Quality Measures Type of Care: Type of Care: Pallative Care [facility] Jan 13, 2019 08:15 POS
--- NOTE | 2019-01-13 10:48 | Progress Note - Hospitalist ---
Subjective HPI/CC On Admission Date Seen by Provider: Jan 13, 2019 Time Seen by Provider: 08:30 dyspnea Subjective/Events-last exam She remains intubated and sedated. Focused Exam Lactate Level 01/10/19 11:50: Lactic Acid Level 3.74*H 01/11/19 05:19: Lactic Acid Level 1.11 01/12/19 06:50: Lactic Acid Level 0.70 Objective Exam Vital Signs Vital Signs Date Time Temp Pulse Resp B/P (MAP) Pulse Ox O2 Delivery O2 Flow Rate FiO2 01/13/19 10:00 87 29 109/45 (66) 93 Mechanical Ventilator 45.00 01/13/19 08:00 45 01/13/19 04:00 36.6 Capillary Refill : Less Than 3 Seconds General Appearance: No Apparent Distress, WD/WN, Other (intubated and sedated) HEENT: Other (dry mucous membranes, endotracheal tube in place) Neck: Normal Inspection, Supple Respiratory: No Respiratory Distress, Rhonci, Other (mechanically ventilated) Cardiovascular: Regular Rate, Rhythm, No Edema, No Murmur Gastrointestinal: Normal Bowel Sounds, Soft Extremity: Normal Inspection, No Pedal Edema Neurologic/Psychiatric: Other (sedated) Skin: Normal Color, Warm/Dry Results/Procedures Lab Laboratory Tests 01/13/19 02:39 Patient resulted labs reviewed. Imaging: Reviewed Imaging Report Assessment/Plan Assessment and Plan Assess & Plan/Chief Complaint Community acquired pneumonia Strep pneumonia bacteremia Acute hypoxemic respiratory failure -Remains intubated and sedated -Continue antibiotics -Pulmonology following AFib with RVR -Cardiology following -Not currently on any rate or rhythm control -Receiving therapeutic Lovenox Septic shock-resolved, off pressors Dysphagia-further evaluation following extubation HTN-holding home meds PAULA-improving DVT Prophylaxis: already receiving therapeutic anticoagulation Critical Care Critically Ill Patient Diagnosis/Problems Diagnosis/Problems (1) CAP (community acquired pneumonia) Status: Acute (2) Acute hypoxemic respiratory failure Status: Acute (3) Bacteremia due to Streptococcus Status: Acute Clinical Quality Measures DVT/VTE Risk/Contraindication: Risk Factor Score Per Nursin RFS Level Per Nursing on Admit: 3=High MUKESH BARBOSA MD Jan 13, 2019 10:48 POS
--- NOTE | 2019-01-13 10:50 | Occ Therapy Progress Note ---
Therapy Progress Note Pt remains intubated and sedated. Will continue to monitor and initiate therapy as appropriate FELIX HARRELL OT Jan 13, 2019 10:50 POS
[2019-01-13] MEDS: DEXMEDETOMIDINE INJECTION 1,000 MCG in NS (IVPB) 240 ML IV SCH ×2 (10:58→17:48)
[2019-01-13] MEDS: cefTRIAXone FOR IV USE 2,000 MG in WATER (STERILE) FOR INJECTION 20 ML IV SCH (13:33)
--- NOTE | 2019-01-13 13:48 | NUR ---
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 Offered prayer and compassionate touch at bedside. No family present. Followed up with Lizette, one of the confucianist elders. She said their confucianist is visiting the pt daily, and appreciates community ambassador support.
--- NOTE | 2019-01-13 15:10 | NUR ---
and this nurse at bedside, verbal orders received from for fentanyl PRN Q2H 25-50mcg IV.
[2019-01-13] MEDS: fentaNYL INJECTION 100 MCG/2 ML AMP IVP PRN ×3 (15:22→20:03)
[2019-01-13] MEDS: EPINEPHrine 1 MG INJECTION 2 MG in NS (IVPB) 248 ML IV SCH (15:29)
[2019-01-13] MEDS: DILTIAZEM IV FOR DRIP 125 MG in NS (IVPB) 100 ML IV SCH (16:15)
[2019-01-13] MEDS ORDERED: fentaNYL INJECTION 100 MCG/2 ML AMP IV PRN (20:00)
[2019-01-13] MEDS: ACETAMINOPHEN 500 MG TAB (TYLENOL) PO SCH (20:54)
[2019-01-13] MEDS: QUEtiapine 100 MG (SEROquel) TAB IMMEDIATE RELEASE PO SCH (20:54)
[2019-01-14] VITALS (28 sets, daily range): BP systolic 97–185; BP diastolic 46–115
[2019-01-14] MEDS: ENOXAPARIN 100 MG/1 ML (LOVENOX) SYR SC SCH ×2 (00:11→12:02)
[2019-01-14] MEDS: inSUlin ASPART (NovoLOG) 1 UNIT/0.01 ML (CHARGE PER UNIT) SQ SCH ×4 (00:13→16:21)
[2019-01-14] MEDS: PROPOFOL DRIP (ICU) 100 ML IV SCH ×2 (01:05→04:49)
[2019-01-14] MEDS: D5 1/2 NS W/KCL 20 MEQ/L 1,000 ML IV SCH ×2 (01:05→22:00)
[2019-01-14] MEDS: fentaNYL INJECTION 100 MCG/2 ML AMP IVP PRN ×2 (01:31→04:17)
[2019-01-14 03:07] LABS: ABG BASE EXCESS -7.1 MMOL/L (-2.5-2.5); ABG OXYGEN SATURATION 96 % (94-100); ABG PCO2 34 MMHG (35-45); ABG PO2 76 MMHG (79-93); ABG TCO2 18.8 MMOL/L (21.0-31.0); BASOPHILS % (AUTO) 0 % (0-10); EOSINOPHILS # (AUTO) 0.1 10^3/uL (0.0-0.3); EOSINOPHILS % (AUTO) 2 % (0-10); HEMATOCRIT 27 % (35-52); HEMOGLOBIN 8.4 G/DL (11.5-16.0); LYMPHOCYTES # (AUTO) 0.7 X 10^3 (1.0-4.0); LYMPHOCYTES % (AUTO) 10 % (12-44); MEAN CORPUSCULAR HEMOGLOBIN 27 PG (25-34); MEAN CORPUSCULAR HGB CONC 32 G/DL (32-36); MEAN CORPUSCULAR VOLUME 86 FL (80-99); MEAN PLATELET VOLUME 10.3 FL (7.4-10.4); MONOCYTES # (AUTO) 0.3 X 10^3 (0.0-1.0); MONOCYTES % (AUTO) 5 % (0-12); NEUTROPHILS % (AUTO) 84 % (42-75); PLATELET COUNT 164 10^3/uL (130-400); RED CELL DISTRIBUTION WIDTH 17.2 % (10.0-14.5); WHITE BLOOD COUNT 7.2 10^3/uL (4.3-11.0)
[2019-01-14 03:09] LABS: ALLENS TEST ARTLINE; INSPIRED O2 45%; PATIENT TEMP 36.5; VENTILATOR YES
[2019-01-14 03:10] LABS: ABG PH 7.34 (7.37-7.43)
[2019-01-14] MEDS: RT-ALBUTEROL/IPRATROPIUM 3 ML (DUONEB) VIAL INH SCH ×6 (03:17→22:12)
[2019-01-14 03:25] LABS: BUN/CREATININE RATIO 22; CALCIUM 7.3 MG/DL (8.5-10.1); CARBON DIOXIDE 16 MMOL/L (21-32); CHLORIDE 118 MMOL/L (98-107); CREATININE SERUM 0.74 MG/DL (0.60-1.30); GFR ESTIMATED > 60; GLUCOSE 216 MG/DL (70-105); MAGNESIUM 1.9 MG/DL (1.6-2.4); PHOSPHORUS 2.1 MG/DL (2.3-4.7); POTASSIUM 4.3 MMOL/L (3.6-5.0); SODIUM 141 MMOL/L (135-145)
[2019-01-14] MEDS ORDERED: SODIUM BICARB 8.4% 50 MEQ/50 ML VIAL IV ONE (04:15)
[2019-01-14] MEDS ORDERED: FUROSEMIDE 40 MG/4 ML INJ (LASIX) IVP ONE (04:15)
[2019-01-14] MEDS ORDERED: SODIUM BICARB 8.4% 50 MEQ/50 ML VIAL ONE (04:20)
--- NOTE | 2019-01-14 04:23 | Pulmonary Progress Note ---
Subjective Time Seen by a Provider: 04:42 Subjective/Events-last exam Pt is sedated on vent. Sepsis Event Evaluation Height, Weight, BMI Height: 5'5.00" Weight: 150lbs. 0.0oz. 68.395538kh; 26.74 BMI Method:Stated Focused Exam Lactate Level 01/11/19 05:19: Lactic Acid Level 1.11 01/12/19 06:50: Lactic Acid Level 0.70 Exam Exam Vital Signs Date Time Temp Pulse Resp B/P (MAP) Pulse Ox O2 Delivery O2 Flow Rate FiO2 01/14/19 04:00 Mechanical Ventilator 45 01/14/19 04:00 36.5 01/14/19 03:17 89 26 95 45 01/14/19 03:00 90 24 122/49 (73) 95 Mechanical Ventilator 45.00 01/14/19 02:00 93 24 119/46 (70) 94 Mechanical Ventilator 45.00 01/14/19 01:05 123/49 01/14/19 01:00 97 01/14/19 01:00 97 22 125/49 (74) 94 Mechanical Ventilator 45.00 01/14/19 00:00 100 26 126/50 (75) 95 Mechanical Ventilator 45.00 01/14/19 00:00 Mechanical Ventilator 45 01/14/19 00:00 36.6 01/13/19 23:00 106 30 121/48 (72) 95 Mechanical Ventilator 45.00 01/13/19 22:00 99 28 115/41 (65) 94 Mechanical Ventilator 45.00 01/13/19 21:52 98 29 94 45 01/13/19 21:25 113/41 01/13/19 21:00 102 25 110/40 (63) 95 Mechanical Ventilator 45.00 01/13/19 20:00 Mechanical Ventilator 45 01/13/19 20:00 37.2 106 30 144/67 (92) 95 Mechanical Ventilator 45.00 01/13/19 19:00 110 36 108/38 (61) 94 Mechanical Ventilator 45.00 01/13/19 19:00 110 01/13/19 18:12 101 28 93 45 01/13/19 18:00 102 30 115/39 (64) 93 Mechanical Ventilator 45.00 01/13/19 17:50 116/40 01/13/19 17:00 105 26 122/43 (69) 94 Mechanical Ventilator 45.00 01/13/19 16:00 111 29 118/45 (69) 89 Mechanical Ventilator 45.00 01/13/19 16:00 Mechanical Ventilator 45 01/13/19 15:39 37.1 01/13/19 15:00 110 31 109/39 (62) 92 Mechanical Ventilator 45.00 01/13/19 14:26 85 30 94 45 01/13/19 14:23 104/40 01/13/19 14:00 84 29 109/43 (65) 94 Mechanical Ventilator 45.00 01/13/19 13:00 86 26 113/45 (67) 93 Mechanical Ventilator 45.00 01/13/19 12:46 87 01/13/19 12:00 Mechanical Ventilator 45 01/13/19 12:00 86 19 118/45 (69) 92 Mechanical Ventilator 45.00 01/13/19 11:34 37.1 01/13/19 11:04 87 26 100 45 01/13/19 11:00 87 26 114/47 (69) 94 Mechanical Ventilator 45.00 01/13/19 10:51 112/45 01/13/19 10:00 87 29 109/45 (66) 93 Mechanical Ventilator 45.00 01/13/19 09:00 79 23 116/53 (74) 93 Mechanical Ventilator 45.00 01/13/19 08:00 79 24 120/53 (75) 95 Mechanical Ventilator 45.00 01/13/19 08:00 Mechanical Ventilator 45 01/13/19 07:00 78 26 121/54 (76) 95 Mechanical Ventilator 45.00 01/13/19 06:47 77 25 95 45 01/13/19 06:45 76 01/13/19 06:37 119/53 01/13/19 06:00 78 25 122/54 (76) 95 Mechanical Ventilator 45.00 01/13/19 05:00 79 21 123/54 (77) 94 Mechanical Ventilator 45.00 I & O 01/14/19 07:00 Intake Total 2450 ml Output Total 1335 ml Balance 1115 ml Height & Weight Height: 5'5.00" Weight: 150lbs. 0.0oz. 68.388682uc; 26.74 BMI Method:Stated General Appearance: No Apparent Distress, WD/WN, Other (intubated and sedated) HEENT: Other (dry mucous membranes, endotracheal tube in place) Neck: Normal Inspection, Supple Respiratory: No Respiratory Distress, Rhonci, Other (mechanically ventilated) Cardiovascular: Regular Rate, Rhythm, No Edema, No Murmur Capillary Refill: Less Than 3 Seconds Gastrointestinal: soft, no organomegaly, no pulsatile mass Extremity: Normal Inspection, No Pedal Edema Neurologic/Psychiatric: Other (sedated) Skin: Normal Color, Warm/Dry Lymphatic: No Adenopathy Results Lab Laboratory Tests 01/13/19 02:39 01/14/19 02:55 Assessment/Plan Assessment/Plan Acute Respiratory failure with PNA -Rocephin -Restart TF if pt is not extubated today -Will start weaning vent today -PEEP 8 currently -Keep art line for now -Start Solumedrol Nonanion gap hyperchloremic metabolic acidosis -IVF 1/2 NS to 30cc/hr Strep bacteremia -Rocephin Afib RVR -Cardiology following Hypotension - resolved Anemia -Monitor -Protonix ARMANDO SANDRA DO Jan 14, 2019 04:23 POS
[2019-01-14] MEDS: POTASSIUM CL 10MEQ/50ML IVPB 50 ML IV SCH ×5 (04:26→06:47)
[2019-01-14] MEDS ORDERED: POTASSIUM PHOSPHATE INJ 30 MM in NS (IVPB) 250 ML IV ONE (04:30)
[2019-01-14] MEDS: MAGNESIUM 1 GM/100 ML IVPB 100 ML IV SCH (05:39)
[2019-01-14] MEDS: KCL 20 MEQ TAB (K-DUR) PO SCH (05:40)
[2019-01-14] MEDS: methylPREDNISolone 40 MG/ML (Solu-MEDROL) VIAL IV SCH ×3 (05:49→16:20)
--- NOTE | 2019-01-14 08:27 | Occ Therapy Progress Note ---
Therapy Progress Note Pt remains intubated. Will continue to monitor and initiate OT evaluation as indicated. FELIX HARRELL OT Jan 14, 2019 08:27 POS
--- NOTE | 2019-01-14 08:41 | Diagnostic Imaging Report ---
INDICATION: Dyspnea. COMPARISON: 01/13/2019. TECHNIQUE: Single radiograph of the chest dated 01/14/2019. FINDINGS: The endotracheal tube is again noted with the distal tip overlying the tracheal air column 1.8 cm above the level of the yoselin. An enteric catheter is again identified extending into the stomach. The cardiac silhouette is enlarged although stable. The pulmonary vasculature remains engorged. A moderate sized left-sided pleural parenchymal opacity is again noted, slightly worsened since the prior examination. Minimal interstitial prominence within the bilateral lungs is again seen. No new focal opacity within the right lung. No pneumothorax. No acute osseous abnormality. IMPRESSION: Slightly worsening left-sided pleural parenchymal opacity which is felt to relate to a combination of pleural fluid with adjacent infiltrate and/or atelectasis. Cardiomegaly with mild central pulmonary vascular congestion and mild interstitial edema. Dictated by: Dictated on workstation # [id number]
[2019-01-14] MEDS: ARTIFICIAL TEARS OINT (LACRI-LUBE) 3.5 GM TUBE OU SCH ×2 (08:51→21:20)
[2019-01-14] MEDS: VENlafaxine 75 MG (EFFEXOR) TAB PO SCH (08:51)
[2019-01-14] MEDS: ASPIRIN E.C. 81 MG (ECOTRIN) TAB PO SCH (08:51)
[2019-01-14] MEDS: PANTOPRAZOLE 40 MG (PROTONIX) VIAL IV SCH ×2 (08:51→21:20)
[2019-01-14] MEDS: MEMANTINE 5 MG (NAMENDA) TABLET PO SCH ×2 (08:51→21:21)
[2019-01-14] MEDS: QUEtiapine 25 MG (SEROquel) TAB IMMEDIATE RELEASE PO SCH (08:52)
--- NOTE | 2019-01-14 09:03 | Cardiology Progress Note ---
Subjective Date Seen by Provider: Jan 14, 2019 Time Seen by Provider: 08:58 Subjective/Events-last exam patient is sedated and intubated, unable to provide history, possible weaning today Review of Systems General: Other (unable to provide review of systems) Focused Exam Lactate Level 01/12/19 06:50: Lactic Acid Level 0.70 Objective-Cardiology Exam Last Set of Vital Signs Vital Signs 01/14/19 01/14/19 01/14/19 04:00 06:42 08:00 Temp 36.5 Pulse 100 Resp 15 B/P (MAP) 157/60 (92) Pulse Ox 94 O2 Delivery Mechanical Ventilator O2 Flow Rate 45.00 FiO2 45 Capillary Refill : Less Than 3 Seconds I&O Intake and Output 01/14/19 00:00 Intake Total 3910 ml Output Total 1485 ml Balance 2425 ml Intake Oral 0 ml IV Total 3450 ml Tube Feeding 460 ml Output Urine Total 1290 ml Gastric Drainage Total 195 ml General: Other (sedated and intubated) HEENT: Atraumatic, PERRLA Neck: Supple Lungs: Normal Air Movement, Other (bilateral rhonchi) Heart: Regular Rate, Normal S1, Normal S2 Abdomen: Normal Bowel Sounds Extremities: No Clubbing, No Cyanosis Skin: No Rashes Neuro: Other (sedated and intubated) Psych/Mental Status: Other (sedated and intubated) Results Lab Laboratory Tests 01/14/19 02:55 A/P-Cardiology Admission Diagnosis Acute respiratory failure Pneumonia Paroxysmal atrial fibrillation Hypertension Assessment/Plan Acute respiratory failure, ventilator dependent, pneumonia, improving, possible weaning off the ventilator today. Paroxysmal atrial fibrillation with rapid ventricular response, back to sinus rhythm, currently in sinus rhythm, continue to monitor closely Anemia, continue to monitor H&H Peripheral arterial disease, had abnormal TONG on the left, no reported history of claudication, has been managed by Dr. Bush Leg swelling, mainly in the left leg secondary to a large Castano's cyst, followed by Dr. Harris History of CVA, chronic small vessel disease with lacunar infarct. Hypertension, being weaned off the ventilator, continue to monitor blood pressure Hyperlipidemia, hypertriglyceridemia, continue to monitor lipids Diabetes mellitus, followed by primary care physician Lissett de leon. Anxiety/depression Mild bilateral carotid stenosis. Continue to monitor Clinical Quality Measures DVT/VTE Risk/Contraindication: Risk Factor Score Per Nursin RFS Level Per Nursing on Admit: 3=High DEJON VEGAS MD Jan 14, 2019 09:02 POS
--- NOTE | 2019-01-14 09:10 | Physical Therapy Progress Note ---
Therapy Progress Note Patient still currently intubated and sedated, doctor note states she might be weaned today. FABY FRAGA PT Jan 14, 2019 09:10 POS
[2019-01-14 11:28] LABS: ABG BASE EXCESS -1.7 MMOL/L (-2.5-2.5); ABG OXYGEN SATURATION 98 % (94-100); ABG PCO2 37 MMHG (35-45); ABG PO2 94 MMHG (79-93); ABG TCO2 23.6 MMOL/L (21.0-31.0); INSPIRED O2 45; PATIENT TEMP 36.5; VENTILATOR YES
[2019-01-14] MEDS ORDERED: ANIDULAFUNGIN INJECTION 200 MG in NS (IVPB) 250 ML IV NR (11:30)
[2019-01-14] MEDS: DEXMEDETOMIDINE INJECTION 1,000 MCG in NS (IVPB) 240 ML IV SCH (12:06)
--- NOTE | 2019-01-14 12:56 | ST Dysphagia Evaluation ---
Speech Evaluation-General Medical Diagnosis Sepsis due to aspiration pneumonia Onset Date: Jan 10, 2019 Therapy Diagnosis Therapy Diagnosis: Oropharyngeal Dysphagia Precautions Precautions: Aspiration Precautions/Isolations: Aspiration Referral Referring Physician: Dr. Isabel Medical History Reviewed History: Yes Social History Home: Current Living Status: Speech PLF/Current-Dysphagia Prior Level of Function Patient is a high functioning MR who lives in a facility where her needs are met. Subjective Patient was alert and participated well with the Bedside Dysphagia Evaluation. Oral Motor Skills Dentition: Edentalous Ability to Follow Directions: Good Patient NPO pending BDE. Oral Expression Ability: No Impairment Voice Voice Phonatory-Based Quality: Normal Voice Loudness: Normal Face Facial Symmetry: Symmetrical Oral-Facial Assessment Smile: Normal Puff Cheeks: Reduced Strength Lingual Protrusion: Normal Lingual ROM: Normal Lingual Strength: Normal Volitional Dry Swallow: Yes Voluntary Cough: Yes Can Clear Throat Volitionally: Yes Dysphagia Evaluation Consistencies Presented: Thin Liquid, Mechanical Soft, Pureed Oral phase within normal limits. Pharyngeal phase within normal limits. Dietary Recommendations: Mechanical Soft Liquid Recommendations: Thin Swallowing Precautions: Alternate Liquids/Solids, Decreased Bolus 1/2 Tsp, Liquids from Straw, Small Bites and Sips, Sitting Upright 90 Degrees, Sitting 90 Degrees 30 Post Intake Dysphagia Evaluation Summary Patient is a 73 year old high functioning MR. She was admitted via the ED due to aspiration pneumonia. Patient was intubated initially with extubation this date. The patient completed the Bedside Dysphagia Evaluation. Patient was given thin via 1/2 tsp x2 and small sips via straw x2 without difficulty. Patient was presented 1/2 tsp puree and mechanical soft without difficulty. Patient was not given the regular due to being edentulous. Patient is recommended for Dysphagia II with thin. This information was presented to her nurse as well as written on her white board. Barriers to Learning High functioning MR Speech-Plan Patient/Family Goals Patient/Family Goals: Patient will return to her living environment upon hospital discharge. Treatment Plan Speech Therapy Treatment Plan: Discontinue ST Patient recommendations given to the nurse. Treatment Duration: Jan 14, 2019 Frequency: 1 time per week Estimated Hrs Per Day: .25 hour per day Rehab Potential: Fair Barriers to Learning: Patient is high functioning MR Pt/Family Agrees to Plan: Yes Safety Risks/Education Teaching Recipient: Patient Teaching Methods: Demonstration, Discussion Response to Teaching: Verbalize Understanding, Return Demonstration Education Topics Provided: Safety of oral intake and diet level Time Speech Therapy Time In: 12:35 Speech Therapy Time Out: 12:50 Total Billed Time: 15 Billed Treatment Time 1, ANSHU Duffy Jan 14, 2019 12:56 POS
--- NOTE | 2019-01-14 14:00 | NUR ---
Pt extubated and engaging with expressions of gratitude and happiness. We offered a prayer of thanks together for God's protection and answered prayers. Pt's tire installer, Renée Torres is notified of pt's status and said he would visit within the next half hour.
--- NOTE | 2019-01-14 14:10 | Progress Note - Hospitalist ---
Subjective HPI/CC On Admission Date Seen by Provider: Jan 14, 2019 Time Seen by Provider: 09:00 dyspnea Subjective/Events-last exam She is intubated and sedated. She is easily arousable. Focused Exam Lactate Level 01/12/19 06:50: Lactic Acid Level 0.70 Objective Exam Vital Signs Vital Signs Date Time Temp Pulse Resp B/P (MAP) Pulse Ox O2 Delivery O2 Flow Rate FiO2 01/14/19 12:07 Nasal Cannula 2.00 01/14/19 12:00 36.5 01/14/19 12:00 98 01/14/19 10:36 96 15 45 01/14/19 09:00 144/58 (86) Capillary Refill : Less Than 3 Seconds General Appearance: No Apparent Distress, Obese Respiratory: No Respiratory Distress, Rhonci Cardiovascular: Regular Rate, Rhythm, No Edema Gastrointestinal: Normal Bowel Sounds, Soft Extremity: Normal Inspection, Non Tender, Pedal Edema Neurologic/Psychiatric: Other (sedated and lethargic but easily arousable) Skin: Normal Color, Warm/Dry Results/Procedures Lab Laboratory Tests 01/14/19 02:55 Patient resulted labs reviewed. Imaging: Reviewed Imaging Report Assessment/Plan Assessment and Plan Assess & Plan/Chief Complaint Community acquired pneumonia Strep pneumonia bacteremia Acute hypoxemic respiratory failure -Remains intubated and sedated, weaning vent today, possible extubation -Continue antibiotics -Add Eraxis -Pulmonology following AFib with RVR -Cardiology following -Not currently on any rate or rhythm control -Receiving therapeutic Lovenox Septic shock-resolved Dysphagia-further evaluation following extubation HTN-holding home meds PAULA-improving DVT Prophylaxis: already receiving therapeutic anticoagulation Critical Care Critically Ill Patient Diagnosis/Problems Diagnosis/Problems (1) CAP (community acquired pneumonia) Status: Acute (2) Acute hypoxemic respiratory failure Status: Acute (3) Bacteremia due to Streptococcus Status: Acute Clinical Quality Measures DVT/VTE Risk/Contraindication: Risk Factor Score Per Nursin RFS Level Per Nursing on Admit: 3=High MUKESH BARBOSA MD Jan 14, 2019 14:10 POS
[2019-01-14] MEDS: EPINEPHrine 1 MG INJECTION 2 MG in NS (IVPB) 248 ML IV SCH (14:15)
[2019-01-14] MEDS: DILTIAZEM IV FOR DRIP 125 MG in NS (IVPB) 100 ML IV SCH (15:18)
[2019-01-14] MEDS: cefTRIAXone FOR IV USE 2,000 MG in WATER (STERILE) FOR INJECTION 20 ML IV SCH (15:28)
[2019-01-14] MEDS ORDERED: LABETALOL HCL 20 MG/4 ML VIAL ONE (17:42)
[2019-01-14] MEDS ORDERED: amLODIPine 10 MG (NORVASC) TAB ONE (17:42)
[2019-01-14] MEDS ORDERED: amLODIPine 10 MG (NORVASC) TAB PO ONE (17:45)
[2019-01-14] MEDS ORDERED: LABETALOL HCL 20 MG/4 ML VIAL IV ONE (17:45)
[2019-01-14] MEDS: ACETAMINOPHEN 500 MG TAB (TYLENOL) PO SCH (21:20)
[2019-01-14] MEDS: QUEtiapine 100 MG (SEROquel) TAB IMMEDIATE RELEASE PO SCH (21:21)
[2019-01-14] MEDS: LABETALOL HCL 20 MG/4 ML VIAL IV PRN (22:10)
[2019-01-15] VITALS (23 sets, daily range): BP systolic 113–172; BP diastolic 55–100
[2019-01-15] MEDS: ENOXAPARIN 100 MG/1 ML (LOVENOX) SYR SC SCH ×2 (00:15→12:49)
[2019-01-15] MEDS: inSUlin ASPART (NovoLOG) 1 UNIT/0.01 ML (CHARGE PER UNIT) SQ SCH ×4 (00:16→18:26)
[2019-01-15] MEDS: LABETALOL HCL 20 MG/4 ML VIAL IV PRN (00:18)
[2019-01-15] MEDS: methylPREDNISolone 40 MG/ML (Solu-MEDROL) VIAL IV SCH ×4 (00:18→18:26)
[2019-01-15] MEDS: DILTIAZEM IV FOR DRIP 125 MG in NS (IVPB) 100 ML IV SCH ×2 (00:39→18:33)
--- NOTE | 2019-01-15 00:40 | NUR ---
pt convertd back to a-fib after a coughing fit, cardizem started at 15 mg/hr per dr santoyo in eic[facility]
[2019-01-15] MEDS: RT-ALBUTEROL/IPRATROPIUM 3 ML (DUONEB) VIAL INH SCH ×7 (02:08→20:19)
[2019-01-15 03:56] LABS: BASOPHILS % (AUTO) 0 % (0-10); EOSINOPHILS % (AUTO) 0 % (0-10); HEMATOCRIT 32 % (35-52); HEMOGLOBIN 10.2 G/DL (11.5-16.0); LYMPHOCYTES # (AUTO) 0.8 X 10^3 (1.0-4.0); LYMPHOCYTES % (AUTO) 6 % (12-44); MEAN CORPUSCULAR HEMOGLOBIN 26 PG (25-34); MEAN CORPUSCULAR HGB CONC 32 G/DL (32-36); MEAN CORPUSCULAR VOLUME 84 FL (80-99); MEAN PLATELET VOLUME 10.6 FL (7.4-10.4); MONOCYTES # (AUTO) 0.5 X 10^3 (0.0-1.0); MONOCYTES % (AUTO) 4 % (0-12); NEUTROPHILS # (AUTO) 11.9 X 10^3 (1.8-7.8); NEUTROPHILS % (AUTO) 90 % (42-75); PLATELET COUNT 176 10^3/uL (130-400); RED CELL DISTRIBUTION WIDTH 17.4 % (10.0-14.5); WHITE BLOOD COUNT 13.2 10^3/uL (4.3-11.0)
--- NOTE | 2019-01-15 04:14 | Pulmonary Progress Note ---
RIC PEARL A MEDICAL STUDENT 01/15/19 0414: Subjective Date Seen by a Provider: Jan 15, 2019 Time Seen by a Provider: 04:08 Subjective/Events-last exam Pt was extubated yesterday, alert and communicative today. Pt states she has not complaints at this time. Pt had coughing episode this morning and converted to Afib and was started on Cardizem by eICU. Pt satting 92% on 12L oxymask. Sepsis Event Evaluation Height, Weight, BMI Height: 5'5.00" Weight: 150lbs. 0.0oz. [id number]; 26.74 BMI Method:Stated Focused Exam Lactate Level 01/12/19 06:50: Lactic Acid Level 0.70 Exam Exam Vital Signs Date Time Temp Pulse Resp B/P (MAP) Pulse Ox O2 Delivery O2 Flow Rate FiO2 01/15/19 02:11 90 10.00 01/15/19 02:00 140 22 133/99 (110) 89 OxyMask 12.00 01/15/19 01:00 143 01/15/19 01:00 137 26 113/98 (103) 87 OxyMask 12.00 01/15/19 00:39 150 01/15/19 00:08 154 01/15/19 00:00 98 29 172/98 (122) 91 OxyMask 10.00 01/15/19 00:00 96 OxyMask 10.00 01/14/19 23:00 96 29 165/100 (121) OxyMask 10.00 01/14/19 22:13 93 OxyMask 10.00 01/14/19 22:00 100 31 161/97 (118) OxyMask 10.00 01/14/19 21:00 99 29 150/97 (114) OxyMask 10.00 01/14/19 20:30 OxyMask 10.00 01/14/19 20:00 95 23 185/107 (133) 91 Nasal Cannula 6.00 01/14/19 20:00 96 OxyMask 10.00 01/14/19 19:01 92 Nasal Cannula 4.00 01/14/19 19:00 95 21 162/115 (131) 90 Nasal Cannula 6.00 01/14/19 19:00 93 01/14/19 18:00 93 28 142/110 (121) 90 Nasal Cannula 2.00 01/14/19 17:00 101 38 176/106 (129) Nasal Cannula 2.00 01/14/19 16:00 36.5 01/14/19 16:00 102 38 170/99 (122) 91 Nasal Cannula 2.00 01/14/19 16:00 98 Mechanical Ventilator 2.00 01/14/19 15:00 103 30 164/114 (131) 91 Nasal Cannula 2.00 01/14/19 14:45 92 Nasal Cannula 2.00 01/14/19 14:00 105 32 177/70 (105) 91 Nasal Cannula 2.00 01/14/19 13:00 104 38 97/81 (86) Nasal Cannula 2.00 01/14/19 12:53 104 01/14/19 12:07 Nasal Cannula 2.00 01/14/19 12:00 36.5 01/14/19 12:00 98 Mechanical Ventilator 2.00 01/14/19 12:00 101 37 165/64 (97) 95 Mechanical Ventilator 45.00 01/14/19 11:50 Nasal Cannula 2.00 01/14/19 11:00 98 22 155/65 (95) 96 Mechanical Ventilator 45.00 01/14/19 10:36 96 15 97 45 01/14/19 10:06 92 25 96 45 01/14/19 10:00 92 24 144/62 (89) 97 Mechanical Ventilator 45.00 01/14/19 09:00 96 24 144/58 (86) 96 Mechanical Ventilator 45.00 01/14/19 08:00 100 15 157/60 (92) 94 Mechanical Ventilator 45.00 01/14/19 08:00 97 Mechanical Ventilator 45 01/14/19 07:00 94 21 137/53 (81) 93 Mechanical Ventilator 45.00 01/14/19 07:00 36.8 01/14/19 06:49 90 01/14/19 06:42 89 23 94 45 01/14/19 06:00 90 22 129/52 (77) 93 Mechanical Ventilator 45.00 01/14/19 05:00 95 22 128/50 (76) 92 Mechanical Ventilator 45.00 01/14/19 04:49 130/50 I & O 01/15/19 07:00 Intake Total 710 ml Output Total 5050 ml Balance -4340 ml Height & Weight Height: 5'5.00" Weight: 150lbs. 0.0oz. [id number]; 26.74 BMI Method:Stated General Appearance: No Apparent Distress, Obese HEENT: PERRL/EOMI Neck: Normal Inspection, Supple Respiratory: Lungs Clear, No Respiratory Distress Cardiovascular: No Edema, Irregularly Irregular, Tachycardia Capillary Refill: Less Than 3 Seconds Gastrointestinal: soft, no organomegaly, no pulsatile mass Extremity: Normal Inspection, Non Tender, No Pedal Edema Neurologic/Psychiatric: Alert, Oriented x3, Other Skin: Normal Color, Warm/Dry Lymphatic: No Adenopathy Results Lab Laboratory Tests 01/14/19 02:55 01/15/19 03:25 Assessment/Plan Assessment/Plan Acute Respiratory failure with PNA -Rocephin - improving LLL PNA -pt extubated yesterday -satting 92% on 12L oxy mask Leukocytosis -secondary to solumedrol Nonanion gap hyperchloremic metabolic acidosis -IVF 1/2 NS to 30cc/hr Strep bacteremia -Rocephin Afib RVR -Cardiology following -pt on cardizem Hypotension - resolved Anemia -Monitor -Protonix ARMANDO ISABEL DO 01/15/19 0443: Subjective Time Seen by a Provider: 04:36 Subjective/Events-last exam pt was extubated yesterday. She is now requiring more oxygen via oxy mask. Pt is back in Afib RVR and on Cardizem gtt. Exam Exam General Appearance: Moderate Distress, Obese HEENT: PERRL/EOMI Neck: Normal Inspection, Supple Respiratory: Decreased Breath Sounds, Respiratory Distress Cardiovascular: Irregularly Irregular, Tachycardia Gastrointestinal: soft, no organomegaly, no pulsatile mass Extremity: Normal Inspection, Non Tender, No Pedal Edema Neurologic/Psychiatric: Alert, Oriented x3 Skin: Normal Color, Warm/Dry Lymphatic: No Adenopathy Assessment/Plan Assessment/Plan Acute Respiratory failure with PNA with staph epi -I am worried pt is going to have to be reintubated. I am going to start Zy vox. If pt is doing better on Saturday and not on Vent we can change to Vancomycin. -Will hold antidepressants secondary to possible interactions. -Pt is aspiration risk. She started chocking on food yesterday when RN was feeding her. -Rocephin-- change to zyvox for now -pt extubated 01/14 -satting 92% on 12L oxy mask -Change to Vapotherm. and change SVNs to easyPAP. Incentive spirometry. -Up to chair BID. PT/OT. aspiration precautions. Leukocytosis -secondary to solumedrol Nonanion gap hyperchloremic metabolic acidosis -IVF 1/2 NS to 30cc/hr Strep bacteremia -Rocephin Afib RVR -Cardiology following -pt on cardizem gtt -Start PO Lopressor Hypotension - resolved Anemia -Monitor -Protonix Supervisory-Addendum Brief Verification & Attestation Participated in pt care: history Personally performed: exam Care discussed with: Medical Student Procedures: n/a Verification and Attestation of Medical Student E/M Service A medical student performed and documented this service in my presence. I reviewed and verified all information documented by the medical student and made modifications to such information, when appropriate. I personally performed the physical exam and medical decision making. Armando Isabel, Jan 15, 2019,05:09 RIC PEARL MEDICAL STUDENT Jan 15, 2019 04:14 ARMANDO ROD DO Jan 15, 2019 04:43 POS
[2019-01-15 04:20] LABS: BUN/CREATININE RATIO 20; CALCIUM 7.9 MG/DL (8.5-10.1); CARBON DIOXIDE 23 MMOL/L (21-32); CHLORIDE 109 MMOL/L (98-107); CREATININE SERUM 0.65 MG/DL (0.60-1.30); GFR ESTIMATED > 60; GLUCOSE 164 MG/DL (70-105); MAGNESIUM 1.6 MG/DL (1.6-2.4); POTASSIUM 4.1 MMOL/L (3.6-5.0); SODIUM 142 MMOL/L (135-145)
[2019-01-15] MEDS: POTASSIUM CL 10MEQ/50ML IVPB 50 ML IV SCH (04:21)
[2019-01-15] MEDS: MAGNESIUM 1 GM/100 ML IVPB 100 ML IV SCH ×3 (04:22→04:35)
[2019-01-15] MEDS: KCL 20 MEQ TAB (K-DUR) PO SCH (04:22)
[2019-01-15] MEDS ORDERED: LINEZOLID IVPB 300 ML IV ONE (04:30)
[2019-01-15] MEDS ORDERED: BUMETANIDE 1 MG/4 ML (BUMEX) VIAL IV ONE (04:30)
[2019-01-15] MEDS ORDERED: BUMETANIDE 1 MG/4 ML (BUMEX) VIAL ONE (04:30)
[2019-01-15] MEDS: LINEZOLID IVPB 300 ML IV SCH ×2 (04:46→21:13)
--- NOTE | 2019-01-15 05:09 | NUR ---
pt converted to sr, cardizem decreased to 5 mg/hr
[2019-01-15] MEDS: ANIDULAFUNGIN INJECTION 100 MG in NS (IVPB) 100 ML IV SCH (08:07)
[2019-01-15] MEDS: amLODIPine 10 MG (NORVASC) TAB PO SCH (08:07)
[2019-01-15] MEDS: PANTOPRAZOLE 40 MG (PROTONIX) VIAL IV SCH ×2 (08:07→21:10)
[2019-01-15] MEDS: meTOprolol TARTRATE 50 MG (LOPRESSOR) TAB PO SCH ×2 (08:07→21:11)
[2019-01-15] MEDS: ASPIRIN E.C. 81 MG (ECOTRIN) TAB PO SCH (08:07)
[2019-01-15] MEDS: ARTIFICIAL TEARS OINT (LACRI-LUBE) 3.5 GM TUBE OU SCH ×2 (08:08→21:11)
--- NOTE | 2019-01-15 08:34 | Progress Note - Cardiology ---
Cardiology SOAP Progress Note Subjective: Does not report cp or palp or syncope Notes improvement of shortness of breath compared to time of admission Objective: I&O/Vital Signs 01/14/19 01/14/19 01/14/19 01/14/19 21:00 22:00 22:13 23:00 Pulse 99 100 96 Resp 29 31 29 B/P (MAP) 150/97 (114) 161/97 (118) 165/100 (121) Pulse Ox 93 O2 Delivery OxyMask OxyMask OxyMask OxyMask O2 Flow Rate 10.00 10.00 10.00 10.00 01/15/19 01/15/19 01/15/19 01/15/19 00:00 00:00 00:08 00:39 Pulse 98 154 150 Resp 29 B/P (MAP) 172/98 (122) Pulse Ox 96 91 O2 Delivery OxyMask OxyMask O2 Flow Rate 10.00 10.00 01/15/19 01/15/19 01/15/19 01/15/19 01:00 01:00 02:00 02:11 Pulse 137 143 140 Resp 26 22 B/P (MAP) 113/98 (103) 133/99 (110) Pulse Ox 87 89 90 O2 Delivery OxyMask OxyMask O2 Flow Rate 12.00 12.00 10.00 01/15/19 01/15/19 01/15/19 01/15/19 03:00 04:00 04:00 04:49 Pulse 138 137 133 Resp 23 26 B/P (MAP) 138/96 (110) 147/91 (109) Pulse Ox 89 96 90 O2 Delivery OxyMask OxyMask OxyMask O2 Flow Rate 12.00 10.00 12.00 01/15/19 01/15/19 01/15/19 01/15/19 05:00 05:32 05:41 06:00 Pulse 92 93 Resp 28 19 B/P (MAP) 151/91 (111) 165/99 (121) Pulse Ox 93 96 O2 Delivery OxyMask Vapotherm Vapotherm Vapotherm O2 Flow Rate 12.00 35.00 35.00 35.00 75.00 65.00 65.00 01/15/19 06:18 Pulse Ox 95 O2 Delivery Vapotherm O2 Flow Rate 35.00 FiO2 65 01/15/19 00:00 Intake Total 710 ml Output Total 2550 ml Balance -1840 ml Weight (Pounds): 150 Weight (Ounces): 0.0 Weight (Calculated Kilograms): 68.367983 Constitutional: well-developed, well-nourished, other (on mech vent) Respiratory: accessory muscle use, other (diminished air entry at both bases; diminished air entry in the L mid zone; scattered coarse rales and rhonchi) Cardiovascular: irregularly irregular, S1 and S2, systolic murmur (soft YI at card base) Gastrointestional: No tender; soft; No guarding, No rebound; audible bowel sounds Extremities: No clubbing, No cyanosis, No significant edema Neurologic/Psychiatric: oriented x 3, other (coarse, involuntary movements of the face and neck; moves all limbs equally) Skin: normal color, warm/dry; No rash on exposed areas, No ulcerations on exposed areas Results/Procedures: Labs Laboratory Tests 01/14/19 11:18: Blood Gas Puncture Site LEFT ART LINE, Blood Gas Patient Temperature 36.5, Arterial Blood pH 7.40, Arterial Blood Partial Pressure CO2 37, Arterial Blood Partial Pressure O2 94H, Arterial Blood HCO3 23, Arterial Blood Total CO2 23.6, Arterial Blood Oxygen Saturation 98, Arterial Blood Base Excess -1.7, Filippo Test N/A, Blood Gas Ventilator Setting YES, Blood Gas Inspired Oxygen 45 01/14/19 12:02: Glucometer 212H 01/14/19 16:16: Glucometer 230H 01/15/19 00:15: Glucometer 135H 01/15/19 03:25: White Blood Count 13.2H, Red Blood Count 3.86L, Hemoglobin 10.2#L, Hematocrit 32L, Mean Corpuscular Volume 84, Mean Corpuscular Hemoglobin 26, Mean Corpuscular Hemoglobin Concent 32, Red Cell Distribution Width 17.4H, Platelet Count 176, Mean Platelet Volume 10.6H, Neutrophils (%) (Auto) 90H, Lymphocytes (%) (Auto) 6L, Monocytes (%) (Auto) 4, Eosinophils (%) (Auto) 0, Basophils (%) (Auto) 0, Neutrophils # (Auto) 11.9H, Lymphocytes # (Auto) 0.8L, Monocytes # (Auto) 0.5, Eosinophils # (Auto) 0.0, Basophils # (Auto) 0.0, Sodium Level 142, Potassium Level 4.1, Chloride Level 109H, Carbon Dioxide Level 23, Anion Gap 10, Blood Urea Nitrogen 13, Creatinine 0.65, Estimat Glomerular Filtration Rate > 60, BUN/Creatinine Ratio 20, Glucose Level 164H, Calcium Level 7.9L, Phosphorus Level 3.0, Magnesium Level 1.6 Microbiology 01/10/19 Blood Culture - Final, Complete Streptococcus pneumoniae 01/11/19 Gram Stain - Final, Complete 01/11/19 Sputum Culture - Final, Complete Staphylococcus epidermidis 01/10/19 Urine Culture - Final, Complete Proteus mirabilis Laboratory Tests 01/14/19 02:55 01/15/19 03:25 A/P: Assessment: Type 1 acute respiratory failure due to aspiration pneumonia with sepsis Acute kidney injury (PAULA) 3, resolved PAF with RVR, currently NSR Peripheral arterial disease per seg pressures of 07/17/16 that showed TONG of 1.26 on th R and 0.78 on the Left (at the level of Left PT). 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 Harris H/o CVA. CT Head of 07/14/16: no acute changes, chronic small vessel disease, chronic lacunar infart in the R basal gaglia, chronic R cerebral hemisphere infarct Hypertension, by history Hyperlipidemia, primarily consisting of hypertriglyceridemia. This has been treated with a combination of Trilipix and Lovaza that the patient has tolerated well, followed by Dr Graves Borderline diabetes mellitus, maturity onset, being followed by Dr. Graves Tardive dyskinesia Echo of 01/11/19: mild conc LVH, LVEF 60-65%, mild MR, RVSP 35 mmHg MPI of 07/01/18: No ischemia or infarction, LVEF 73% Psychologic diathesis, including anxiety/depression, currently controlled. Mild bilat carotid arterial disease per September 2016 Plan: * Continue current regimen * Monitor labs Clinical Quality Measures Type of Care: Type of Care: Pallative Care BETH AKINS MD FACP FAC CCDS Jan 15, 2019 08:34 POS
--- NOTE | 2019-01-15 08:36 | Diagnostic Imaging Report ---
INDICATION: Shortness of breath Portable chest 3:59 a.m. FINDINGS: There are bilateral perihilar infiltrates. This is more extensive on the left than on the right but similar in appearance to the previous day's exam. There is no appreciable effusion. There has been interval removal of the ET tube and NG tube. IMPRESSION: Bilateral perihilar infiltrates worse on the left than on the right. Dictated by: Dictated on workstation # [id number]
--- NOTE | 2019-01-15 09:51 | Physical Therapy Evaluation ---
PT Evaluation-General Medical Diagnosis Admission Date Jan 10, 2019 at 11:50 Medical Diagnosis: Sepsis due to aspiration pneumonia Onset Date: Jan 10, 2019 Therapy Diagnosis Therapy Diagnosis: debility, weakness Height/Weight Height (Feet): 5 Height (Inches): 5.00 Weight (Pounds): 150 Weight (Ounces): 0.0 Precautions Precautions/Isolations: Fall Prevention, Standard Precautions Referral Physician: Maame Reason for Referral: Evaluation/Treatment Medical History Pertinent Medical History: DM, Dementia, HTN Current History EMS secondary to difficulty breathing Reviewed History: Yes Social History Home: lives in a "complex" Current Living Status: 3 caregivers Prior Prior Level of Function SCALE: Activities may be completed with or without assistive devices. 5-Vmjartbmrp-rdnardq completes the activity by him/herself with no assistance from a helper. 5-Set-up or Clean-up Assistance-helper sets up or cleans up; patient completes activity. [place] assists only prior to or following the activity. 4-Supervision or Touching Assistance-helper provides verbal cues and/or touching/steadying and/or contact guard assistance as patient completes activity. Assistance may be provided throughout the activity or intermittently. 3-Partial/Moderate Assistance-helper does LESS THAN HALF the effort. [place] lifts, holds or supports trunk or limbs, but provides less than half the effort. 2-Substantial/Maximal Assistance-helper does MORE THAN HALF the effort. [place] lifts or holds trunk or limbs and provides more than half the effort. 2-Lodeqqwmc-otmqil does ALL the effort. Patient does none of the effort to complete the activity. Or, the assistance of 2 or more helpers is required for the patient to complete the activity. If activity was not attempted, code reason: 7-Patient Refused. 9-Not Applicable-not attempted and the patient did not perform the activity before the current illness, exacerbation or injury. 10-Not Attempted due to Environmental Limitations-(lack of equipment, weather restraints, etc.). 88-Not Attempted due to Medical Conditions or Safety Concerns. Bed Mobility: 4 Transfers (B,C,W/C): 4 Gait: 4 PT Evaluation-Current Subjective Patient agrees to PT and would like to sit up in chair. Pain Numeric Pain Scale: 0-No Pain Location: No Pain Reported Objective Patient Orientation: Normal For Age Problem Solving: Fair Attachments: Oxygen, Alas Catheter, IV ROM/Strength ROM Lower Extremities WFL Strength Lower Extremities Grossly 3/5 Integumentary/Posture Integumentary See nursing notes Bowel Incontinence: Yes Bladder Incontinence: Yes Posture cervical kyphosis Neuromuscular (Tone, Coordination, Reflexes) Grossly intact Sensory Vision: Wears Glasses (L prosthetic eye) Hearing: Functional Hand Dominance: Right Transfers Roll Left to Right (QC): 2 Lying to Sitting/Side of Bed(Q: 2 Sit to Stand (QC): 2 Chair/Zbs-yv-Cnzhv Xfer(QC): 2 Balance Sitting Static: Poor Sitting Dynamic: Poor Standing Static: Poor Standing Dynamic: Poor Assessment/Needs Patient able to assist with bed mobility, but required maximum assistance to transfer from supine to EOB. Once sitting, patient was unable to maintain seated balance independently. Patient required max assist to stand and transfer to chair. Patient seated in chair with nursing notified that assistance was required for eating at conclusion of treatment. Rehab Potential: Fair PT Half-Way Goals Highway Maintenance Worker Goals PT Highway Maintenance Worker Goals Time Frame: Jan 23, 2019 Sit to Lying (QC): 4 Lying-Sitting on Side/Bed(QC): 4 Sit to Stand (QC): 4 Roll Left to Right (QC): 4 Chair/Frr-ka-Jnwzb Xfer(QC): 4 Car Transfer (QC): 4 Does the Patient Walk: No and Walking Goal IS indicated Distance: 150' Walk 10 feet (QC): 4 Walk 10ft-Uneven Surface(QC): 4 Walk 50ft with 2 Turns (QC): 4 Walk 150 ft (QC): 4 Gait Assistive Device: Walker 4 Wheeled, FWW PT Plan Problem List Problem List: Activity Tolerance, Functional Strength, Safety, Balance, Gait, Transfer, Bed Mobility Treatment/Plan Treatment Plan: Continue Plan of Care Treatment Plan: Bed Mobility, Education, Functional Activity Sona, Functional Strength, Gait, Safety, Therapeutic Exercise, Transfers Treatment Duration: Jan 23, 2019 Frequency: 6 times per week Estimated Hrs Per Day: .25 hour per day Patient and/or Family Agrees t: Yes Time/GCodes Time In: 843 Time Out: 901 Total Billed Treatment Time: 18 Total Billed Treatment 1 visit EVM 18min CHRIS BRAUN PT Jan 15, 2019 09:51 POS
[2019-01-15] MEDS: DEXMEDETOMIDINE INJECTION 1,000 MCG in NS (IVPB) 240 ML IV SCH (12:00)
--- NOTE | 2019-01-15 12:18 | Progress Note - Hospitalist ---
Subjective HPI/CC On Admission Date Seen by Provider: Jan 15, 2019 Time Seen by Provider: 09:30 dyspnea Subjective/Events-last exam She is extubated this morning. She is sitting in her chair eating breakfast. She denies fevers and chills. She denies dyspnea. She reports cough. She denies abdominal pain. She says she had an episode of vomiting this morning. Objective Exam Vital Signs Vital Signs Date Time Temp Pulse Resp B/P (MAP) Pulse Ox O2 Delivery O2 Flow Rate FiO2 01/15/19 12:00 35.9 01/15/19 12:00 98 Vapotherm 35.00 45 01/15/19 11:00 82 144/86 (105) 01/15/19 10:00 16 Capillary Refill : Less Than 3 Seconds General Appearance: No Apparent Distress, WD/WN, Obese HEENT: PERRL/EOMI, Pharynx Normal Neck: Normal Inspection, Supple Respiratory: Lungs Clear, Normal Breath Sounds, No Respiratory Distress Cardiovascular: Regular Rate, Rhythm, No Edema, No Murmur Gastrointestinal: Normal Bowel Sounds, Non Tender, Soft Extremity: Normal Inspection, Non Tender, Pedal Edema Neurologic/Psychiatric: Alert, Normal Mood/Affect Skin: Normal Color, Warm/Dry Lymphatic: No Adenopathy Results/Procedures Lab Laboratory Tests 01/15/19 03:25 Patient resulted labs reviewed. Imaging: Reviewed Imaging Report Assessment/Plan Assessment and Plan Assess & Plan/Chief Complaint Community acquired pneumonia Strep pneumonia bacteremia Acute hypoxemic respiratory failure -Remains intubated and sedated, weaning vent today, possible extubation -Continue antibiotics, Zyvox added -Pulmonology following AFib with RVR -Cardiology following -Continue diltiazem -Receiving therapeutic Lovenox Dysphagia -Evaluated by speech -Dysphagia diet Septic shock-resolved HTN-holding home meds PAULA-resolved DVT Prophylaxis: already receiving therapeutic anticoagulation Critical Care Critically Ill Patient Diagnosis/Problems Diagnosis/Problems (1) CAP (community acquired pneumonia) Status: Acute (2) Acute hypoxemic respiratory failure Status: Acute (3) Bacteremia due to Streptococcus Status: Acute Clinical Quality Measures DVT/VTE Risk/Contraindication: Risk Factor Score Per Nursin RFS Level Per Nursing on Admit: 3=High MUKESH BARBOSA MD Jan 15, 2019 12:18 POS
[2019-01-15] MEDS ORDERED: amLODIPine 10 MG (NORVASC) TAB PO NR (12:30)
[2019-01-15] MEDS ORDERED: LOSARTAN 100 MG (COZAAR) TABLET PO NR (12:30)
[2019-01-15] MEDS: EPINEPHrine 1 MG INJECTION 2 MG in NS (IVPB) 248 ML IV SCH (14:26)
--- NOTE | 2019-01-15 14:28 | Occupational Therapy Eval ---
OT Evaluation-General/PLF Medical Diagnosis Admission Date Jan 10, 2019 at 11:50 Medical Diagnosis: Sepsis due to aspiration pneumonia Onset Date: Jan 10, 2019 Therapy Diagnosis Therapy Diagnosis: Weakness, Decreased ADL skills Height/Weight Height (Feet): 5 Height (Inches): 5.00 Weight (Pounds): 150 Weight (Ounces): 0.0 Precautions Precautions/Isolations: Fall Prevention, Standard Precautions Safety Interventions: Reorient-Attempt, Reorient-PRN Weight Bear Status Weight Bearing Restriction: Weight Bearing/Tolerated Referral Physician: Maame Referral Reason: Activity Tolerance, Self Care, Evaluation/Treatment, Strengthening/ROM Medical History Pertinent Medical History: Arthritis, CVA, DM, Dementia, HTN Additional Medical History High cholesterol, valvular heart disease, Diverticulosis, Anxiety, depression Current History Pt. aspirated on a grape. Began to have worsening swallow. Became hypoxic. Pt. on ventilator but extubated 01-14-19. Reviewed History: Yes Social History Home: lives in a "complex" Current Living Status: Entry Into Home: Level Entry Pt. states that she lives alone but has caregiver assist. Is unable to state how much they are with her. ADL-Prior Level of Function SCALE: Activities may be completed with or without assistive devices. 3-Ocxrdowyco-uttnhyx completes the activity by him/herself with no assistance from a helper. 5-Set-up or Clean-up Assistance-helper sets up or cleans up; patient completes activity. [place] assists only prior to or following the activity. 4-Supervision or Touching Assistance-helper provides verbal cues and/or touching/steadying and/or contact guard assistance as patient completes activity. Assistance may be provided throughout the activity or intermittently. 3-Partial/Moderate Assistance-helper does LESS THAN HALF the effort. [place] lifts, holds or supports trunk or limbs, but provides less than half the effort. 2-Substantial/Maximal Assistance-helper does MORE THAN HALF the effort. [place] lifts or holds trunk or limbs and provides more than half the effort. 8-Gtpybaaew-fsvwvo does ALL the effort. Patient does none of the effort to c omplete the activity. Or, the assistance of 2 or more helpers is required for the patient to complete the activity. If activity was not attempted, code reason: 7-Patient Refused. 9-Not Applicable-not attempted and the patient did not perform the activity before the current illness, exacerbation or injury. 10-Not Attempted due to Environmental Limitations-(lack of equipment, weather restraints, etc.). 88-Not Attempted due to Medical Conditions or Safety Concerns. ADL PLOF Comments Pt. verbalizes that she is independent with bathing and dressing at home. Verbalizes caregiver support but is unable to state the level with which they assist. Self Care: Unknown Functional Cognition: Needed Some Help DME/Equipment: Bath Chair, Shower DME/Equipment Comments Pt. states that she has a cane and a walker. Drive Self: No OT Current Status Subjective Pt. does not report pain. States that she is "feeling better." Appearance Pt. in bed. Nursing reports that pt. was up in chair, but was just assisted back to bed. Mental Status/Objective Patient Orientation: Unable to Assess Attachments: Alas Catheter, IV, Oxygen, Telemetry Current Hand Dominance: Right Upper Extremity ROM Very limited. Pt. is able to "wiggle fingers" and make weak fist on bilateral hands, but is unable to do more than that. Upper Extremity Coordination Impaired Edema: Pt. very edematous in bilateral UE. ADL-Treatment Eating (QC): 1 (Nursing reports that pt. required full assistance to eat.) Toileting Hygiene (QC): 1 (Pt. had been fully incontinent of BM before OT entered room.) Other Treatments Per nursing, pt. had returned to bed with max assist x 2-3 people. At eval, pt. unable to actively flex shoulders or position self in bed. OT provided warm wash cloth and pt. able to slightly grasp. OT brought right UE up to face and pt. attempted to wash face. OT washed more thoroughly for pt. Pt. agrees to have her hair washed with shampoo cap, and so OT did this. Pt. reports that this "feels good." OT placed brush in right hand and again, brought right UE up so that pt. could attempt to brush hair. Pt. able to "swipe" front of hair, but unable to brush thoroughly. OT did this for her. Pt. issued hand therapy sponge and encouraged to squeeze sponge, as well as wiggle fingers as much as she could for increased strength and decreased swelling. Pt. verbalizes understanding. OT placed pillows under bilateral UE for better positioning and elevation. All needs met in room. Education OT Patient Education: Correct positioning, Exercise program, Modified ADL techniques, Progress toward Goal/Update tx plan, Purpose of tx/functional activities, Reviewed precautions, Rehab process Teaching Recipient: Patient Teaching Methods: Demonstration, Discussion Response to Teaching: Verbalize Understanding, Unable to Return Demonstration OT Short Term Goals Short Term Goals Time Frame: Jan 29, 2019 Eating(FIM): 3 Grooming(FIM): 2 Toileting(FIM): 2 Transfers (B,C,W/C) (FIM): 3 Toilet/Commode Transfer(FIM): 3 Additional Short Term Goals: 1-Demonstrate ADL Tasks, 2-Verbalize Understanding, 3-ImproveStrength/Sona 1=Demonstrate adherence to instructed precautions during ADL tasks. 2=Patient will verbalize/demonstrate understanding of assistive devices/modifications for ADL. 3=Patient will improve strength/tolerance for activity to enable patient to perform ADL's. OT Mcfp Goals Leather Finisher Goals Time Frame: Feb 12, 2019 Eating (QC): 4 Oral Hygiene (QC): 4 Upper Body Dressing (QC): 3 Lower Body Dressing (QC): 3 On/Off Footwear (QC): 3 Toileting Hygiene (QC): 3 Toilet/Commode Transfer (QC): 4 Additional Goals: 1-Demonstrate ADL Tasks, 2-Verbalize Understanding, 3-ImproveStrength/Sona 1=Demonstrate adherence to instructed precautions during ADL tasks. 2=Patient will verbalize/demonstrate understanding of assistive devices/modifications for ADL. 3=Patient will improve strength/tolerance for activity to enable patient to perform ADL's. OT Education/Plan Problem List/Assessment Assessment: Decreased Activ Tolerance, Decreased UE Strength, Dependent Transfers, Edema, Impaired Bed Mobility, Impaired Cognition, Impaired Coordination, Impaired Funct Balance, Impaired I ADL's, Impaired Self-Care Skills, Restricted Funct UE ROM Discharge Recommendations Plan/Recommendations: Continue POC Therapy Discharge Recommendati: 24 Hour Supervision, Post Acute OT Treatment Plan/Plan of Care Treatment,Training & Education: Yes Patient would benefit from OT for education, treatment and training to promote independence in ADL's, mobility, safety and/or upper extremity function for ADL's. Plan of Care: ADL Retraining, Functional Mobility, UE Funct Exercise/Act Treatment Duration: Feb 12, 2019 Frequency: 5 times per week Estimated Hrs Per Day: .25 hour per day Agreement: Yes Rehab Potential: Fair Time/GCodes Start Time: 11:05 Stop Time: 11:20 Total Time Billed (hr/min): 15 Billed Treatment Time 1, GUY ESPOSITO OT Jan 15, 2019 14:28 POS
--- NOTE | 2019-01-15 14:41 | NUR ---
"RD ASSESSMENT PMHx: hyperchol; HTN; diverticulosis; DM; CA(skin) PT INTERACTION: Pt was awake and pleasant during nutrition assessment. Note pt is hard of hearing, per chart review. Pt states current appetite is alright, and has been for some time. Ntoe pt avg PO intake is <50% x2meal, per chart review. Pt states trying to follow a low-sodium diet at home, and pt currently has no teeth. RD unsure if pt has dentures as there were none in sight during assessment. Pt states recent episodes of nausea, but did not say if there were episodes of emesis along with the nausea. Pt states no recent issues with constipation or diarrhea. Note last BM was 01/14 and pt not currently on bowel regimen at this time, per chart review. Pt states recent weight changes, reporting that her weight was 135#. Pt did not give a timeframe of when she weighed herself last. Note current weight of 187#, and RD unable to determine recent wt hx, per chart review. ABNORMAL NUTRITION-RELATED LAB VALUES: Cl 109 (H); glu 164 (H); Ca 7.9 (L) Est. kcal needs: 1332-5455 kcal (15-20 kcal/kg) Est. Pro needs: 85-102 g Pro (1.0-1.2 g Pro/kg) PES STATEMENT: Inadequate oral intake (NI-2.1) related to loss of appetite | nausea as evidenced by pt interview | avg PO intake <50% x2meal INTERVENTION: Continue with current diet order of DYS2 Mechanically Altered diet. Add Glucerna (vary) to meals BID. Provides 220 kcal and 10 g Pro per serving. MONITOR/EVALUATE: PO Intake; Plan of Care; Hydration Status; Weight Status; Lab Values Kelly Rojas, MS, RD, LD"
[2019-01-15] MEDS: cefTRIAXone FOR IV USE 2,000 MG in WATER (STERILE) FOR INJECTION 20 ML IV SCH (15:15)
[2019-01-15] MEDS ORDERED: inSUlin ASPART (NovoLOG) 1 UNIT/0.01 ML (CHARGE PER UNIT) SQ SCH (21:00)
[2019-01-15] MEDS: ACETAMINOPHEN 500 MG TAB (TYLENOL) PO SCH (21:11)
[2019-01-16] VITALS (20 sets, daily range): BP systolic 104–173; BP diastolic 58–110
[2019-01-16] MEDS: methylPREDNISolone 40 MG/ML (Solu-MEDROL) VIAL IV SCH ×4 (00:22→21:45)
[2019-01-16] MEDS: ENOXAPARIN 100 MG/1 ML (LOVENOX) SYR SC SCH (00:22)
[2019-01-16] MEDS: inSUlin ASPART (NovoLOG) 1 UNIT/0.01 ML (CHARGE PER UNIT) SQ SCH ×5 (00:25→23:23)
[2019-01-16] MEDS: D5 1/2 NS W/KCL 20 MEQ/L 1,000 ML IV SCH (00:40)
[2019-01-16] MEDS: RT-ALBUTEROL/IPRATROPIUM 3 ML (DUONEB) VIAL INH SCH ×6 (01:55→22:42)
[2019-01-16 03:28] LABS: BASOPHILS # (AUTO) 0.1 10^3/uL (0.0-0.1); BASOPHILS % (AUTO) 0 % (0-10); EOSINOPHILS % (AUTO) 0 % (0-10); HEMATOCRIT 38 % (35-52); HEMOGLOBIN 12.2 G/DL (11.5-16.0); LYMPHOCYTES # (AUTO) 0.9 X 10^3 (1.0-4.0); LYMPHOCYTES % (AUTO) 5 % (12-44); MEAN CORPUSCULAR HEMOGLOBIN 27 PG (25-34); MEAN CORPUSCULAR HGB CONC 32 G/DL (32-36); MEAN CORPUSCULAR VOLUME 83 FL (80-99); MEAN PLATELET VOLUME 10.5 FL (7.4-10.4); MONOCYTES # (AUTO) 0.4 X 10^3 (0.0-1.0); MONOCYTES % (AUTO) 2 % (0-12); NEUTROPHILS # (AUTO) 15.2 X 10^3 (1.8-7.8); NEUTROPHILS % (AUTO) 92 % (42-75); PLATELET COUNT 194 10^3/uL (130-400); RED CELL DISTRIBUTION WIDTH 16.4 % (10.0-14.5); WHITE BLOOD COUNT 16.6 10^3/uL (4.3-11.0)
--- NOTE | 2019-01-16 03:36 | Pulmonary Progress Note ---
RIC PEARL A MEDICAL STUDENT 01/16/19 0336: Subjective Date Seen by a Provider: Jan 16, 2019 Time Seen by a Provider: 03:32 Subjective/Events-last exam Pt states she is feeling well, having a productive cough. States she was able to get up and sat in a chair yesterday for a while. Pt currently still on Cardizem drip at 5. Pt has not had another episode of Afib since yesterday and has had no other acute events over night. Pt currently satting 95% on 25L vapotherm Sepsis Event Evaluation Height, Weight, BMI Height: 5'5.00" Weight: 150lbs. 0.0oz. 68.485136pf; 26.74 BMI Method:Stated Exam Exam Vital Signs Date Time Temp Pulse Resp B/P (MAP) Pulse Ox O2 Delivery O2 Flow Rate FiO2 01/16/19 02:30 76 23 159/98 (118) 95 Vapotherm 25.00 40.00 01/16/19 01:56 95 Vapotherm 25.00 40 01/16/19 01:00 73 20 158/95 (116) 96 Vapotherm 25.00 40.00 01/16/19 00:00 65 18 153/83 (106) 91 Vapotherm 25.00 40.00 01/16/19 00:00 98 Vapotherm 25.00 40 01/16/19 00:00 36.0 01/15/19 23:00 67 17 150/79 (102) 92 Vapotherm 25.00 40.00 01/15/19 22:00 84 22 160/87 (111) 92 Vapotherm 25.00 40.00 01/15/19 21:00 84 15 161/88 (112) 94 Vapotherm 25.00 40.00 01/15/19 20:19 97 Vapotherm 25.00 40 01/15/19 20:00 36.0 01/15/19 20:00 87 18 150/85 (106) 96 Vapotherm 25.00 40.00 01/15/19 20:00 98 Vapotherm 25.00 40 01/15/19 19:15 85 19 160/89 (112) 96 Vapotherm 25.00 40.00 01/15/19 19:00 87 01/15/19 19:00 87 18 90 Vapotherm 25.00 40.00 01/15/19 18:33 88 155/88 01/15/19 18:00 87 16 155/100 (118) 91 Vapotherm 25.00 40.00 01/15/19 17:00 86 17 147/97 (114) 93 Vapotherm 25.00 40.00 01/15/19 16:00 36.4 01/15/19 16:00 84 20 94 Vapotherm 25.00 40.00 01/15/19 16:00 98 Vapotherm 35.00 45 01/15/19 15:00 81 23 138/55 (82) 92 Vapotherm 25.00 40.00 01/15/19 14:00 85 18 141/98 (112) 93 Vapotherm 25.00 40.00 01/15/19 13:31 Vapotherm 25.00 40.00 01/15/19 13:29 95 Vapotherm 25.00 40 01/15/19 13:00 82 19 150/86 (107) 96 Vapotherm 35.00 65.00 01/15/19 13:00 83 01/15/19 12:00 35.9 01/15/19 12:00 98 Vapotherm 35.00 45 01/15/19 12:00 82 19 148/84 (105) 95 Vapotherm 35.00 65.00 01/15/19 11:00 82 144/86 (105) 95 Vapotherm 35.00 65.00 01/15/19 10:00 80 16 156/92 (113) 97 Vapotherm 35.00 65.00 01/15/19 09:26 95 Vapotherm 35.00 45 01/15/19 09:00 93 19 153/93 (113) 98 Vapotherm 35.00 65.00 01/15/19 08:00 95 21 170/98 (122) 96 Vapotherm 35.00 65.00 01/15/19 08:00 96 Vapotherm 35.00 65 01/15/19 07:00 97 01/15/19 07:00 94 19 169/100 (123) 95 Vapotherm 35.00 65.00 01/15/19 06:18 95 Vapotherm 35.00 65 01/15/19 06:00 93 19 165/99 (121) 96 Vapotherm 35.00 65.00 01/15/19 05:41 Vapotherm 35.00 65.00 01/15/19 05:32 Vapotherm 35.00 75.00 01/15/19 05:00 92 28 151/91 (111) 93 OxyMask 12.00 01/15/19 04:49 133 01/15/19 04:00 137 26 147/91 (109) 90 OxyMask 12.00 01/15/19 04:00 96 OxyMask 10.00 I & O 01/16/19 07:00 Intake Total 1720 ml Output Total 5075 ml Balance -3355 ml Height & Weight Height: 5'5.00" Weight: 150lbs. 0.0oz. 68.351023mx; 26.74 BMI Method:Stated General Appearance: No Apparent Distress, WD/WN, Obese HEENT: PERRL/EOMI, Pharynx Normal Neck: Normal Inspection, Supple Respiratory: No Respiratory Distress, Decreased Breath Sounds Cardiovascular: Regular Rate, Rhythm, No Edema, No Murmur Capillary Refill: Less Than 3 Seconds Gastrointestinal: soft, no organomegaly, no pulsatile mass Extremity: Normal Inspection, Non Tender, Pedal Edema (trace) Neurologic/Psychiatric: Alert, Normal Mood/Affect Skin: Normal Color, Warm/Dry Lymphatic: No Adenopathy Results Lab Laboratory Tests 01/15/19 03:25 01/16/19 03:10 Assessment/Plan Assessment/Plan Acute Respiratory failure with PNA with staph epi -I am worried pt is going to have to be reintubated. Continue on Zyvox through . If pt is doing better on Saturday and not on Vent we can change to Vancomycin. -Will hold antidepressants secondary to possible interactions. -Pt is aspiration risk. She started chocking on food yesterday when RN was feeding her. -Zyvox changed from Rocephin yesterday (01/15) -pt extubated 01/14 -pt satting 95% on 25L vapotherm -Up to chair BID. PT/OT. aspiration precautions. Leukocytosis - worsening, up to 16.6 today -possibly secondary to solumedrol Nonanion gap hyperchloremic metabolic acidosis -resolved Strep bacteremia -Rocephin Afib RVR -Cardiology following -pt on cardizem gtt -Start PO Lopressor -pt has remained in sinus over night Hypotension - resolved Anemia -Monitor -Protonix In: 2089 Out: 7275 net: -5185 Lines: -D51/2NS -eraxis 86cc/hr -Linazolid 300cc/hr -rocephin 240cc/hr -cardizem 5cc/hr ARMANDO ISABEL DO 01/16/19 0509: Subjective Subjective/Events-last exam Pt appears to be doing better however still requiring highflow oxygen. Exam Exam General Appearance: WD/WN, Anxious, Mild Distress HEENT: PERRL/EOMI, Pharynx Normal Neck: Normal Inspection Respiratory: No Respiratory Distress, Decreased Breath Sounds Cardiovascular: Regular Rate, Rhythm, No Edema, No Murmur Capillary Refill: Less Than 3 Seconds Gastrointestinal: soft, no organomegaly, no pulsatile mass Extremity: Normal Inspection, Non Tender, Pedal Edema (trace) Neurologic/Psychiatric: Alert, Normal Mood/Affect Skin: Normal Color, Warm/Dry Lymphatic: No Adenopathy Assessment/Plan Assessment/Plan Acute Respiratory failure with PNA with staph epi -Pt is aspiration risk. -Zyvox changed from Rocephin (01/15) -Repeat BC -pt extubated 01/14 -Up to chair BID. PT/OT. aspiration precautions. Leukocytosis - worsening, up to 16.6 today -repeat BC -Decrease solumedrol to Q12 Nonanion gap hyperchloremic metabolic acidosis -resolved Strep bacteremia -Rocephin Afib -Cardiology following -pt on cardizem gtt currently -Lopressor Hypotension - resolved Anemia -Monitor -Protonix Supervisory-Addendum Brief Verification & Attestation Participated in pt care: history Personally performed: exam, history Care discussed with: Medical Student Procedures: n/a Verification and Attestation of Medical Student E/M Service A medical student performed and documented this service in my presence. I reviewed and verified all information documented by the medical student and made modifications to such information, when appropriate. I personally performed the physical exam and medical decision making. Armando Isabel, Jan 16, 2019,06:18 RIC PEARL MEDICAL STUDENT Jan 16, 2019 03:36 ARMANDO ROD DO Jan 16, 2019 05:09 POS
[2019-01-16 03:51] LABS: BUN/CREATININE RATIO 22; CALCIUM 8.3 MG/DL (8.5-10.1); CARBON DIOXIDE 27 MMOL/L (21-32); CHLORIDE 100 MMOL/L (98-107); CREATININE SERUM 0.68 MG/DL (0.60-1.30); GFR ESTIMATED > 60; GLUCOSE 270 MG/DL (70-105); MAGNESIUM 1.7 MG/DL (1.6-2.4); PHOSPHORUS 2.3 MG/DL (2.3-4.7); POTASSIUM 3.8 MMOL/L (3.6-5.0); SODIUM 139 MMOL/L (135-145)
[2019-01-16] MEDS: POTASSIUM CL 10MEQ/50ML IVPB 50 ML IV SCH (05:11)
[2019-01-16] MEDS: KCL 20 MEQ TAB (K-DUR) PO SCH (05:11)
[2019-01-16] MEDS: MAGNESIUM 1 GM/100 ML IVPB 100 ML IV SCH ×3 (05:11→06:49)
[2019-01-16] MEDS: metFORMIN 500 MG (GLUCOPHAGE) TAB PO SCH ×2 (07:09→18:31)
[2019-01-16] MEDS: LINAGLIPTIN (TRADJENTA) 5 MG TABLET PO SCH (07:09)
[2019-01-16 07:21] LABS: BILIRUBIN,URINE NEGATIVE (NEGATIVE); CLARITY,URINE CLEAR; COLOR,URINE YELLOW; GLUCOSE, URINE (UA) 2+ (NEGATIVE); KETONES,URINE NEGATIVE (NEGATIVE); LEUKOCYTE ESTERASE ,URINE NEGATIVE (NEGATIVE); NITRITE,URINE NEGATIVE (NEGATIVE); PH,URINE 6.5 (5-9); PROTEIN,URINE 1+ (NEGATIVE)
--- NOTE | 2019-01-16 07:34 | Diagnostic Imaging Report ---
INDICATION: Dyspnea. Comparison made with prior examination 01/15/2019. FINDINGS: The heart size is normal. There is venous congestion. There is left perihilar infiltrate. There is no pleural effusion or pneumothorax. Mediastinum is unremarkable. IMPRESSION: Left perihilar infiltrate suspect for pneumonia. Moderate central pulmonary venous congestion. Dictated by: Dictated on workstation # [id number]
[2019-01-16 07:35] LABS: BACTERIA,URINE TRACE /HPF; GRANULAR CASTS,URINE RARE /LPF; RBC,URINE >100 /HPF
[2019-01-16] MEDS: LOSARTAN 100 MG (COZAAR) TABLET PO SCH (07:59)
[2019-01-16] MEDS: LINEZOLID IVPB 300 ML IV SCH ×2 (08:00→21:45)
[2019-01-16] MEDS: PANTOPRAZOLE 40 MG (PROTONIX) VIAL IV SCH (08:00)
[2019-01-16] MEDS: amLODIPine 10 MG (NORVASC) TAB PO SCH (08:00)
[2019-01-16] MEDS: LORATADINE (CLARITIN) 10 MG TAB PO SCH (08:00)
[2019-01-16] MEDS: meTOprolol TARTRATE 50 MG (LOPRESSOR) TAB PO SCH ×2 (08:00→21:44)
[2019-01-16] MEDS: ASPIRIN E.C. 81 MG (ECOTRIN) TAB PO SCH (08:00)
[2019-01-16] MEDS ORDERED: NON-FORMULARY MEDICATION 1 EA EA (Sitagliptin Phosphate (Januvia) 50 MG) PO SCH (09:00)
[2019-01-16] MEDS ORDERED: amLODIPine 10 MG (NORVASC) TAB PO SCH (09:00)
[2019-01-16] MEDS ORDERED: ATENOLOL 50 MG (TENORMIN) TAB PO SCH (09:00)
[2019-01-16] MEDS: ANIDULAFUNGIN INJECTION 100 MG in NS (IVPB) 100 ML IV SCH (09:27)
--- NOTE | 2019-01-16 09:27 | Physical Therapy Daily Note ---
PT Daily Note-Current Subjective Patient in bed and incontinent BM. RN assist with cleansing patient during treatment session. Mental Status Patient Orientation: Person, Time, Situation Attachments: Oxygen (vapotherm), Alas Catheter, IV Transfers SCALE: Activities may be completed with or without assistive devices. 2-Klxygniygz-yoagbfx completes the activity by him/herself with no assistance from a helper. 5-Set-up or Clean-up Assistance-helper sets up or cleans up; patient completes activity. [place] assists only prior to or following the activity. 4-Supervision or Touching Assistance-helper provides verbal cues and/or touching/steadying and/or contact guard assistance as patient completes activity. Assistance may be provided throughout the activity or intermittently. 3-Partial/Moderate Assistance-helper does LESS THAN HALF the effort. [place] lifts, holds or supports trunk or limbs, but provides less than half the effort. 2-Substantial/Maximal Assistance-helper does MORE THAN HALF the effort. [place] lifts or holds trunk or limbs and provides more than half the effort. 4-Rypmawxik-aqcspr does ALL the effort. Patient does none of the effort to complete the activity. Or, the assistance of 2 or more helpers is required for the patient to complete the activity. If activity was not attempted, code reason: 7-Patient Refused. 9-Not Applicable-not attempted and the patient did not perform the activity before the current illness, exacerbation or injury. 10-Not Attempted due to Environmental Limitations-(lack of equipment, weather restraints, etc.). 88-Not Attempted due to Medical Conditions or Safety Concerns. Roll Left to Right (QC): 4 Sit to Lying (QC): 4 Sit to Stand (QC): 2 Chair/Ebx-xp-Pshlq Xfer(QC): 2 Bed to/from Chair: 2 performed sit to stand to 4WW max assist x 4 sets with standing to allow RN to cleanse after incontinence of BM Exercises Supine Ex: Ankle pumps, Quad Set, Heel Slides, Hip abd/add Supine Reps: 10 Seated Therapy Exercises: Ankle pumps, Long arc quads Seated Reps: 15 Standing: Sit to Stand Standing Reps: 4 Assessment Patient improving slowly with treatment. PT to increase activity as tolerated by patient. PT instructed RN to use gait belt with transfer return to bed due to patient LOF. PT Assisted Goals Assisted Goals PT Software Clerk Goals Time Frame: Jan 23, 2019 Sit to Lying (QC): 4 Lying-Sitting on Side/Bed(QC): 4 Sit to Stand (QC): 4 Roll Left to Right (QC): 4 Chair/Ckr-km-Hcybp Xfer(QC): 4 Car Transfer (QC): 4 Does the Patient Walk: No and Walking Goal IS indicated Distance: 150' Walk 10 feet (QC): 4 Walk 10ft-Uneven Surface(QC): 4 Walk 50ft with 2 Turns (QC): 4 Walk 150 ft (QC): 4 Gait Assistive Device: Walker 4 Wheeled, FWW PT Plan Treatment/Plan Treatment Plan: Continue Plan of Care Treatment Plan: Bed Mobility, Education, Functional Activity Sona, Functional Strength, Gait, Safety, Therapeutic Exercise, Transfers Treatment Duration: Jan 23, 2019 Frequency: 6 times per week Estimated Hrs Per Day: .25 hour per day Patient and/or Family Agrees t: Yes Time/GCodes Time In: 824 Time Out: 847 Total Billed Treatment Time: 23 Total Billed Treatment 1 visit EX x 2 23 min CHRIS BRAUN PT Jan 16, 2019 09:27 POS
--- NOTE | 2019-01-16 09:47 | Progress Note - Cardiology ---
Cardiology SOAP Progress Note Subjective: Sitting up in a recliner at the bedside. Frequent lose cough. Objective: I&O/Vital Signs 01/18/19 01/19/19 01/19/19 01/19/19 22:42 00:00 00:51 02:58 Temp 36.6 Pulse 63 59 Resp 22 B/P (MAP) 156/71 (99) Pulse Ox 100 94 100 O2 Delivery Nasal Cannula Nasal Cannula Nasal Cannula O2 Flow Rate 2.00 2.00 2.00 01/19/19 01/19/19 01/19/19 01/19/19 04:00 07:00 07:12 08:00 Temp 36.4 36.6 Pulse 63 59 64 Resp 20 16 B/P (MAP) 161/69 (99) 171/82 (111) Pulse Ox 95 93 93 O2 Delivery Nasal Cannula Nasal Cannula Nasal Cannula O2 Flow Rate 2.00 3.00 2.00 01/19/19 00:00 Intake Total 1540 ml Output Total 2950 ml Balance -1410 ml Weight (Pounds): 150 Weight (Ounces): 0.0 Weight (Calculated Kilograms): 68.503784 Constitutional: well-developed, well-nourished, other (on mech vent) Respiratory: accessory muscle use, other (diminished air entry at both bases; diminished air entry in the L mid zone; scattered coarse rales and rhonchi) Cardiovascular: regular rate-rhythm, S1 and S2, systolic murmur (soft YI at card base) Gastrointestional: No tender; soft; No guarding, No rebound; audible bowel sounds Extremities: No clubbing, No cyanosis, No significant edema Neurologic/Psychiatric: oriented x 3, other (coarse, involuntary movements of the face and neck; moves all limbs equally) Skin: normal color, warm/dry; No rash on exposed areas, No ulcerations on exposed areas Results/Procedures: Labs Laboratory Tests 01/18/19 11:41: Glucometer 275H 01/18/19 16:44: Glucometer 333H 01/18/19 20:38: Glucometer 245H 01/19/19 04:50: White Blood Count 12.8H, Red Blood Count 4.15L, Hemoglobin 11.4L, Hematocrit 34L , Mean Corpuscular Volume 83, Mean Corpuscular Hemoglobin 27, Mean Corpuscular Hemoglobin Concent 33, Red Cell Distribution Width 15.9H, Platelet Count 220, Mean Platelet Volume 10.5H, Neutrophils (%) (Auto) 87H, Lymphocytes (%) (Auto) 7L, Monocytes (%) (Auto) 5, Eosinophils (%) (Auto) 0, Basophils (%) (Auto) 0, Neutrophils # (Auto) 11.2H, Lymphocytes # (Auto) 0.9L, Monocytes # (Auto) 0.7, Eosinophils # (Auto) 0.0, Basophils # (Auto) 0.0, Sodium Level 136, Potassium Level 3.7, Chloride Level 96L, Carbon Dioxide Level 31, Anion Gap 9, Blood Urea Nitrogen 25H, Creatinine 0.72, Estimat Glomerular Filtration Rate > 60, BUN/Creatinine Ratio 35, Glucose Level 202H, Calcium Level 7.8L, Phosphorus Level 2.4, Magnesium Level 1.9 01/19/19 05:13: Glucometer 201H Microbiology 01/16/19 Blood Culture - Preliminary, Resulted No growth 01/11/19 Gram Stain - Final, Complete 01/11/19 Sputum Culture - Final, Complete Staphylococcus epidermidis 01/10/19 Urine Culture - Final, Complete Proteus mirabilis Procedures NAME: WILLIAM DO MED REC#: [id number] PT STATUS: ADM IN : 1945 PHYSICIAN: ALLISON HUI MD ADMIT DATE: 01/10/19/ICU Signed Date of Exam:01/16/19 CHEST 1 VIEW, AP/PA ONLY INDICATION: Dyspnea. Comparison made with prior examination 01/15/2019. FINDINGS: The heart size is normal. There is venous congestion. There is left perihilar infiltrate. There is no pleural effusion or pneumothorax. Mediastinum is unremarkable. IMPRESSION: Left perihilar infiltrate suspect for pneumonia. Moderate central pulmonary venous congestion. Dictated by: Dictated on workstation # [id number] Dict: 01/16/19730 Trans: 01/16/19810 [id number] Interpreted by: SEGUNDO DUCKWORTH MD Electronically signed by: SEGUNDO DUCKWORTH MD 01/16/19810 A/P: Assessment: Type 1 acute respiratory failure due to aspiration pneumonia with sepsis Acute kidney injury (PAULA) 3, resolved PAF with RVR, currently NSR Peripheral arterial disease per seg pressures of 07/17/16 that showed TONG of 1.26 on th R and 0.78 on the Left (at the level of Left PT). 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 Harris H/o CVA. CT Head of 07/14/16: no acute changes, chronic small vessel disease, chronic lacunar infart in the R basal gaglia, chronic R cerebral hemisphere infarct Hypertension, by history Hyperlipidemia, primarily consisting of hypertriglyceridemia. This has been treated with a combination of Trilipix and Lovaza that the patient has tolerated well, followed by Dr Graves Borderline diabetes mellitus, maturity onset, being followed by Dr. Graves Tardive dyskinesia Echo of 01/11/19: mild conc LVH, LVEF 60-65%, mild MR, RVSP 35 mmHg MPI of 07/01/18: No ischemia or infarction, LVEF 73% Psychologic diathesis, including anxiety/depression, currently controlled. Mild bilat carotid arterial disease per September 2016 Plan: * Maintaining SR * Change IV Cardizem to oral * Consider changing Lovenox to OAC - Eliquis 5mg BID * Monitor labs Clinical Quality Measures Type of Care: Type of Care: Pallative YU Rodriguez Jan 16, 2019 09:47 POS
--- NOTE | 2019-01-16 09:58 | NUR ---
PALLIATIVE CARE/DISCHARGE PLANNING: This RN went to patients room this morning and a nephew was visiting with her. Floor RN was talking to him about her hospital course and likely needs post discharge. He informed that patient's brothers would make that decision with the patient. She has mental disability and has been living by herself with assistance in the home for several hours per day. It is expected that a brother will be here today. Patient is currently on Vapotherm and will need to wean off of this prior to consideration of discharge to IRF or even SNF.
[2019-01-16] MEDS ORDERED: DILTIAZEM 180 MG (CARDIZEM CD) CAP PO NR (10:00)
--- NOTE | 2019-01-16 14:03 | Progress Note - Hospitalist ---
Subjective HPI/CC On Admission Date Seen by Provider: Jan 16, 2019 Time Seen by Provider: 08:30 dyspnea Subjective/Events-last exam She is sitting in her bedside chair. She has eaten breakfast. She denies any com plaints or concerns at this time. I talked to her about possibly needing half-way care before returning home and she was agreeable. She denies fever and chills. She denies dyspnea and chest pain. She denies abdominal pain, nausea, vomiting, and diarrhea. Objective Exam Vital Signs Vital Signs Date Time Temp Pulse Resp B/P (MAP) Pulse Ox O2 Delivery O2 Flow Rate FiO2 01/16/19 12:00 36.2 01/16/19 11:00 84 30 168/110 (129) 91 Vapotherm 25.00 40.00 01/16/19 10:32 40 Capillary Refill : Less Than 3 Seconds General Appearance: No Apparent Distress, WD/WN HEENT: PERRL/EOMI, Pharynx Normal Neck: Normal Inspection, Supple Respiratory: Lungs Clear, Normal Breath Sounds, No Respiratory Distress Cardiovascular: Regular Rate, Rhythm, No Edema, No Murmur Gastrointestinal: Normal Bowel Sounds, Non Tender, Soft Extremity: Normal Inspection, Non Tender, Pedal Edema Neurologic/Psychiatric: Alert, Oriented x3, No Motor/Sensory Deficits, Normal Mood/Affect Skin: Normal Color, Warm/Dry Lymphatic: No Adenopathy Results/Procedures Lab Laboratory Tests 01/16/19 03:10 Patient resulted labs reviewed. Imaging: Reviewed Imaging Report Assessment/Plan Assessment and Plan Assess & Plan/Chief Complaint Community acquired pneumonia Strep pneumonia bacteremia Acute hypoxemic respiratory failure -Doing well post-extubation -Weaning vapotherm -Continue antibiotics: Zyvox, Rocehpin, Eraxis -Pulmonology following AFib with RVR -Cardiology following -Transitioning from Cardizem to oral diltiazem today -Transition to Eliquis Dysphagia -Evaluated by speech -Dysphagia diet Septic shock-resolved HTN-continue home meds PAULA-resolved DVT Prophylaxis: already receiving therapeutic anticoagulation Critical Care Critically Ill Patient Diagnosis/Problems Diagnosis/Problems (1) CAP (community acquired pneumonia) Status: Acute (2) Acute hypoxemic respiratory failure Status: Acute (3) Bacteremia due to Streptococcus Status: Acute Clinical Quality Measures DVT/VTE Risk/Contraindication: Risk Factor Score Per Nursin RFS Level Per Nursing on Admit: 3=High MUKESH BARBOSA MD Jan 16, 2019 14:03 POS
[2019-01-16] MEDS: cefTRIAXone FOR IV USE 2,000 MG in WATER (STERILE) FOR INJECTION 20 ML IV SCH (14:06)
--- NOTE | 2019-01-16 14:35 | Occupational Ther Daily Note ---
OT Current Status-Daily Note Subjective No c/o of pain. Pt seated in the recliner when OT entered the room. Nurse reports that they cleaned her up earlier. Nrsg requested built up handle for pt's eating utensils. Will bring to pt. Mental Status/Objective Patient Orientation: Person, Place Attachments: IV, Oxygen ADL-Treatment Therapy Code Descriptions/Definitions Functional [place] Measure: 0=Not Assessed/NA 4=Minimal Assistance 1=Total Assistance 5=Supervision or Setup 2=Maximal Assistance 6=Modified [place] 3=Moderate Assistance 7=Complete IndependenceSCALE: Activities may be completed with or without assistive devices. 6-Ckpahjvwle-bsnrhpk completes the activity by him/herself with no assistance from a helper. 5-Set-up or Clean-up Assistance-helper sets up or cleans up; patient completes activity. [place] assists only prior to or following the activity. 4-Supervision or Touching Assistance-helper provides verbal cues and/or touching/steadying and/or contact guard assistance as patient completes activity. Assistance may be provided throughout the activity or intermittently. 3-Partial/Moderate Assistance-helper does LESS THAN HALF the effort. [place] lifts, holds or supports trunk or limbs, but provides less than half the effort. 2-Substantial/Maximal Assistance-helper does MORE THAN HALF the effort. [place] lifts or holds trunk or limbs and provides more than half the effort. 6-Obqedxbhp-jpymru does ALL the effort. Patient does none of the effort to complete the activity. Or, the assistance of 2 or more helpers is required for the patient to complete the activity. If activity was not attempted, code reason: 7-Patient Refused. 9-Not Applicable-not attempted and the patient did not perform the activity before the current illness, exacerbation or injury. 10-Not Attempted due to Environmental Limitations-(lack of equipment, weather restraints, etc.). 88-Not Attempted due to Medical Conditions or Safety Concerns. Other Treatment Pt reported that she had good breakfast. R UE AAROM, pt required verbal/physical cues to complete proper AROM. Pt able to complete L UE AROM with verbal/physical. OT completed retrograde massage for edema control and advised pt to use therapy foam for edema reduction/strengthening. Pt seated in recliner with call light/phone in reach at end of session. Education OT Patient Education: Correct positioning, Purpose of tx/functional activities, Reviewed precautions, Rehab process, Safety issues Teaching Recipient: Patient Teaching Methods: Demonstration Response to Teaching: Verbalize Understanding, Return Demonstration OT Short Term Goals Short Term Goals Time Frame: Jan 29, 2019 Eating(FIM): 3 Grooming(FIM): 2 Toileting(FIM): 2 Transfers (B,C,W/C) (FIM): 3 Toilet/Commode Transfer(FIM): 3 Additional Short Term Goals: 1-Demonstrate ADL Tasks, 2-Verbalize Understanding, 3-ImproveStrength/Sona 1=Demonstrate adherence to instructed precautions during ADL tasks. 2=Patient will verbalize/demonstrate understanding of assistive devices/modifications for ADL. 3=Patient will improve strength/tolerance for activity to enable patient to perform ADL's. OT Retirement Goals Wire Saw Operator Goals Time Frame: Feb 12, 2019 Eating (QC): 4 Oral Hygiene (QC): 4 Upper Body Dressing (QC): 3 Lower Body Dressing (QC): 3 On/Off Footwear (QC): 3 Toileting Hygiene (QC): 3 Toilet/Commode Transfer (QC): 4 Additional Goals: 1-Demonstrate ADL Tasks, 2-Verbalize Understanding, 3- ImproveStrength/Sona 1=Demonstrate adherence to instructed precautions during ADL tasks. 2=Patient will verbalize/demonstrate understanding of assistive devices/modifications for ADL. 3=Patient will improve strength/tolerance for activity to enable patient to perform ADL's. OT Education/Plan Problem List/Assessment Assessment: Decreased Activ Tolerance, Decreased UE Strength, Dependent Transfers, Edema, Impaired Bed Mobility, Impaired Funct Balance, Impaired I ADL's, Impaired Self-Care Skills Discharge Recommendations Plan/Recommendations: Continue POC Therapy Discharge Recommendati: Post Acute OT Treatment Plan/Plan of Care Patient would benefit from OT for education, treatment and training to promote independence in ADL's, mobility, safety and/or upper extremity function for ADL's. Plan of Care: ADL Retraining, Functional Mobility, UE Funct Exercise/Act Treatment Duration: Feb 12, 2019 Frequency: 5 times per week Estimated Hrs Per Day: .25 hour per day Agreement: Yes Rehab Potential: Fair Time/GCodes Start Time: 10:38 Stop Time: 10:58 Total Time Billed (hr/min): 20 Billed Treatment Time 1, EX x1 20 Min JEREMIAS JEFFREY Jan 16, 2019 14:35 POS
--- NOTE | 2019-01-16 16:01 | NUR ---
CM DISCHARGE PLANNING: has indicated that she will need [facility]iary home placement at discharge for continued strengthening et continued weaning of her oxygen. Visited with Sadaf about where she would like to go after the hospital for continued therapies. She reports that she knows residents at [facility] et would like to have a referral sent there. Sadaf has [employer] insurance et so she will need an authorization from her insurance to access those benefits. I have contacted Steph at [facility] et they indicated that they would not have a female bed available until early next week et that should correlate with the authorization process for insurance. Referral has been faxed to [facility] for consideration. Patient's brother came to visit Sadaf et reports that his other brother Azam has DPOA in case this is needed. He is not positive of this but is getting in contact with Azam to confirm. If Azam (who lives in [place]) has DPOA paperwork then he will bring it with him or get our fax number and fax it to us. I left my contact information with her brother for future follow up.
--- NOTE | 2019-01-16 16:08 | Progress Note - Cardiology ---
Cardiology SOAP Progress Note Subjective: No cp or palp or syncope Good appetite Shortness of breath is better Objective: I&O/Vital Signs 01/16/19 01/16/19 01/16/19 01/16/19 05:00 06:00 06:47 07:00 Pulse 75 79 80 79 Resp 18 28 24 B/P (MAP) 165/86 (112) 159/98 (118) 158/89 (112) Pulse Ox 93 94 90 O2 Delivery Vapotherm Vapotherm Vapotherm O2 Flow Rate 25.00 25.00 25.00 40.00 40.00 40.00 01/16/19 01/16/19 01/16/19 01/16/19 07:06 08:00 08:00 09:00 Pulse 85 84 Resp 26 10 B/P (MAP) 168/97 (120) 134/107 (116) Pulse Ox 93 98 93 94 O2 Delivery Vapotherm Vapotherm Vapotherm Vapotherm O2 Flow Rate 25.00 25.00 25.00 25.00 40.00 40.00 FiO2 40 40 01/16/19 01/16/19 01/16/19 01/16/19 10:00 10:32 11:00 12:00 Pulse 83 84 80 Resp 15 30 20 B/P (MAP) 158/93 (114) 168/110 (129) 169/101 (123) Pulse Ox 97 96 91 92 O2 Delivery Vapotherm Vapotherm Vapotherm Vapotherm O2 Flow Rate 25.00 25.00 25.00 25.00 40.00 40.00 40.00 FiO2 40 01/16/19 01/16/19 01/16/19 01/16/19 12:00 12:00 13:00 14:35 Temp 36.2 Pulse 84 Resp 15 B/P (MAP) 173/100 (124) Pulse Ox 98 91 94 O2 Delivery Vapotherm Vapotherm Vapotherm O2 Flow Rate 25.00 25.00 25.00 40.00 FiO2 35 35 01/16/19 00:00 Intake Total 1090 ml Output Total 2800 ml Balance -1710 ml Weight (Pounds): 150 Weight (Ounces): 0.0 Weight (Calculated Kilograms): 68.193319 Constitutional: well-developed, well-nourished, other (on mech vent) Respiratory: accessory muscle use, other (diminished air entry at both bases; diminished air entry in the L mid zone; scattered coarse rales and rhonchi) Cardiovascular: regular rate-rhythm, S1 and S2, systolic murmur (soft YI at card base) Gastrointestional: No tender; soft; No guarding, No rebound; audible bowel sounds Extremities: No clubbing, No cyanosis, No significant edema Neurologic/Psychiatric: oriented x 3, other (coarse, involuntary movements of the face and neck; moves all limbs equally) Skin: normal color, warm/dry; No rash on exposed areas, No ulcerations on exposed areas Results/Procedures: Labs Laboratory Tests 01/15/19 17:43: Glucometer 274H 01/15/19 20:59: Glucometer 276H 01/16/19 00:21: Glucometer 249H 01/16/19 03:10: White Blood Count 16.6H, Red Blood Count 4.59, Hemoglobin 12.2, Hematocrit 38, Mean Corpuscular Volume 83, Mean Corpuscular Hemoglobin 27, Mean Corpuscular Hemoglobin Concent 32, Red Cell Distribution Width 16.4H, Platelet Count 194, Mean Platelet Volume 10.5H, Neutrophils (%) (Auto) 92H, Lymphocytes (%) (Auto) 5L, Monocytes (%) (Auto) 2, Eosinophils (%) (Auto) 0, Basophils (%) (Auto) 0, Neutrophils # (Auto) 15.2H, Lymphocytes # (Auto) 0.9L, Monocytes # (Auto) 0.4, Eosinophils # (Auto) 0.0, Basophils # (Auto) 0.1, Sodium Level 139, Potassium Level 3.8, Chloride Level 100, Carbon Dioxide Level 27, Anion Gap 12, Blood Urea Nitrogen 15, Creatinine 0.68, Estimat Glomerular Filtration Rate > 60, BUN/ Creatinine Ratio 22, Glucose Level 270H, Calcium Level 8.3L, Phosphorus Level 2.3, Magnesium Level 1.7 01/16/19 07:00: Urine Color YELLOW, Urine Clarity CLEAR, Urine pH 6.5, Urine Specific [place] 1.020, Urine Protein 1+H, Urine Glucose (UA) 2+H, Urine Ketones NEGATIVE, Urine Nitrite NEGATIVE, Urine Bilirubin NEGATIVE, Urine Urobilinogen 0.2, Urine Leukocyte Esterase NEGATIVE, Urine RBC (Auto) 3+H, Urine RBC >100H, Urine WBC 2- 5, Urine Squamous Epithelial Cells 2-5, Urine Crystals NONE, Urine Bacteria TRACE, Urine Casts PRESENT, Urine Granular Casts RARE, Urine Mucus NEGATIVE, Urine Culture Indicated NO Microbiology 01/10/19 Blood Culture - Final, Complete Streptococcus pneumoniae 01/11/19 Gram Stain - Final, Complete 01/11/19 Sputum Culture - Final, Complete Staphylococcus epidermidis 01/10/19 Urine Culture - Final, Complete Proteus mirabilis Laboratory Tests 01/15/19 03:25 01/16/19 03:10 A/P: Assessment: Type 1 acute respiratory failure due to aspiration pneumonia with sepsis Acute kidney injury (PAULA) 3, resolved PAF with RVR, currently NSR Peripheral arterial disease per seg pressures of 07/17/16 that showed TONG of 1.26 on th R and 0.78 on the Left (at the level of Left PT). 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 Harris H/o CVA. CT Head of 07/14/16: no acute changes, chronic small vessel disease, chronic lacunar infart in the R basal gaglia, chronic R cerebral hemisphere infarct Hypertension, by history Hyperlipidemia, primarily consisting of hypertriglyceridemia. This has been treated with a combination of Trilipix and Lovaza that the patient has tolerated well, followed by Dr Graves Borderline diabetes mellitus, maturity onset, being followed by Dr. Graves Tardive dyskinesia, chronic Echo of 01/11/19: mild conc LVH, LVEF 60-65%, mild MR, RVSP 35 mmHg MPI of 07/01/18: No ischemia or infarction, LVEF 73% Psychologic diathesis, including anxiety/depression, currently controlled. Mild bilat carotid arterial disease per September 2016 Plan: * Maintaining SR * Change IV Cardizem to oral * Change Lovenox to Eliquis 5mg BID * Monitor labs * Dr Jeronimo covering Card Svce over the weekend Clinical Quality Measures Type of Care: Type of Care: Pallative Care BETH AKINS MD FACP FAC CCDS Jan 16, 2019 16:08 POS
[2019-01-16] MEDS: PANTOPRAZOLE 40 MG (PROTONIX) TAB PO SCH (18:31)
[2019-01-16] MEDS: APIXABAN 5 MG (ELIQUIS) TABLET PO SCH (21:43)
[2019-01-16] MEDS: ACETAMINOPHEN 500 MG TAB (TYLENOL) PO SCH (21:44)
[2019-01-17] MEDS: RT-ALBUTEROL/IPRATROPIUM 3 ML (DUONEB) VIAL INH SCH ×6 (02:44→21:55)
[2019-01-17 03:59] VITALS: BP 159/77
[2019-01-17 04:13] LABS: BASOPHILS % (AUTO) 0 % (0-10); EOSINOPHILS % (AUTO) 0 % (0-10); HEMATOCRIT 38 % (35-52); HEMOGLOBIN 11.9 G/DL (11.5-16.0); LYMPHOCYTES # (AUTO) 0.6 X 10^3 (1.0-4.0); LYMPHOCYTES % (AUTO) 4 % (12-44); MEAN CORPUSCULAR HEMOGLOBIN 27 PG (25-34); MEAN CORPUSCULAR HGB CONC 32 G/DL (32-36); MEAN CORPUSCULAR VOLUME 84 FL (80-99); MONOCYTES # (AUTO) 0.5 X 10^3 (0.0-1.0); MONOCYTES % (AUTO) 3 % (0-12); NEUTROPHILS # (AUTO) 14.9 X 10^3 (1.8-7.8); NEUTROPHILS % (AUTO) 93 % (42-75); PLATELET COUNT 236 10^3/uL (130-400); RED CELL DISTRIBUTION WIDTH 16.7 % (10.0-14.5); WHITE BLOOD COUNT 16.1 10^3/uL (4.3-11.0)
[2019-01-17 04:26] LABS: BUN/CREATININE RATIO 30; CALCIUM 8.1 MG/DL (8.5-10.1); CARBON DIOXIDE 28 MMOL/L (21-32); CHLORIDE 100 MMOL/L (98-107); CREATININE SERUM 0.74 MG/DL (0.60-1.30); GFR ESTIMATED > 60; GLUCOSE 304 MG/DL (70-105); MAGNESIUM 1.9 MG/DL (1.6-2.4); PHOSPHORUS 2.1 MG/DL (2.3-4.7); POTASSIUM 3.7 MMOL/L (3.6-5.0); SODIUM 139 MMOL/L (135-145)
--- NOTE | 2019-01-17 05:04 | Cardiology Progress Note ---
Subjective Date Seen by Provider: Jan 17, 2019 Time Seen by Provider: 05:04 Subjective/Events-last exam Patient is laying down in bed, feeling better, breathing better. No new complaint Review of Systems General: No Chills, No Night Sweats; Fatigue; No Malaise, No Appetite, No Other HEENT: No Head Aches, No Visual Changes, No Eye Pain, No Ear Pain, No Dysphasia, No Sinus Congestion, No Post Nasal Drip, No Sore Throat, No Other Pulmonary: Dyspnea; No Cough, No Pleuritic Chest Pain, No Other Cardiovascular: No: Chest Pain, Palpitations, Orthopnea, Paroxysmal Noc. Dyspnea, Edema, Lt Headedness, Other Objective-Cardiology Exam Last Set of Vital Signs Vital Signs 01/16/19 01/17/19 22:42 03:59 Temp 36.8 Pulse 64 Resp 21 B/P (MAP) 159/77 (104) Pulse Ox 91 O2 Delivery Nasal Cannula O2 Flow Rate 4.00 FiO2 35 Capillary Refill : Less Than 3 Seconds I&O Intake and Output 01/17/19 00:00 Intake Total 3450 ml Output Total 2385 ml Balance 1065 ml Intake Oral 1650 ml IV Total 1800 ml Output Urine Total 2385 ml # Bowel Movements 9 General: Alert, Oriented X3, Cooperative, No Acute Distress HEENT: Atraumatic, PERRLA Neck: Supple Lungs: Normal Air Movement, Other (bilateral rhonchi) Heart: Regular Rate, Normal S1, Normal S2 Abdomen: Normal Bowel Sounds Extremities: No Clubbing, No Cyanosis Skin: No Rashes Neuro: Normal Speech Psych/Mental Status: Mental Status NL, Mood NL Results Lab Laboratory Tests 01/17/19 03:25 A/P-Cardiology Admission Diagnosis Acute respiratory failure Pneumonia Paroxysmal atrial fibrillation Hypertension Assessment/Plan Status post acute respiratory failure, better at this time, breathing better. C ontinue to monitor Status post acute renal failure, improved, continue to monitor Anemia, H&H are stable. Continue to monitor Paroxysmal atrial fibrillation, back to sinus rhythm, doing well. Continue to monitor. Peripheral arterial disease, had abnormal TONG on the left, no reported history of claudication, has been managed by Dr. Bush Leg swelling, mainly in the left leg secondary to a large Castano's cyst, followed by Dr. Harris History of CVA, chronic small vessel disease with lacunar infarct. Hypertension, being weaned off the ventilator, continue to monitor blood pressure Hyperlipidemia, hypertriglyceridemia, continue to monitor lipids Diabetes mellitus, followed by primary care physician Tardive dyskinesia. Anxiety/depression Mild bilateral carotid stenosis. Continue to monitor Clinical Quality Measures DVT/VTE Risk/Contraindication: Risk Factor Score Per Nursin RFS Level Per Nursing on Admit: 3=High DEJON VEGAS MD Jan 17, 2019 05:04 POS
[2019-01-17] MEDS: metFORMIN 500 MG (GLUCOPHAGE) TAB PO SCH ×2 (05:29→16:34)
[2019-01-17] MEDS: PANTOPRAZOLE 40 MG (PROTONIX) TAB PO SCH ×2 (05:29→16:33)
[2019-01-17] MEDS: LINAGLIPTIN (TRADJENTA) 5 MG TABLET PO SCH (05:29)
[2019-01-17] MEDS: inSUlin ASPART (NovoLOG) 1 UNIT/0.01 ML (CHARGE PER UNIT) SQ SCH ×4 (05:30→21:15)
--- NOTE | 2019-01-17 07:23 | Pulmonary Progress Note ---
Subjective Time Seen by a Provider: 07:22 Subjective/Events-last exam PT appears to be doing better. Sepsis Event Evaluation Height, Weight, BMI Height: 5'5.00" Weight: 150lbs. 0.0oz. 68.941884hp; 26.74 BMI Method:Stated Exam Exam Vital Signs Date Time Temp Pulse Resp B/P (MAP) Pulse Ox O2 Delivery O2 Flow Rate FiO2 01/17/19 07:08 92 Nasal Cannula 3.00 01/17/19 03:59 36.8 64 21 159/77 (104) 91 Nasal Cannula 4.00 01/17/19 02:44 97 Nasal Cannula 4.00 01/17/19 00:00 Nasal Cannula 4.00 01/16/19 23:39 36.6 81 22 170/80 (110) 97 Nasal Cannula 4.00 01/16/19 23:02 Nasal Cannula 4.00 01/16/19 23:01 96 Nasal Cannula 4.00 01/16/19 22:42 94 Vapotherm 20.00 35 01/16/19 20:00 36.6 01/16/19 20:00 80 19 104/58 (73) 94 Vapotherm 25.00 35.00 01/16/19 20:00 98 Vapotherm 25.00 35 01/16/19 19:00 75 01/16/19 18:47 96 Vapotherm 25.00 35 01/16/19 17:00 75 27 170/91 (117) 94 Vapotherm 25.00 40.00 01/16/19 16:00 36.0 01/16/19 16:00 98 Vapotherm 25.00 35 01/16/19 16:00 73 19 142/93 (109) 93 Vapotherm 25.00 40.00 01/16/19 15:00 79 19 151/87 (108) 94 Vapotherm 25.00 40.00 01/16/19 14:35 94 Vapotherm 25.00 35 01/16/19 14:00 80 49 166/108 (127) 95 Vapotherm 25.00 40.00 01/16/19 13:00 84 15 173/100 (124) 91 Vapotherm 25.00 40.00 01/16/19 12:47 83 01/16/19 12:00 98 Vapotherm 25.00 35 01/16/19 12:00 36.2 11/15/19 12:00 80 20 169/101 (123) 92 Vapotherm 25.00 40.00 01/16/19 11:00 84 30 168/110 (129) 91 Vapotherm 25.00 40.00 01/16/19 10:32 96 Vapotherm 25.00 40 01/16/19 10:00 83 15 158/93 (114) 97 Vapotherm 25.00 40.00 01/16/19 09:00 84 10 134/107 (116) 94 Vapotherm 25.00 40.00 01/16/19 08:00 85 26 168/97 (120) 93 Vapotherm 25.00 40.00 01/16/19 08:00 98 Vapotherm 25.00 40 I & O 01/17/19 07:00 Intake Total 2100 ml Output Total 2150 ml Balance -50 ml Height & Weight Height: 5'5.00" Weight: 150lbs. 0.0oz. 68.524625hv; 26.74 BMI Method:Stated General Appearance: No Apparent Distress, WD/WN HEENT: PERRL/EOMI, Pharynx Normal Neck: Normal Inspection, Supple Respiratory: Normal Breath Sounds, No Respiratory Distress, Crackles, Decreased Breath Sounds Cardiovascular: Regular Rate, Rhythm, No Edema, No Murmur Capillary Refill: Less Than 3 Seconds Gastrointestinal: soft, no organomegaly, no pulsatile mass Extremity: Normal Inspection, Non Tender, Pedal Edema Neurologic/Psychiatric: Alert, Oriented x3, No Motor/Sensory Deficits, Normal Mood/Affect Skin: Normal Color, Warm/Dry Lymphatic: No Adenopathy Results Lab Laboratory Tests 01/16/19 03:10 01/17/19 03:25 Assessment/Plan Assessment/Plan Acute Respiratory failure with PNA with staph epi -Pt is aspiration risk. -Zyvox (01/15), Rocephin -Repeat BC pending -pt extubated 01/14 -Up to chair BID. PT/OT. aspiration precautions. -Give 60mg of Lasix x 1 Leukocytosis - worsening, up to 16.6 today -repeat BC -Decrease solumedrol to Q12 - Decrease to daily Strep bacteremia -Rocephin Afib -Cardiology following -pt on cardizem gtt currently -Lopressor Hypotension - resolved Anemia -Monitor -Protonix ARMANDO SANDRA DO Jan 17, 2019 07:23 POS
[2019-01-17] MEDS ORDERED: FUROSEMIDE 40 MG/4 ML INJ (LASIX) IVP ONE (07:30)
[2019-01-17] MEDS ORDERED: KCL 20 MEQ TAB (K-DUR) PO ONE (07:30)
--- NOTE | 2019-01-17 07:59 | NUR ---
This RN attempted to call pt's ERICKA Nascimento to notify him that patient moved rooms from ICU10 to 416.
[2019-01-17 08:00] VITALS: BP 152/81
--- NOTE | 2019-01-17 08:16 | Physical Therapy Daily Note ---
PT Daily Note-Current Subjective Patient on NC at this time. Agrees to PT. Pain Numeric Pain Scale: 0-No Pain Location: No Pain Reported Mental Status Patient Orientation: Person, Time, Situation Attachments: Oxygen, Alas Catheter Transfers SCALE: Activities may be completed with or without assistive devices. 8-Kwkdxlvsyi-angdzqa completes the activity by him/herself with no assistance from a helper. 5-Set-up or Clean-up Assistance-helper sets up or cleans up; patient completes activity. [place] assists only prior to or following the activity. 4-Supervision or Touching Assistance-helper provides verbal cues and/or touching/steadying and/or contact guard assistance as patient completes activity. Assistance may be provided throughout the activity or intermittently. 3-Partial/Moderate Assistance-helper does LESS THAN HALF the effort. [place] lifts, holds or supports trunk or limbs, but provides less than half the effort. 2-Substantial/Maximal Assistance-helper does MORE THAN HALF the effort. [place] lifts or holds trunk or limbs and provides more than half the effort. 2-Fbugzbyki-okwcro does ALL the effort. Patient does none of the effort to complete the activity. Or, the assistance of 2 or more helpers is required for the patient to complete the activity. If activity was not attempted, code reason: 7-Patient Refused. 9-Not Applicable-not attempted and the patient did not perform the activity before the current illness, exacerbation or injury. 10-Not Attempted due to Environmental Limitations-(lack of equipment, weather restraints, etc.). 88-Not Attempted due to Medical Conditions or Safety Concerns. Roll Left to Right (QC): 4 Sit to Lying (QC): 4 Sit to Stand (QC): 2 Chair/Fwx-bz-Iqccy Xfer(QC): 2 Bed to/from Chair: 2 bed mobility improving/continues to require max assist with SPT Exercises Supine Ex: Ankle pumps, Heel Slides Supine Reps: 12 Seated Therapy Exercises: Ankle pumps, Long arc quads Seated Reps: 12 Assessment Patient improving slowly with treatment plan. Patient is up in recliner with needs met and is able to feed self on this date. PT Group Home Goals Warehouse Order Selector Goals PT Group Home Goals Time Frame: Jan 23, 2019 Sit to Lying (QC): 4 Lying-Sitting on Side/Bed(QC): 4 Sit to Stand (QC): 4 Roll Left to Right (QC): 4 Chair/Cqj-wj-Xfkjd Xfer(QC): 4 Car Transfer (QC): 4 Does the Patient Walk: No and Walking Goal IS indicated Distance: 150' Walk 10 feet (QC): 4 Walk 10ft-Uneven Surface(QC): 4 Walk 50ft with 2 Turns (QC): 4 Walk 150 ft (QC): 4 Gait Assistive Device: Walker 4 Wheeled, FWW PT Plan Treatment/Plan Treatment Plan: Continue Plan of Care Treatment Plan: Bed Mobility, Education, Functional Activity Sona, Functional Strength, Gait, Safety, Therapeutic Exercise, Transfers Treatment Duration: Jan 23, 2019 Frequency: 6 times per week Estimated Hrs Per Day: .25 hour per day Patient and/or Family Agrees t: Yes Time/GCodes Time In: 731 Time Out: 740 Total Billed Treatment Time: 9 Total Billed Treatment 1 visit EX 9 min CHRIS BRAUN PT Jan 17, 2019 08:16 POS
--- NOTE | 2019-01-17 08:23 | Diagnostic Imaging Report ---
Indication: Shortness of breath Portable chest 6:25 AM Comparison the previous day Heart size and pulmonary vascularity are normal. There is improving aeration of the lungs. There are no effusions or pneumothoraces. IMPRESSION: Resolving infiltrate left lung. Dictated by: Dictated on workstation # [id number]
[2019-01-17] MEDS: LINEZOLID IVPB 300 ML IV SCH ×2 (08:51→20:04)
[2019-01-17] MEDS: ANIDULAFUNGIN INJECTION 100 MG in NS (IVPB) 100 ML IV SCH (08:51)
[2019-01-17] MEDS: amLODIPine 10 MG (NORVASC) TAB PO SCH (08:52)
[2019-01-17] MEDS: DILTIAZEM 180 MG (CARDIZEM CD) CAP PO SCH (08:52)
[2019-01-17] MEDS: APIXABAN 5 MG (ELIQUIS) TABLET PO SCH ×2 (08:52→20:04)
[2019-01-17] MEDS: LOSARTAN 100 MG (COZAAR) TABLET PO SCH (08:52)
[2019-01-17] MEDS: meTOprolol TARTRATE 50 MG (LOPRESSOR) TAB PO SCH ×2 (08:52→20:04)
[2019-01-17] MEDS: LORATADINE (CLARITIN) 10 MG TAB PO SCH (08:52)
[2019-01-17] MEDS: ASPIRIN E.C. 81 MG (ECOTRIN) TAB PO SCH (08:53)
[2019-01-17] MEDS: methylPREDNISolone 40 MG/ML (Solu-MEDROL) VIAL IV SCH (08:53)
--- NOTE | 2019-01-17 10:18 | Progress Note - Hospitalist ---
Subjective HPI/CC On Admission Date Seen by Provider: Jan 17, 2019 Time Seen by Provider: 10:16 dyspnea Subjective/Events-last exam She denies any complaints or concerns. She is eating breakfast. She denies fever s, chills, chest pain, dyspnea, abdominal pain, nausea, vomiting. Objective Exam Vital Signs Vital Signs Date Time Temp Pulse Resp B/P (MAP) Pulse Ox O2 Delivery O2 Flow Rate FiO2 01/17/19 07:08 92 Nasal Cannula 3.00 01/17/19 07:00 68 01/17/19 03:59 36.8 21 159/77 (104) 01/16/19 22:42 35 Capillary Refill : Less Than 3 Seconds General Appearance: No Apparent Distress, WD/WN, Chronically ill HEENT: Pharynx Normal Neck: Normal Inspection, Supple Respiratory: Lungs Clear, Normal Breath Sounds, No Respiratory Distress Cardiovascular: Regular Rate, Rhythm, No Murmur Gastrointestinal: Normal Bowel Sounds, Non Tender, Soft Extremity: Normal Inspection, Non Tender, Pedal Edema Neurologic/Psychiatric: Alert, Normal Mood/Affect Skin: Normal Color, Warm/Dry Results/Procedures Lab Laboratory Tests 01/17/19 03:25 Patient resulted labs reviewed. Assessment/Plan Assessment and Plan Assess & Plan/Chief Complaint Community acquired pneumonia Strep pneumonia bacteremia Acute hypoxemic respiratory failure -Weaning steroids -Continue antibiotics: Zyvox, Rocehpin, Eraxis -Pulmonology following -Continue nasal cannula -Will need home oxygen evaluation prior to discharge AFib with RVR -Continue diltiazem and Eliquis Dysphagia -Evaluated by speech -Dysphagia diet HTN-continue home meds Septic shock-resolved PAULA-resolved DVT Prophylaxis: already receiving therapeutic anticoagulation Critical Care Critically Ill Patient Diagnosis/Problems Diagnosis/Problems (1) CAP (community acquired pneumonia) Status: Acute (2) Acute hypoxemic respiratory failure Status: Acute (3) Bacteremia due to Streptococcus Status: Acute Clinical Quality Measures DVT/VTE Risk/Contraindication: Risk Factor Score Per Nursin RFS Level Per Nursing on Admit: 3=High MUKESH BARBOSA MD Jan 17, 2019 10:18 POS
[2019-01-17 12:00] VITALS: BP 161/88
[2019-01-17] MEDS: cefTRIAXone FOR IV USE 2,000 MG in WATER (STERILE) FOR INJECTION 20 ML IV SCH ×2 (14:18→14:33)
[2019-01-17 16:10] VITALS: BP 148/79
[2019-01-17 20:00] VITALS: BP 160/79
[2019-01-17] MEDS: ACETAMINOPHEN 500 MG TAB (TYLENOL) PO SCH (20:04)
[2019-01-18] VITALS: BP 157/61
[2019-01-18] MEDS: RT-ALBUTEROL/IPRATROPIUM 3 ML (DUONEB) VIAL INH SCH ×5 (02:17→22:42)
[2019-01-18 04:00] VITALS: BP 155/79
--- NOTE | 2019-01-18 05:23 | Pulmonary Progress Note ---
Subjective Time Seen by a Provider: 05:21 Subjective/Events-last exam Pt still SOB however appears to be doing better. Sepsis Event Evaluation Height, Weight, BMI Height: 5'5.00" Weight: 150lbs. 0.0oz. 68.563808tz; 26.74 BMI Method:Stated Exam Exam Vital Signs Date Time Temp Pulse Resp B/P (MAP) Pulse Ox O2 Delivery O2 Flow Rate FiO2 01/18/19 04:00 36.4 54 20 155/79 (104) 95 Nasal Cannula 2.00 01/18/19 02:17 92 Nasal Cannula 2.00 01/18/19 01:00 64 01/18/19 00:00 36.3 62 18 157/61 (93) 92 Nasal Cannula 2.00 01/17/19 21:55 92 Nasal Cannula 2.00 01/17/19 20:31 Room Air 2.00 01/17/19 20:00 36.7 67 20 160/79 (106) 94 Nasal Cannula 2.00 01/17/19 19:26 97 Nasal Cannula 3.00 01/17/19 19:00 64 01/17/19 16:10 36.8 65 20 148/79 (102) 95 Nasal Cannula 3.00 01/17/19 14:45 93 Nasal Cannula 3.00 01/17/19 12:11 69 01/17/19 12:00 36.3 67 18 161/88 (112) 95 Nasal Cannula 4.00 01/17/19 11:21 94 Nasal Cannula 3.00 01/17/19 08:00 98 Room Air 4.00 01/17/19 08:00 35.0 66 18 152/81 (104) 97 Nasal Cannula 4.00 01/17/19 07:08 92 Nasal Cannula 3.00 01/17/19 07:00 68 I & O 01/18/19 07:00 Intake Total 1420 ml Output Total 3800 ml Balance -2380 ml Height & Weight Height: 5'5.00" Weight: 150lbs. 0.0oz. 68.386250xs; 26.74 BMI Method:Stated General Appearance: No Apparent Distress, WD/WN HEENT: PERRL/EOMI, Pharynx Normal Neck: Normal Inspection, Supple Respiratory: Normal Breath Sounds, No Respiratory Distress, Crackles, Decreased Breath Sounds Cardiovascular: Regular Rate, Rhythm, No Edema, No Murmur Capillary Refill: Less Than 3 Seconds Gastrointestinal: soft, no organomegaly, no pulsatile mass Extremity: Normal Inspection, Non Tender, Pedal Edema Neurologic/Psychiatric: Alert, Oriented x3, No Motor/Sensory Deficits, Normal Mood/Affect Skin: Normal Color, Warm/Dry Lymphatic: No Adenopathy Results Lab Laboratory Tests 01/17/19 03:25 Assessment/Plan Assessment/Plan cute Respiratory failure with PNA with staph epi -Pt is aspiration risk. -Zyvox (01/15), Rocephin -pt extubated 01/14 - PT/OT. aspiration precautions. -40mg of Lasix x 1 -Labs pending -D/C solumedrol after today's dose. Strep bacteremia -Rocephin --Repeat BC neg thus far Afib -Cardiology following Anemia -Monitor -Protonix ARMANDO SANDRA DO Jan 18, 2019 05:23 POS
[2019-01-18 05:27] LABS: BASOPHILS % (AUTO) 0 % (0-10); EOSINOPHILS % (AUTO) 0 % (0-10); HEMATOCRIT 36 % (35-52); HEMOGLOBIN 11.4 G/DL (11.5-16.0); LYMPHOCYTES % (AUTO) 8 % (12-44); MEAN CORPUSCULAR HEMOGLOBIN 26 PG (25-34); MEAN CORPUSCULAR HGB CONC 31 G/DL (32-36); MEAN CORPUSCULAR VOLUME 84 FL (80-99); MONOCYTES # (AUTO) 0.8 X 10^3 (0.0-1.0); MONOCYTES % (AUTO) 7 % (0-12); NEUTROPHILS # (AUTO) 10.5 X 10^3 (1.8-7.8); NEUTROPHILS % (AUTO) 85 % (42-75); PLATELET COUNT 208 10^3/uL (130-400); RED CELL DISTRIBUTION WIDTH 15.9 % (10.0-14.5); WHITE BLOOD COUNT 12.3 10^3/uL (4.3-11.0)
[2019-01-18] MEDS ORDERED: KCL 20 MEQ TAB (K-DUR) PO ONE (05:30)
[2019-01-18] MEDS ORDERED: FUROSEMIDE 40 MG/4 ML INJ (LASIX) IVP ONE (05:30)
[2019-01-18 05:53] LABS: BUN/CREATININE RATIO 32; CALCIUM 8.1 MG/DL (8.5-10.1); CARBON DIOXIDE 29 MMOL/L (21-32); CHLORIDE 98 MMOL/L (98-107); CREATININE SERUM 0.72 MG/DL (0.60-1.30); GFR ESTIMATED > 60; GLUCOSE 193 MG/DL (70-105); MAGNESIUM 1.5 MG/DL (1.6-2.4); PHOSPHORUS 2.1 MG/DL (2.3-4.7); POTASSIUM 3.9 MMOL/L (3.6-5.0); SODIUM 138 MMOL/L (135-145)
[2019-01-18] MEDS: metFORMIN 500 MG (GLUCOPHAGE) TAB PO SCH ×2 (06:20→17:03)
[2019-01-18] MEDS: PANTOPRAZOLE 40 MG (PROTONIX) TAB PO SCH ×2 (06:20→17:03)
[2019-01-18] MEDS: LINAGLIPTIN (TRADJENTA) 5 MG TABLET PO SCH (06:20)
[2019-01-18] MEDS: inSUlin ASPART (NovoLOG) 1 UNIT/0.01 ML (CHARGE PER UNIT) SQ SCH ×4 (06:20→20:52)
[2019-01-18] MEDS ORDERED: POT PHOS/NA PHOS (K-PHOS NEUTRAL) PO ONE (07:15)
--- NOTE | 2019-01-18 07:18 | Diagnostic Imaging Report ---
INDICATION: Dyspnea. COMPARISON: 01/17/2019 FINDINGS: Single frontal radiographic view of the chest was obtained demonstrates stable cardiac silhouette and pulmonary vasculature. Lungs show faint nodular opacity within the lateral left lower lung field that measures 1.5 x 1.1 cm. Few patchy opacities also persist within the left base, but otherwise lungs show continued improved aeration. Right lung is relatively clear. There is no large effusion or pneumothorax on either side. Osseous structures show no acute abnormalities. IMPRESSION: 1. Continued interval improved aeration left base. Residual nodular opacity is noted and could be on the basis of residual infiltrate. Underlying soft tissue nodule is not excluded. Continued follow-up to resolution is recommended. Dictated by: Dictated on workstation # [id number]
--- NOTE | 2019-01-18 07:49 | Cardiology Progress Note ---
Subjective Date Seen by Provider: Jan 18, 2019 Time Seen by Provider: 07:48 Subjective/Events-last exam Patient is laying down in bed, feeling better. No new complaint Review of Systems General: No Chills, No Night Sweats; Fatigue; No Malaise, No Appetite, No Other HEENT: No Head Aches, No Visual Changes, No Eye Pain, No Ear Pain, No Dysphasia, No Sinus Congestion, No Post Nasal Drip, No Sore Throat, No Other Pulmonary: Dyspnea; No Cough, No Pleuritic Chest Pain, No Other Cardiovascular: No: Chest Pain, Palpitations, Orthopnea, Paroxysmal Noc. Dyspnea, Edema, Lt Headedness, Other Objective-Cardiology Exam Last Set of Vital Signs Vital Signs 01/16/19 01/18/19 01/18/19 01/18/19 22:42 04:00 06:59 07:00 Temp 36.4 Pulse 55 Resp 20 B/P (MAP) 155/79 (104) Pulse Ox 92 O2 Delivery Nasal Cannula O2 Flow Rate 2.00 FiO2 35 Capillary Refill : Less Than 3 Seconds I&O Intake and Output 01/18/19 00:00 Intake Total 1520 ml Output Total 4600 ml Balance -3080 ml Intake Oral 1520 ml Output Urine Total 4600 ml # Bowel Movements 3 General: Alert, Oriented X3, Cooperative, No Acute Distress HEENT: Atraumatic, PERRLA Neck: Supple Lungs: Normal Air Movement, Other (bilateral rhonchi) Heart: Regular Rate, Normal S1, Normal S2 Abdomen: Normal Bowel Sounds Extremities: No Clubbing, No Cyanosis Skin: No Rashes Neuro: Normal Speech Psych/Mental Status: Mental Status NL, Mood NL Results Lab Laboratory Tests 01/18/19 05:15 A/P-Cardiology Admission Diagnosis Acute respiratory failure Pneumonia Paroxysmal atrial fibrillation Hypertension Assessment/Plan Status post acute respiratory failure, better at this time, breathing better. Continue to monitor Status post acute renal failure, improved, continue to monitor Anemia, H&H are stable. Continue to monitor Paroxysmal atrial fibrillation, back to sinus rhythm, doing well. Continue to monitor. Peripheral arterial disease, had abnormal TONG on the left, no reported history of claudication, has been managed by Dr. Bush Leg swelling, mainly in the left leg secondary to a large Castano's cyst, followed by Dr. Harris History of CVA, chronic small vessel disease with lacunar infarct. Hypertension, being weaned off the ventilator, continue to monitor blood pressu re Hyperlipidemia, hypertriglyceridemia, continue to monitor lipids Diabetes mellitus, followed by primary care physician Lissett de leon. Anxiety/depression Mild bilateral carotid stenosis. Continue to monitor Clinical Quality Measures DVT/VTE Risk/Contraindication: Risk Factor Score Per Nursin RFS Level Per Nursing on Admit: 3=High DEJON VEGAS MD Jan 18, 2019 07:48 POS
[2019-01-18 07:50] VITALS: BP 150/75
[2019-01-18] MEDS: MAGNESIUM 1 GM/100 ML IVPB 100 ML IV SCH ×3 (08:55→09:49)
[2019-01-18] MEDS: methylPREDNISolone 40 MG/ML (Solu-MEDROL) VIAL IV SCH (09:47)
[2019-01-18] MEDS: LINEZOLID IVPB 300 ML IV SCH ×2 (09:48→20:37)
[2019-01-18] MEDS: ANIDULAFUNGIN INJECTION 100 MG in NS (IVPB) 100 ML IV SCH (09:48)
[2019-01-18] MEDS: APIXABAN 5 MG (ELIQUIS) TABLET PO SCH ×2 (09:48→20:38)
[2019-01-18] MEDS: DILTIAZEM 180 MG (CARDIZEM CD) CAP PO SCH (09:48)
[2019-01-18] MEDS: LORATADINE (CLARITIN) 10 MG TAB PO SCH (09:48)
[2019-01-18] MEDS: LOSARTAN 100 MG (COZAAR) TABLET PO SCH (09:48)
[2019-01-18] MEDS: ASPIRIN E.C. 81 MG (ECOTRIN) TAB PO SCH (09:48)
[2019-01-18] MEDS: meTOprolol TARTRATE 50 MG (LOPRESSOR) TAB PO SCH ×2 (09:49→20:51)
[2019-01-18] MEDS: amLODIPine 10 MG (NORVASC) TAB PO SCH (09:49)
[2019-01-18 11:35] VITALS: BP 156/75
--- NOTE | 2019-01-18 13:02 | Progress Note - Hospitalist ---
Subjective HPI/CC On Admission Date Seen by Provider: Jan 18, 2019 Time Seen by Provider: 09:00 dyspnea Subjective/Events-last exam She reports feeling well. She ate her breakfast. She denies fevers, chills, ches t pain, dyspnea, cough, abdominal pain, nausea, vomiting, diarrhea. Objective Exam Vital Signs Vital Signs Date Time Temp Pulse Resp B/P (MAP) Pulse Ox O2 Delivery O2 Flow Rate FiO2 01/18/19 11:35 36.4 60 20 156/75 (102) 95 Mechanical Ventilator 2.00 01/16/19 22:42 35 Capillary Refill : Less Than 3 Seconds General Appearance: No Apparent Distress, WD/WN Respiratory: Lungs Clear, Normal Breath Sounds, No Respiratory Distress Cardiovascular: Regular Rate, Rhythm, No Edema, No Murmur Gastrointestinal: Normal Bowel Sounds, Non Tender, Soft Extremity: Normal Inspection, Non Tender, No Pedal Edema Neurologic/Psychiatric: Alert, Normal Mood/Affect Skin: Normal Color, Warm/Dry Results/Procedures Lab Laboratory Tests 01/18/19 05:15 Patient resulted labs reviewed. Assessment/Plan Assessment and Plan Assess & Plan/Chief Complaint Community acquired pneumonia Strep pneumoniae bacteremia Acute hypoxemic respiratory failure -Weaning steroids -Continue antibiotics: Zyvox day 4 for Staph epidermidis Rocehpin day 8 for Strep bacteremia Eraxis day 4 for Alison -Pulmonology following -Will need home oxygen evaluation prior to discharge AFib with RVR -Continue diltiazem and Eliquis Dysphagia -Evaluated by speech -Dysphagia diet Hypomagnesemia Hypophosphatemia -Monitor and replace as needed HTN-continue home meds Septic shock-resolved PAULA-resolved DVT Prophylaxis: already receiving therapeutic anticoagulation Critical Care Critically Ill Patient Diagnosis/Problems Diagnosis/Problems (1) CAP (community acquired pneumonia) Status: Acute (2) Acute hypoxemic respiratory failure Status: Acute (3) Bacteremia due to Streptococcus Status: Acute Clinical Quality Measures DVT/VTE Risk/Contraindication: Risk Factor Score Per Nursin RFS Level Per Nursing on Admit: 3=High MUKESH BARBOSA MD Jan 18, 2019 13:02 POS
[2019-01-18] MEDS: cefTRIAXone FOR IV USE 2,000 MG in WATER (STERILE) FOR INJECTION 20 ML IV SCH (14:29)
[2019-01-18 16:35] VITALS: BP 147/82
[2019-01-18] MEDS: ACETAMINOPHEN 500 MG TAB (TYLENOL) PO SCH (20:37)
[2019-01-18 20:50] VITALS: BP 154/6
[2019-01-19] VITALS: BP 156/71
[2019-01-19] MEDS: RT-ALBUTEROL/IPRATROPIUM 3 ML (DUONEB) VIAL INH SCH ×6 (02:57→21:30)
[2019-01-19 04:00] VITALS: BP 161/69
[2019-01-19 05:21] LABS: BASOPHILS % (AUTO) 0 % (0-10); EOSINOPHILS % (AUTO) 0 % (0-10); HEMATOCRIT 34 % (35-52); HEMOGLOBIN 11.4 G/DL (11.5-16.0); LYMPHOCYTES # (AUTO) 0.9 X 10^3 (1.0-4.0); LYMPHOCYTES % (AUTO) 7 % (12-44); MEAN CORPUSCULAR HGB CONC 33 G/DL (32-36); MEAN CORPUSCULAR VOLUME 83 FL (80-99); MEAN PLATELET VOLUME 10.5 FL (7.4-10.4); MONOCYTES # (AUTO) 0.7 X 10^3 (0.0-1.0); MONOCYTES % (AUTO) 5 % (0-12); NEUTROPHILS # (AUTO) 11.2 X 10^3 (1.8-7.8); NEUTROPHILS % (AUTO) 87 % (42-75); PLATELET COUNT 220 10^3/uL (130-400); RED CELL DISTRIBUTION WIDTH 15.9 % (10.0-14.5); WHITE BLOOD COUNT 12.8 10^3/uL (4.3-11.0)
[2019-01-19 05:24] LABS: MEAN CORPUSCULAR HEMOGLOBIN 27 PG (25-34)
[2019-01-19 05:45] LABS: BUN/CREATININE RATIO 35; CALCIUM 7.8 MG/DL (8.5-10.1); CARBON DIOXIDE 31 MMOL/L (21-32); CHLORIDE 96 MMOL/L (98-107); CREATININE SERUM 0.72 MG/DL (0.60-1.30); GFR ESTIMATED > 60; GLUCOSE 202 MG/DL (70-105); MAGNESIUM 1.9 MG/DL (1.6-2.4); PHOSPHORUS 2.4 MG/DL (2.3-4.7); POTASSIUM 3.7 MMOL/L (3.6-5.0); SODIUM 136 MMOL/L (135-145)
[2019-01-19] MEDS: PANTOPRAZOLE 40 MG (PROTONIX) TAB PO SCH (05:59)
[2019-01-19] MEDS: metFORMIN 500 MG (GLUCOPHAGE) TAB PO SCH ×2 (05:59→16:56)
[2019-01-19] MEDS: LINAGLIPTIN (TRADJENTA) 5 MG TABLET PO SCH (05:59)
[2019-01-19] MEDS: inSUlin ASPART (NovoLOG) 1 UNIT/0.01 ML (CHARGE PER UNIT) SQ SCH ×4 (05:59→21:20)
--- NOTE | 2019-01-19 07:06 | Diagnostic Imaging Report ---
EXAMINATION: Chest 1 view HISTORY: Shortness of breath FINDINGS: Comparison is 01/18/2019. There are patchy bilateral airspace opacities which appear improved from prior exam. No pneumothorax. There are likely small bilateral pleural effusions. Heart size is normal. IMPRESSION: 1. Improved patchy bilateral lung base opacities likely representing improving infectious process. Dictated by: Dictated on workstation # [id number]
[2019-01-19 08:00] VITALS: BP 171/82
[2019-01-19] MEDS: DILTIAZEM 180 MG (CARDIZEM CD) CAP PO SCH (08:28)
[2019-01-19] MEDS: LORATADINE (CLARITIN) 10 MG TAB PO SCH (08:28)
[2019-01-19] MEDS: APIXABAN 5 MG (ELIQUIS) TABLET PO SCH ×2 (08:28→21:21)
[2019-01-19] MEDS: amLODIPine 10 MG (NORVASC) TAB PO SCH (08:29)
[2019-01-19] MEDS: ASPIRIN E.C. 81 MG (ECOTRIN) TAB PO SCH (08:29)
[2019-01-19] MEDS: LOSARTAN 100 MG (COZAAR) TABLET PO SCH (08:29)
[2019-01-19] MEDS: meTOprolol TARTRATE 50 MG (LOPRESSOR) TAB PO SCH ×2 (08:29→21:21)
[2019-01-19] MEDS: LINEZOLID (ZYVOX) 600 MG TAB PO SCH ×2 (08:32→21:20)
[2019-01-19] MEDS: ANIDULAFUNGIN INJECTION 100 MG in NS (IVPB) 100 ML IV SCH (08:33)
--- NOTE | 2019-01-19 08:44 | Pulmonary Progress Note ---
Subjective Date Seen by a Provider: Jan 19, 2019 Time Seen by a Provider: 08:42 Subjective/Events-last exam Pt states she is feeling better. States that she was able to walk down the [place] with assistance. Pt is satting 100% on 2L NC. CXR shows Improved patchy bilateral lung base opacities likely representing improving infectious process. Sepsis Event Evaluation Height, Weight, BMI Height: 5'5.00" Weight: 150lbs. 0.0oz. 68.678700vn; 26.74 BMI Method:Stated Exam Exam Vital Signs Date Time Temp Pulse Resp B/P (MAP) Pulse Ox O2 Delivery O2 Flow Rate FiO2 01/19/19 07:12 93 Nasal Cannula 3.00 01/19/19 07:00 59 01/19/19 04:00 36.4 63 20 161/69 (99) 95 Nasal Cannula 2.00 01/19/19 02:58 100 Nasal Cannula 2.00 01/19/19 00:51 59 01/19/19 00:00 36.6 63 22 156/71 (99) 94 Nasal Cannula 2.00 01/18/19 22:42 100 Nasal Cannula 2.00 01/18/19 20:50 36.5 70 8 154/6 (55) 95 Nasal Cannula 2.00 01/18/19 20:00 Room Air 2.00 01/18/19 19:06 97 Nasal Cannula 2.00 01/18/19 18:41 64 01/18/19 16:35 36.4 72 20 147/82 (103) 92 Nasal Cannula 2.00 01/18/19 14:27 94 Nasal Cannula 2.00 01/18/19 13:00 65 01/18/19 11:35 36.4 60 20 156/75 (102) 95 Mechanical Ventilator 2.00 01/18/19 10:21 94 Nasal Cannula 2.00 I & O 01/19/19 07:00 Intake Total 1640 ml Output Total 3300 ml Balance -1660 ml Height & Weight Height: 5'5.00" Weight: 150lbs. 0.0oz. 68.210086hj; 26.74 BMI Method:Stated General Appearance: No Apparent Distress, WD/WN HEENT: PERRL/EOMI, Pharynx Normal Neck: Normal Inspection, Supple Respiratory: Chest Non Tender, No Respiratory Distress, Crackles Cardiovascular: Regular Rate, Rhythm, No Edema, No Murmur Capillary Refill: Less Than 3 Seconds Gastrointestinal: soft, no organomegaly Extremity: Normal Inspection, Non Tender, No Pedal Edema Neurologic/Psychiatric: Alert, Normal Mood/Affect Skin: Normal Color, Warm/Dry Lymphatic: No Adenopathy Results Lab Laboratory Tests 01/18/19 05:15 01/19/19 04:50 Assessment/Plan Assessment/Plan Acute Respiratory failure with PNA with staph epi - improving -pt satting 100% on 2L NC -CXR shows Improved patchy bilateral lung base opacities likely representing improving infectious process. -Zyvox (started 01/15), Rocephin -pt extubated 01/14 -Pt is aspiration risk. -PT/OT. aspiration precautions. Strep bacteremia -Rocephin -Repeat BC neg thus far Afib -Cardiology following Anemia -Monitor -Protonix RIC PEARL MEDICAL STUDENT Jan 19, 2019 08:44 POS
--- NOTE | 2019-01-19 09:08 | Progress Note - Cardiology ---
Cardiology SOAP Progress Note Objective: I&O/Vital Signs 01/18/19 01/19/19 01/19/19 01/19/19 22:42 00:00 00:51 02:58 Temp 36.6 Pulse 63 59 Resp 22 B/P (MAP) 156/71 (99) Pulse Ox 100 94 100 O2 Delivery Nasal Cannula Nasal Cannula Nasal Cannula O2 Flow Rate 2.00 2.00 2.00 01/19/19 01/19/19 01/19/19 01/19/19 04:00 07:00 07:12 08:00 Temp 36.4 36.6 Pulse 63 59 64 Resp 20 16 B/P (MAP) 161/69 (99) 171/82 (111) Pulse Ox 95 93 93 O2 Delivery Nasal Cannula Nasal Cannula Nasal Cannula O2 Flow Rate 2.00 3.00 2.00 01/19/19 00:00 Intake Total 1540 ml Output Total 2950 ml Balance -1410 ml Weight (Pounds): 150 Weight (Ounces): 0.0 Weight (Calculated Kilograms): 68.711364 Constitutional: well-developed, well-nourished, other (on mech vent) Respiratory: accessory muscle use, rhonchi (scattered) Cardiovascular: regular rate-rhythm, S1 and S2, systolic murmur (soft YI at card base) Gastrointestional: No tender; soft; No guarding, No rebound; audible bowel sounds Extremities: No clubbing, No cyanosis, No significant edema Neurologic/Psychiatric: oriented x 3, other (coarse, involuntary movements of the face and neck; moves all limbs equally) Skin: normal color, warm/dry; No rash on exposed areas, No ulcerations on exposed areas Results/Procedures: Labs Laboratory Tests 01/18/19 11:41: Glucometer 275H 01/18/19 16:44: Glucometer 333H 01/18/19 20:38: Glucometer 245H 01/19/19 04:50: White Blood Count 12.8H, Red Blood Count 4.15L, Hemoglobin 11.4L, Hematocrit 34L , Mean Corpuscular Volume 83, Mean Corpuscular Hemoglobin 27, Mean Corpuscular Hemoglobin Concent 33, Red Cell Distribution Width 15.9H, Platelet Count 220, Mean Platelet Volume 10.5H, Neutrophils (%) (Auto) 87H, Lymphocytes (%) (Auto) 7L, Monocytes (%) (Auto) 5, Eosinophils (%) (Auto) 0, Basophils (%) (Auto) 0, Neutrophils # (Auto) 11.2H, Lymphocytes # (Auto) 0.9L, Monocytes # (Auto) 0.7, Eosinophils # (Auto) 0.0, Basophils # (Auto) 0.0, Sodium Level 136, Potassium Level 3.7, Chloride Level 96L, Carbon Dioxide Level 31, Anion Gap 9, Blood Urea Nitrogen 25H, Creatinine 0.72, Estimat Glomerular Filtration Rate > 60, BU N/Creatinine Ratio 35, Glucose Level 202H, Calcium Level 7.8L, Phosphorus Level 2.4, Magnesium Level 1.9 01/19/19 05:13: Glucometer 201H Microbiology 01/16/19 Blood Culture - Preliminary, Resulted No growth 01/11/19 Gram Stain - Final, Complete 01/11/19 Sputum Culture - Final, Complete Staphylococcus epidermidis 01/10/19 Urine Culture - Final, Complete Proteus mirabilis Laboratory Tests 01/18/19 05:15 01/19/19 04:50 Procedures NAME: WILLIAM DO [facility] REC#: [id number] PT STATUS: ADM IN : 1945 PHYSICIAN: ALLISON HUI MD ADMIT DATE: 01/10/19 Signed Date of Exam:01/19/19 CHEST 1 VIEW, AP/PA ONLY EXAMINATION: Chest 1 view HISTORY: Shortness of breath FINDINGS: Comparison is 01/18/2019. There are patchy bilateral airspace opacities which appear improved from prior exam. No pneumothorax. There are likely small bilateral pleural effusions. Heart size is normal. IMPRESSION: 1. Improved patchy bilateral lung base opacities likely representing improving infectious process. Dictated by: Dictated on workstation # [id number] Dict: 01/19/19702 Trans: 01/19/19816 MYESHA [id number] Interpreted by: FAB SHERIDAN MD Electronically signed by: FAB SHERIDAN MD 01/19/19816 A/P: Assessment: Type 1 acute respiratory failure due to aspiration pneumonia with sepsis Acute kidney injury (PAULA) 3, resolved PAF with RVR, currently NSR Peripheral arterial disease per seg pressures of 5/16/17 that showed TONG of 1.26 on th R and 0.78 on the Left (at the level of Left PT). 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 Harris H/o CVA. CT Head of 07/14/16: no acute changes, chronic small vessel disease, chronic lacunar infart in the R basal gaglia, chronic R cerebral hemisphere infarct Hypertension, by history Hyperlipidemia, primarily consisting of hypertriglyceridemia. This has been treated with a combination of Trilipix and Lovaza that the patient has tolerated well, followed by Dr Graves Borderline diabetes mellitus, maturity onset, being followed by Dr. Graves Tardive dyskinesia, chronic Echo of 01/11/19: mild conc LVH, LVEF 60-65%, mild MR, RVSP 35 mmHg MPI of 07/01/18: No ischemia or infarction, LVEF 73% Psychologic diathesis, including anxiety/depression, currently controlled. Mild bilat carotid arterial disease per September 2016 Plan: * Maintaining SR * Continue current medication regimen * Continue OAC with Eliquis for stroke prophylaxis * Monitor labs Clinical Quality Measures Type of Care: Type of Care: Pallative YU Rodriguez Jan 19, 2019 09:08 POS
--- NOTE | 2019-01-19 09:53 | Physical Therapy Daily Note ---
PT Daily Note-Current Subjective Patient agrees to PT. Reports no pain except some in chest with coughing that is relieved with breathing treatments. Patient willing to ambulate. Pain Numeric Pain Scale: 0-No Pain Location: No Pain Reported Mental Status Patient Orientation: Normal For Age Attachments: Oxygen (3L), Alas Catheter, IV Transfers SCALE: Activities may be completed with or without assistive devices. 5-Nqntzdorjt-jwhlrsa completes the activity by him/herself with no assistance from a helper. 5-Set-up or Clean-up Assistance-helper sets up or cleans up; patient completes activity. Spencer assists only prior to or following the activity. 4-Supervision or Touching Assistance-helper provides verbal cues and/or touching/steadying and/or contact guard assistance as patient completes activity. Assistance may be provided throughout the activity or intermittently. 3-Partial/Moderate Assistance-helper does LESS THAN HALF the effort. Spencer lifts, holds or supports trunk or limbs, but provides less than half the effort. 2-Substantial/Maximal Assistance-helper does MORE THAN HALF the effort. Spencer lifts or holds trunk or limbs and provides more than half the effort. 4-Zdqyhsbmg-ommplc does ALL the effort. Patient does none of the effort to complete the activity. Or, the assistance of 2 or more helpers is required for the patient to complete the activity. If activity was not attempted, code reason: 7-Patient Refused. 9-Not Applicable-not attempted and the patient did not perform the activity before the current illness, exacerbation or injury. 10-Not Attempted due to Environmental Limitations-(lack of equipment, weather restraints, etc.). 88-Not Attempted due to Medical Conditions or Safety Concerns. Roll Left to Right (QC): 4 Sit to Lying (QC): 4 Sit to Stand (QC): 3 Gait Training Does the Patient Walk?: Yes Gait: 3 Distance: 30' Walk 10 feet (QC): 3 Gait Assistive Device: Walker 4 Wheeled Slow, small, shuffling steps Exercises Supine Ex: Ankle pumps, Heel Slides, Straight leg raise, Hip abd/add Supine Reps: 10 Seated Therapy Exercises: Long arc quads, Hip flexion Seated Reps: 10 Assessment Patient completed supine and seated exercises and performed all exercises well, demonstrating fair LE strength. Patient able to perform bed mobility SBA. Able to stand from EOB with mod assist and 4WW. Patient ambulated 30' to doorway mod assist, requiring assistance with LOB while complete turns. Patient ambulates with small, shuffling, slow steps. Patient seated in chair at conclusion of treatment with legs elevated. PT Healthcare Project Manager Goals Penitentiary Goals PT Penitentiary Goals Time Frame: Jan 23, 2019 Sit to Lying (QC): 4 Lying-Sitting on Side/Bed(QC): 4 Sit to Stand (QC): 4 Roll Left to Right (QC): 4 Chair/Uiy-wn-Mqjyp Xfer(QC): 4 Car Transfer (QC): 4 Does the Patient Walk: No and Walking Goal IS indicated Distance: 150' Walk 10 feet (QC): 4 Walk 10ft-Uneven Surface(QC): 4 Walk 50ft with 2 Turns (QC): 4 Walk 150 ft (QC): 4 Gait Assistive Device: Walker 4 Wheeled, FWW PT Plan Treatment/Plan Treatment Plan: Continue Plan of Care Treatment Plan: Bed Mobility, Education, Functional Activity Sona, Functional Strength, Gait, Safety, Therapeutic Exercise, Transfers Treatment Duration: Jan 23, 2019 Frequency: 6 times per week Estimated Hrs Per Day: .25 hour per day Patient and/or Family Agrees t: Yes Time/GCodes Time In: 840 Time Out: 908 Total Billed Treatment Time: 28 Total Billed Treatment 1 visit GT 12min EX 16min CHRIS BRAUN PT Jan 19, 2019 09:53 POS
--- NOTE | 2019-01-19 10:56 | Progress Note - Hospitalist ---
Subjective HPI/CC On Admission Date Seen by Provider: Jan 19, 2019 Time Seen by Provider: 09:40 dyspnea Subjective/Events-last exam Pt reports feeling well. No complaints. Discussed plan for DC to [facility] and in agre ement with plan. Will await approval. Objective Exam Vital Signs Vital Signs Date Time Temp Pulse Resp B/P (MAP) Pulse Ox O2 Delivery O2 Flow Rate FiO2 01/19/19 08:00 36.6 64 16 171/82 (111) 93 Nasal Cannula 2.00 01/16/19 22:42 35 Capillary Refill : Less Than 3 Seconds General Appearance: No Apparent Distress, Chronically ill Respiratory: Lungs Clear, No Respiratory Distress Cardiovascular: Regular Rate, Rhythm, No Murmur Genital/Rectal: Other (martin catheter in place) Extremity: No Calf Tenderness, No Pedal Edema Neurologic/Psychiatric: Alert, Oriented x3 Results/Procedures Lab Laboratory Tests 01/19/19 04:50 Patient resulted labs reviewed. Assessment/Plan Assessment and Plan Assess & Plan/Chief Complaint Community acquired pneumonia Strep pneumoniae bacteremia Acute hypoxemic respiratory failure -Steroids DC-ed -Continue antibiotics: Zyvox day 5 for Staph epidermidis- will need for 2 more days Rocephin day 9 for Strep bacteremia- will DC tomorrow Eraxis day 6 for Alison- will DC tomorrow Adding probiotic -Pulmonology following -Will need home oxygen evaluation prior to discharge AFib- rate controlled -Continue diltiazem and Eliquis Dysphagia -Dysphagia diet Hypomagnesemia Hypophosphatemia -Monitor and replace as needed HTN-continue home meds Septic shock-resolved PAULA-resolved DVT Prophylaxis: therapeutic Eliquis for a-fib Discharge planning: To [facility] once insurance approves Critical Care Critically Ill Patient Clinical Quality Measures DVT/VTE Risk/Contraindication: Risk Factor Score Per Nursin RFS Level Per Nursing on Admit: 3=High ESTRELLITA KOLB MD Jan 19, 2019 10:56 POS
--- NOTE | 2019-01-19 11:49 | Progress Note - Cardiology ---
Cardiology SOAP Progress Note Subjective: No cp or palp or syncope Shortness of breath improving Malaise improving Objective: I&O/Vital Signs 01/19/19 01/19/19 01/19/19 01/19/19 00:00 00:51 02:58 04:00 Temp 36.6 36.4 Pulse 63 59 63 Resp 22 20 B/P (MAP) 156/71 (99) 161/69 (99) Pulse Ox 94 100 95 O2 Delivery Nasal Cannula Nasal Cannula Nasal Cannula O2 Flow Rate 2.00 2.00 2.00 01/19/19 01/19/19 01/19/19 01/19/19 07:00 07:12 08:00 08:00 Temp 36.6 Pulse 59 64 Resp 16 B/P (MAP) 171/82 (111) Pulse Ox 93 93 O2 Delivery Nasal Cannula Nasal Cannula Room Air O2 Flow Rate 3.00 2.00 3.00 01/19/19 10:56 Pulse Ox 92 O2 Delivery Nasal Cannula O2 Flow Rate 3.00 01/19/19 00:00 Intake Total 1540 ml Output Total 2950 ml Balance -1410 ml Weight (Pounds): 150 Weight (Ounces): 0.0 Weight (Calculated Kilograms): [id number] Constitutional: well-developed, well-nourished, other (on mech vent) Respiratory: accessory muscle use, rhonchi (scattered) Cardiovascular: regular rate-rhythm, S1 and S2, systolic murmur (soft YI at card base) Gastrointestional: No tender; soft; No guarding, No rebound; audible bowel sounds Extremities: No clubbing, No cyanosis, No significant edema Neurologic/Psychiatric: oriented x 3, other (coarse, involuntary movements of the face and neck; moves all limbs equally) Skin: normal color, warm/dry; No rash on exposed areas, No ulcerations on exposed areas Results/Procedures: Labs Laboratory Tests 01/18/19 16:44: Glucometer 333H 01/18/19 20:38: Glucometer 245H 01/19/19 04:50: White Blood Count 12.8H, Red Blood Count 4.15L, Hemoglobin 11.4L, Hematocrit 34L , Mean Corpuscular Volume 83, Mean Corpuscular Hemoglobin 27, Mean Corpuscular Hemoglobin Concent 33, Red Cell Distribution Width 15.9H, Platelet Count 220, Mean Platelet Volume 10.5H, Neutrophils (%) (Auto) 87H, Lymphocytes (%) (Auto) 7L, Monocytes (%) (Auto) 5, Eosinophils (%) (Auto) 0, Basophils (%) (Auto) 0, Neutrophils # (Auto) 11.2H, Lymphocytes # (Auto) 0.9L, Monocytes # (Auto) 0.7, Eosinophils # (Auto) 0.0, Basophils # (Auto) 0.0, Sodium Level 136, Potassium Level 3.7, Chloride Level 96L, Carbon Dioxide Level 31, Anion Gap 9, Blood Urea Nitrogen 25H, Creatinine 0.72, Estimat Glomerular Filtration Rate > 60, BUN/Creatinine Ratio 35, Glucose Level 202H, Calcium Level 7.8L, Phosphorus Level 2.4, Magnesium Level 1.9 01/19/19 05:13: Glucometer 201H 01/19/19 11:28: Glucometer 237H Microbiology 01/16/19 Blood Culture - Preliminary, Resulted No growth 01/11/19 Gram Stain - Final, Complete 01/11/19 Sputum Culture - Final, Complete Staphylococcus epidermidis 01/10/19 Urine Culture - Final, Complete Proteus mirabilis Laboratory Tests 01/18/19 05:15 01/19/19 04:50 A/P: Assessment: Type 1 acute respiratory failure due to aspiration pneumonia with sepsis, improving Acute kidney injury (PAULA) 3, resolved PAF with RVR, currently NSR Peripheral arterial disease per seg pressures of 07/17/16 that showed TONG of 1.26 on th R and 0.78 on the Left (at the level of Left PT). 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 Harris H/o CVA. CT Head of 07/14/16: no acute changes, chronic small vessel disease, chronic lacunar infart in the R basal gaglia, chronic R cerebral hemisphere infarct Hypertension, by history Hyperlipidemia, primarily consisting of hypertriglyceridemia. This has been treated with a combination of Trilipix and Lovaza that the patient has tolerated well, followed by Dr Graves Borderline diabetes mellitus, maturity onset, being followed by Dr. Graves Tardive dyskinesia, chronic Echo of 01/11/19: mild conc LVH, LVEF 60-65%, mild MR, RVSP 35 mmHg MPI of 07/01/18: No ischemia or infarction, LVEF 73% Psychologic diathesis, including anxiety/depression, currently controlled. Mild bilat carotid arterial disease per September 2016 Plan: * I answered her CV-related questions * I reviewed her progress over the weekend * Continue current medication regimen * Continue OAC with Eliquis for stroke prophylaxis * Monitor labs Clinical Quality Measures Type of Care: Type of Care: Pallative Care BETH AKINS MD FACP FAC CCDS Jan 19, 2019 11:49 POS
[2019-01-19] MEDS: LACTOBACILLUS ACIDOPHILUS (PROBIOTIC) CAPSULE PO SCH ×2 (11:53→16:56)
[2019-01-19 12:00] VITALS: BP 154/77
--- NOTE | 2019-01-19 13:53 | Occ Therapy Progress Note ---
Therapy Progress Note Attempted to treat pt. Pt. working with nursing at this time. Will come back later in afternoon. 1, visit [id number] GUY WALKER OT Jan 19, 2019 13:53 POS
--- NOTE | 2019-01-19 14:55 | Occupational Ther Daily Note ---
OT Current Status-Daily Note Subjective No c/o of pain. Pt reports that she just had a shower. Appearance Pt seated in recliner when OT entered the room. Pt agrees to work with therapy. Mental Status/Objective Patient Orientation: Person, Place ADL-Treatment Therapy Code Descriptions/Definitions Functional [place] Measure: 0=Not Assessed/NA 4=Minimal Assistance 1=Total Assistance 5=Supervision or Setup 2=Maximal Assistance 6=Modified [place] 3=Moderate Assistance 7=Complete IndependenceSCALE: Activities may be completed with or without assistive devices. 7-Ffdoonqjch-wkedfer completes the activity by him/herself with no assistance from a helper. 5-Set-up or Clean-up Assistance-helper sets up or cleans up; patient completes activity. [place] assists only prior to or following the activity. 4-Supervision or Touching Assistance-helper provides verbal cues and/or touching/steadying and/or contact guard assistance as patient completes activity. Assistance may be provided throughout the activity or intermittently. 3-Partial/Moderate Assistance-helper does LESS THAN HALF the effort. [place] lifts, holds or supports trunk or limbs, but provides less than half the effort. 2-Substantial/Maximal Assistance-helper does MORE THAN HALF the effort. [place] lifts or holds trunk or limbs and provides more than half the effort. 9-Ngzdbtkwu-kctyfv does ALL the effort. Patient does none of the effort to complete the activity. Or, the assistance of 2 or more helpers is required for the patient to complete the activity. If activity was not attempted, code reason: 7-Patient Refused. 9-Not Applicable-not attempted and the patient did not perform the activity before the current illness, exacerbation or injury. 10-Not Attempted due to Environmental Limitations-(lack of equipment, weather restraints, etc.). 88-Not Attempted due to Medical Conditions or Safety Concerns. Oral Hygiene (QC): 5 (Pt completed applying adhesive glue on dentures with set up. Able to put into mouth.) Other Treatment Pt reported that she been using therapy sponge for exercise. Pt reported that she is able to hold utensils with no difficulty and that she doesn't need built up handles. Pt completed UE strengthening exercises seated to improve overall strength. Completed flex/ext of shoulder, elbow, and wrist. As well as supination and pronation of forearm, and finger squeezes. Pt. completed these exercises actively, with rest breaks in between. Completed 10 reps of each exercise. Pt stated that she would like to have dentures in. OT handed denture cup and adhesive glue to pt. Pt applied glue and put them in the mouth. Pt reported she takes them out at night. Pt reclined back with call light/phone in reach at end of session. Education OT Patient Education: Home exercise program, Modified ADL techniques, Progress toward Goal/Update tx plan, Purpose of tx/functional activities, Reviewed p recautions, Rehab process, Use of adapted equipment Teaching Recipient: Patient Teaching Methods: Demonstration, Discussion Response to Teaching: Verbalize Understanding, Return Demonstration OT Short Term Goals Short Term Goals Time Frame: Jan 29, 2019 Eating(FIM): 3 Grooming(FIM): 2 Toileting(FIM): 2 Transfers (B,C,W/C) (FIM): 3 Toilet/Commode Transfer(FIM): 3 Additional Short Term Goals: 1-Demonstrate ADL Tasks, 2-Verbalize Understanding, 3-ImproveStrength/Sona 1=Demonstrate adherence to instructed precautions during ADL tasks. 2=Patient will verbalize/demonstrate understanding of assistive devices/modifications for ADL. 3=Patient will improve strength/tolerance for activity to enable patient to perform ADL's. OT Fci Goals Triple Valve Tester Goals Time Frame: Feb 12, 2019 Eating (QC): 4 Oral Hygiene (QC): 4 Upper Body Dressing (QC): 3 Lower Body Dressing (QC): 3 On/Off Footwear (QC): 3 Toileting Hygiene (QC): 3 Toilet/Commode Transfer (QC): 4 Additional Goals: 1-Demonstrate ADL Tasks, 2-Verbalize Understanding, 3- ImproveStrength/Sona 1=Demonstrate adherence to instructed precautions during ADL tasks. 2=Patient will verbalize/demonstrate understanding of assistive devices/modifi cations for ADL. 3=Patient will improve strength/tolerance for activity to enable patient to perform ADL's. OT Education/Plan Problem List/Assessment Assessment: Decreased Activ Tolerance, Decreased UE Strength, Impaired Funct Balance, Impaired I ADL's, Impaired Self-Care Skills Discharge Recommendations Plan/Recommendations: Continue POC Therapy Discharge Recommendati: Scheduled Assistance Treatment Plan/Plan of Care Treatment,Training & Education: Yes Patient would benefit from OT for education, treatment and training to promote independence in ADL's, mobility, safety and/or upper extremity function for ADL's. Plan of Care: ADL Retraining, Functional Mobility, UE Funct Exercise/Act Treatment Duration: Feb 12, 2019 Frequency: 5 times per week Estimated Hrs Per Day: .25 hour per day Agreement: Yes Rehab Potential: Fair Time/GCodes Start Time: 14:20 Stop Time: 14:35 Total Time Billed (hr/min): 15 Billed Treatment Time 1, EX x1 (15 Min) GUY WALKER OT Jan 19, 2019 14:55 POS
[2019-01-19 16:00] VITALS: BP 145/74
[2019-01-19] MEDS: cefTRIAXone FOR IV USE 2,000 MG in WATER (STERILE) FOR INJECTION 20 ML IV SCH (16:52)
[2019-01-19 20:00] VITALS: BP 146/68
[2019-01-19] MEDS: ACETAMINOPHEN 500 MG TAB (TYLENOL) PO SCH (21:21)
[2019-01-20] VITALS: BP 149/64
[2019-01-20] MEDS: RT-ALBUTEROL/IPRATROPIUM 3 ML (DUONEB) VIAL INH SCH ×3 (01:49→10:32)
[2019-01-20 05:00] VITALS: BP 166/82
[2019-01-20] MEDS: LACTOBACILLUS ACIDOPHILUS (PROBIOTIC) CAPSULE PO SCH ×2 (06:05→12:26)
[2019-01-20] MEDS: metFORMIN 500 MG (GLUCOPHAGE) TAB PO SCH (06:05)
[2019-01-20] MEDS: inSUlin ASPART (NovoLOG) 1 UNIT/0.01 ML (CHARGE PER UNIT) SQ SCH ×2 (06:05→12:26)
[2019-01-20] MEDS: LINAGLIPTIN (TRADJENTA) 5 MG TABLET PO SCH (06:05)
[2019-01-20 06:35] LABS: BASOPHILS % (AUTO) 0 % (0-10); EOSINOPHILS # (AUTO) 0.1 10^3/uL (0.0-0.3); EOSINOPHILS % (AUTO) 1 % (0-10); HEMATOCRIT 37 % (35-52); LYMPHOCYTES # (AUTO) 0.9 X 10^3 (1.0-4.0); LYMPHOCYTES % (AUTO) 9 % (12-44); MEAN CORPUSCULAR HEMOGLOBIN 27 PG (25-34); MEAN CORPUSCULAR HGB CONC 33 G/DL (32-36); MEAN CORPUSCULAR VOLUME 84 FL (80-99); MEAN PLATELET VOLUME 10.4 FL (7.4-10.4); MONOCYTES # (AUTO) 0.5 X 10^3 (0.0-1.0); MONOCYTES % (AUTO) 5 % (0-12); NEUTROPHILS # (AUTO) 8.4 X 10^3 (1.8-7.8); NEUTROPHILS % (AUTO) 85 % (42-75); PLATELET COUNT 195 10^3/uL (130-400); RED CELL DISTRIBUTION WIDTH 15.9 % (10.0-14.5); WHITE BLOOD COUNT 9.9 10^3/uL (4.3-11.0)
[2019-01-20 06:57] LABS: BUN/CREATININE RATIO 30; CALCIUM 8.1 MG/DL (8.5-10.1); CARBON DIOXIDE 28 MMOL/L (21-32); CHLORIDE 98 MMOL/L (98-107); CREATININE SERUM 0.69 MG/DL (0.60-1.30); GFR ESTIMATED > 60; GLUCOSE 186 MG/DL (70-105); MAGNESIUM 1.5 MG/DL (1.6-2.4); PHOSPHORUS 2.8 MG/DL (2.3-4.7); POTASSIUM 3.7 MMOL/L (3.6-5.0); SODIUM 137 MMOL/L (135-145)
--- NOTE | 2019-01-20 07:33 | Pulmonary Progress Note ---
RIC PEARL A MEDICAL STUDENT 01/20/19 0733: Subjective Date Seen by a Provider: Jan 20, 2019 Time Seen by a Provider: 07:27 Subjective/Events-last exam Pt has no complaints at this time, no acute events over night. Pt denies any new SOB, productive cough, fever or chills; however, pt is now requiring 3L O2 by NC and is only satting 93%. Sepsis Event Evaluation Height, Weight, BMI Height: 5'5.00" Weight: 150lbs. 0.0oz. 68.505829gc; 26.74 BMI Method:Stated Exam Exam Vital Signs Date Time Temp Pulse Resp B/P (MAP) Pulse Ox O2 Delivery O2 Flow Rate FiO2 01/20/19 06:41 93 Nasal Cannula 3.00 01/20/19 05:00 36.2 63 18 166/82 (110) 94 Nasal Cannula 2.00 01/20/19 01:48 95 Nasal Cannula 3.00 01/20/19 01:00 60 01/20/19 00:00 36.2 64 18 149/64 (92) 92 Nasal Cannula 2.00 01/19/19 21:29 95 Nasal Cannula 3.00 01/19/19 20:00 Room Air 3.00 01/19/19 20:00 36.4 67 18 146/68 (94) 98 Nasal Cannula 2.00 01/19/19 19:00 62 01/19/19 18:27 99 Nasal Cannula 3.00 01/19/19 16:00 36.2 64 20 145/74 (97) 98 Nasal Cannula 2.00 01/19/19 14:45 94 Nasal Cannula 3.00 01/19/19 13:00 67 01/19/19 12:00 36.1 68 16 154/77 (102) 94 Nasal Cannula 2.00 01/19/19 10:56 92 Nasal Cannula 3.00 01/19/19 08:00 Room Air 3.00 01/19/19 08:00 36.6 64 16 171/82 (111) 93 Nasal Cannula 2.00 I & O 01/20/19 07:00 Intake Total 2360 ml Output Total 900 ml Balance 1460 ml Height & Weight Height: 5'5.00" Weight: 150lbs. 0.0oz. 68.905153rx; 26.74 BMI Method:Stated General Appearance: No Apparent Distress, Chronically ill HEENT: PERRL/EOMI, Pharynx Normal Neck: Normal Inspection, Supple Respiratory: No Accessory Muscle Use, No Respiratory Distress, Crackles Cardiovascular: Regular Rate, Rhythm, No Murmur Capillary Refill: Less Than 3 Seconds Gastrointestinal: soft, no organomegaly Extremity: No Calf Tenderness Neurologic/Psychiatric: Alert, Oriented x3 Skin: Normal Color, Warm/Dry Lymphatic: No Adenopathy Results Lab Laboratory Tests 01/19/19 04:50 01/20/19 06:12 Assessment/Plan Assessment/Plan Acute Respiratory failure with PNA with staph epi -pt satting 93% on 3L NC -worsening since yesterday -CXR today pending -Zyvox (started 01/15), -day 6, continue x 1 more day -Rocephin -day 10 -pt extubated 01/14 -Pt is aspiration risk. -dysphagia diet -PT/OT. aspiration precautions. -will need eval for home O2 prior to discharge Strep bacteremia -Rocephin -day 10 -Repeat BC neg thus far Afib -Cardiology following -on Eliquis Anemia -Monitor -Protonix ARMANDO SANDRA DO 01/20/19 1538: Subjective Subjective/Events-last exam No complications noted. Exam Exam General Appearance: No Apparent Distress, Chronically ill HEENT: PERRL/EOMI, Pharynx Normal Neck: Normal Inspection, Supple Respiratory: No Accessory Muscle Use, No Respiratory Distress, Crackles Cardiovascular: Regular Rate, Rhythm, No Murmur Gastrointestinal: soft, no organomegaly Extremity: No Calf Tenderness Neurologic/Psychiatric: Alert, Oriented x3 Skin: Normal Color, Warm/Dry Lymphatic: No Adenopathy Assessment/Plan Assessment/Plan Acute Respiratory failure with PNA with staph epi -pt satting 93% on 3L NC -worsening since yesterday -CXR today pending -Zyvox (started 01/15), -day 6, continue x 1 more day -Rocephin -day 10 -pt extubated 01/14 -Pt is aspiration risk. -dysphagia diet -PT/OT. aspiration precautions. -will need eval for home O2 prior to discharge Strep bacteremia -Rocephin -day 10 -Repeat BC neg thus far Afib -Cardiology following -on Eliquis Anemia -Monitor -Protonix DAE,NIKKI MEDICAL STUDENT Jan 20, 2019 07:33 ARMANDO ROD DO Jan 20, 2019 15:38 POS
[2019-01-20 08:00] VITALS: BP 157/79
--- NOTE | 2019-01-20 08:45 | Diagnostic Imaging Report ---
INDICATION: Dyspnea COMPARISON: 01/19/2019 FINDINGS: The heart is enlarged. There is vascular congestion and mild elevation of the right diaphragm. A mild degree of interstitial edema is suggested and there may be small amounts of pleural fluid as well. IMPRESSION: Likely mild progressive sequelae of failure pattern and/or hypervolemia. Dictated by: Dictated on workstation # [id number]
--- NOTE | 2019-01-20 08:51 | Discharge Inst-Skilled Nursing ---
Discharge Inst-Skilled NF Reconcile Patient Problems Problems Reviewed?: Yes Patient Instructions Patient Problems: Pneumonia, bacteremia, acute respiratory failure Goal: I anticipate that patient's skill stay will last less than 30 days if she continues to progress at this rate and am hopeful she will return home with her previous in home services. Consult/Follow Up/Orders Follow Up Appt.: With Dr Graves in 1 week. Skilled NF Admit to: Via [facility] Certification ([facility]) I certify that SNF services are required to be given on an inpatient basis because of the above named patient's need for custodial care on a continuing basis for the conditions(s) for which he/she was receiving inpatient hospital services prior to his/her transfer to the SNF. Penitentiary Facility Order: Nursing Services, Criminal Justice Social Worker-Evaluate & Treat, Physical Therapy-Evaluate & Treat, Speech Language-Evaluate & Treat Oxygen Delivery Method: Nasal Cannula Oxygen Flow Rate L/min (Range): 3 Discharge Diet: Semi-Solid Diet (Dysphagia 1- Pureed) Resuscitation Status: Full Code New & Resume Previous Orders Estrellita Tran Jan 19, 2019 19:49 ESTRELLITA TRAN MD Jan 19, 2019 19:51 POS
--- NOTE | 2019-01-20 08:56 | Occupational Ther Daily Note ---
OT Current Status-Daily Note Subjective Pt reported that she was up walking with someone else. No c/o of pain. Appearance Pt seated with breakfast tray in front of her. Pt report she is through eating. Mental Status/Objective Patient Orientation: Person, Place ADL-Treatment Therapy Code Descriptions/Definitions Functional [place] Measure: 0=Not Assessed/NA 4=Minimal Assistance 1=Total Assistance 5=Supervision or Setup 2=Maximal Assistance 6=Modified [place] 3=Moderate Assistance 7=Complete IndependenceSCALE: Activities may be completed with or without assistive devices. 7-Quigjtuptr-ewhiuwk completes the activity by him/herself with no assistance from a helper. 5-Set-up or Clean-up Assistance-helper sets up or cleans up; patient completes activity. [place] assists only prior to or following the activity. 4-Supervision or Touching Assistance-helper provides verbal cues and/or touching/steadying and/or contact guard assistance as patient completes activity. Assistance may be provided throughout the activity or intermittently. 3-Partial/Moderate Assistance-helper does LESS THAN HALF the effort. [place] lifts, holds or supports trunk or limbs, but provides less than half the effort. 2-Substantial/Maximal Assistance-helper does MORE THAN HALF the effort. [place] lifts or holds trunk or limbs and provides more than half the effort. 8-Nzzdzweqh-mwwgqv does ALL the effort. Patient does none of the effort to complete the activity. Or, the assistance of 2 or more helpers is required for the patient to complete the activity. If activity was not attempted, code reason: 7-Patient Refused. 9-Not Applicable-not attempted and the patient did not perform the activity before the current illness, exacerbation or injury. 10-Not Attempted due to Environmental Limitations-(lack of equipment, weather restraints, etc.). 88-Not Attempted due to Medical Conditions or Safety Concerns. Eating (QC): 5 (Pt. was able to finish breakfast with set up.) Oral Hygiene (QC): 5 (Pt. is able to open denture cup, apply adhesive, and put dentrures into mouth with set up.) OT handed pt wash cloth to wipe her face. Pt patted her face and mouth and layed it down. Pt reported that she would like to wear her dentures. OT handed pt cup with dentures and adhesive glue. Pt completed wearing her dentures with set up. Pt then participated on bilateral UE strengthening exercise while seated using min resistance theraband. Pt completed 10 reps x 3 exercises in all planes to improve overall strength and activity tolerance for functional tasks. OT then handed pt brush. Pt completed brushing hair while seated. Pt in recliner at the end of session with call light/phone in reach. All needs met. Education OT Patient Education: Correct positioning, Exercise program, Home exercise program, Modified ADL techniques, Progress toward Goal/Update tx plan, Purpose of tx/functional activities, Reviewed precautions, Rehab process Teaching Recipient: Patient Teaching Methods: Demonstration, Discussion Response to Teaching: Verbalize Understanding, Return Demonstration OT Short Term Goals Short Term Goals Time Frame: Jan 29, 2019 OT Spring Assembler Supervisor Goals Alf Goals Time Frame: Feb 12, 2019 Eating (QC): 4 Oral Hygiene (QC): 4 Toileting Hygiene (QC): 3 Shower/Bathe Self (QC): 9 (Caregivers assisted with this previously. This is not a goal for pt with OT.) Upper Body Dressing (QC): 3 Lower Body Dressing (QC): 3 On/Off Footwear (QC): 3 Additional Goals: 1-Demonstrate ADL Tasks, 2-Verbalize Understanding, 3- ImproveStrength/Sona 1=Demonstrate adherence to instructed precautions during ADL tasks. 2=Patient will verbalize/demonstrate understanding of assistive devices/modifications for ADL. 3=Patient will improve strength/tolerance for activity to enable patient to perform ADL's. OT Education/Plan Problem List/Assessment Assessment: Decreased Activ Tolerance, Decreased UE Strength, Dependent Transfers, Impaired I ADL's, Impaired Self-Care Skills Discharge Recommendations Plan/Recommendations: Continue POC Therapy Discharge Recommendati: Post Acute OT Treatment Plan/Plan of Care Treatment,Training & Education: Yes Patient would benefit from OT for education, treatment and training to promote independence in ADL's, mobility, safety and/or upper extremity function for ADL's. Plan of Care: ADL Retraining, Functional Mobility, UE Funct Exercise/Act Treatment Duration: Feb 12, 2019 Frequency: 5 times per week Estimated Hrs Per Day: .25 hour per day Agreement: Yes Rehab Potential: Fair Time/GCodes Start Time: 08:22 Stop Time: 08:39 Total Time Billed (hr/min): 17 Billed Treatment Time 1, EX x1 (17 Min) GUY WALKER OT Jan 20, 2019 08:56 POS
[2019-01-20] MEDS ORDERED: DILT180C90 PO (08:59)
[2019-01-20] MEDS ORDERED: LACT1CAP7 PO (08:59)
[2019-01-20] MEDS ORDERED: APIX5TAB PO (08:59)
[2019-01-20] MEDS ORDERED: METO50TA15 PO (08:59)
[2019-01-20] MEDS ORDERED: PANTOPRAZOLE 40 MG (PROTONIX) TAB PO SCH (09:00)
--- NOTE | 2019-01-20 09:02 | Discharge Summary ---
Diagnosis/Chief Complaint Date of Admission Jan 10, 2019 at 11:50 Date of Discharge Discharge Date: Jan 19, 2019 Admission Diagnosis sepsis secondary to aspiration pneumonia-with an elevated lactic acid Hypoxia secondary to aspiration pneumonia Left lower lobe infiltrate-may require bronchoscopy because of the configuration of the pneumonia and possibility of obstruction Hypertension by history Will hold blood pressure medications because of hypotension Dysphagia we'll get speech study and changed to mechanical soft diet for now acute renal failure creatinine at 2.2 which was 0.9 in August of this year Elevated liver function tests most likely secondary to sepsis Primary Care Fab Beaver MD Discharge Diagnosis (1) CAP (community acquired pneumonia) Status: Acute (2) Acute hypoxemic respiratory failure Status: Acute (3) Bacteremia due to Streptococcus Status: Acute Discharge Summary Discharge Physical Exam Allergies: Coded Allergies: No Known Drug Allergies (Verified , 12/25/06) Vitals & I&Os Vital Signs Date Time Temp Pulse Resp B/P (MAP) Pulse Ox O2 Delivery O2 Flow Rate FiO2 01/20/19 08:51 Nasal Cannula 01/20/19 07:00 54 01/20/19 06:41 93 3.00 01/20/19 05:00 36.2 18 166/82 (110) 01/16/19 22:42 35 General Appearance: No Apparent Distress, Chronically ill Respiratory: Lungs Clear, No Respiratory Distress Cardiovascular: Regular Rate, Rhythm, No Murmur Gastrointestinal: Normal Bowel Sounds, Soft Hospital Course Labs (last 24 hrs) Laboratory Tests 01/19/19 11:28: Glucometer 237H 01/19/19 15:57: Glucometer 275H 01/19/19 20:56: Glucometer 212H 01/20/19 05:50: Glucometer 182H 01/20/19 06:12: White Blood Count 9.9, Red Blood Count 4.40, Hemoglobin 12.0, Hematocrit 37, Mean Corpuscular Volume 84, Mean Corpuscular Hemoglobin 27, Mean Corpuscular Hemoglobin Concent 33, Red Cell Distribution Width 15.9H, Platelet Count 195, Mean Platelet Volume 10.4, Neutrophils (%) (Auto) 85H, Lymphocytes (%) (Auto) 9L , Monocytes (%) (Auto) 5, Eosinophils (%) (Auto) 1, Basophils (%) (Auto) 0, Neutrophils # (Auto) 8.4H, Lymphocytes # (Auto) 0.9L, Monocytes # (Auto) 0.5, Eosinophils # (Auto) 0.1, Basophils # (Auto) 0.0, Sodium Level 137, Potassium Level 3.7, Chloride Level 98, Carbon Dioxide Level 28, Anion Gap 11, Blood Urea Nitrogen 21H, Creatinine 0.69, Estimat Glomerular Filtration Rate > 60, BUN/Creatinine Ratio 30, Glucose Level 186H, Calcium Level 8.1L, Phosphorus Level 2.8, Magnesium Level 1.5L Microbiology 01/16/19 Blood Culture - Preliminary, Resulted No growth 01/11/19 Gram Stain - Final, Complete 01/11/19 Sputum Culture - Final, Complete Staphylococcus epidermidis 01/10/19 Urine Culture - Final, Complete Proteus mirabilis Patient resulted labs reviewed. Pending Labs Laboratory Tests 01/20/19 05:50: Glucometer 182 01/20/19 06:12: White Blood Count 9.9, Red Blood Count 4.40, Hemoglobin 12.0, Hematocrit 37, Mean Corpuscular Volume 84, Mean Corpuscular Hemoglobin 27, Mean Corpuscular Hemoglobin Concent 33, Red Cell Distribution Width 15.9, Platelet Count 195, Mean Platelet Volume 10.4, Neutrophils (%) (Auto) 85, Lymphocytes (%) (Auto) 9, Monocytes (%) (Auto) 5, Eosinophils (%) (Auto) 1, Basophils (%) (Auto) 0, Ne utrophils # (Auto) 8.4, Lymphocytes # (Auto) 0.9, Monocytes # (Auto) 0.5, Eosinophils # (Auto) 0.1, Basophils # (Auto) 0.0, Sodium Level 137, Potassium Level 3.7, Chloride Level 98, Carbon Dioxide Level 28, Anion Gap 11, Blood Urea Nitrogen 21, Creatinine 0.69, Estimat Glomerular Filtration Rate > 60, BUN/Creatinine Ratio 30, Glucose Level 186, Calcium Level 8.1, Phosphorus Level 2.8, Magnesium Level 1.5 Discharge Home Medications: Active Scripts Active Acidophilus-Pectin Capsule (Lactobacillus Acidophilus/Pect) 1 Each Capsule 2 Each PO TIDWM Diltiazem 24Hr Cd (Diltiazem HCl) 180 Mg Cap.er.24h 180 Mg PO DAILY Metoprolol Tartrate 50 Mg Tablet 100 Mg PO BID Eliquis (Apixaban) 5 Mg Tablet 5 Mg PO BID Mupirocin 1 Gm Oin.pf.stephanie 1 Gm TP BID Clindamycin HCl 300 Mg Capsule 300 Mg PO QID Prednisone 20 Mg Tab 40 Mg PO DAILY Cefuroxime (Cefuroxime Axetil) 250 Mg Tablet 250 Mg PO BID Proair Hfa (Albuterol Sulfate) 1 Puff Puff 2 Puff IH Q4H 1 PUFF = 90 MCG Amlodipine Besylate 10 Mg Tablet 10 Mg PO DAILY Percocet 5-325 mg Tablet (Oxycodone HCl/Acetaminophen) 1 Each Tablet 0.5-1 Each PO Q4H PRN Prednisone 10 Mg Tab 10 Mg PO DAILY Losartan Potassium 100 Mg Tablet 100 Mg PO DAILY Atenolol 50 Mg Tablet 50 Mg PO DAILY Reported I-Caps with Lutein-Udall 3 Sfg (Antiox#10/Om3/Dha/Epa/Lut/Zeax) 1 Each Capsule 1 Each PO DAILY Tylenol Extra Strength (Acetaminophen) 500 Mg Tablet 500 Mg PO HS Tylenol Pm Ex-Strength Caplet (Acetaminophen/Diphenhydramine) 1 Each Tablet 1 Each PO HS Tylenol Extra Strength (Acetaminophen) 500 Mg Tablet 1,000 Mg PO DAILY Seroquel (Quetiapine Fumarate) 100 Mg Tablet 50 Mg PO DAILY Naprosyn (Naproxen) 500 Mg Tablet 500 Mg PO DAILY PRN Aspir 81 (Aspirin) 81 Mg Tablet.dr 81 Mg PO DAILY Atorvastatin Calcium 10 Mg Tablet 10 Mg PO HS Loratadine 10 Mg Tablet 10 Mg PO DAILY Januvia (Sitagliptin Phosphate) 50 Mg Tablet 50 Mg PO DAILY Seroquel (Quetiapine Fumarate) 100 Mg Tablet 100 Mg PO HS Lovaza (Udall-3 Acid Ethyl Esters) 1 Gm Capsule 2 Gm PO BID Namenda Xr (Memantine HCl) 28 Mg Cap.spr.24 28 Mg PO HS Trilipix 135 Mg (Fenofibrate) 135 Mg Capsule.dr 135 Mg PO DAILY Metformin 500 Mg (Metformin HCl) 500 Mg Tablet 500 Mg PO BID Venlafaxine Hcl 150 Mg Tab.osm.24 150 Mg PO DAILY Instructions to patient/family Please see electronic discharge instructions given to patient. Clinical Quality Measures DVT/VTE Risk/Contraindication: Risk Factor Score Per Nursin RFS Level Per Nursing on Admit: 3=High Copy Copies To 1: FAB BEAVER MD Problem Qualifiers (1) CAP (community acquired pneumonia): Qualified Codes: J18.9 - Pneumonia, unspecified organism ESTRELLITA KOLB MD Jan 20, 2019 09:02 POS
[2019-01-20] MEDS: LOSARTAN 100 MG (COZAAR) TABLET PO SCH (09:23)
[2019-01-20] MEDS: LINEZOLID (ZYVOX) 600 MG TAB PO SCH (09:23)
[2019-01-20] MEDS: amLODIPine 10 MG (NORVASC) TAB PO SCH (09:23)
[2019-01-20] MEDS: ASPIRIN E.C. 81 MG (ECOTRIN) TAB PO SCH (09:23)
[2019-01-20] MEDS: meTOprolol TARTRATE 50 MG (LOPRESSOR) TAB PO SCH (09:23)
[2019-01-20] MEDS: LORATADINE (CLARITIN) 10 MG TAB PO SCH (09:23)
[2019-01-20] MEDS: APIXABAN 5 MG (ELIQUIS) TABLET PO SCH (09:23)
[2019-01-20] MEDS: DILTIAZEM 180 MG (CARDIZEM CD) CAP PO SCH (09:24)
[2019-01-20] MEDS: ANIDULAFUNGIN INJECTION 100 MG in NS (IVPB) 100 ML IV SCH (09:24)
--- NOTE | 2019-01-20 09:43 | Progress Note - Cardiology ---
Cardiology SOAP Progress Note Subjective: Sitting up in chair at the bedside working with OT. States she feels good this morning. No c/o CP, palpitations, syncope or near syncope. She feels her breathing is good this morning. Objective: I&O/Vital Signs 01/20/19 01/20/19 01/20/19 01/20/19 00:00 01:00 01:48 05:00 Temp 36.2 36.2 Pulse 64 60 63 Resp 18 18 B/P (MAP) 149/64 (92) 166/82 (110) Pulse Ox 92 95 94 O2 Delivery Nasal Cannula Nasal Cannula Nasal Cannula O2 Flow Rate 2.00 3.00 2.00 01/20/19 01/20/19 01/20/19 01/20/19 06:41 07:00 08:00 08:51 Temp 36.3 Pulse 54 60 Resp 20 B/P (MAP) 157/79 (105) Pulse Ox 93 97 O2 Delivery Nasal Cannula Nasal Cannula Nasal Cannula O2 Flow Rate 3.00 2.00 01/20/19 00:00 Intake Total 2060 ml Output Total 900 ml Balance 1160 ml Weight (Pounds): 150 Weight (Ounces): 0.0 Weight (Calculated Kilograms): 68.863814 Constitutional: well-developed, well-nourished, other (on mech vent) Respiratory: accessory muscle use, rhonchi (scattered) Cardiovascular: regular rate-rhythm, S1 and S2, systolic murmur (soft YI at card base) Gastrointestional: No tender; soft; No guarding, No rebound; audible bowel sounds Extremities: No clubbing, No cyanosis, No significant edema Neurologic/Psychiatric: oriented x 3, other (coarse, involuntary movements of the face and neck; moves all limbs equally) Skin: normal color, warm/dry; No rash on exposed areas, No ulcerations on exposed areas Results/Procedures: Labs Laboratory Tests 01/19/19 11:28: Glucometer 237H 01/19/19 15:57: Glucometer 275H 01/19/19 20:56: Glucometer 212H 01/20/19 05:50: Glucometer 182H 01/20/19 06:12: White Blood Count 9.9, Red Blood Count 4.40, Hemoglobin 12.0, Hematocrit 37, Mean Corpuscular Volume 84, Mean Corpuscular Hemoglobin 27, Mean Corpuscular Hemoglobin Concent 33, Red Cell Distribution Width 15.9H, Platelet Count 195, Mean Platelet Volume 10.4, Neutrophils (%) (Auto) 85H, Lymphocytes (%) (Auto) 9L , Monocytes (%) (Auto) 5, Eosinophils (%) (Auto) 1, Basophils (%) (Auto) 0, Neutrophils # (Auto) 8.4H, Lymphocytes # (Auto) 0.9L, Monocytes # (Auto) 0.5, Eosinophils # (Auto) 0.1, Basophils # (Auto) 0.0, Sodium Level 137, Potassium Level 3.7, Chloride Level 98, Carbon Dioxide Level 28, Anion Gap 11, Blood Urea Nitrogen 21H, Creatinine 0.69, Estimat Glomerular Filtration Rate > 60, BUN/Creatinine Ratio 30, Glucose Level 186H, Calcium Level 8.1L, Phosphorus Level 2.8, Magnesium Level 1.5L Microbiology 01/16/19 Blood Culture - Preliminary, Resulted No growth 01/11/19 Gram Stain - Final, Complete 01/11/19 Sputum Culture - Final, Complete Staphylococcus epidermidis 01/10/19 Urine Culture - Final, Complete Proteus mirabilis Laboratory Tests 01/19/19 04:50 01/20/19 06:12 Procedures NAME: WILLIAM DO [facility] REC#: [id number] PT STATUS: ADM IN : 1945 PHYSICIAN: ALLISON HUI MD ADMIT DATE: 01/10/19 Draft Date of Exam:01/20/19 CHEST 1 VIEW, AP/PA ONLY INDICATION: Dyspnea COMPARISON: 01/19/2019 FINDINGS: The heart is enlarged. There is vascular congestion and mild elevation of the right diaphragm. A mild degree of interstitial edema is suggested and there may be small amounts of pleural fluid as well. IMPRESSION: Likely mild progressive sequelae of failure pattern and/or hypervolemia. Dictated on workstation # [id number] Dict: 01/20/1938 Trans: 01/20/19 0844 [facility] [id number] Interpreted by: DENITA WIN Electronically signed by: A/P: Assessment: Type 1 acute respiratory failure due to aspiration pneumonia with sepsis, improving Acute kidney injury (PAULA) 3, resolved PAF with RVR, currently NSR Peripheral arterial disease per seg pressures of 07/17/16 that showed TONG of 1.26 on th R and 0.78 on the Left (at the level of Left PT). 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 Harris H/o CVA. CT Head of 07/14/16: no acute changes, chronic small vessel disease, chronic lacunar infart in the R basal gaglia, chronic R cerebral hemisphere infarct Hypertension, by history Hyperlipidemia, primarily consisting of hypertriglyceridemia. This has been treated with a combination of Trilipix and Lovaza that the patient has tolerated well, followed by Dr Graves Borderline diabetes mellitus, maturity onset, being followed by Dr. Graves Tardive dyskinesia, chronic Echo of 01/11/19: mild conc LVH, LVEF 60-65%, mild MR, RVSP 35 mmHg MPI of 07/01/18: No ischemia or infarction, LVEF 73% Psychologic diathesis, including anxiety/depression, currently controlled. Mild bilat carotid arterial disease per September 2016 Plan: * Continue current medication regimen * Continue OAC with Eliquis for stroke prophylaxis * Plan is to discharge today per medical services * Out pt f/u YU CASTRO Jan 20, 2019 09:43 POS
--- NOTE | 2019-01-20 09:56 | Physical Therapy Daily Note ---
PT Daily Note-Current Subjective Patient agrees to PT. Reports she is feeling good today, is ready to walk, and is having no pain. Pain Numeric Pain Scale: 0-No Pain Location: No Pain Reported Mental Status Patient Orientation: Normal For Age Attachments: Oxygen Transfers SCALE: Activities may be completed with or without assistive devices. 2-Mpztheglgn-ijmavnk completes the activity by him/herself with no assistance from a helper. 5-Set-up or Clean-up Assistance-helper sets up or cleans up; patient completes activity. [place] assists only prior to or following the activity. 4-Supervision or Touching Assistance-helper provides verbal cues and/or touching/steadying and/or contact guard assistance as patient completes activity. Assistance may be provided throughout the activity or intermittently. 3-Partial/Moderate Assistance-helper does LESS THAN HALF the effort. [place] lifts, holds or supports trunk or limbs, but provides less than half the effort. 2-Substantial/Maximal Assistance-helper does MORE THAN HALF the effort. [place] lifts or holds trunk or limbs and provides more than half the effort. 6-Wlytjwclk-tuzhtk does ALL the effort. Patient does none of the effort to complete the activity. Or, the assistance of 2 or more helpers is required for the patient to complete the activity. If activity was not attempted, code reason: 7-Patient Refused. 9-Not Applicable-not attempted and the patient did not perform the activity before the current illness, exacerbation or injury. 10-Not Attempted due to Environmental Limitations-(lack of equipment, weather restraints, etc.). 88-Not Attempted due to Medical Conditions or Safety Concerns. Sit to Stand (QC): 3 Gait Training Does the Patient Walk?: Yes Distance: 80' Walk 10 feet (QC): 4 Walk 50 ft with 2 Turns(QC): 4 Walk 150 ft (QC): 88 Gait Assistive Device: Walker 4 Wheeled Assessment Patient sitting in chair prior to tx and able to stand with moderate assistance and use of 4WW. Patient ambulated 80' today with 4WW with min assist, requiring no cues and demonstrating a more steady gait than previous treatment. Patient returned to chair at conclusion of treatment with legs elevated. PT Table Games Supervisor Goals Table Games Supervisor Goals PT Table Games Supervisor Goals Time Frame: Jan 23, 2019 Roll Left & Right (QC): 4 Sit to Lying (QC): 4 Lying-Sitting on Side/Bed(QC): 4 Sit to Stand (QC): 4 Chair/Fus-jr-Mjvop Xfer(QC): 4 Toilet Transfer (QC): 4 Car Transfer (QC): 4 Does the Patient Walk: No and Walking Goal IS indicated Walk 10 feet (QC): 4 Walk 50ft with 2 Turns (QC): 4 Walk 150 ft (QC): 4 Walking 10ft on Uneven Surface: 4 1 Step (curb) (QC): 4 4 Steps (QC): 9 12 Steps (QC): 9 Picking up an Object (QC): 5 Does the Pt use WC or Scooter?: No Type: N/A Type: N/A PT Plan Treatment/Plan Treatment Plan: Continue Plan of Care Treatment Plan: Bed Mobility, Education, Functional Activity Sona, Functional Strength, Gait, Safety, Therapeutic Exercise, Transfers Treatment Duration: Jan 23, 2019 Frequency: 6 times per week Estimated Hrs Per Day: .25 hour per day Patient and/or Family Agrees t: Yes Time/GCodes Time In: 755 Time Out: 808 Total Billed Treatment Time: 13 Total Billed Treatment 1 visit FA 13min CHRIS BRAUN PT Jan 20, 2019 09:56 POS
--- NOTE | 2019-01-20 10:25 | NUR ---
SPO2 94% ON O2 @ 3 LPM. PLACED O2 ON SB FOR 5 MINUTES. SPO2 DROPPED TO 85%. REPLACED O2 @ 3 LPM. SPO2 INCREASED TO 92%. NO DISTRESS NOTED. Addendum: 01/20/19 at 1038 by SANDRA GOMEZ RT Amended: Links added.
[2019-01-20] MEDS ORDERED: LINE600T5 PO (10:31)
[2019-01-20 12:00] VITALS: BP 170/78
--- NOTE | 2019-01-20 14:00 | NUR ---
DISCHARGE PLANNING: Sadaf has been accepted by her insurance et [facility] for admission for continued need of skilled Physical, Occupational, et Speech therapies. She is still requiring 2LPM via [place] of oxygen at this time. Doctor has also put orders into continue to titrate her off of her oxygen as she was not on this prior to this hospital stay. The important message from medicare was signed by Sadaf this morning et placed on her chart prior to her discharge. She reports that she is ready to get over there and see the people that she knows. 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 She will need oxygen for transport et has clothes here at the hospital. No further needs noted at this time.
--- NOTE | 2019-01-20 14:13 | Progress Note - Cardiology ---
Cardiology SOAP Progress Note Subjective: No cp or palp or syncope Malaise and shortness of breath are gradually improving Objective: I&O/Vital Signs 01/20/19 01/20/19 01/20/19 01/20/19 05:00 06:41 07:00 08:00 Temp 36.2 Pulse 63 54 Resp 18 B/P (MAP) 166/82 (110) Pulse Ox 94 93 O2 Delivery Nasal Cannula Nasal Cannula Room Air O2 Flow Rate 2.00 3.00 3.00 01/20/19 01/20/19 01/20/19 01/20/19 08:00 08:51 10:25 10:32 Temp 36.3 Pulse 60 Resp 20 B/P (MAP) 157/79 (105) Pulse Ox 97 94 93 O2 Delivery Nasal Cannula Nasal Cannula Nasal Cannula O2 Flow Rate 2.00 3.00 3.00 01/20/19 01/20/19 01/20/19 12:00 13:00 13:00 Temp 36.4 Pulse 72 73 72 Resp 18 B/P (MAP) 170/78 (108) Pulse Ox 95 O2 Delivery Nasal Cannula O2 Flow Rate 2.00 01/20/19 00:00 Intake Total 2060 ml Output Total 900 ml Balance 1160 ml Weight (Pounds): 150 Weight (Ounces): 0.0 Weight (Calculated Kilograms): 68.505141 Constitutional: well-developed, well-nourished, other (on mech vent) Respiratory: accessory muscle use, rhonchi (scattered) Cardiovascular: regular rate-rhythm, S1 and S2, systolic murmur (soft YI at card base) Gastrointestional: No tender; soft; No guarding, No rebound; audible bowel sounds Extremities: No clubbing, No cyanosis, No significant edema Neurologic/Psychiatric: oriented x 3, other (coarse, involuntary movements of the face and neck; moves all limbs equally) Skin: normal color, warm/dry; No rash on exposed areas, No ulcerations on exposed areas Results/Procedures: Labs Laboratory Tests 01/19/19 15:57: Glucometer 275H 01/19/19 20:56: Glucometer 212H 01/20/19 05:50: Glucometer 182H 01/20/19 06:12: White Blood Count 9.9, Red Blood Count 4.40, Hemoglobin 12.0, Hematocrit 37, Mean Corpuscular Volume 84, Mean Corpuscular Hemoglobin 27, Mean Corpuscular Hemoglobin Concent 33, Red Cell Distribution Width 15.9H, Platelet Count 195, Mean Platelet Volume 10.4, Neutrophils (%) (Auto) 85H, Lymphocytes (%) (Auto) 9L , Monocytes (%) (Auto) 5, Eosinophils (%) (Auto) 1, Basophils (%) (Auto) 0, Neutrophils # (Auto) 8.4H, Lymphocytes # (Auto) 0.9L, Monocytes # (Auto) 0.5, Eosinophils # (Auto) 0.1, Basophils # (Auto) 0.0, Sodium Level 137, Potassium Level 3.7, Chloride Level 98, Carbon Dioxide Level 28, Anion Gap 11, Blood Urea Nitrogen 21H, Creatinine 0.69, Estimat Glomerular Filtration Rate > 60, BUN/Creatinine Ratio 30, Glucose Level 186H, Calcium Level 8.1L, Phosphorus Level 2.8, Magnesium Level 1.5L 01/20/19 11:30: Glucometer 205H Microbiology 01/16/19 Blood Culture - Preliminary, Resulted No growth 01/11/19 Gram Stain - Final, Complete 01/11/19 Sputum Culture - Final, Complete Staphylococcus epidermidis 01/10/19 Urine Culture - Final, Complete Proteus mirabilis Laboratory Tests 01/19/19 04:50 01/20/19 06:12 A/P: Assessment: Type 1 acute respiratory failure due to aspiration pneumonia with sepsis, improving Acute kidney injury (PAULA) 3, resolved PAF with RVR, currently NSR Peripheral arterial disease per seg pressures of 07/17/16 that showed TONG of 1.26 on th R and 0.78 on the Left (at the level of Left PT). 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 Harris H/o CVA. CT Head of 07/14/16: no acute changes, chronic small vessel disease, chronic lacunar infart in the R basal gaglia, chronic R cerebral hemisphere infarct Hypertension, by history Hyperlipidemia, primarily consisting of hypertriglyceridemia. This has been treated with a combination of Trilipix and Lovaza that the patient has tolerated well, followed by Dr Graves Borderline diabetes mellitus, maturity onset, being followed by Dr. Ely de leon, chronic Echo of 01/11/19: mild conc LVH, LVEF 60-65%, mild MR, RVSP 35 mmHg MPI of 07/01/18: No ischemia or infarction, LVEF 73% Psychologic diathesis, including anxiety/depression, currently controlled. Mild bilat carotid arterial disease per September 2016 Plan: * We discussed her CV issues during this hosp and our treatment strategy * We recommend continuation of cardiac regimen and outpt f/u after discharge * We answered her CV-related questions BETH AKINS MD FACP FAC CCDS Jan 20, 2019 14:13 POS
[2019-01-20] MEDS: cefTRIAXone FOR IV USE 2,000 MG in WATER (STERILE) FOR INJECTION 20 ML IV SCH (15:03)
[2019-01-20 16:46] VITALS: BP 157/79
== END 2019-01-20 15:50 | DRG 871 ==
LOC: ER 10:12 → EDUNIT# 10:12 → ICU 11:50 → 4TH 01-17 03:40
PROVIDERS: ADMIT Internal Medicine; ATTEND Internal Medicine
PROC: 5A1945Z Respiratory Ventilation, 24-96 Consecutive Hours (ICD-10-PCS; principal; 2019-01-11)
PROC: 0BH17EZ Insertion of Endotracheal Airway into Trachea, Via Natural or Artificial Opening (ICD-10-PCS; 2019-01-11)
PROC: 0B938ZX Drainage of Right Main Bronchus, Via Natural or Artificial Opening Endoscopic, Diagnostic (ICD-10-PCS; 2019-01-11)
PROC: 0B978ZX Drainage of Left Main Bronchus, Via Natural or Artificial Opening Endoscopic, Diagnostic (ICD-10-PCS; 2019-01-11)
PROC: 02HV33Z Insertion of Infusion Device into Superior Vena Cava, Percutaneous Approach (ICD-10-PCS; 2019-01-11)
PROC: 03HY32Z Insertion of Monitoring Device into Upper Artery, Percutaneous Approach (ICD-10-PCS; 2019-01-11)
PROC: 4A133B1 Monitoring of Arterial Pressure, Peripheral, Percutaneous Approach (ICD-10-PCS; 2019-01-11)
PROC: 4A133J1 Monitoring of Arterial Pulse, Peripheral, Percutaneous Approach (ICD-10-PCS; 2019-01-11)
DX: A41.9 Sepsis, unspecified organism (principal); J69.0 Pneumonitis due to inhalation of food and vomit; J96.00 Acute respiratory failure, unspecified whether with hypoxia or hypercapnia; R65.21 Severe sepsis with septic shock; N17.9 Acute kidney failure, unspecified; R13.10 Dysphagia, unspecified; I10 Essential (primary) hypertension; E78.00 Pure hypercholesterolemia, unspecified; E78.1 Pure hyperglyceridemia; G24.01 Drug induced subacute dyskinesia; I34.0 Nonrheumatic mitral (valve) insufficiency; I48.0 Paroxysmal atrial fibrillation; E11.51 Type 2 diabetes mellitus with diabetic peripheral angiopathy without gangrene; F03.90 Unspecified dementia, unspecified severity, without behavioral disturbance, psychotic disturbance, mood disturbance, and anxiety; F41.9 Anxiety disorder, unspecified; F32.9 Major depressive disorder, single episode, unspecified; D64.9 Anemia, unspecified; G25.81 Restless legs syndrome; I65.23 Occlusion and stenosis of bilateral carotid arteries; J30.2 Other seasonal allergic rhinitis; G47.9 Sleep disorder, unspecified; M19.91 Primary osteoarthritis, unspecified site; Z86.73 Personal history of transient ischemic attack (TIA), and cerebral infarction without residual deficits; Z79.84 Long term (current) use of oral hypoglycemic drugs
CPT/HCPCS: 36415; 36600; 51702; 71045; 80048; 80053; 81000; 82271; 82805; 82962; 83605; 83735; 83880; 84100; 84478; 85007; 85025; 85027; 85610; 85730; 87015; 87040; 87070; 87077; 87081; 87088; 87101; 87116; 87181; 87184; 87186; 87205; 87206; 87804; 93005; 93306; 94002; 94003; 94640; 94660; 94760; 94761; 94799; 96361; 96365

== ENCOUNTER 2019-10-09 11:40 | Outpatient (RCR) | payer MEDICARE, MEDICAID ==
[~2019-10-09] VITALS: Ht 165 cm; Wt 70.4 kg
[~2019-10-09 11:40] MED LIST changes: -ACET-2469 PO; +ACET-2715 PO; +APIX5TAB PO; +ASPI-999 PO; +DILT-28 PO; +GEMF600T8 PO; +LACT1CAP7 PO; +LINE600T12 PO; +METF-397 PO; +METO50TA15 PO; +VENL150C PO
== END 2019-10-09 11:42 | disposition home or self-care (01) ==
LOC: PREOP 11:40
PROVIDERS: ATTEND Internal Medicine
DX: Z01.818 Encounter for other preprocedural examination (principal)

== ENCOUNTER 2019-10-16 08:13 | Day surgery (SDC) | payer MEDICARE, MEDICAID ==
--- NOTE | 2019-10-02 08:01 | HISTORY AND PHYSICAL ---
DATE OF SERVICE: 10/16/2019 HISTORY OF PRESENT ILLNESS: The patient is a 73-year-old white female referred for surveillance colonoscopy by Dr. Graves. The patient has a positive family history of colon cancer, believes her mom was diagnosed with colon cancer in her early 70s, lived to be 81, dying of other causes. She has a personal history of polyps. Last colonoscopy was in mid 2015. It was recommended by Dr. Rea that she undergo colonoscopy in three years. The patient reports that she generally feels well, although has to use a wheeled walker with a seat to get around that she attributes to her age. She has had no change in bowel habit. Denying diarrhea, constipation or abdominal pain. She denies melena or bright red blood per rectum. PAST MEDICAL HISTORY: Paroxysmal atrial fibrillation, diagnosed last fall. She has not had any symptomatic recurrences and is on Eliquis 5 mg twice a day. Other medical problems include hyperlipidemia, type 2 diabetes mellitus, hypertension. SOCIAL HISTORY: The patient reports no past smoking history and no past alcohol use. FAMILY HISTORY: Has one sister with type 2 diabetes. Father had type 2 diabetes mellitus and mother diagnosed with colon cancer as noted above. PAST SURGICAL HISTORY: Significant for hysterectomy in 1979 and cholecystectomy in 1989. PHYSICAL EXAMINATION: GENERAL: Reveals a white female, somewhat disheveled, but in no acute distress. VITAL SIGNS: Blood pressure 120/70, heart rate 62 and regular. HEENT: Reveals sclerae nonicteric. She has a Mallampati 2 pharyngeal configuration. CHEST: Clear to auscultation. CARDIOVASCULAR: Revealed a regular rate and rhythm without murmur, S3 or S4. ABDOMEN: Soft, supple without mass, organomegaly or tenderness. EXTREMITIES: Reveal no cyanosis, clubbing or edema. ASSESSMENT AND PLAN: The patient is set up for surveillance colonoscopy due to past history of colon polyps and a family history of first-degree relative colon cancer, index case being her mother diagnosed, she believes in her early 70s. Prep instructions with the Suprep kit were given and questions were answered. The patient was instructed to discontinue Eliquis after her evening dose the Saturday before her Saturday procedure. Job ID: [id number] DocumentID: [id number] Dictated Date: 09/21/2019 17:03:14 Interactive Web Developer Date: 09/21/2019 17:30:30 Dictated By: MD GLADIS WILBURN
[2019-10-16] VITALS (19 sets, daily range): BP systolic 140–192; BP diastolic 67–98
[~2019-10-16] VITALS: Ht 165 cm; Wt 70.4 kg
[2019-10-16] MEDS ORDERED: D5 LR IV SOLUTION 1,000 ML IV STA (08:21)
[2019-10-16] MEDS ORDERED: D5 LR IV SOLUTION 1,000 ML IV ONE (08:21)
[2019-10-16] MEDS ORDERED: fentaNYL INJECTION 100 MCG/2 ML AMP IVP ONE (08:30)
[2019-10-16] MEDS ORDERED: LIDOCAINE JELLY 2% 6 ML SYRINGE MM PRN (08:30)
[2019-10-16] MEDS ORDERED: LIDOCAINE JELLY 2% 6 ML SYRINGE ONE (09:26)
[2019-10-16] MEDS ORDERED: MIDAZOLAM 5 MG/5 ML (VERSED) VIAL ONE (09:27)
[2019-10-16] MEDS ORDERED: fentaNYL INJECTION 100 MCG/2 ML AMP ONE (09:27)
[2019-10-16] MEDS: MIDAZOLAM 5 MG/5 ML (VERSED) VIAL IV PRN ×2 (09:30→09:43)
--- NOTE | 2019-10-16 09:30 | Pre-Op Note & Conscious Sedat ---
Pre-Operative Progress Note H&P Reviewed The H&P was reviewed, patient examined and no changes noted. Date H&P Reviewed: Oct 16, 2019 Time H&P Reviewed: 09:00 Conscious Sedation Pre-Proced ASA Score 2 For ASA 3 and 4: Consider anesthesia and medical clearance. Also, for patients with a history of failed moderate sedation consider anesthesia. Airway Lungs Heart ASA score ASA 1: a normal healthy patient ASA 2: a patient with a mild systemic disease (mid diabetes, controlled hypertension, obesity ASA 3: a patient with a severe systemic disease that limits activity (angina, COPD, prior Myocardial infarction) ASA 4: a patient with an incapacitating disease that is a constant threat to life (CHF, renal failure) ASA 5: a moribund patient not expected to survive 24 hrs. (ruptured aneurysm) ASA 6: a declared brain- patient whose organs are being harvested. For emergent operations, add the letter E after the classification Mallampati Classification Grade 2 Sedation Plan Analgesia, Amnesia, Plan communicated to team members, Discussed options with patient/fam, Discussed risks with patient/fam The patient is an appropriate candidate to undergo the planned procedure, sedation, and anesthesia. The patient immediately re-assessed prior to indication. NATALI RODRIGUES MD Oct 16, 2019 09:30
--- NOTE | 2019-10-16 15:26 | OPERATIVE REPORT ---
DATE OF SERVICE: COLONOSCOPY SUMMARY INDICATION FOR THE PROCEDURE: Family history for colon cancer. DESCRIPTION OF PROCEDURE: The patient was placed in the left lateral decubitus position. Prior to undergoing colonoscopy, a digital rectal evaluation was performed. Anal sphincter tone was normal and the perianal reflex was intact. No abnormalities were noted on digital inspection of anal canal or distal rectal vault. The colonoscope was then inserted into the rectum and under direct visualization advanced to the cecum. The cecum was identified by identification of the ileocecal valve and cecal strap. Photographic documentation was obtained. A careful inspection was made as the colonoscope withdrawn. The patient tolerated the procedure well. FINDINGS: There was no evidence for internal or external hemorrhoids and the rectum, sigmoid colon, descending colon, transverse colon, ascending colon and cecum were unremarkable. ASSESSMENT: No evidence for neoplasia was identified on today's procedure with no evidence for diverticular disease. Considering the patient's age and medical comorbidities, it is questionable as to whether or not a future surveillance colonoscopy should be recommended. I thank you for the referral of this pleasant lady. Job ID: [id number] DocumentID: [id number] Dictated Date: 10/16/2019 12:13:09 Follow Up Clerk Date: 10/16/2019 15:25:45 Dictated By: NATALI RODRIGUES MD MTDD
== END 2019-10-16 11:20 | disposition home or self-care (01) ==
LOC: ENDO 08:13
PROVIDERS: ATTEND Internal Medicine
DX: Z12.11 Encounter for screening for malignant neoplasm of colon (principal); Z80.0 Family history of malignant neoplasm of digestive organs; Z86.010 Personal history of colon polyps; I48.0 Paroxysmal atrial fibrillation; E78.5 Hyperlipidemia, unspecified; E11.9 Type 2 diabetes mellitus without complications; I10 Essential (primary) hypertension; Z79.01 Long term (current) use of anticoagulants
CPT/HCPCS: 82962; G0105

== ENCOUNTER → 2020-09-15 | Outpatient (CLI) | payer MEDICARE, MEDICAID ==
[~2020-09-15] MED LIST changes: -ACET-2715 PO; +ACET-3075 PO; +AMLO-251 PO; -AMLO10TA7 PO; -CLIN300C11 PO; +CLIN300C12 PO; -GEMF600T8 PO; +GEMF600T88 PO; -OMEG1CAP PO
--- NOTE | 2020-09-15 13:42 | Diagnostic Imaging Report ---
Indication: Routine screening. Comparison is made with prior mammogram 12/16/2018 and 12/06/2017. 2-D and 3-D bilateral screening mammography was performed with CAD. Both breast are heterogeneously dense, limiting the sensitivity of mammography. There is a new density in the medial aspect of the left breast at mid depth. Additional views are recommended. Right breast is unremarkable. There are scattered benign calcifications. Axillae are unremarkable. IMPRESSION: BI-RADS 0 Left breast density. Additional views are recommended for further evaluation. ACR BI-RADS Category 0: Incomplete. (Needs additional imaging evaluation). Result letter will be mailed to the patient. Note: At least 10% of breast cancer is not imaged by mammography. Dictated by: Dictated on workstation # [id number]
== END ==
LOC: RAD 10:15
PROVIDERS: ATTEND Nurse Practitioner Family
DX: Z12.31 Encounter for screening mammogram for malignant neoplasm of breast (principal)
CPT/HCPCS: 77063; 77067

== ENCOUNTER → 2020-09-21 | Outpatient (CLI) | payer MEDICARE, MEDICAID ==
--- NOTE | 2020-09-21 14:08 | Diagnostic Imaging Report ---
INDICATION: Left breast nodule. Compared with exams 09/15/2020 FINDINGS: In the upper and slightly inner aspect of the left breast at its posterior 3rd there is a faint ovoid nodular opacity persistent albeit less conspicuous than on prior. No new mass, no spiculated lesion, no architectural distortion. IMPRESSION: Persistent but less conspicuous subcentimeter nodule left breast upper inner quadrant posterior depth. Targeted ultrasound is pending for its further evaluation at this time. BI-RADS Category 3 Left breast ultrasound pending ACR BI-RADS Category 3: Probably benign findings. Result letter will be mailed to the patient. Note: At least 10% of breast cancer is not imaged by mammography. Dictated by: Dictated on workstation # [id number]
--- NOTE | 2020-09-21 14:46 | Diagnostic Imaging Report ---
Indication: Initial screening views a right breast density was present at diagnostic views it was much less well seen. Patient has some bruising overlying the left breast over the last week has improved. Deep to the site of bruising and corresponding to the vague mammographic density there is a hyperechoic focus 10 o'clock position 6 cm from the nipple measuring 6 mm maximal likely a small amount of a bruising or ecchymosis. No findings to suggest breast cancer or neoplasm. IMPRESSION: Benign findings of mammography and ultrasound consistent with resolving ecchymosis or bruising. No findings of neoplasm and no further workup needed. BI-RADS Category 2 Dictated by: Dictated on workstation # [id number]
== END ==
LOC: RAD 13:15
PROVIDERS: ATTEND Nurse Practitioner Family
DX: N63.22 Unspecified lump in the left breast, upper inner quadrant (principal)
CPT/HCPCS: 76642; 77065; G0279

== ENCOUNTER 2021-03-05 17:54 | Emergency (ER) | payer MEDICARE, MEDICAID ==
[~2021-03-05 17:54] MED LIST changes: +CLIN-144 PO; -CLIN300C12 PO
--- NOTE | 2021-03-05 19:03 | ED Trauma-Multisystem ---
General Chief Complaint: Trauma-Non Activation Stated Complaint: FALL,LEFT EYE INJURY,LEFTHIP INJURY Source of Information: Patient (PT HAS NO RECOLLECTION OF THE EVENT) History of Present Illness Date Seen by Provider: Mar 05, 2021 Time Seen by Provider: 18:47 Initial Comments PT ARRIVES VIA POV FROM HOME WITH A INFORMATION CLERK [place] WALKS IN WITH A WALKER PT STATES YESTERDAY AFTERNOON, SHE WAS SITTING ON THE TOILET, AND THEN DOES NOT REMEMBER ANYTHING THAT HAPPENED, BUT SOMEHOW FELL OFF THE TOILET AND ENDED UP ON THE FLOOR HAS BRUISING TO LEFT HIP, RIGHT KNEE, AND AROUND LEFT EYE FALL WAS NOT WITNESSED WAS NOT SURE HOW LONG SHE WAS ON THE FLOOR, BUT SHE DOES NOT THINK SHE WAS THERE FOR VERY LONG, AND WAS ABLE TO GET HERSELF UP PT HAS NO COMPLAINTS OF ANY KIND TODAY--STATES SHE DOES NOT HURT ANYWHERE, AND NO PAIN WITH WALKING NO PARESTHESIAS OR MOTOR DEFICITS LEFT EYE IS PROSTHETIC, BUT NO VISION CHANGES IN RIGHT EYE NO NECK OR BACK PAIN NO HEADACHE NO NAUSEA/VOMITING NO CHEST PAIN OR SHORTNESS OF BREATH NO CHANGE IN MENTATION--PT WITH HISTORY OF DEMENTIA PT LIVES AT HOME, BUT HAS IN HOME AIDES WITH HER FOR AWHILE DURING THE DAY, AND SOMEONE IS THERE WITH HER ALL NIGHT NO ONE WAS WITH HER WHEN THIS OCCURRED YESTERDAY PT IS ON ELIQUIS NO FEVER OR RECENT ILLNESS NO MEDICATION CHANGES OR MISSED DOSES OF MEDICATIONS PT HAS HAD COVID-19 VACCINE X 3 PCP: DR. BEAVER Allergies and Home Medications Allergies Coded Allergies: bacitracin (Verified Allergy, Mild, RASH, 10/09/19) neomycin (Verified Allergy, Mild, RASH, 10/09/19) niacin (Verified Allergy, Mild, RASH, 10/09/19) polymyxin B (Verified Allergy, Mild, RASH, 10/09/19) Patient Home Medication List Home Medication List Reviewed: Yes Acetaminophen (Tylenol Extra Strength) 500 Mg Tablet, 500 MG PO HS, (Reported) Entered as Reported by: MICHELA VELÁSQUEZ on 06/08/17 0121 Amlodipine Besylate (Amlodipine Besylate) 10 Mg Tablet, 10 MG PO DAILY Prescribed by: AARTI GROSS on 08/17/17 0304 Antiox#10/Om3/Dha/Epa/Lut/Zeax (I-Caps with Lutein-[place] 3 Sfg) 1 Each Capsule, 1 EACH PO DAILY, (Reported) Entered as Reported by: MICHELA VELÁSQUEZ on 06/08/17 0121 Apixaban (Eliquis) 5 Mg Tablet, 5 MG PO BID Prescribed by: ESTRELLITA KOLB on 01/20/19 0859 Aspirin (Aspirin) 81 Mg Tab.chew, 81 MG PO DAILY, (Reported) Entered as Reported by: GRAZYNA HURD on 10/09/19 1138 Atorvastatin Calcium (Atorvastatin Calcium) 10 Mg Tablet, 10 MG PO HS, (Reported) Entered as Reported by: ELIAS NULL on 10/15/162011 Diltiazem HCl (Diltiazem 24Hr Cd) 180 Mg Cap.er.24h, 180 MG PO DAILY Prescribed by: ESTRELLITA KOLB on 01/20/19 0859 Gemfibrozil (Gemfibrozil) 600 Mg Tablet, 600 MG PO BID, (Reported) Entered as Reported by: GRAZYNA HURD on 10/09/19 1138 Loratadine (Loratadine) 10 Mg Tablet, 10 MG PO DAILY, (Reported) Entered as Reported by: JAIRO WORRELL on 12/22/15 1218 Losartan Potassium (Losartan Potassium) 100 Mg Tablet, 100 MG PO DAILY Prescribed by: ESTRELLITA KOLB on 06/09/17 1033 Memantine HCl (Namenda Xr) 28 Mg Cap.spr.24, 28 MG PO HS, (Reported) Entered as Reported by: JAIRO WORRELL on 12/22/15 1216 Metformin HCl (Metformin HCl) 500 Mg Tablet, 500 MG PO BID, (Reported) Entered as Reported by: GRAZYNA HURD on 10/09/19 1138 Metoprolol Tartrate (Metoprolol Tartrate) 50 Mg Tablet, 100 MG PO BID Prescribed by: ESTRELLITA KOLB on 01/20/19 0859 Naproxen (Naprosyn) 500 Mg Tablet, 500 MG PO DAILY, (Reported) Entered as Reported by: ELIAS NULL on 06/07/172100 [place]-3 Acid Ethyl Esters (Lovaza) 1 Gm Capsule, 2 GM PO BID, (Reported) Entered as Reported by: JAIRO WORRELL on 12/22/15 1216 Quetiapine Fumarate (Seroquel) 100 Mg Tablet, 100 MG PO HS, (Reported) Entered as Reported by: JAIRO WORRELL on 12/22/15 1218 Quetiapine Fumarate (Seroquel) 100 Mg Tablet, 50 MG PO DAILY, (Reported) Entered as Reported by: MICHELA VELÁSQUEZ on 06/08/17 0116 Sitagliptin Phosphate (Januvia) 50 Mg Tablet, 50 MG PO DAILY, (Reported) Entered as Reported by: JAIRO WORRELL on 12/22/15 1218 Venlafaxine HCl (Effexor Xr) 150 Mg Cap.er.24h, 150 MG PO DAILY, (Reported) Entered as Reported by: GRAZYNA HURD on 10/09/19 1138 Review of Systems Review of Systems Constitutional: see HPI; No dizziness Eyes: See HPI Ears: No Symptoms Reported Nose: No Symptoms Reported Mouth: No Symptoms Reported Throat: No Symptoms to Report Respiratory: no symptoms reported Cardiovascular: No Symptoms Reported Gastrointestinal: no symptoms reported Musculoskeletal: see HPI Skin: see HPI Psychiatric/Neurological: No Symptoms Reported Past Ejtrrek-Vpmkni-Jysheg Hx Patient Social History Tobacco Use?: No Substance use?: No Alcohol Use?: No Immunizations Up To Date Tetanus Booster (TDap): Less than 5yrs Seasonal Allergies Seasonal Allergies: Yes Past Medical History Surgeries: Yes (ANKLE FX; LEFT EYE REMOVED) Eye Surgery, Gallbladder, 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, Orthopedic Respiratory: Yes (ASPIRATION PNEUMONIA) Pneumonia Cardiac: Yes (MILD MITRAL REGURGITATION) High Cholesterol, Hypertension, Valvular Heart Disease Neurological: Yes Dementia, Stroke Reproductive Disorders: No Female 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 History: 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, Menopausal Sexually Transmitted Disease: No HIV/AIDS: No Genitourinary: No Gastrointestinal: Yes (DYSPLASTIC COLON POLYPS) Diverticulosis, Hemorrhoids, Polyps Musculoskeletal: Yes (RESTLESS LEGS; OSTEOMYELITIS RIGHT FOOT, SCIATICA;USES WALKER) Arthritis Endocrine: Yes Diabetes, Non-Insulin dep HEENT: Yes (LEFT EYE REMOVED/ PROSTHETIC EYE; WEARS GLASSES; ALL TEETH REMOVED) Cataract Loss of Vision: Left Cancer: Yes Skin Did You Recieve Any Treatments: Yes What Type of Treatment Did You: Surgical Intervention Psychosocial: Yes (SELF MUTILATION-"PICKS" ) Sleep Difficulties, Anxiety, Depression Integumentary: Yes (FOOT ULCERS; STAPH INFECTION; OSTEOMYELITIS RIGHT FOOT; BEARDEN TO FINGERS) Blood Disorders: No Adverse Reaction/Blood Tranf: No (HAS HAD BLOOD WITH NO REACTION) Family Medical History Colon cancer No Pertinent Family Hx SOCIAL HISTORY: -SMOKING-DENIES -ETOH-DENIES -DRUGS-DENIES PAST SURGICAL HISTORY: -COLONOSCOPIES/POLYPECTOMIES -REMOVAL OF SKIN LESIONS -DEBRIDEMENTS OF FOOT ULCERS -RIGHT GREAT TOE PINNING -PLATING OF RIGHT 5TH METATARSAL -CHOLECYSTECTOMY -HYSTERECTOMY -LEFT EYE REMOVED Physical Exam Vital Signs Vital Signs - First Documented 03/05/21 18:47 Temp 36.4 Pulse 62 Resp 17 B/P (MAP) 153/82 (105) Pulse Ox 99 O2 Delivery Nasal Cannula O2 Flow Rate 2.00 Height, Weight, BMI Height: 5'5.00" Weight: 150lbs. 0.0oz. 68.503176ct; 25.85 BMI Method:Stated General Appearance: No Apparent Distress, WD/WN Head: Ecchymosis, Other (LEFT EYE IS PROSTHETIC. PERIORBITAL HEMATOMA; CONSTANT MOUTH MOVEMENTS); No Active Bleeding Ears, Nose, Throat: Hearing Grossly Normal; No Clear Fluid (Ears), No Clear Fluid (Nose), No Hemotympanum, No Midface Instability Neck: Full Range of Motion, Normal Inspection, Non Tender, Supple Cardiovascular: Regular Rate, Rhythm, No Edema, No JVD, No Murmur, Normal Peripheral Pulses Respiratory: Chest Non Tender, Normal Breath Sounds, No Accessory Muscle Use, No Respiratory Distress Gastrointestinal: Non Tender, Soft Back: No CVA Tenderness, No Vertebral Tenderness, Other (HAS LARGE BRUISE TO LEFT LOWER POSTERIOR RIB AREA--NON TENDER, NO CREPITANCE, NO SUB Q AIR, NO DEFORMITY) Extremity: Normal Capillary Refill, Normal Range of Motion, No Calf Tenderness, No Pedal Edema, Other (LARGE HEMATOMA TO LEFT HIP AND LATERAL THIGH; FAINT BRUISE TO RIGHT KNEE) Neurologic/Psychiatric: Alert, Oriented x3 (BUT SOMEWHAT POOR MEMORY), No Motor/Sensory Deficits, Normal Mood/Affect, deputy court II-XII Norm as Tested Skin: Normal Color, Warm/Dry, Ecchymosis, Other (MULTIPLE SORES/SCARS/SCABS TO FACE, ARMS) Javon Coma Score Best Eye Response ([place]): (4) Open Spontaneously Best Verbal Response (Javon): (5) Oriented Best Motor Response (Javon): (6) Obeys Commands [place] Total: 15 Procedures/Interventions Date of ETT Placement: Jan 11, 2019 Time of ETT Placement: 914 Progress/Results/Core Measures Results/Orders Lab Results Laboratory Tests Test 03/05/21 19:10 03/05/21 19:21 Range/Units White Blood Count 5.8 4.3-11.0 10^3/uL Red Blood Count 5.11 3.80-5.11 10^6/uL Hemoglobin 12.1 11.5-16.0 g/dL Hematocrit 41 35-52 % Mean Corpuscular Volume 80 80-99 fL Mean Corpuscular Hemoglobin 24 L 25-34 pg Mean Corpuscular Hemoglobin Concent 30 L 32-36 g/dL Red Cell Distribution Width 17.2 H 10.0-14.5 % Platelet Count 206 130-400 10^3/uL Mean Platelet Volume 9.7 9.0-12.2 fL Immature Granulocyte % (Auto) 0 % Neutrophils (%) (Auto) 71 42-75 % Lymphocytes (%) (Auto) 14 12-44 % Monocytes (%) (Auto) 10 0-12 % Eosinophils (%) (Auto) 5 0-10 % Basophils (%) (Auto) 0 0-10 % Neutrophils # (Auto) 4.1 1.8-7.8 10^3/uL Lymphocytes # (Auto) 0.8 L 1.0-4.0 10^3/uL Monocytes # (Auto) 0.6 0.0-1.0 10^3/uL Eosinophils # (Auto) 0.3 0.0-0.3 10^3/uL Basophils # (Auto) 0.0 0.0-0.1 10^3/uL Immature Granulocyte # (Auto) 0.0 0.0-0.1 10^3/uL Prothrombin Time 15.5 H 12.2-14.7 SEC INR Comment 1.2 0.8-1.4 Activated Partial Thromboplast Time 36 H 24-35 SEC Sodium Level 138 135-145 MMOL/L Potassium Level 4.2 3.6-5.0 MMOL/L Chloride Level 102 98-107 MMOL/L Carbon Dioxide Level 23 21-32 MMOL/L Anion Gap 13 5-14 MMOL/L Blood Urea Nitrogen 38 H 7-18 MG/DL Creatinine 1.00 0.60-1.30 MG/DL Estimat Glomerular Filtration Rate 54 BUN/Creatinine Ratio 38 Glucose Level 175 H 70-105 MG/DL Calcium Level 9.4 8.5-10.1 MG/DL Corrected Calcium 9.2 8.5-10.1 MG/DL Magnesium Level 2.2 1.6-2.4 MG/DL Total Bilirubin 0.4 0.1-1.0 MG/DL Aspartate Amino Transf (AST/SGOT) 14 5-34 U/L Alanine Aminotransferase (ALT/SGPT) 13 0-55 U/L Alkaline Phosphatase 82 40-136 U/L Total Creatine Kinase 49 29-168 U/L Creatine Kinase MB 1.2 <6.6 NG/ML Myoglobin 37.8 10.0-92.0 NG/ML Troponin I < 0.028 <0.028 NG/ML Total Protein 7.8 6.4-8.2 GM/DL Albumin 4.3 3.2-4.5 GM/DL Urine Color YELLOW Urine Clarity SL CLOUDY Urine pH 6.0 5-9 Urine Specific [place] >=1.030 1.016-1.022 Urine Protein NEGATIVE NEGATIVE Urine Glucose (UA) NEGATIVE NEGATIVE Urine Ketones NEGATIVE NEGATIVE Urine Nitrite POSITIVE H NEGATIVE Urine Bilirubin NEGATIVE NEGATIVE Urine Urobilinogen 0.2 < = 1.0 MG/DL Urine Leukocyte Esterase 2+ H NEGATIVE Urine RBC (Auto) TRACE-I H NEGATIVE Urine RBC NONE /HPF Urine WBC 10-25 H /HPF Urine Squamous Epithelial Cells 2-5 /HPF Urine Renal Epithelial Cells NONE /HPF Urine Crystals NONE /LPF Urine Bacteria LARGE H /HPF Urine Casts NONE /LPF Urine Mucus NEGATIVE /LPF Urine Culture Indicated YES My Orders Orders - ALESSIA PARKER DO Ed Iv/Invasive Line Start (03/05/21 18:54) Ekg Tracing (03/05/21 18:54) O2 (03/05/21 18:54) Monitor-Rhythm Ecg Trace Only (03/05/21 18:54) Ct Head/Face/Cervical Wo (03/05/21 18:54) Chest 1 View, Ap/Pa Only (03/05/21 18:54) Knee, Right, 3 Views (03/05/21 18:54) Pelvis With Left Hip 2-3 Views (03/05/21 18:54) Cbc With Automated Diff (03/05/21 18:54) Comprehensive Metabolic Panel (03/05/21 18:54) Creatine Kinase (03/05/21 18:54) Creatine Kinase Mb (03/05/21 18:54) Magnesium (03/05/21 18:54) Protime With Inr (03/05/21 18:54) Partial Thromboplastin Time (03/05/21 18:54) Ua Culture If Indicated (03/05/21 18:54) Myoglobin Serum (03/05/21 18:54) Troponin I [place] (03/05/21 18:54) Femur, Left, 2 Views (03/05/21 19:08) Straight Cath For Spec.-Adult (03/05/21 19:18) Urine Culture (03/05/21 19:21) Ed Iv/Invasive Line Start (03/05/21 19:46) Ns Iv 1000 Ml (Sodium Chloride 0.9%) (03/05/21 20:00) Ceftriaxone 1 Gm Pre-Mix (Rocephin 1 Gm (03/05/21 19:46) Ct Pelvis Wo (03/05/21 20:34) Vital Signs/I&O 03/05/21 03/05/21 18:47 22:25 Temp 36.4 36.4 Pulse 62 65 Resp 17 17 B/P (MAP) 153/82 (105) 155/84 Pulse Ox 99 99 O2 Delivery Nasal Cannula Nasal Cannula O2 Flow Rate 2.00 2.00 2.00 03/06/21 00:00 Intake Total 1050 ml Balance 1050 ml Progress Progress Note : Progress Note O2 SAT 89% ON ROOM AIR ON ARRIVAL. PLACED ON O2 AT 2L/NC WITH O2 SATS UP TO MID 90'S. PT STATES SHE WEARS HOME O2 AT NIGHT, BUT NOT DURING THE DAY Initial ECG Impression Date: Mar 05, 2021 Initial ECG Impression Time: 18:54 Initial ECG Rate: 56 Initial ECG Rhythm: Normal Sinus Diagnostic Imaging Comments CT HEAD/MAXILLOFACIALS/CERVICAL SPINE--PER RADIOLOGIST REPORT AT 2006 Comparison: Head CT without contrast dated 07/14/2016. Findings: Head and maxillofacial CT: There is no evidence of acute cerebral infarct, intracranial hemorrhage or gross mass effect. Moderate sized area of encephalomalacia as suspected infarct involving the high right frontal lobe and high lateral right frontal lobe regions. There is brain parenchymal volume loss. There is no hydrocephalus. 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 There is also widening of the bony sella. Prior study did not have sagittal and coronal reformats in this area was not as well visualized. Left globe prosthesis is seen. There is no skull or maxillofacial fracture. There is bony sclerosis and thickening of the posterior left ethmoid sinus region with small amount of consolidation. Mastoid air cells are clear. The extracranial soft tissue shows no significant abnormality. CT cervical spine: There is no acute cervical spine fracture. There is grade 1 anterolisthesis of C3 on C4 and C4 on C5 which is degenerative. There is no pars defect. There are degenerative spurs and facet arthropathy involving the cervical spine. There is no prevertebral soft tissue swelling. There is amorphous opacities in the right upper lobe which may represent lung infiltrates and/or scarring. The neck soft tissue structures show no significant abnormality. Impression: 1: There is no evidence of acute intracranial process. There is no intracranial hemorrhage. 2: There is no skull or maxillofacial fracture. 3: There is cervical spine degenerative disease with no acute fracture. 4: There is a 1.8 cm sellar mass with suprasellar extension concerning for microadenoma. If this is not a known finding, then nonemergent MRI of the pituitary gland with and without contrast would help better evaluate. XRAYS--PER RADIOLOGIST REPORTS AT 2031: CXR-- FINDINGS: Lungs/pleura: Increased lung markings in both lungs are again seen. This may be related to a slightly prominent vascularity. This is also noted on the prior study. There is no definite lung infiltrate. Suspected bibasilar atelectasis in the periphery of both lung bases. There is no pneumothorax. There is no pleural effusion. Mediastinum: Unremarkable. Pulmonary vasculature: Unremarkable. Heart: Mild cardiomegaly is again seen. Bones/extrathoracic soft tissue: There are degenerative spurs involving the visualized thoracolumbar spine. There is no fracture seen. IMPRESSION: 1: There is mild bibasilar atelectasis but no definite lung infiltrate. 2: There is mild cardiomegaly with mild pulmonary vascular congestion. PELVIS / LEFT HIP-- FINDINGS AND IMPRESSION: 1: There is a subtle persistent lucency involving the upper aspect of the medial left pubic bone. Unknown if this represents a fracture or confluence of shadows from bowel gas. This is better seen on this exam than the comparison x-ray of the femur. CT scan of the pelvis would better evaluate. 2: There is degenerative disease of both hips with spurring of the acetabular regions and proximal femoral head/neck junction regions. 3: There are hypertrophic spurs involving the lower lumbar spine. 4: There is no evidence of fracture of the pelvis or sacrum. There is sclerosis of the sacroiliac joint region. LEFT FEMUR-- FINDINGS: There is no acute fracture or dislocation. There are mild to moderately hypertrophic spurs involving the left acetabular region. There is spurring of the left femoral head/neck junction region. There are small spurs in the patellofemoral compartment region. There is no knee effusion. IMPRESSION: There is degenerative disease of the left hip and knee with no acute fracture or dislocation. RIGHT KNEE-- FINDINGS: There is no acute fracture or dislocation. There is no knee effusion. There is mildly hypertrophic tricompartmental spurs. IMPRESSION: There is degenerative disease in the right knee with no acute fracture or dislocation. CT PELVIS--PER RADIOLOGIST REPORT AT 2158 FINDINGS: There is no fracture or dislocation involving the pelvis or hips. The previously seen area concerning for lucency involving the medial left pubic bone represents confluence of shadows from adjacent bowel. There is no fracture in this region seen. There are degenerative spurs involving both acetabular regions and proximal femoral head/neck junction regions with the right side worse than the left. There is sclerosis of the sacroiliac joints noted. There are hypertrophic spurs involving the lower lumbar spine. There is soft tissue swelling adjacent to the left hip and partially visualized suspected hematoma measures roughly 2.4 cm posterior to the hip. There are large amounts of stool in the rectosigmoid region. The visualized intra-pelvic and extra-pelvic pelvic soft tissue structures show no other significant abnormality. IMPRESSION: 1: There is no evidence of fracture involving the hips or pelvis. The area of concern involving the medial left pubic bone on the comparison x-ray represents confluence of shadows from adjacent bowel. 2: There is soft tissue swelling and hematoma involving the left hip soft tissue region. 3: There is degenerative disease of both hips. 4: There is a large amount stool in the rectosigmoid region. Reviewed: Reviewed by Me Departure Impression Primary Impression: Fall from or off toilet with subsequent striking against object, initial encounter Additional Impressions: SYNCOPE VS HEAD INJURY WITH LOSS OF CONSCIOUSNESS UTI (urinary tract infection) Dehydration Chest wall contusion Contusion of left hip and thigh Contusion of right knee Periorbital hematoma of left eye Disposition: 01 HOME, SELF-CARE Condition: Stable Departure-Patient Inst. Decision time for Depature: 21:59 Referrals: FAB BEAVER MD (PCP/Family) Primary Care Physician Patient Instructions: CHEST CONTUSION, Contusion (DC), Dehydration, Adult (DC), Eye Contusion (DC), Minor Head Injury, Adult ED, Preventing Falls, RIB CONTUSI ON, Syncope (Fainting) (DC), Urinary Tract Infection, Adult (DC) Add. Discharge Instructions: ICE TO SORE AREAS AT 20 MINUTE INTERVALS TYLENOL NEEDED FOR PAIN USE YOUR WALKER AT ALL TIMES WEAR YOUR OXYGEN AT 2L/NC ALL THE TIME FOLLOW UP WITH YOUR DR THIS WEEK FOR RECHECK All discharge instructions reviewed with patient and/or family. Voiced understa nding. ALESSIA PARKER DO Mar 05, 2021 19:03
[2021-03-05 19:20] LABS: BASOPHILS % (AUTO) 0 % (0-10); EOSINOPHILS # (AUTO) 0.3 10^3/uL (0.0-0.3); EOSINOPHILS % (AUTO) 5 % (0-10); HEMATOCRIT 41 % (35-52); HEMOGLOBIN 12.1 g/dL (11.5-16.0); LYMPHOCYTES # (AUTO) 0.8 10^3/uL (1.0-4.0); LYMPHOCYTES % (AUTO) 14 % (12-44); MEAN CORPUSCULAR HEMOGLOBIN 24 pg (25-34); MEAN CORPUSCULAR HGB CONC 30 g/dL (32-36); MEAN CORPUSCULAR VOLUME 80 fL (80-99); MEAN PLATELET VOLUME 9.7 fL (9.0-12.2); MONOCYTES # (AUTO) 0.6 10^3/uL (0.0-1.0); MONOCYTES % (AUTO) 10 % (0-12); NEUTROPHILS # (AUTO) 4.1 10^3/uL (1.8-7.8); NEUTROPHILS % (AUTO) 71 % (42-75); PLATELET COUNT 206 10^3/uL (130-400); WHITE BLOOD COUNT 5.8 10^3/uL (4.3-11.0)
[2021-03-05 19:32] LABS: BILIRUBIN,URINE NEGATIVE (NEGATIVE); CLARITY,URINE SL CLOUDY; COLOR,URINE YELLOW; GLUCOSE, URINE (UA) NEGATIVE (NEGATIVE); KETONES,URINE NEGATIVE (NEGATIVE); LEUKOCYTE ESTERASE ,URINE 2+ (NEGATIVE); NITRITE,URINE POSITIVE (NEGATIVE); PROTEIN,URINE NEGATIVE (NEGATIVE)
[2021-03-05 19:35] LABS: INR 1.2 (0.8-1.4); PROTHROMBIN TIME PATIENT 15.5 SEC (12.2-14.7)
[2021-03-05 19:36] LABS: ALBUMIN 4.3 GM/DL (3.2-4.5); CHLORIDE 102 MMOL/L (98-107); POTASSIUM 4.2 MMOL/L (3.6-5.0); SODIUM 138 MMOL/L (135-145)
[2021-03-05 19:37] LABS: CALCIUM 9.4 MG/DL (8.5-10.1)
[2021-03-05 19:38] LABS: GLUCOSE 175 MG/DL (70-105); TOTAL PROTEIN 7.8 GM/DL (6.4-8.2)
[2021-03-05 19:39] LABS: CARBON DIOXIDE 23 MMOL/L (21-32)
[2021-03-05 19:40] LABS: BILIRUBIN,TOTAL 0.4 MG/DL (0.1-1.0)
[2021-03-05 19:41] LABS: ALKALINE PHOSPHATASE 82 U/L (40-136)
[2021-03-05 19:42] LABS: GFR ESTIMATED 54
[2021-03-05 19:43] LABS: BACTERIA,URINE LARGE /HPF
[2021-03-05 19:43] LABS: BUN/CREATININE RATIO 38
[2021-03-05 19:44] LABS: ALANINE AMINOTRANSFERASE 13 U/L (0-55); MAGNESIUM 2.2 MG/DL (1.6-2.4)
[2021-03-05 19:45] LABS: CREATINE KINASE 49 U/L (29-168)
[2021-03-05] MEDS ORDERED: cefTRIAXone 1 GM PRE-MIX 50 ML IV STA (19:46)
[2021-03-05 19:52] LABS: CREATINE KINASE MB 1.2 NG/ML (<6.6)
[2021-03-05] MEDS ORDERED: NS IV 1000 ML 1,000 ML IV SCH (20:00)
--- NOTE | 2021-03-05 20:02 | Diagnostic Imaging Report ---
Clinical Indication: Patient fell last night and has bruising on and around left eye. Exam: Axial Head CT without IV contrast with sagittal and coronal reformations. Axial Maxillofacial CT scan without IV contrast with sagittal and coronal reformations. Axial CT scan of the cervical spine with sagittal and coronal reformations. Auto Exposure Controls were utilized during the CT exam to meet ALARA standards for radiation dose reduction. Comparison: Head CT without contrast dated 07/14/2016. Findings: Head and maxillofacial CT: There is no evidence of acute cerebral infarct, intracranial hemorrhage or gross mass effect. Moderate sized area of encephalomalacia as suspected infarct involving the high right frontal lobe and high lateral right frontal lobe regions. There is brain parenchymal volume loss. There is no hydrocephalus. 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 There is also widening of the bony sella. Prior study did not have sagittal and coronal reformats in this area was not as well visualized. Left globe prosthesis is seen. There is no skull or maxillofacial fracture. There is bony sclerosis and thickening of the posterior left ethmoid sinus region with small amount of consolidation. Mastoid air cells are clear. The extracranial soft tissue shows no significant abnormality. CT cervical spine: There is no acute cervical spine fracture. There is grade 1 anterolisthesis of C3 on C4 and C4 on C5 which is degenerative. There is no pars defect. There are degenerative spurs and facet arthropathy involving the cervical spine. There is no prevertebral soft tissue swelling. There is amorphous opacities in the right upper lobe which may represent lung infiltrates and/or scarring. The neck soft tissue structures show no significant abnormality. Impression: 1: There is no evidence of acute intracranial process. There is no intracranial hemorrhage. 2: There is no skull or maxillofacial fracture. 3: There is cervical spine degenerative disease with no acute fracture. 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 If this is not a known finding, then nonemergent MRI of the pituitary gland with and without contrast would help better evaluate. Dictated by: Dictated on workstation # [id number]
--- NOTE | 2021-03-05 20:12 | Diagnostic Imaging Report ---
CLINICAL INDICATION: Patient status post fall. EXAM: X-ray of the left femur, 4 views. COMPARISON: None. FINDINGS: There is no acute fracture or dislocation. There are mild to moderately hypertrophic spurs involving the left acetabular region. There is spurring of the left femoral head/neck junction region. There are small spurs in the patellofemoral compartment region. There is no knee effusion. IMPRESSION: There is degenerative disease of the left hip and knee with no acute fracture or dislocation. Dictated by: Dictated on workstation # [id number]
--- NOTE | 2021-03-05 20:14 | Diagnostic Imaging Report ---
CLINICAL INDICATION: Patient status post fall, trauma. EXAM: Portable chest x-ray upright view. COMPARISON: Chest x-ray dated 01/20/2019. FINDINGS: Lungs/pleura: Increased lung markings in both lungs are again seen. This may be related to a slightly prominent vascularity. This is also noted on the prior study. There is no definite lung infiltrate. Suspected bibasilar atelectasis in the periphery of both lung bases. There is no pneumothorax. There is no pleural effusion. Mediastinum: Unremarkable. Pulmonary vasculature: Unremarkable. Heart: Mild cardiomegaly is again seen. Bones/extrathoracic soft tissue: There are degenerative spurs involving the visualized thoracolumbar spine. There is no fracture seen. IMPRESSION: 1: There is mild bibasilar atelectasis but no definite lung infiltrate. 2: There is mild cardiomegaly with mild pulmonary vascular congestion. Dictated by: Dictated on workstation # [id number]
--- NOTE | 2021-03-05 20:15 | Diagnostic Imaging Report ---
CLINICAL INDICATION: Patient status post fall with left hip pain. EXAM: X-ray of the pelvis, AP view and x-ray of the left hip, AP and frog-leg views. COMPARISON: X-ray of the left femur dated 03/05/2021. FINDINGS AND IMPRESSION: 1: There is a subtle persistent lucency involving the upper aspect of the medial left pubic bone. Unknown if this represents a fracture or confluence of shadows from bowel gas. This is better seen on this exam than the comparison x-ray of the femur. CT scan of the pelvis would better evaluate. 2: There is degenerative disease of both hips with spurring of the acetabular regions and proximal femoral head/neck junction regions. 3: There are hypertrophic spurs involving the lower lumbar spine. 4: There is no evidence of fracture of the pelvis or sacrum. There is sclerosis of the sacroiliac joint region. Dictated by: Dictated on workstation # [id number]
--- NOTE | 2021-03-05 20:17 | Diagnostic Imaging Report ---
CLINICAL INDICATION: Patient with knee pain. EXAM: X-ray of the right knee, 3 views. COMPARISON: None. FINDINGS: There is no acute fracture or dislocation. There is no knee effusion. There is mildly hypertrophic tricompartmental spurs. IMPRESSION: There is degenerative disease in the right knee with no acute fracture or dislocation. Dictated by: Dictated on workstation # [id number]
--- NOTE | 2021-03-05 21:32 | Diagnostic Imaging Report ---
CLINICAL INDICATION: Patient fell. Follow-up x-rays with question of possible fracture. EXAM: Axial CT scan of the pelvis performed without IV contrast with sagittal and coronal reformatted images. Auto Exposure Controls were utilized during the CT exam to meet ALARA standards for radiation dose reduction. COMPARISON: X-ray of the pelvis and left hip dated 03/05/2021. FINDINGS: There is no fracture or dislocation involving the pelvis or hips. The previously seen area concerning for lucency involving the medial left pubic bone represents confluence of shadows from adjacent bowel. There is no fracture in this region seen. There are degenerative spurs involving both acetabular regions and proximal femoral head/neck junction regions with the right side worse than the left. There is sclerosis of the sacroiliac joints noted. There are hypertrophic spurs involving the lower lumbar spine. There is soft tissue swelling adjacent to the left hip and partially visualized suspected hematoma measures roughly 2.4 cm posterior to the hip. There are large amounts of stool in the rectosigmoid region. The visualized intra-pelvic and extra-pelvic pelvic soft tissue structures show no other significant abnormality. IMPRESSION: 1: There is no evidence of fracture involving the hips or pelvis. The area of concern involving the medial left pubic bone on the comparison x-ray represents confluence of shadows from adjacent bowel. 2: There is soft tissue swelling and hematoma involving the left hip soft tissue region. 3: There is degenerative disease of both hips. 4: There is a large amount stool in the rectosigmoid region. Dictated by: Dictated on workstation # [id number]
[2021-03-05 22:25] VITALS: BP 155/84
== END 2021-03-05 22:30 | disposition home or self-care (01) ==
LOC: EDUNIT# 17:54 → ER 18:00
DX: S70.02XA Contusion of left hip, initial encounter (principal); S80.01XA Contusion of right knee, initial encounter; S70.12XA Contusion of left thigh, initial encounter; S20.219A Contusion of unspecified front wall of thorax, initial encounter; W18.12XA Fall from or off toilet with subsequent striking against object, initial encounter; Y92.012 Bathroom of single-family (private) house as the place of occurrence of the external cause; S00.12XA Contusion of left eyelid and periocular area, initial encounter; N39.0 Urinary tract infection, site not specified; E86.0 Dehydration; I10 Essential (primary) hypertension; E11.9 Type 2 diabetes mellitus without complications; Z86.73 Personal history of transient ischemic attack (TIA), and cerebral infarction without residual deficits; Z79.84 Long term (current) use of oral hypoglycemic drugs; Z79.82 Long term (current) use of aspirin; Z79.899 Other long term (current) drug therapy; Z90.01 Acquired absence of eye; Z85.828 Personal history of other malignant neoplasm of skin; Z79.01 Long term (current) use of anticoagulants
CPT/HCPCS: 36415; 70450; 70486; 71045; 72125; 72192; 73552; 73562; 80053; 81000; 82550; 82553; 83735; 83874; 84484; 85025; 85610; 85730; 87077; 87088; 87186; 93005; 93041; 96361; 96374

== ENCOUNTER 2021-06-30 18:21 | Emergency (ER) | payer MEDICARE, MEDICAID ==
[~2021-06-30] VITALS: Ht 165 cm; Wt 67.5 kg
[~2021-06-30 18:21] MED LIST changes: -VENL150C PO; +VENL150C3 PO
[2021-06-30 20:29] LABS: BASOPHILS % (AUTO) 0 % (0-10); EOSINOPHILS # (AUTO) 0.3 10^3/uL (0.0-0.3); EOSINOPHILS % (AUTO) 4 % (0-10); HEMATOCRIT 39 % (35-52); HEMOGLOBIN 12.1 g/dL (11.5-16.0); LYMPHOCYTES # (AUTO) 0.4 10^3/uL (1.0-4.0); LYMPHOCYTES % (AUTO) 5 % (12-44); MEAN CORPUSCULAR HEMOGLOBIN 25 pg (25-34); MEAN CORPUSCULAR HGB CONC 31 g/dL (32-36); MEAN CORPUSCULAR VOLUME 80 fL (80-99); MEAN PLATELET VOLUME 9.3 fL (9.0-12.2); MONOCYTES # (AUTO) 0.7 10^3/uL (0.0-1.0); MONOCYTES % (AUTO) 8 % (0-12); NEUTROPHILS # (AUTO) 7.4 10^3/uL (1.8-7.8); NEUTROPHILS % (AUTO) 83 % (42-75); PLATELET COUNT 200 10^3/uL (130-400); WHITE BLOOD COUNT 8.9 10^3/uL (4.3-11.0)
[2021-06-30 20:37] LABS: POTASSIUM 4.5 MMOL/L (3.6-5.0)
[2021-06-30 20:38] LABS: CALCIUM 9.9 MG/DL (8.5-10.1)
[2021-06-30 20:43] LABS: CREATININE SERUM 1.42 MG/DL (0.60-1.30)
[2021-06-30] MEDS ORDERED: OXYMETAZOLINE (AFRIN) 0.05% NA 30 ML BTL SCH (21:00)
[2021-06-30 21:21] LABS: ANISOCYTOSIS SLIGHT; EOSINOPHILS % (MANUAL) 3 %; LYMPHOCYTES % (MANUAL) 5 %; MONOCYTES % (MANUAL) 6 %; NEUTROPHILS % (MANUAL) 86 %; POIKILOCYTOSIS SLIGHT
--- NOTE | 2021-06-30 23:42 | ED EENT ---
History of Present Illness General Chief Complaint: Nasal Problems Stated Complaint: STAPH INFECTION NOSE/BLEEDING/ON BLOOD THINNERS Nursing Triage Note: PT REPORTS WOUND ON NOSE BLEEDING SINCE 529 THIS MORNING REQUIRING MULTIPLE DRESSING CHANGES. PT HAS MRSA INFECTION ON NOSE. Source: patient Exam Limitations: no limitations History of Present Illness Date Seen by Provider: Jun 30, 2021 Time Seen by Provider: 23:00 Initial Comments Patient to the ER by private conveyance with her staff worker who states that she is on Eliquis for history of atrial flutter and mini strokes and has a staph infection on her nose that has been treated with mupirocin since Saturday and Bactrim since yesterday. She had similar infection on her legs that has cleared up. She is not having any fevers chills nausea vomiting diarrhea. She had a little spot open up and bleed today and they kept putting gauze dressings on it without any significant pressure and it would not stop bleeding. No chest pain shortness of air, fever nausea or diarrhea Allergies and Home Medications Allergies Coded Allergies: bacitracin (Verified Allergy, Mild, RASH, 10/09/19) neomycin (Verified Allergy, Mild, RASH, 10/09/19) niacin (Verified Allergy, Mild, RASH, 10/09/19) polymyxin B (Verified Allergy, Mild, RASH, 10/09/19) Patient Home Medication List Home Medication List Reviewed: Yes Acetaminophen (Tylenol Extra Strength) 500 Mg Tablet, 500 MG PO HS, (Reported) Entered as Reported by: MICHELA VELÁSQUEZ on 06/08/17 012 Amlodipine Besylate (Amlodipine Besylate) 10 Mg Tablet, 10 MG PO DAILY Prescribed by: AARTI GROSS on 08/17/17 0304 Antiox#10/Om3/Dha/Epa/Lut/Zeax (I-Caps with Lutein-[place] 3 Sfg) 1 Each Capsule, 1 EACH PO DAILY, (Reported) Entered as Reported by: MICHELA VELÁSQUEZ on 06/08/17 012 Apixaban (Eliquis) 5 Mg Tablet, 5 MG PO BID Prescribed by: ESTRELLITA KOLB on 01/20/19 0859 Aspirin (Aspirin) 81 Mg Tab.chew, 81 MG PO DAILY, (Reported) Entered as Reported by: GRAZYNA HURD on 10/09/19 1138 Atorvastatin Calcium (Atorvastatin Calcium) 10 Mg Tablet, 10 MG PO HS, (Reported) Entered as Reported by: ELIAS NULL on 10/15/162011 Diltiazem HCl (Diltiazem 24Hr Cd) 180 Mg Cap.er.24h, 180 MG PO DAILY Prescribed by: ESTRELLITA KOLB on 01/20/19 0859 Gemfibrozil (Gemfibrozil) 600 Mg Tablet, 600 MG PO BID, (Reported) Entered as Reported by: GRAZYNA HURD on 10/09/19 1138 Loratadine (Loratadine) 10 Mg Tablet, 10 MG PO DAILY, (Reported) Entered as Reported by: JAIRO WORRELL on 12/22/15 1218 Losartan Potassium (Losartan Potassium) 100 Mg Tablet, 100 MG PO DAILY Prescribed by: ESTRELLITA KOLB on 06/09/17 1033 Memantine HCl (Namenda Xr) 28 Mg Cap.spr.24, 28 MG PO HS, (Reported) Entered as Reported by: JAIRO WORRELL on 12/22/15 1216 Metformin HCl (Metformin HCl) 500 Mg Tablet, 500 MG PO BID, (Reported) Entered as Reported by: GRAZYNA HURD on 10/09/19 1138 Metoprolol Tartrate (Metoprolol Tartrate) 50 Mg Tablet, 100 MG PO BID Prescribed by: ESTRELLITA KOLB on 01/20/19 0859 Naproxen (Naprosyn) 500 Mg Tablet, 500 MG PO DAILY, (Reported) Entered as Reported by: ELIAS NULL on 06/07/172100 [place]-3 Acid Ethyl Esters (Lovaza) 1 Gm Capsule, 2 GM PO BID, (Reported) Entered as Reported by: JAIRO WORRELL on 12/22/15 1216 Quetiapine Fumarate (Seroquel) 100 Mg Tablet, 100 MG PO HS, (Reported) Entered as Reported by: JAIRO WORRELL on 12/22/15 1218 Quetiapine Fumarate (Seroquel) 100 Mg Tablet, 50 MG PO DAILY, (Reported) Entered as Reported by: MICHELA VELÁSQUEZ on 06/08/17 0116 Sitagliptin Phosphate (Januvia) 50 Mg Tablet, 50 MG PO DAILY, (Reported) Entered as Reported by: JAIRO WORRELL on 12/22/15 1218 Venlafaxine HCl (Effexor Xr) 150 Mg Cap.er.24h, 150 MG PO DAILY, (Reported) Entered as Reported by: GRAZYNA HURD on 10/09/19 1138 Review of Systems Review of Systems Constitutional: No chills, No diaphoresis Eyes: Denies Blindness, Denies Blurred Vision Ears: Denies Dizziness, Denies Pain Nose: see HPI; denies clots, denies congestion Mouth: denies clots, denies pain Throat: denies pain, denies swelling All Other Systems Reviewed Negative Unless Noted: Yes Past Rmbmvkg-Yligcx-Rsopcj Hx Patient Social History Tobacco Use?: No Use of E-Cig and/or Vaping dev: No Substance use?: No Immunizations Up To Date Tetanus Booster (TDap): Less than 5yrs First/Initial COVID19 Vaccinat: APR 2020 Second COVID19 Vaccination Rogelio: MAY 2020 Seasonal Allergies Seasonal Allergies: Yes Past Medical History Surgeries: Yes (ANKLE FX; LEFT EYE REMOVED) Eye Surgery, Gallbladder, 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, Orthopedic Respiratory: Yes (ASPIRATION PNEUMONIA) Pneumonia Cardiac: Yes (MILD MITRAL REGURGITATION) High Cholesterol, Hypertension, Valvular Heart Disease Neurological: Yes Dementia, Stroke Reproductive Disorders: No Female Reproductive Disorders: Denies T[employer]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 History: 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, Menopausal Sexually Transmitted Disease: No HIV/AIDS: No Genitourinary: No Gastrointestinal: Yes (DYSPLASTIC COLON POLYPS) Diverticulosis, Hemorrhoids, Polyps Musculoskeletal: Yes (RESTLESS LEGS; OSTEOMYELITIS RIGHT FOOT, SCIATICA;USES WALKER) Arthritis Endocrine: Yes Diabetes, Non-Insulin dep HEENT: Yes (LEFT EYE REMOVED/ PROSTHETIC EYE; WEARS GLASSES; ALL TEETH REMOVED) Cataract Loss of Vision: Left Cancer: Yes Skin Did You Recieve Any Treatments: Yes What Type of Treatment Did You: Surgical Intervention Psychosocial: Yes (SELF MUTILATION-"PICKS" ) Sleep Difficulties, Anxiety, Depression Integumentary: Yes (FOOT ULCERS; STAPH INFECTION; OSTEOMYELITIS RIGHT FOOT; BEARDEN TO FINGERS) Blood Disorders: No Adverse Reaction/Blood Tranf: No (HAS HAD BLOOD WITH NO REACTION) Family Medical History Colon cancer No Pertinent Family Hx SOCIAL HISTORY: -SMOKING-DENIES -ETOH-DENIES -DRUGS-DENIES PAST SURGICAL HISTORY: -COLONOSCOPIES/POLYPECTOMIES -REMOVAL OF SKIN LESIONS -DEBRIDEMENTS OF FOOT ULCERS -RIGHT GREAT TOE PINNING -PLATING OF RIGHT 5TH METATARSAL -CHOLECYSTECTOMY -HYSTERECTOMY -LEFT EYE REMOVED Physical Exam Vital Signs Vital Signs - First Documented 06/30/21 19:06 Temp 36.9 Pulse 66 Resp 18 B/P (MAP) 136/76 (96) Pulse Ox 94 O2 Delivery Room Air Height, Weight, BMI Height: 5'5.00" Weight: 150lbs. 0.0oz. 68.619151os; 24.00 BMI Method:Stated General Appearance: WD/WN, no apparent distress Eyes: bilateral eye normal inspection, bilateral eye PERRL, bilateral eye EOMI Ears: bilateral ear auricle normal, bilateral ear canal normal, bilateral ear TM normal Nose: other (Erythematous, moist, few small vesicles and shallow ulcerations on the top of the soft tissue of the nose.) Mouth/Throat: normal mouth inspection, pharynx normal Neck: full range of motion, normal inspection Cardiovascular: normal peripheral pulses, regular rate, rhythm Respiratory: lungs clear, normal breath sounds Gastrointestinal: non tender, soft Neurologic/Psychiatric: alert, normal mood/affect, oriented x 3 Procedures/Interventions Date of ETT Placement: Jan 11, 2019 Time of ETT Placement: 914 Progress/Results/Core Measures Results/Orders Lab Results Laboratory Tests Test 06/30/21 20:20 Range/Units White Blood Count 8.9 4.3-11.0 10^3/uL Red Blood Count 4.86 3.80-5.11 10^6/uL Hemoglobin 12.1 11.5-16.0 g/dL Hematocrit 39 35-52 % Mean Corpuscular Volume 80 80-99 fL Mean Corpuscular Hemoglobin 25 25-34 pg Mean Corpuscular Hemoglobin Concent 31 L 32-36 g/dL Red Cell Distribution Width 16.7 H 10.0-14.5 % Platelet Count 200 130-400 10^3/uL Mean Platelet Volume 9.3 9.0-12.2 fL Immature Granulocyte % (Auto) 0 % Neutrophils (%) (Auto) 83 H 42-75 % Lymphocytes (%) (Auto) 5 L 12-44 % Monocytes (%) (Auto) 8 0-12 % Eosinophils (%) (Auto) 4 0-10 % Basophils (%) (Auto) 0 0-10 % Neutrophils # (Auto) 7.4 1.8-7.8 10^3/uL Lymphocytes # (Auto) 0.4 L 1.0-4.0 10^3/uL Monocytes # (Auto) 0.7 0.0-1.0 10^3/uL Eosinophils # (Auto) 0.3 0.0-0.3 10^3/uL Basophils # (Auto) 0.0 0.0-0.1 10^3/uL Immature Granulocyte # (Auto) 0.0 0.0-0.1 10^3/uL Neutrophils % (Manual) 86 % Lymphocytes % (Manual) 5 % Monocytes % (Manual) 6 % Eosinophils % (Manual) 3 % Poikilocytosis SLIGHT Anisocytosis SLIGHT Sodium Level 138 135-145 MMOL/L Potassium Level 4.5 3.6-5.0 MMOL/L Chloride Level 101 98-107 MMOL/L Carbon Dioxide Level 22 21-32 MMOL/L Anion Gap 15 H 5-14 MMOL/L Blood Urea Nitrogen 39 H 7-18 MG/DL Creatinine 1.42 H 0.60-1.30 MG/DL Estimat Glomerular Filtration Rate 39 BUN/Creatinine Ratio 27 Glucose Level 227 H 70-105 MG/DL Calcium Level 9.9 8.5-10.1 MG/DL My Orders Orders - GENO HARMON Oxymetazoline 0.05% Nasal [place] (Afrin 0. (06/30/21 21:00) Cbc With Automated Diff (06/30/21 18:58) Basic Metabolic Panel (06/30/21 18:58) Manual Differential (06/30/21 20:20) Tranexamic Acid Injection (Cyklokapron I (06/30/21 23:45) Medications Given in ED Current Medications Medications Dose Ordered Sig/Darius Route Start Time Stop Time Status Last Admin Dose Admin Tranexamic Acid 1,000 mg ONCE ONCE NA 06/30/21 23:45 06/30/21 23:46 DC 06/30/21 23:51 1,000 MG Vital Signs/I&O 06/30/21 06/30/21 19:06 23:55 Temp 36.9 37.0 Pulse 66 72 Resp 18 16 B/P (MAP) 136/76 (96) 128/72 Pulse Ox 94 96 O2 Delivery Room Air Room Air Blood Pressure Mean: 96 Progress Progress Note : Time: 23:39 Progress Note It is completely hemostatic and there is a small little scab on the top of her nose. She does have breakdown of the skin due to the presumed staph infection which does look consistent with a staph infection. She is on appropriate ther apy for that. We did discuss risks, benefits and alternatives to continuing Eliquis and at this time the patient wants to continue the Eliquis. We provided her with a syringe of TXA to moisten on gauze and placed directly over the wound if it bleeds and put direct pressure for 40 minutes. Return precautions were given. Patient's labs are unremarkable Departure Impression Primary Impression: Bleeding from wound Disposition: HOME, SELF-CARE Condition: Stable Departure-Patient Inst. Decision time for Depature: 23:40 Referrals: FAB BEAVER MD (PCP/Family) Primary Care Physician Patient Instructions: Wound Care (DC) Add. Discharge Instructions: Continue to treat the infection in the same way you have been described. If she has bleeding then wet a small piece of gauze with the tranexamic acid and place it on the nose with direct, firm pressure for 40 minutes using your fingers. Do not take the gauze off to look at the wound or check for bleeding until the 40 minutes is up. If you cannot get the bleeding to stop doing this then return to the ER. All discharge instructions reviewed with patient and/or family. Voiced understanding. GENO HARMON Jun 30, 2021 23:42
[2021-06-30] MEDS ORDERED: TRANEXAMIC ACID 100 MG/ML 10 ML INJECTION ONE (23:45)
[2021-06-30 23:55] VITALS: BP 128/72
== END 2021-06-30 23:55 | disposition home or self-care (01) ==
LOC: EDUNIT# 18:21 → ER 18:22
DX: L98.491 Non-pressure chronic ulcer of skin of other sites limited to breakdown of skin (principal); L08.89 Other specified local infections of the skin and subcutaneous tissue; I48.92 Unspecified atrial flutter; Z86.14 Personal history of Methicillin resistant Staphylococcus aureus infection; Z85.820 Personal history of malignant melanoma of skin; Z86.73 Personal history of transient ischemic attack (TIA), and cerebral infarction without residual deficits; Z79.01 Long term (current) use of anticoagulants
CPT/HCPCS: 36415; 80048; 85007; 85027; 99281

== ENCOUNTER 2021-07-24 14:13 | Emergency (ER) | payer MEDICARE, MEDICAID ==
[~2021-07-24] VITALS: Ht 165 cm; Wt 68.9 kg
--- NOTE | 2021-07-24 15:13 | ED Lower Extremity ---
General Chief Complaint: Lower Extremity Stated Complaint: FALL, R SIDE KNEE/HIP Nursing Triage Note: PT PRESENTS TO ED VIA POV FROM HOME WITH COMPLAINTS OF R HIP AND R KNEE PAIN AFTER FALLING FORWARD WHEN TRYING TO GET OUT OF HER CHAIR. PT FELL ONTO HER WALKER. PT DENIES HITTING HEAD OR LOC. Source: patient Exam Limitations: no limitations History of Present Illness Date Seen by Provider: July 24, 2021 Time Seen by Provider: 15:03 Initial Comments This is a well-appearing 75-year-old female who presented to the ER with complaints of right hip and right knee pain after falling forward with her walker when she was attempting to get out of her chair. Allergies and Home Medications Allergies Coded Allergies: bacitracin (Verified Allergy, Mild, RASH, 10/09/19) neomycin (Verified Allergy, Mild, RASH, 10/09/19) niacin (Verified Allergy, Mild, RASH, 10/09/19) polymyxin B (Verified Allergy, Mild, RASH, 10/09/19) Patient Home Medication List Acetaminophen (Tylenol Extra Strength) 500 Mg Tablet, 500 MG PO HS, (Reported) Entered as Reported by: MICHELA VELÁSQUEZ on 06/08/17 012 Amlodipine Besylate (Amlodipine Besylate) 10 Mg Tablet, 10 MG PO DAILY Prescribed by: AARTI GROSS on 08/17/17 0304 Antiox#10/Om3/Dha/Epa/Lut/Zeax (I-Caps with Lutein-[place] 3 Sfg) 1 Each Capsule, 1 EACH PO DAILY, (Reported) Entered as Reported by: MICHELA VELÁSQUEZ on 06/08/17 012 Apixaban (Eliquis) 5 Mg Tablet, 5 MG PO BID Prescribed by: ESTRELLITA KOLB on 01/20/19 0859 Aspirin (Aspirin) 81 Mg Tab.chew, 81 MG PO DAILY, (Reported) Entered as Reported by: GRAZYNA HURD on 10/09/19 1138 Atorvastatin Calcium (Atorvastatin Calcium) 10 Mg Tablet, 10 MG PO HS, (Reported) Entered as Reported by: ELIAS NULL on 10/15/162011 Diltiazem HCl (Diltiazem 24Hr Cd) 180 Mg Cap.er.24h, 180 MG PO DAILY Prescribed by: ESTRELLITA KOLB on 01/20/19 0859 Gemfibrozil (Gemfibrozil) 600 Mg Tablet, 600 MG PO BID, (Reported) Entered as Reported by: GRAZYNA HURD on 10/09/19 1138 Loratadine (Loratadine) 10 Mg Tablet, 10 MG PO DAILY, (Reported) Entered as Reported by: JAIRO WORRELL on 12/22/15 1218 Losartan Potassium (Losartan Potassium) 100 Mg Tablet, 100 MG PO DAILY Prescribed by: ESTRELLITA KOLB on 06/09/17 1033 Memantine HCl (Namenda Xr) 28 Mg Cap.spr.24, 28 MG PO HS, (Reported) Entered as Reported by: JAIRO WORRELL on 12/22/15 1216 Metformin HCl (Metformin HCl) 500 Mg Tablet, 500 MG PO BID, (Reported) Entered as Reported by: GRAZYNA HURD on 10/09/19 1138 Metoprolol Tartrate (Metoprolol Tartrate) 50 Mg Tablet, 100 MG PO BID Prescribed by: ESTRELLITA KOLB on 01/20/19 0859 Naproxen (Naprosyn) 500 Mg Tablet, 500 MG PO DAILY, (Reported) Entered as Reported by: ELIAS NULL on 06/07/17 210 [place]-3 Acid Ethyl Esters (Lovaza) 1 Gm Capsule, 2 GM PO BID, (Reported) Entered as Reported by: JAIRO WORRELL on 12/22/15 1216 Quetiapine Fumarate (Seroquel) 100 Mg Tablet, 100 MG PO HS, (Reported) Entered as Reported by: JAIRO WORRELL on 12/22/15 1218 Quetiapine Fumarate (Seroquel) 100 Mg Tablet, 50 MG PO DAILY, (Reported) Entered as Reported by: MICHELA VELÁSQUEZ on 06/08/17 0116 Sitagliptin Phosphate (Januvia) 50 Mg Tablet, 50 MG PO DAILY, (Reported) Entered as Reported by: JAIRO WORRELL on 12/22/15 1218 Venlafaxine HCl (Effexor Xr) 150 Mg Cap.er.24h, 150 MG PO DAILY, (Reported) Entered as Reported by: GRAZYNA HURD on 10/09/19 1138 Past Uwcdpye-Tnyljz-Qttjtv Hx Patient Social History Tobacco Use?: No Substance use?: No Alcohol Use?: No Pt feels they are or have been: No Immunizations Up To Date Tetanus Booster (TDap): Less than 5yrs First/Initial COVID19 Vaccinat: APR 2020 Second COVID19 Vaccination Rogelio: MAY 2020 Third COVID19 Vaccination Date: JANUARY 2021 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: SUMI Seasonal Allergies Seasonal Allergies: Yes Past Medical History Surgeries: Yes (ANKLE FX; LEFT EYE REMOVED) Eye Surgery, Gallbladder, 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, Orthopedic Respiratory: Yes (ASPIRATION PNEUMONIA) Pneumonia Cardiac: Yes (MILD MITRAL REGURGITATION) High Cholesterol, Hypertension, Valvular Heart Disease Neurological: Yes Dementia, Stroke Reproductive Disorders: No 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, Menopausal Sexually Transmitted Disease: No HIV/AIDS: No Genitourinary: No Gastrointestinal: Yes (DYSPLASTIC COLON POLYPS) Diverticulosis, Hemorrhoids, Polyps Musculoskeletal: Yes (RESTLESS LEGS; OSTEOMYELITIS RIGHT FOOT, SCIATICA;USES WALKER) Arthritis Endocrine: Yes Diabetes, Non-Insulin dep HEENT: Yes (LEFT EYE REMOVED/ PROSTHETIC EYE; WEARS GLASSES; ALL TEETH REMOVED) Cataract Loss of Vision: Left Cancer: Yes Skin Did You Recieve Any Treatments: Yes What Type of Treatment Did You: Surgical Intervention Psychosocial: Yes (SELF MUTILATION-"PICKS" ) Sleep Difficulties, Anxiety, Depression Integumentary: Yes (FOOT ULCERS; STAPH INFECTION; OSTEOMYELITIS RIGHT FOOT; BEARDEN TO FINGERS) Blood Disorders: No Adverse Reaction/Blood Tranf: No (HAS HAD BLOOD WITH NO REACTION) Family Medical History Colon cancer No Pertinent Family Hx SOCIAL HISTORY: -SMOKING-DENIES -ETOH-DENIES -DRUGS-DENIES PAST SURGICAL HISTORY: -COLONOSCOPIES/POLYPECTOMIES -REMOVAL OF SKIN LESIONS -DEBRIDEMENTS OF FOOT ULCERS -RIGHT GREAT TOE PINNING -PLATING OF RIGHT 5TH METATARSAL -CHOLECYSTECTOMY -HYSTERECTOMY -LEFT EYE REMOVED Physical Exam Vital Signs Vital Signs - First Documented 07/24/21 14:44 Temp 36.2 Pulse 57 Resp 18 B/P (MAP) 127/79 (95) Pulse Ox 92 Capillary Refill : Less Than 3 Seconds Height, Weight, BMI Height: 5'5.00" Weight: 150lbs. 0.0oz. [id number]; 25.00 BMI Method:Stated Procedures/Interventions Date of ETT Placement: Jan 11, 2019 Time of ETT Placement: 914 Progress/Results/Core Measures Results/Orders My Orders Orders - MARGOT MCMILLAN BILLING SERVICES MANAGER Hip, Right, 2 Views (07/24/21 15:13) Knee, Right, 3 Views (07/24/21 15:13) Ribs/Unilateral With Chest (07/24/21 15:20) Hand, Right, 3 Views (07/24/21 15:20) Ct Pelvis Wo (07/24/21 16:00) Vital Signs/I&O 07/24/21 14:44 Temp 36.2 Pulse 57 Resp 18 B/P (MAP) 127/79 (95) Pulse Ox 92 Blood Pressure Mean: 95 Departure Impression Primary Impression: Fall on same level Additional Impression: Hip hematoma, right Disposition: 01 HOME, SELF-CARE Condition: Stable/Unchanged Departure-Patient Inst. Decision time for Depature: 17:18 Referrals: FAB BEAVER MD (PCP/Family) Primary Care Physician Patient Instructions: HEMATOMA Add. Discharge Instructions: Plan: 1. May take Tylenol as needed for pain. May apply ice 20 minutes at a time to hematoma. 2. Return for any new, concerning, or worsening symptoms. All discharge instructions reviewed with patient and/or family. Voiced understanding. MARGOT MCMILLAN BILLING SERVICES MANAGER July 24, 2021 15:13
--- NOTE | 2021-07-24 15:50 | Diagnostic Imaging Report ---
INDICATION: Right hip pain. FINDINGS: Two views of the right hip show degenerative changes of the right hip with joint space narrowing and marginal osteophyte formation. There is a questionable nondisplaced fracture of the right inferior ischiopubic ramus. IMPRESSION: Moderate degenerative changes of the right hip. Questionable ischiopubic ramus fracture. Dictated by: Dictated on workstation # [id number]
--- NOTE | 2021-07-24 15:52 | Diagnostic Imaging Report ---
INDICATION: Right knee injury from a fall. FINDINGS: Three views of the right knee show mild narrowing of the medial tibiofemoral joint space. There is no fracture, dislocation or pathologic effusion. IMPRESSION: Mild degenerative changes of the knee. No acute abnormality seen. Dictated by: Dictated on workstation # [id number]
--- NOTE | 2021-07-24 15:52 | Diagnostic Imaging Report ---
INDICATION: Right hand injury from a fall. FINDINGS: Three views of the right hand show no fracture, dislocation, or other acute abnormalities. There are degenerative changes of the interphalangeal joints of the fingers and of the first carpometacarpal joint. IMPRESSION: Osteoarthritis. No acute abnormality seen. Dictated by: Dictated on workstation # [id number]
--- NOTE | 2021-07-24 15:53 | Diagnostic Imaging Report ---
INDICATION: Right rib injury from a fall. PA chest and three views of the right ribs are obtained. FINDINGS: There are no displaced rib fractures. Lungs are clear. There is no effusion or pneumothorax. IMPRESSION: Unremarkable chest and right ribs. Dictated by: Dictated on workstation # [id number]
--- NOTE | 2021-07-24 17:07 | Diagnostic Imaging Report ---
EXAMINATION: CT pelvis without intravenous contrast. TECHNIQUE: Multiple contiguous axial images were obtained through the pelvis without the administration of intravenous contrast. All CT scans use one or more of the following dose optimizing techniques: Automated exposure control, MA and/or KvP adjustment based on patient size and exam type or iterative reconstruction. HISTORY: Fall, Questionable ischiopubic ramus fracture. COMPARISON: 03/05/2021. FINDINGS: There is no bowel obstruction. Lower amount of stool is seen within the colon. The appendix is normal. No free air, free fluid, or suspicious lymphadenopathy. There are vascular calcifications without aneurysm. Urinary bladder is unremarkable. The uterus is surgically absent. There is a small likely hematoma within the posterior left hip soft tissues measuring up to 2.1 cm. There is no acute fracture, dislocation, or destructive osseous process. IMPRESSION: 1. Left posterior hip soft tissue hematoma without underlying fracture or other acute osseous abnormality. Dictated by: Dictated on workstation # [id number]
[2021-07-24 17:33] VITALS: BP 128/66
== END 2021-07-24 17:33 | disposition home or self-care (01) ==
LOC: EDUNIT# 14:13 → ER 14:14
DX: S70.01XA Contusion of right hip, initial encounter (principal); M25.561 Pain in right knee; W18.30XA Fall on same level, unspecified, initial encounter
CPT/HCPCS: 71101; 72192; 73130; 73502; 73562

== ENCOUNTER 2021-09-07 23:39 | Emergency (ER) | payer MEDICARE, MEDICAID ==
[2021-09-07 23:41] VITALS: BP 103/68
--- NOTE | 2021-09-08 | ED Head Injury ---
General Chief Complaint: Trauma-Non Activation Stated Complaint: FALL,POSS BROKEN NOSE Nursing Triage Note: pt presents via ems. reports she was getting out of bed to go to the restroom and fell striking her nose. nose is purple and swollen. nose did bleed at time of fall but no bleeding is present at this time. pt denies any pain. Source: patient Exam Limitations: no limitations History of Present Illness Date Seen by Provider: Sep 07, 2021 Time Seen by Provider: 23:50 Initial Comments Patient is a 75-year-old female who presents to the emergency room with a chief complaint of falling out of bed. Patient states that she was getting up to go to the restroom and fell forward onto her face hitting her nose. She did have a nosebleed. She states she is anticoagulated on Eliquis. She states she is getting ready to have surgery on her brain on the 15 of September. She denies any complaints of pain at this time, no headache. No neck pain. No chest abdomen or pelvis pain. No extremity pain. She is not nauseated. She does not have a headache. She is completely alert and oriented, pleasant and talkative. No recent illnesses. All other review of systems reviewed and negative except as stated. Occurred: just prior to arrival Severity: mild Location: other (facial) Method of Injury: fell Loss of Consciousness: no loss of consciousness Associated Systoms: Denies Symptoms Allergies and Home Medications Allergies Coded Allergies: bacitracin (Verified Allergy, Mild, RASH, 10/09/19) neomycin (Verified Allergy, Mild, RASH, 10/09/19) niacin (Verified Allergy, Mild, RASH, 10/09/19) polymyxin B (Verified Allergy, Mild, RASH, 10/09/19) Patient Home Medication List Home Medication List Reviewed: Yes Acetaminophen (Tylenol Extra Strength) 500 Mg Tablet, 500 MG PO HS, (Reported) Entered as Reported by: MICHELA VELÁSQUEZ on 06/08/17 0121 Amlodipine Besylate (Amlodipine Besylate) 10 Mg Tablet, 10 MG PO DAILY Prescribed by: AARTI GROSS on 08/17/17 0304 Antiox#10/Om3/Dha/Epa/Lut/Zeax (I-Caps with Lutein-[place] 3 Sfg) 1 Each Capsule, 1 EACH PO DAILY, (Reported) Entered as Reported by: MICHELA VELÁSQUEZ on 06/08/17 0121 Apixaban (Eliquis) 5 Mg Tablet, 5 MG PO BID Prescribed by: ESTRELLITA KOLB on 01/20/19 0859 Aspirin (Aspirin) 81 Mg Tab.chew, 81 MG PO DAILY, (Reported) Entered as Reported by: GRAZYNA HURD on 10/09/19 1138 Atorvastatin Calcium (Atorvastatin Calcium) 10 Mg Tablet, 10 MG PO HS, (Reported) Entered as Reported by: ELIAS NULL on 10/15/162011 Diltiazem HCl (Diltiazem 24Hr Cd) 180 Mg Cap.er.24h, 180 MG PO DAILY Prescribed by: ESTRELLITA KOLB on 01/20/19 0859 Gemfibrozil (Gemfibrozil) 600 Mg Tablet, 600 MG PO BID, (Reported) Entered as Reported by: GRAZYNA HURD on 10/09/19 1138 Loratadine (Loratadine) 10 Mg Tablet, 10 MG PO DAILY, (Reported) Entered as Reported by: JAIRO WORRELL on 12/22/15 1218 Losartan Potassium (Losartan Potassium) 100 Mg Tablet, 100 MG PO DAILY Prescribed by: ESTRELLITA KOLB on 06/09/17 1033 Memantine HCl (Namenda Xr) 28 Mg Cap.spr.24, 28 MG PO HS, (Reported) Entered as Reported by: JAIRO WORRELL on 12/22/15 1216 Metformin HCl (Metformin HCl) 500 Mg Tablet, 500 MG PO BID, (Reported) Entered as Reported by: GRAZYNA HURD on 10/09/19 1138 Metoprolol Tartrate (Metoprolol Tartrate) 50 Mg Tablet, 100 MG PO BID Prescribed by: ESTRELLITA KOLB on 01/20/19 0859 Naproxen (Naprosyn) 500 Mg Tablet, 500 MG PO DAILY, (Reported) Entered as Reported by: ELIAS NULL on 06/07/172100 [place]-3 Acid Ethyl Esters (Lovaza) 1 Gm Capsule, 2 GM PO BID, (Reported) Entered as Reported by: JAIRO WORRELL on 12/22/15 1216 Quetiapine Fumarate (Seroquel) 100 Mg Tablet, 100 MG PO HS, (Reported) Entered as Reported by: JAIRO WORRELL on 12/22/15 1218 Quetiapine Fumarate (Seroquel) 100 Mg Tablet, 50 MG PO DAILY, (Reported) Entered as Reported by: MICHELA VELÁSQUEZ on 06/08/17 0116 Sitagliptin Phosphate (Januvia) 50 Mg Tablet, 50 MG PO DAILY, (Reported) Entered as Reported by: JAIRO WORRELL on 12/22/15 1218 Venlafaxine HCl (Effexor Xr) 150 Mg Cap.er.24h, 150 MG PO DAILY, (Reported) Entered as Reported by: GRAZYNA HURD on 10/09/19 1138 Review of Systems Review of Systems Constitutional: see HPI Eyes: No Symptoms Reported Ears, Nose, Mouth, Throat: epistaxis Respiratory: no symptoms reported Cardiovascular: no symptoms reported Gastrointestinal: no symptoms reported Genitourinary: no symptoms reported : No Musculoskeletal: no symptoms reported Skin: no symptoms reported Psychiatric/Neurological: No Symptoms Reported All Other Systems Reviewed Negative Unless Noted: Yes Past Gtzwbkh-Nxmilh-Zqcuja Hx Patient Social History Tobacco Use?: No Substance use?: No Alcohol Use?: No Pt feels they are or have been: No Immunizations Up To Date Tetanus Booster (TDap): Less than 5yrs Influenza Vaccine Up-to-Date: Yes; Up-to-Date First/Initial COVID19 Vaccinat: unknown date Second COVID19 Vaccination Rogelio: unknown date Third COVID19 Vaccination Date: JANUARY 2021 Seasonal Allergies Seasonal Allergies: Yes Past Medical History Surgeries: Yes (ANKLE FX; LEFT EYE REMOVED) Eye Surgery, Gallbladder, 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, Orthopedic Respiratory: Yes (ASPIRATION PNEUMONIA) Pneumonia Cardiac: Yes (MILD MITRAL REGURGITATION) High Cholesterol, Hypertension, Valvular Heart Disease Neurological: Yes Dementia, Stroke Reproductive Disorders: No 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: 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, Menopausal Sexually Transmitted Disease: No HIV/AIDS: No Genitourinary: No Gastrointestinal: Yes (DYSPLASTIC COLON POLYPS) Diverticulosis, Hemorrhoids, Polyps Musculoskeletal: Yes (RESTLESS LEGS; OSTEOMYELITIS RIGHT FOOT, SCIATICA;USES WALKER) Arthritis Endocrine: Yes Diabetes, Non-Insulin dep HEENT: Yes (LEFT EYE REMOVED/ PROSTHETIC EYE; WEARS GLASSES; ALL TEETH REMOVED) Cataract Loss of Vision: Left Cancer: Yes Skin Did You Recieve Any Treatments: Yes What Type of Treatment Did You: Surgical Intervention Psychosocial: Yes (SELF MUTILATION-"PICKS" ) Sleep Difficulties, Anxiety, Depression Integumentary: Yes (FOOT ULCERS; STAPH INFECTION; OSTEOMYELITIS RIGHT FOOT; BUR NS TO FINGERS) Blood Disorders: No Adverse Reaction/Blood Tranf: No (HAS HAD BLOOD WITH NO REACTION) Family Medical History Colon cancer No Pertinent Family Hx SOCIAL HISTORY: -SMOKING-DENIES -ETOH-DENIES -DRUGS-DENIES PAST SURGICAL HISTORY: -COLONOSCOPIES/POLYPECTOMIES -REMOVAL OF SKIN LESIONS -DEBRIDEMENTS OF FOOT ULCERS -RIGHT GREAT TOE PINNING -PLATING OF RIGHT 5TH METATARSAL -CHOLECYSTECTOMY -HYSTERECTOMY -LEFT EYE REMOVED Physical Exam Vital Signs Vital Signs - First Documented 09/07/21 09/07/21 23:41 23:44 Temp 37.7 Pulse 75 Resp 18 B/P (MAP) 103/68 (80) Pulse Ox 83 O2 Delivery Room Air O2 Flow Rate 3.00 Capillary Refill : Height, Weight, BMI Height: 5'5.00" Weight: 150lbs. 0.0oz. 68.238768pv; 25.00 BMI Method:Stated General Appearance: WD/WN, no apparent distress HEENT: other (ceramic left eye; right eye pupil reactive and EOMI - non tender; dried blood both nares, no active bleeding. nasal bridge swollen and ecchymotic; no crepitance or instability) Neck: non-tender, full range of motion, supple, normal inspection Cardiovascular: regular rate, rhythm Respiratory: lungs clear, normal breath sounds, no accessory muscle use, other (hypoxic on room air 88% (she states she is supposed to wear O2 at night)) Gastrointestinal: normal bowel sounds, non tender, soft Extremities: normal range of motion, non-tender, normal inspection Psychiatric: alert, oriented x 3 Crainal Nerves: normal hearing, normal speech Motor/Sensory: no motor deficit, no sensory deficit Skin: normal color, warm/dry Javon Coma Score Best Eye Response: (4) Open Spontaneously Best Verbal Response: (5) Oriented Best Motor Response: (6) Obeys Commands Procedures/Interventions Date of ETT Placement: Jan 11, 2019 Time of ETT Placement: 914 Progress/Results/Core Measures Results/Orders My Orders Orders - NICOLE MCDANIEL MD Ct Head Wo (09/08/21 00:01) Vital Signs/I&O 09/07/21 09/07/21 23:41 23:44 Temp 37.7 Pulse 75 Resp 18 B/P (MAP) 103/68 (80) Pulse Ox 83 93 O2 Delivery Room Air Nasal Cannula O2 Flow Rate 3.00 Blood Pressure Mean: 80 Diagnostic Imaging Diagonstic Imaging: CT Comments Radiology read per stat rad: Soft tissue swelling over the nasal bridge, possible nasal bridge fracture. No skull fracture or intracranial hemorrhage. 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 There are old ischemic changes in the right frontoparietal cortex. Departure Impression Primary Impression: Contusion of nose Qualified Codes: S00.33XA - Contusion of nose, initial encounter Additional Impression: Chronic anticoagulation Disposition: HOME, SELF-CARE Condition: Stable Departure-Patient Inst. Decision time for Depature: 01:01 Referrals: FAB BEAVER MD (PCP/Family) Primary Care Physician Patient Instructions: Minor Contusion ED Add. Discharge Instructions: Continue your daily medications as prescribed by your primary care doctor. Do not blow your nose for 24 hours. If you have a recurrence of nosebleeding, apply direct pressure for 5 minutes, if it does not stop then you need to come back to the emergency room for reevaluation. Tylenol, 2 tablets every 6 hours as needed for facial pain. You can apply an ice pack to your nose 3-4 times daily for 20 minutes at a time to help reduce swelling. Follow-up with your family doctor for further evaluation and management of a possible nasal bone fracture. Copy Copies To 1: FAB BEAVER MD, KATHRYN M MD Sep 08, 2021 00:00
--- NOTE | 2021-09-08 06:55 | Diagnostic Imaging Report ---
PROCEDURE: CT head without contrast. TECHNIQUE: Multiple contiguous axial images were obtained through the brain without the use of intravenous contrast. Auto Exposure Controls were utilized during the CT exam to meet ALARA standards for radiation dose reduction. INDICATION: Fell, headache CT HEAD: There is no intracranial mass, shift of the midline or hemorrhage to suggest an acute abnormality. The ventricles are not abnormally dilated and stable in size when compared to the prior exam of 03/05/2021. 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 That finding is again evident and unchanged. The bone windows show no sign of a fracture or destructive lesion. However there is irregularity of the tip of the nasal bone and there is soft tissue edema in this region. I suspect that there is a nondisplaced nasal bone fracture present. Clinical follow-up is recommended. . The orbits are symmetrical and within normal limits. The sinuses are generally clear. IMPRESSION: 1. There is no evidence for an acute intracranial abnormality. 2. If clinical concern regarding an acute abnormality persists, MRI would be recommended for further study. 3. The sellar mass seen on the prior study is again evident and no different. This finding could also be further evaluated by MRI. 4. The irregularity of the nasal bones does suggest a nondisplaced fracture. There is also soft tissue edema in this area. I agree with the [facility] interpretation of this exam. Dictated by: Dictated on workstation # [id number]
[2021-09-09] MEDS ORDERED: CEFD300C3 PO (15:40)
== END 2021-09-08 01:18 | disposition home or self-care (01) ==
LOC: EDUNIT# 23:39 → ER 23:41
DX: S00.33XA Contusion of nose, initial encounter (principal); Z79.01 Long term (current) use of anticoagulants; W06.XXXA Fall from bed, initial encounter
CPT/HCPCS: 70450; 99283

== ENCOUNTER 2021-09-09 12:34 | Emergency (ER) | payer MEDICARE, MEDICAID ==
[~2021-09-09] VITALS: Ht 165 cm; Wt 68.0 kg
[2021-09-09 13:17] LABS: BASOPHILS % (AUTO) 0 % (0-10); EOSINOPHILS % (AUTO) 0 % (0-10); HEMATOCRIT 33 % (35-52); HEMOGLOBIN 9.9 g/dL (11.5-16.0); LYMPHOCYTES # (AUTO) 0.7 10^3/uL (1.0-4.0); LYMPHOCYTES % (AUTO) 8 % (12-44); MEAN CORPUSCULAR HEMOGLOBIN 24 pg (25-34); MEAN CORPUSCULAR HGB CONC 30 g/dL (32-36); MEAN CORPUSCULAR VOLUME 79 fL (80-99); MEAN PLATELET VOLUME 10.1 fL (9.0-12.2); MONOCYTES # (AUTO) 0.8 10^3/uL (0.0-1.0); MONOCYTES % (AUTO) 8 % (0-12); NEUTROPHILS # (AUTO) 7.6 10^3/uL (1.8-7.8); NEUTROPHILS % (AUTO) 83 % (42-75); PLATELET COUNT 148 10^3/uL (130-400); WHITE BLOOD COUNT 9.2 10^3/uL (4.3-11.0)
[2021-09-09 13:26] LABS: ALBUMIN 3.7 GM/DL (3.2-4.5)
[2021-09-09 13:27] LABS: POTASSIUM 4.4 MMOL/L (3.6-5.0)
[2021-09-09 13:28] LABS: CALCIUM 9.6 MG/DL (8.5-10.1)
[2021-09-09 13:29] LABS: TOTAL PROTEIN 7.2 GM/DL (6.4-8.2)
[2021-09-09] MEDS ORDERED: LACTATED RINGERS 1,000 ML IV ONE (13:30)
[2021-09-09 13:31] LABS: BILIRUBIN,TOTAL 0.4 MG/DL (0.1-1.0)
[2021-09-09 13:33] LABS: CREATININE SERUM 1.55 MG/DL (0.60-1.30)
[2021-09-09 13:37] LABS: BILIRUBIN,URINE NEGATIVE (NEGATIVE); CLARITY,URINE SL CLOUDY; COLOR,URINE YELLOW; GLUCOSE, URINE (UA) NEGATIVE (NEGATIVE); KETONES,URINE NEGATIVE (NEGATIVE); LEUKOCYTE ESTERASE ,URINE 3+ (NEGATIVE); NITRITE,URINE POSITIVE (NEGATIVE); PROTEIN,URINE 2+ (NEGATIVE)
[2021-09-09 13:41] LABS: BACTERIA,URINE LARGE /HPF; WBC,URINE TNTC /HPF
[2021-09-09 13:42] LABS: URINE OTHER 0-2 TRANS EPIS /HPF
--- NOTE | 2021-09-09 13:43 | Diagnostic Imaging Report ---
CHEST 1 VIEW, AP/PA ONLY Indication: Dizziness, fall Comparison: 03/05/2021 Findings: Probable basilar subsegmental atelectasis. No new focal airspace disease in the visualized lungs. Please note that the posterior lower lobes are poorly evaluated by portable radiography. No pleural effusion or pneumothorax. Normal cardiomediastinal silhouette. Impression: 1. No acute cardiopulmonary process by portable radiography. Dictated by: Dictated on workstation # [id number]
[2021-09-09 13:56] LABS: LYMPHOCYTES % (MANUAL) 4 %; MONOCYTES % (MANUAL) 6 %; NEUTROPHILS % (MANUAL) 90 %; RBC MORPH NORMAL
--- NOTE | 2021-09-09 13:58 | Diagnostic Imaging Report ---
PROCEDURE: CT head without contrast. TECHNIQUE: Multiple contiguous axial images were obtained through the brain without the use of intravenous contrast. Auto Exposure Controls were utilized during the CT exam to meet ALARA standards for radiation dose reduction. INDICATION: Fall, head injury, on Eliquis, altered mental status with increased confusion. COMPARISON: 09/08/2021 FINDINGS: The ventricles and cortical sulci are diffusely prominent consistent with generalized parenchymal volume loss. There is no midline shift or mass effect. No acute intracranial hemorrhage is seen. No CT evidence of acute territorial ischemia is seen. There is encephalomalacia in the right hemisphere consistent with old infarct which appears stable compared to the prior study. Senescent calcifications are noted at the basal ganglia. There is a mass in the sella which is stable since the prior exam. The calvarium appears intact. Visualized paranasal sinuses are clear. IMPRESSION: 1. No acute intracranial hemorrhage or CT evidence of acute territorial ischemia. 2. 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 3. Stable sellar mass. Consider further evaluation with MRI when the patient is able. Dictated by: Dictated on workstation # [id number]
[2021-09-09] MEDS ORDERED: cefTRIAXone 1 GM PRE-MIX 50 ML IV STA (14:24)
[2021-09-09] MEDS ORDERED: NS IV 500 ML 500 ML IV ONE (14:30)
--- NOTE | 2021-09-09 14:53 | ED General ---
General Chief Complaint: Neurological Problems Stated Complaint: CONFUSION Nursing Triage Note: Pt here with concerns for increased confusion; her customer order clerk states that she fell on and was seen here and had a CT; pt has had increasing confusion since. Handbag Finisher states she has some baseline confusion but it has worsened. Source of Information: Patient, Caregiver, Old Records Exam Limitations: No Limitations History of Present Illness Date Seen by Provider: Sep 09, 2021 Time Seen by Provider: 12:44 Initial Comments This is 75-year-old woman presents to the emergency room accompanied by her caregivers with concerns about recent confusion and a recent fall. Patient has some confusion at baseline but this has worsened recently. She was seen in this ER 2 days ago after having a fall and striking her head. She is on Eliquis. CT scan was performed at the time. Caretakers are concerned that she may need further evaluation with labs, urinalysis, etc. to explore her confusion further. She is afebrile. Blood pressures are marginal low during assessment. Allergies and Home Medications Allergies Coded Allergies: bacitracin (Verified Allergy, Mild, RASH, 10/09/19) neomycin (Verified Allergy, Mild, RASH, 10/09/19) niacin (Verified Allergy, Mild, RASH, 10/09/19) polymyxin B (Verified Allergy, Mild, RASH, 10/09/19) Patient Home Medication List Home Medication List Reviewed: Yes Acetaminophen (Tylenol Extra Strength) 500 Mg Tablet, 500 MG PO HS, (Reported) Entered as Reported by: MICHELA VELÁSQUEZ on 06/08/17 0121 Amlodipine Besylate (Amlodipine Besylate) 10 Mg Tablet, 10 MG PO DAILY Prescribed by: AARTI GROSS on 08/17/17 0304 Antiox#10/Om3/Dha/Epa/Lut/Zeax (I-Caps with Lutein-[place] 3 Sfg) 1 Each Capsule, 1 EACH PO DAILY, (Reported) Entered as Reported by: MICHELA VELÁSQUEZ on 06/08/17 012 Apixaban (Eliquis) 5 Mg Tablet, 5 MG PO BID Prescribed by: ESTRELLITA KOLB on 01/20/19 0859 Aspirin (Aspirin) 81 Mg Tab.chew, 81 MG PO DAILY, (Reported) Entered as Reported by: GRAZYNA HURD on 10/09/19 1138 Atorvastatin Calcium (Atorvastatin Calcium) 10 Mg Tablet, 10 MG PO HS, (Reported) Entered as Reported by: ELIAS NULL on 10/15/162011 Cefdinir (Cefdinir) 300 Mg Capsule, 300 MG PO BID Prescribed by: AARTI GROSS on 09/09/21 1540 Diltiazem HCl (Diltiazem 24Hr Cd) 180 Mg Cap.er.24h, 180 MG PO DAILY Prescribed by: ESTRELLITA KOLB on 01/20/19 0859 Gemfibrozil (Gemfibrozil) 600 Mg Tablet, 600 MG PO BID, (Reported) Entered as Reported by: GRAZYNA HURD on 10/09/19 1138 Loratadine (Loratadine) 10 Mg Tablet, 10 MG PO DAILY, (Reported) Entered as Reported by: JAIRO WORRELL on 12/22/15 1218 Losartan Potassium (Losartan Potassium) 100 Mg Tablet, 100 MG PO DAILY Prescribed by: ESTRELLITA KOLB on 06/09/17 1033 Memantine HCl (Namenda Xr) 28 Mg Cap.spr.24, 28 MG PO HS, (Reported) Entered as Reported by: JAIRO WORRELL on 12/22/15 1216 Metformin HCl (Metformin HCl) 500 Mg Tablet, 500 MG PO BID, (Reported) Entered as Reported by: GRAZYNA HURD on 10/09/19 1138 Metoprolol Tartrate (Metoprolol Tartrate) 50 Mg Tablet, 100 MG PO BID Prescribed by: ESTRELLITA KOLB on 01/20/19 0859 Naproxen (Naprosyn) 500 Mg Tablet, 500 MG PO DAILY, (Reported) Entered as Reported by: ELIAS NULL on 06/07/172100 [place]-3 Acid Ethyl Esters (Lovaza) 1 Gm Capsule, 2 GM PO BID, (Reported) Entered as Reported by: JAIRO WORRELL on 12/22/15 1216 Quetiapine Fumarate (Seroquel) 100 Mg Tablet, 100 MG PO HS, (Reported) Entered as Reported by: JAIRO WORRELL on 12/22/15 1218 Quetiapine Fumarate (Seroquel) 100 Mg Tablet, 50 MG PO DAILY, (Reported) Entered as Reported by: MICHELA VELÁSQUEZ on 06/08/17 0116 Sitagliptin Phosphate (Januvia) 50 Mg Tablet, 50 MG PO DAILY, (Reported) Entered as Reported by: JAIRO WORRELL on 12/22/15 1218 Venlafaxine HCl (Effexor Xr) 150 Mg Cap.er.24h, 150 MG PO DAILY, (Reported) Entered as Reported by: GRAZYNA HURD on 10/09/19 1138 Review of Systems Review of Systems Constitutional: no symptoms reported EENTM: other (Dry oropharynx, prosthetic left eye) Respiratory: no symptoms reported Cardiovascular: see HPI Gastrointestinal: no symptoms reported Genitourinary: no symptoms reported Musculoskeletal: no symptoms reported Skin: no symptoms reported Psychiatric/Neurological: See HPI Hematologic/Lymphatic: No Symptoms Reported Immunological/Allergic: no symptoms reported Past Pjatsxu-Uhtlyk-Xrmiez Hx Patient Social History Tobacco Use?: No Substance use?: No Alcohol Use?: No Immunizations Up To Date Tetanus Booster (TDap): Less than 5yrs First/Initial COVID19 Vaccinat: unknown date Second COVID19 Vaccination Rogelio: unknown date Third COVID19 Vaccination Date: unknown date Seasonal Allergies Seasonal Allergies: Yes Past Medical History Surgeries: Yes (ANKLE FX; LEFT EYE REMOVED) Eye Surgery, Gallbladder, 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, Orthopedic Respiratory: Yes (ASPIRATION PNEUMONIA) Pneumonia Cardiac: Yes (MILD MITRAL REGURGITATION) High Cholesterol, Hypertension, Valvular Heart Disease Neurological: Yes Dementia, Stroke Reproductive Disorders: No Female Reproductive Disorders: Denies 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: 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, Menopausal Sexually Transmitted Disease: No HIV/AIDS: No Genitourinary: No Gastrointestinal: Yes (DYSPLASTIC COLON POLYPS) Diverticulosis, Hemorrhoids, Polyps Musculoskeletal: Yes (RESTLESS LEGS; OSTEOMYELITIS RIGHT FOOT, SCIATICA;USES WALKER) Arthritis Endocrine: Yes Diabetes, Non-Insulin dep HEENT: Yes (LEFT EYE REMOVED/ PROSTHETIC EYE; WEARS GLASSES; ALL TEETH REMOVED) Cataract Loss of Vision: Left Cancer: Yes Skin Did You Recieve Any Treatments: Yes What Type of Treatment Did You: Surgical Intervention Psychosocial: Yes (SELF MUTILATION-"PICKS" ) Sleep Difficulties, Anxiety, Depression Integumentary: Yes (FOOT ULCERS; STAPH INFECTION; OSTEOMYELITIS RIGHT FOOT; BEARDEN TO FINGERS) Blood Disorders: No Adverse Reaction/Blood Tranf: No (HAS HAD BLOOD WITH NO REACTION) Family Medical History Colon cancer No Pertinent Family Hx SOCIAL HISTORY: -SMOKING-DENIES -ETOH-DENIES -DRUGS-DENIES PAST SURGICAL HISTORY: -COLONOSCOPIES/POLYPECTOMIES -REMOVAL OF SKIN LESIONS -DEBRIDEMENTS OF FOOT ULCERS -RIGHT GREAT TOE PINNING -PLATING OF RIGHT 5TH METATARSAL -CHOLECYSTECTOMY -HYSTERECTOMY -LEFT EYE REMOVED Physical Exam Vital Signs Vital Signs - First Documented 09/09/21 12:45 Temp 36.6 Pulse 66 Resp 16 B/P (MAP) 91/47 (62) Pulse Ox 93 O2 Delivery Room Air Capillary Refill : Less Than 3 Seconds Height, Weight, BMI Height: 5'5.00" Weight: 150lbs. 0.0oz. 68.074155iv; 24.00 BMI Method:Stated General Appearance: No Apparent Distress, WD/WN HEENT: Normal ENT Inspection, Other (Oropharynx somewhat dry. Prosthetic left eye) Neck: Normal Inspection; No JVD Respiratory: Lungs Clear, Normal Breath Sounds, No Accessory Muscle Use Cardiovascular: Regular Rate, Rhythm, No Edema, No Murmur Gastrointestinal: Normal Bowel Sounds, Non Tender, Soft Extremity: Normal Inspection, No Pedal Edema Neurologic/Psychiatric: Alert, Oriented x3, Normal Mood/Affect, sander and polisher II-XII Norm as Tested Skin: Normal Color, Warm/Dry Procedures/Interventions Date of ETT Placement: Jan 11, 2019 Time of ETT Placement: 914 Progress/Results/Core Measures Suspected Sepsis SIRS Temperature: Pulse: 66 Respiratory Rate: 16 Laboratory Tests 09/09/21 13:08: White Blood Count 9.2 Blood Pressure 91 /47 Mean: 76 Laboratory Tests 09/09/21 13:08: Creatinine 1.55H, Platelet Count 148, Total Bilirubin 0.4 Results/Orders Lab Results Laboratory Tests Test 09/09/21 12:57 09/09/21 13:08 09/09/21 13:28 Range/Units Glucometer 164 H 70-110 MG/DL White Blood Count 9.2 4.3-11.0 10^3/uL Red Blood Count 4.14 3.80-5.11 10^6/uL Hemoglobin 9.9 L 11.5-16.0 g/dL Hematocrit 33 L 35-52 % Mean Corpuscular Volume 79 L 80-99 fL Mean Corpuscular Hemoglobin 24 L 25-34 pg Mean Corpuscular Hemoglobin Concent 30 L 32-36 g/dL Red Cell Distribution Width 17.6 H 10.0-14.5 % Platelet Count 148 130-400 10^3/uL Mean Platelet Volume 10.1 9.0-12.2 fL Immature Granulocyte % (Auto) 1 % Neutrophils (%) (Auto) 83 H 42-75 % Lymphocytes (%) (Auto) 8 L 12-44 % Monocytes (%) (Auto) 8 0-12 % Eosinophils (%) (Auto) 0 0-10 % Basophils (%) (Auto) 0 0-10 % Neutrophils # (Auto) 7.6 1.8-7.8 10^3/uL Lymphocytes # (Auto) 0.7 L 1.0-4.0 10^3/uL Monocytes # (Auto) 0.8 0.0-1.0 10^3/uL Eosinophils # (Auto) 0.0 0.0-0.3 10^3/uL Basophils # (Auto) 0.0 0.0-0.1 10^3/uL Immature Granulocyte # (Auto) 0.1 0.0-0.1 10^3/uL Neutrophils % (Manual) 90 % Lymphocytes % (Manual) 4 % Monocytes % (Manual) 6 % Blood Morphology Comment NORMAL Sodium Level 134 L 135-145 MMOL/L Potassium Level 4.4 3.6-5.0 MMOL/L Chloride Level 100 98-107 MMOL/L Carbon Dioxide Level 22 21-32 MMOL/L Anion Gap 12 5-14 MMOL/L Blood Urea Nitrogen 43 H 7-18 MG/DL Creatinine 1.55 H 0.60-1.30 MG/DL Estimat Glomerular Filtration Rate 35 BUN/Creatinine Ratio 28 Glucose Level 143 H 70-105 MG/DL Calcium Level 9.6 8.5-10.1 MG/DL Corrected Calcium 9.8 8.5-10.1 MG/DL Total Bilirubin 0.4 0.1-1.0 MG/DL Aspartate Amino Transf (AST/SGOT) 19 5-34 U/L Alanine Aminotransferase (ALT/SGPT) 14 0-55 U/L Alkaline Phosphatase 76 40-136 U/L C-Reactive Protein High Sensitivity 22.77 H 0.00-0.50 MG/DL Total Protein 7.2 6.4-8.2 GM/DL Albumin 3.7 3.2-4.5 GM/DL Urine Color YELLOW Urine Clarity SL CLOUDY Urine pH 6.0 5-9 Urine Specific [place] 1.010 L 1.016-1.022 Urine Protein 2+ H NEGATIVE Urine Glucose (UA) NEGATIVE NEGATIVE Urine Ketones NEGATIVE NEGATIVE Urine Nitrite POSITIVE H NEGATIVE Urine Bilirubin NEGATIVE NEGATIVE Urine Urobilinogen 0.2 < = 1.0 MG/DL Urine Leukocyte Esterase 3+ H NEGATIVE Urine RBC (Auto) 2+ H NEGATIVE Urine RBC NONE /HPF Urine WBC TNTC H /HPF Urine Crystals NONE /LPF Urine Bacteria LARGE H /HPF Urine Casts NONE /LPF Urine Mucus NEGATIVE /LPF Urine Other 0-2 TRANS EPIS /HPF Urine Culture Indicated YES My Orders Orders - AARTI OREILLY MD Cbc With Automated Diff (09/09/21 12:44) Comprehensive Metabolic Panel (09/09/21 12:44) Ua Culture If Indicated (09/09/21 12:44) Accucheck Stat ONCE (09/09/21 12:44) Ed Iv/Invasive Line Start (09/09/21 12:44) Ct Head Wo (09/09/21 13:02) Manual Differential (09/09/21 13:08) Chest 1 View, Ap/Pa Only (09/09/21 13:20) Hs C Reactive Protein (09/09/21 13:20) Lactated Ringers (Lr 1000 Ml Iv Solution (09/09/21 13:30) Urine Culture (09/09/21 13:28) Ceftriaxone 1 Gm Pre-Mix (Rocephin 1 Gm (09/09/21 14:24) Ns Iv 500 Ml (Sodium Chloride 0.9%) (09/09/21 14:30) Medications Given in ED Current Medications Medications Dose Ordered Sig/Adrius Route Start Time Stop Time Status Last Admin Dose Admin Lactated Ringer's 1,000 ml @ 0 mls/hr Q0M ONCE IV 09/09/21 13:30 09/09/21 13:31 DC 09/09/21 13:37 1,000 MLS/HR Sodium Chloride 500 ml @ 0 mls/hr Q0M ONCE IV 09/09/21 14:30 09/09/21 14:31 DC 09/09/21 15:08 500 MLS/HR Vital Signs/I&O 09/09/21 09/09/21 09/09/21 12:45 13:55 16:09 Temp 36.6 36.6 Pulse 66 66 66 Resp 16 18 18 B/P (MAP) 91/47 (62) 105/61 105/61 Pulse Ox 93 97 97 O2 Delivery Room Air Room Air Capillary Refill : Less Than 3 Seconds Blood Pressure Mean: 76 Point of Care Testing Finger Stick Blood Glucose: 164 Blood Glucose Action Taken: NURSE AND DOC NOTIFIED Progress Note : Progress Note Patient was hydrated with 1500 mL IV fluids. She was found to have urinary tract infection which was treated with Rocephin. Repeat CT of the head was obtained to rule out delayed intracranial hemorrhage after head injury in the context of anticoagulation. See discharge instruction for further discussion. Anemia was noted. Patient has not noted any loss of blood anywhere. Diagnostic Imaging Diagonstic Imaging: CT Plain Films/CT/US/NM/MRI: head Comments NAME: WILLIAM DO MED REC#: [id number] PT STATUS: REG ER : 1945 PHYSICIAN: AARTI OREILLY MD ADMIT DATE: 09/09/21/ER Signed Date of Exam:09/09/21 CT HEAD WO PROCEDURE: CT head without contrast. TECHNIQUE: Multiple contiguous axial images were obtained through the brain without the use of intravenous contrast. Auto Exposure Controls were utilized during the CT exam to meet ALARA standards for radiation dose reduction. INDICATION: Fall, head injury, on Eliquis, altered mental status with increased confusion. COMPARISON: 09/08/2021 FINDINGS: The ventricles and cortical sulci are diffusely prominent consistent with generalized parenchymal volume loss. There is no midline shift or mass effect. No acute intracranial hemorrhage is seen. No CT evidence of acute territorial ischemia is seen. There is encephalomalacia in the right hemisphere consistent with old infarct which appears stable compared to the prior study. Senescent calcifications are noted at the basal ganglia. There is a mass in the sella which is stable since the prior exam. The calvarium appears intact. Visualized paranasal sinuses are clear. IMPRESSION: 1. No acute intracranial hemorrhage or CT evidence of acute territorial ischemia. 2. 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 3. Stable sellar mass. Consider further evaluation with MRI when the patient is able. Dictated by: Dictated on workstation # [id number] Dict: 09/09/21 1349 Trans: 09/09/21 1418 [facility] [id number] Interpreted by: CLEMENTE SANTOS MD Electronically signed by: CLEMENTE SANTOS MD 09/09/21 1418 Reviewed: Reviewed by Me Diagonstic Imaging: Xray Plain Films/CT/US/NM/MRI: chest Comments NAME: WILLIAM DO MED REC#: [id number] PT STATUS: REG ER : 1945 PHYSICIAN: AARTI OREILLY MD ADMIT DATE: 09/09/21/ER Signed Date of Exam:09/09/21 CHEST 1 VIEW, AP/PA ONLY CHEST 1 VIEW, AP/PA ONLY Indication: Dizziness, fall Comparison: 03/05/2021 Findings: Probable basilar subsegmental atelectasis. No new focal airspace disease in the visualized lungs. Please note that the posterior lower lobes are poorly evaluated by portable radiography. No pleural effusion or pneumothorax. Normal cardiomediastinal silhouette. Impression: 1. No acute cardiopulmonary process by portable radiography. Dictated by: Dictated on workstation # [id number] Dict: 09/09/21 1341 Trans: 09/09/21 1342 [facility] [id number] Interpreted by: JOSH MUNOZ MD Electronically signed by: JOSH MUNOZ MD 09/09/21 1342 Departure Impression Primary Impression: UTI (urinary tract infection) Qualified Codes: N39.0 - Urinary tract infection, site not specified Additional Impressions: History of recent fall Confusion Renal insufficiency Anemia Qualified Codes: D64.9 - Anemia, unspecified Disposition: 01 HOME, SELF-CARE Condition: Improved Departure-Patient Inst. Decision time for Depature: 15:35 Referrals: FAB BEAVER MD (PCP/Family) Primary Care Physician Patient Instructions: Preventing Falls ED, Urinary Tract Infection, Adult ED Add. Discharge Instructions: Encourage plenty of clear liquids to stay well-hydrated. Complete antibiotics as prescribed. Contact your doctor on Saturday to review urine culture results. This will help ensure you are taking the best antibiotic for the type of bacteria that grows in culture. Please be very careful with getting up and walking. Use assistance whenever possible or assistive device such as walker. There was development of anemia since your last visit to the hospital. This needs to be monitored by your primary care provider. Please watch for signs of bleeding such as blood coming from skin wounds, blood in the urine, blood in stools, or dark black stools. Please report these findings immediately to your doctor. Return to the emergency room if there are worsening symptoms. All discharge instructions reviewed with patient and/or family. Voiced understanding. Scripts Cefdinir (Cefdinir) 300 Mg Capsule 300 MG PO BID, #20 CAP Prov: AARTI OREILLY MD 09/09/21 Copy Copies To 1: FAB BEAVER MD, JOSHUA T MD Sep 09, 2021 14:53
[2021-09-09] MEDS ORDERED: CEFD300C3 PO (15:40)
[2021-09-09 16:09] VITALS: BP 105/61
== END 2021-09-09 16:10 | disposition home or self-care (01) ==
LOC: EDUNIT# 12:34 → ER 12:35
DX: R41.0 Disorientation, unspecified (principal); N28.9 Disorder of kidney and ureter, unspecified; N39.0 Urinary tract infection, site not specified; D64.9 Anemia, unspecified; R29.6 Repeated falls; R68.2 Dry mouth, unspecified; Z97.0 Presence of artificial eye
CPT/HCPCS: 36415; 70450; 71045; 80053; 81000; 82947; 85007; 85027; 86141; 87077; 87088; 87186

== ENCOUNTER 2021-09-10 01:58 | Emergency (ER) | payer MEDICARE, MEDICAID ==
[~2021-09-10 01:58] MED LIST changes: +CEFD300C3 PO
--- NOTE | 2021-09-10 02:55 | ED Fall/Injury ---
General Chief Complaint: General Problems/Pain Stated Complaint: LOW O2 Nursing Triage Note: TO ED VIA [facility] FROM HOME TO ROOM 6. 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 EMS NOTED O2 CONCENTATOR AT 1L. PT STATES SHE FELL EARLIER TONIGHT AND HAD LOW BP. RECENT ER VISITS. OLD BRUISING NOTED TO FACE. Source: patient Exam Limitations: no limitations History of Present Illness Date Seen by Provider: Sep 10, 2021 Time Seen by Provider: 02:40 Initial Comments Patient is a 75-year-old female with history of cerebral palsy who presents to the emergency department after a fall this evening at home. Patient wears oxygen at night at 2 L. She had taken it off to go to the bathroom. She thinks she tripped on a throw rug in the bathroom. She fell but she denies any complaints of injury. She states her blood pressure was a little low tonight. She is pending surgery for a pituitary tumor on September 15 at . She states she did not hit her head. No loss of consciousness. She denies chest pain, back pain, abdominal pain. No extremity pain. No nausea or vomiting. No shortness of breath. I saw her 2 nights ago after a fall in which she hit her nose and face. Questionable nasal bone fracture. She denies any other complaints of illness or injury. All other review of systems reviewed and negative except as stated Occurred: this evening Injuries/Pain Location: no injury Context: tripped Loss of Consciousness: no loss of consciousness Associated Symptoms (Fall): Denies Symptoms Allergies and Home Medications Allergies Coded Allergies: bacitracin (Verified Allergy, Mild, RASH, 10/09/19) neomycin (Verified Allergy, Mild, RASH, 10/09/19) niacin (Verified Allergy, Mild, RASH, 10/09/19) polymyxin B (Verified Allergy, Mild, RASH, 10/09/19) Patient Home Medication List Home Medication List Reviewed: Yes Acetaminophen (Tylenol Extra Strength) 500 Mg Tablet, 500 MG PO HS, (Reported) Entered as Reported by: MICHELA VELÁSQUEZ on 06/08/17 0121 Amlodipine Besylate (Amlodipine Besylate) 10 Mg Tablet, 10 MG PO DAILY Prescribed by: AARTI GROSS on 08/17/17 0304 Antiox#10/Om3/Dha/Epa/Lut/Zeax (I-Caps with Lutein-[place] 3 Sfg) 1 Each Capsule, 1 EACH PO DAILY, (Reported) Entered as Reported by: MICHELA VELÁSQUEZ on 06/08/17 0121 Apixaban (Eliquis) 5 Mg Tablet, 5 MG PO BID Prescribed by: ESTRELLITA KOLB on 01/20/19 0859 Aspirin (Aspirin) 81 Mg Tab.chew, 81 MG PO DAILY, (Reported) Entered as Reported by: GRAZYNA HURD on 10/09/19 1138 Atorvastatin Calcium (Atorvastatin Calcium) 10 Mg Tablet, 10 MG PO HS, (Reported) Entered as Reported by: ELIAS NULL on 10/15/162011 Cefdinir (Cefdinir) 300 Mg Capsule, 300 MG PO BID Prescribed by: AARTI GROSS on 09/09/21 1540 Diltiazem HCl (Diltiazem 24Hr Cd) 180 Mg Cap.er.24h, 180 MG PO DAILY Prescribed by: ESTRELLITA KOLB on 01/20/19 0859 Gemfibrozil (Gemfibrozil) 600 Mg Tablet, 600 MG PO BID, (Reported) Entered as Reported by: GRAZYNA HURD on 10/09/19 1138 Loratadine (Loratadine) 10 Mg Tablet, 10 MG PO DAILY, (Reported) Entered as Reported by: JAIRO WORRELL on 12/22/15 1218 Losartan Potassium (Losartan Potassium) 100 Mg Tablet, 100 MG PO DAILY Prescribed by: ESTRELLITA KOLB on 06/09/17 1033 Memantine HCl (Namenda Xr) 28 Mg Cap.spr.24, 28 MG PO HS, (Reported) Entered as Reported by: JAIRO WORRELL on 12/22/15 1216 Metformin HCl (Metformin HCl) 500 Mg Tablet, 500 MG PO BID, (Reported) Entered as Reported by: GRAZYNA HURD on 10/09/19 1138 Metoprolol Tartrate (Metoprolol Tartrate) 50 Mg Tablet, 100 MG PO BID Prescribed by: ESTRELLITA KOLB on 01/20/19 0859 Naproxen (Naprosyn) 500 Mg Tablet, 500 MG PO DAILY, (Reported) Entered as Reported by: ELIAS NULL on 06/07/17 210 [place]-3 Acid Ethyl Esters (Lovaza) 1 Gm Capsule, 2 GM PO BID, (Reported) Entered as Reported by: JAIRO WORRELL on 12/22/15 1216 Quetiapine Fumarate (Seroquel) 100 Mg Tablet, 100 MG PO HS, (Reported) Entered as Reported by: JAIRO WORRELL on 12/22/15 1218 Quetiapine Fumarate (Seroquel) 100 Mg Tablet, 50 MG PO DAILY, (Reported) Entered as Reported by: MICHELA VELÁSQUEZ on 06/08/17 0116 Sitagliptin Phosphate (Januvia) 50 Mg Tablet, 50 MG PO DAILY, (Reported) Entered as Reported by: JAIRO WORRELL on 12/22/15 1218 Venlafaxine HCl (Effexor Xr) 150 Mg Cap.er.24h, 150 MG PO DAILY, (Reported) Entered as Reported by: GRAZYNA HURD on 10/09/19 1138 Review of Systems Review of Systems Constitutional: see HPI Eyes: No Symptoms Reported Ears, Nose, Mouth, Throat: no symptoms reported Respiratory: no symptoms reported Cardiovascular: no symptoms reported Gastrointestinal: no symptoms reported Genitourinary: no symptoms reported : No Musculoskeletal: no symptoms reported Skin: no symptoms reported Psychiatric/Neurological: No Symptoms Reported All Other Systems Reviewed Negative Unless Noted: Yes Past Gbggqef-Lgkyhh-Dwctrr Hx Patient Social History Tobacco Use?: No Substance use?: No Alcohol Use?: No Immunizations Up To Date Tetanus Booster (TDap): Less than 5yrs First/Initial COVID19 Vaccinat: unknown date Second COVID19 Vaccination Rogelio: unknown date Third COVID19 Vaccination Date: unknown date Seasonal Allergies Seasonal Allergies: Yes Past Medical History Surgeries: Yes (ANKLE FX; LEFT EYE REMOVED) Eye Surgery, Gallbladder, 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, Orthopedic Respiratory: Yes (ASPIRATION PNEUMONIA) Pneumonia Cardiac: Yes (MILD MITRAL REGURGITATION) High Cholesterol, Hypertension, Valvular Heart Disease Neurological: Yes Dementia, Stroke Reproductive Disorders: No Female Reproductive Disorders: Denies 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, 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 Sexually Transmitted Disease: No HIV/AIDS: No Genitourinary: No Gastrointestinal: Yes (DYSPLASTIC COLON POLYPS) Diverticulosis, Hemorrhoids, Polyps Musculoskeletal: Yes (RESTLESS LEGS; OSTEOMYELITIS RIGHT FOOT, SCIATICA;USES WALKER) Arthritis Endocrine: Yes Diabetes, Non-Insulin dep HEENT: Yes (LEFT EYE REMOVED/ PROSTHETIC EYE; WEARS GLASSES; ALL TEETH REMOVED) Cataract Loss of Vision: Left Cancer: Yes Skin Did You Recieve Any Treatments: Yes What Type of Treatment Did You: Surgical Intervention Psychosocial: Yes (SELF MUTILATION-"PICKS" ) Sleep Difficulties, Anxiety, Depression Integumentary: Yes (FOOT ULCERS; STAPH INFECTION; OSTEOMYELITIS RIGHT FOOT; BEARDEN TO FINGERS) Blood Disorders: No Adverse Reaction/Blood Tranf: No (HAS HAD BLOOD WITH NO REACTION) Family Medical History Colon cancer No Pertinent Family Hx SOCIAL HISTORY: -SMOKING-DENIES -ETOH-DENIES -DRUGS-DENIES PAST SURGICAL HISTORY: -COLONOSCOPIES/POLYPECTOMIES -REMOVAL OF SKIN LESIONS -DEBRIDEMENTS OF FOOT ULCERS -RIGHT GREAT TOE PINNING -PLATING OF RIGHT 5TH METATARSAL -CHOLECYSTECTOMY -HYSTERECTOMY -LEFT EYE REMOVED Physical Exam Vital Signs Vital Signs - First Documented 09/10/21 01:58 Temp 36.8 Pulse 80 Resp 16 B/P (MAP) 103/62 (76) Pulse Ox 96 O2 Delivery Nasal Cannula O2 Flow Rate 2.00 Capillary Refill : Less Than 3 Seconds Height, Weight, BMI Height: 5'5.00" Weight: 150lbs. 0.0oz. [id number]; 24.00 BMI Method:Stated General Appearance: WD/WN, no apparent distress HEENT: pharynx normal (dry mucosa), other (TM's occluded by cerumen bila terally. no hussein's sign. artificial eye on the left) Neck: non-tender, full range of motion, supple, normal inspection Cardiovascular: regular rate, rhythm, systolic murmur (3/6 systolic murmur left upper sternal border) Respiratory: lungs clear, normal breath sounds, no respiratory distress, no accessory muscle use Gastrointestinal: normal bowel sounds, non tender, soft Extremities: normal range of motion, non-tender, normal inspection, no pedal edema, no calf tenderness Neurologic/Psychiatric: alert, normal mood/affect, oriented x 3 Skin: other (Significant bruising over the nasal bridge and nasal ala, ecchymosis extending underneath the left eye) Javon Coma Score Best Eye Response: (4) Open Spontaneously Best Verbal Response: (5) Oriented Best Motor Response: (6) Obeys Commands Procedures/Interventions Date of ETT Placement: Jan 11, 2019 Time of ETT Placement: 914 Progress/Results/Core Measures Results/Orders Vital Signs/I&O 09/10/21 09/10/21 01:58 01:58 Temp 36.8 Pulse 80 Resp 16 B/P (MAP) 103/62 (76) Pulse Ox 96 O2 Delivery Nasal Cannula Nasal Cannula O2 Flow Rate 2.00 2.00 Blood Pressure Mean: 76 Progress Progress Note : Time: 02:55 Progress Note Very pleasant 75-year-old with a history of cerebral palsy status post fall this evening. Fall 2 nights ago as well. Concern for hypoxia while not wearing her oxygen. Also for some low blood pressure. She is absolutely without complaint. No shortness of breath nausea or vomiting. No fevers or productive cough. Her blood pressure is 111 systolic here. On her normal 2 L of oxygen she is 96%. No increased work of breathing. Alert and without complaint. Will discharge home to follow-up with her primary care physician Departure Impression Primary Impression: History of recent fall Disposition: 01 HOME, SELF-CARE Condition: Stable Departure-Patient Inst. Decision time for Depature: 02:56 Referrals: FAB BEAVER MD (PCP/Family) Primary Care Physician Patient Instructions: Preventing Falls ED Add. Discharge Instructions: Continue oxygen at night at 2 L per nasal cannula. You need to talk to her primary care physician about getting longer tubing that we will go with her to the bathroom when she gets up to go at night. Return to the emergency department for any new, concerning or emergent comp laints Copy Copies To 1: FAB BEAVER MD, KATHRYN M MD Sep 10, 2021 02:55
[2021-09-10 02:59] VITALS: BP 111/64
== END 2021-09-10 03:09 | disposition home or self-care (01) ==
LOC: EDUNIT# 02:08 → ER 02:09
DX: S00.33XA Contusion of nose, initial encounter (principal); S05.12XA Contusion of eyeball and orbital tissues, left eye, initial encounter; R09.02 Hypoxemia; H61.23 Impacted cerumen, bilateral; G80.9 Cerebral palsy, unspecified; Z91.81 History of falling; Z97.0 Presence of artificial eye; Z99.81 Dependence on supplemental oxygen; W01.0XXA Fall on same level from slipping, tripping and stumbling without subsequent striking against object, initial encounter; Y92.002 Bathroom of unspecified non-institutional (private) residence as the place of occurrence of the external cause
CPT/HCPCS: 99283

== ENCOUNTER 2021-09-12 11:29 | Outpatient (CLI) | payer MEDICARE, MEDICAID ==
[~2021-09-12] VITALS: Ht 165 cm; Wt 68.0 kg
[2021-09-12] MEDS ORDERED: NS IV 1000 ML 1,000 ML IV ONE (11:45)
[2021-09-12 12:00] LABS: HEMATOCRIT 33 % (35-52); HEMOGLOBIN 9.8 g/dL (11.5-16.0); MEAN CORPUSCULAR HEMOGLOBIN 24 pg (25-34); MEAN CORPUSCULAR HGB CONC 29 g/dL (32-36); MEAN CORPUSCULAR VOLUME 81 fL (80-99); MEAN PLATELET VOLUME 10.6 fL (9.0-12.2); PLATELET COUNT 185 10^3/uL (130-400); WHITE BLOOD COUNT 6.7 10^3/uL (4.3-11.0)
[2021-09-12 12:12] VITALS: BP 108/60
[2021-09-12 12:20] LABS: ALBUMIN 3.7 GM/DL (3.2-4.5); BILIRUBIN,TOTAL 0.3 MG/DL (0.1-1.0); CREATININE SERUM 1.15 MG/DL (0.60-1.30); POTASSIUM 4.3 MMOL/L (3.6-5.0); TOTAL PROTEIN 7.1 GM/DL (6.4-8.2)
== END 2021-09-12 13:07 | disposition home or self-care (01) ==
LOC: SDC 11:29
PROVIDERS: ATTEND Nurse Practitioner Family
DX: E86.0 Dehydration (principal)
CPT/HCPCS: 36415; 80053; 85027; 96360

== ENCOUNTER → 2021-09-14 | Outpatient (CLI) | payer MEDICARE, MEDICAID ==
--- NOTE | 2021-09-14 13:42 | Diagnostic Imaging Report ---
PROCEDURE: CT right lower extremity without contrast. TECHNIQUE: Axially acquired CT was obtained through the right lower extremity without intravenous contrast. Coronal and sagittal reformations were also performed. Auto Exposure Controls were utilized during the CT exam to meet ALARA standards for radiation dose reduction. INDICATION: Thigh hematoma. COMPARISON: None available. FINDINGS: There is a 4.4 x 2.2 x 4.0 cm hyperdense fluid collection located in the lateral subcutaneous fat of the mid thigh. This has imaging features most compatible with a hematoma. No features of intramuscular hematoma in the underlying anterior compartment. Posterior compartment and adductor musculature are normal. Vascular opacifications are present. There is no acute fracture within the right femur. Moderate degenerative arthritis of the right hip. IMPRESSION: 1. Small subcutaneous hematoma in the medial aspect of the right thigh. Recommend follow-up with physical examination to ensure resolution. If this does not resolve in the next 8 weeks, then a follow-up MRI without and with IV contrast should be considered. 2. No fracture. Dictated by: Dictated on workstation # [id number]
== END ==
LOC: RAD 09:44
PROVIDERS: ATTEND Nurse Practitioner Family
DX: T14.8XXA Other injury of unspecified body region, initial encounter (principal)
CPT/HCPCS: 73700

== ENCOUNTER 2022-01-22 13:11 | Emergency (ER) | payer MEDICARE, MEDICAID ==
[~2022-01-22] VITALS: Ht 166 cm; Wt 66.0 kg
[~2022-01-22 13:11] MED LIST changes: +ALBU8.5H6 IH; -RT-ALBUINH IH
--- NOTE | 2022-01-22 14:00 | ED EENT ---
History of Present Illness General Chief Complaint: Oral/Throat Problems Stated Complaint: BLEEDING FROM MOUTH Nursing Triage Note: pt sent here from [facility] for bleeding in the mouth at 1000 this morning. no active bleeding, states she was tasting bleed but not spitting out blood. they sent her here because they did not know where the bleeding was coming from, but there is NO bleeding at this time.. pt denies any injury but is on blood thinner History of Present Illness Date Seen by Provider: Jan 22, 2022 Time Seen by Provider: 13:25 Initial Comments Patient is a 76-year-old female who presents to the emergency department for evaluation of bleeding from her mouth earlier today. Patient states that she was able to taste blood but had no spitting or expectoration of blood. She denies any pain at any point. She is currently on blood thinners. She was seen at [facility] and referred here for further evaluation. Patient is unable to quantify exactly how much blood was present. She denies any other symptoms at this time. Denies any oral trauma in the recent past. States she thinks there was not any blood coming out of her nose. She also denies any pain or trauma to her nose in the recent past. She states that she has not noticed any active bleeding or taste of blood for over an hour. Denies any coughing, shortness of breath, or chest pain. Allergies and Home Medications Allergies Coded Allergies: bacitracin (Verified Allergy, Mild, RASH, 10/09/19) neomycin (Verified Allergy, Mild, RASH, 10/09/19) niacin (Verified Allergy, Mild, RASH, 10/09/19) polymyxin B (Verified Allergy, Mild, RASH, 10/09/19) Patient Home Medication List Home Medication List Reviewed: Yes Acetaminophen (Tylenol Extra Strength) 500 Mg Tablet, 500 MG PO HS, (Reported) Entered as Reported by: MICHELA VELÁSQUEZ on 06/08/17 012 Amlodipine Besylate (Amlodipine Besylate) 10 Mg Tablet, 10 MG PO DAILY Prescribed by: AARTI GROSS on 08/17/17 0304 Antiox#10/Om3/Dha/Epa/Lut/Zeax (I-Caps with Lutein-[place] 3 Sfg) 1 Each Capsule, 1 EACH PO DAILY, (Reported) Entered as Reported by: MICHELA VELÁSQUEZ on 06/08/17 0121 Apixaban (Eliquis) 5 Mg Tablet, 5 MG PO BID Prescribed by: ESTRELLITA KOLB on 01/20/19 0859 Aspirin (Aspirin) 81 Mg Tab.chew, 81 MG PO DAILY, (Reported) Entered as Reported by: GRAZYNA HURD on 10/09/19 1138 Atorvastatin Calcium (Atorvastatin Calcium) 10 Mg Tablet, 10 MG PO HS, (Reported) Entered as Reported by: ELIAS NULL on 10/15/162011 Cefdinir (Cefdinir) 300 Mg Capsule, 300 MG PO BID Prescribed by: AARTI GROSS on 09/09/21 1540 Diltiazem HCl (Diltiazem 24Hr Cd) 180 Mg Cap.er.24h, 180 MG PO DAILY Prescribed by: ESTRELLITA KOLB on 01/20/19 0859 Gemfibrozil (Gemfibrozil) 600 Mg Tablet, 600 MG PO BID, (Reported) Entered as Reported by: GRAZYNA HURD on 10/09/19 1138 Loratadine (Loratadine) 10 Mg Tablet, 10 MG PO DAILY, (Reported) Entered as Reported by: JAIRO WORRELL on 12/22/15 1218 Losartan Potassium (Losartan Potassium) 100 Mg Tablet, 100 MG PO DAILY Prescribed by: ESTRELLITA KOLB on 06/09/17 1033 Memantine HCl (Namenda Xr) 28 Mg Cap.spr.24, 28 MG PO HS, (Reported) Entered as Reported by: JAIRO WORRELL on 12/22/15 1216 Metformin HCl (Metformin HCl) 500 Mg Tablet, 500 MG PO BID, (Reported) Entered as Reported by: GRAZYNA HURD on 10/09/19 1138 Metoprolol Tartrate (Metoprolol Tartrate) 50 Mg Tablet, 100 MG PO BID Prescribed by: ESTRELLITA KOLB on 01/20/19 0859 Naproxen (Naprosyn) 500 Mg Tablet, 500 MG PO DAILY, (Reported) Entered as Reported by: ELIAS NULL on 06/07/17 210 [place]-3 Acid Ethyl Esters (Lovaza) 1 Gm Capsule, 2 GM PO BID, (Reported) Entered as Reported by: JAIRO WORRELL on 10/20/16 1216 Quetiapine Fumarate (Seroquel) 100 Mg Tablet, 100 MG PO HS, (Reported) Entered as Reported by: JAIRO WORRELL on 12/22/15 1218 Quetiapine Fumarate (Seroquel) 100 Mg Tablet, 50 MG PO DAILY, (Reported) Entered as Reported by: MICHELA VELÁSQUEZ on 06/08/17 0116 Sitagliptin Phosphate (Januvia) 50 Mg Tablet, 50 MG PO DAILY, (Reported) Entered as Reported by: JAIRO WORRELL on 12/22/15 1218 Venlafaxine HCl (Effexor Xr) 150 Mg Cap.er.24h, 150 MG PO DAILY, (Reported) Entered as Reported by: GRAZYNA HURD on 10/09/19 1138 Review of Systems Review of Systems Constitutional: no symptoms reported Eyes: No Symptoms Reported Ears: No Symptoms Reported Nose: no symptoms reported Mouth: bloody discharge Throat: no symptoms reported Respiratory: no symptoms reported Cardiovascular: no symptoms reported Gastrointestinal: no symptoms reported Musculoskeletal: no symptoms reported Skin: no symptoms reported Past Chaosjc-Lziakh-Pzhffd Hx Patient Social History Tobacco Use?: No Substance use?: No Alcohol Use?: No Immunizations Up To Date Tetanus Booster (TDap): Less than 5yrs First/Initial COVID19 Vaccinat: unknown date Second COVID19 Vaccination Rogelio: yes Third COVID19 Vaccination Date: unknown date 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: marvin Seasonal Allergies Seasonal Allergies: Yes Past Medical History Surgery/Hospitalization HX: uses walker, on home o2, hypertension, afib, diabetic type II Surgeries: Yes (ANKLE FX; LEFT EYE REMOVED) Eye Surgery, Gallbladder, 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, Orthopedic Respiratory: Yes (ASPIRATION PNEUMONIA) Pneumonia Cardiac: Yes (MILD MITRAL REGURGITATION) High Cholesterol, Hypertension, Valvular Heart Disease Neurological: Yes Dementia, Stroke Reproductive Disorders: No Female Reproductive Disorders: Denies 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, 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 Sexually Transmitted Disease: No HIV/AIDS: No Genitourinary: No Gastrointestinal: Yes (DYSPLASTIC COLON POLYPS) Diverticulosis, Hemorrhoids, Polyps Musculoskeletal: Yes (RESTLESS LEGS; OSTEOMYELITIS RIGHT FOOT, SCIATICA;USES WALKER) Arthritis Endocrine: Yes Diabetes, Non-Insulin dep HEENT: Yes (LEFT EYE REMOVED/ PROSTHETIC EYE; WEARS GLASSES; ALL TEETH REMOVED) Cataract Loss of Vision: Left Cancer: Yes Skin Did You Recieve Any Treatments: Yes What Type of Treatment Did You: Surgical Intervention Psychosocial: Yes (SELF MUTILATION-"PICKS" ) Sleep Difficulties, Anxiety, Depression Integumentary: Yes (FOOT ULCERS; STAPH INFECTION; OSTEOMYELITIS RIGHT FOOT; BEARDEN TO FINGERS) Blood Disorders: No Adverse Reaction/Blood Tranf: No (HAS HAD BLOOD WITH NO REACTION) Family Medical History Colon cancer No Pertinent Family Hx SOCIAL HISTORY: -SMOKING-DENIES -ETOH-DENIES -DRUGS-DENIES PAST SURGICAL HISTORY: -COLONOSCOPIES/POLYPECTOMIES -REMOVAL OF SKIN LESIONS -DEBRIDEMENTS OF FOOT ULCERS -RIGHT GREAT TOE PINNING -PLATING OF RIGHT 5TH METATARSAL -CHOLECYSTECTOMY -HYSTERECTOMY -LEFT EYE REMOVED Physical Exam Vital Signs Vital Signs - First Documented 01/22/22 13:23 Temp 37.0 Pulse 62 Resp 18 B/P (MAP) 136/86 (103) Pulse Ox 97 O2 Delivery Nasal Cannula O2 Flow Rate 2.00 Height, Weight, BMI Height: 5'5.00" Weight: 150lbs. 0.0oz. [id number]; 23.00 BMI Method:Stated General Appearance: WD/WN, no apparent distress Neck: non-tender, full range of motion, supple, normal inspection Cardiovascular: regular rate, rhythm Respiratory: chest non-tender, lungs clear, normal breath sounds, no respiratory distress, no accessory muscle use Gastrointestinal: normal bowel sounds, non tender, soft Neurologic/Psychiatric: no motor/sensory deficits, alert, normal mood/affect, oriented x 3 Skin: normal color, warm/dry Procedures/Interventions Date of ETT Placement: Jan 11, 2019 Time of ETT Placement: 0915 Progress/Results/Core Measures Results/Orders Vital Signs/I&O Blood Pressure Mean: 103 Progress Progress Note : Progress Note Patient is nontoxic and well-hydrated on exam. There is no active bleeding noted. There is a very small scab noted to the upper left gum. Patient is edentulous and is not wearing any dentures. She states she normally does not wear dentures. There is a very scant amount of dried blood around her upper lip. No bleeding noted from either nostril. Anterior rhinoscopy is negative for any possible source of bleeding. Vital signs are reassuring. Will discharge home with recommendations for supportive care and follow-up with PCP. Return precautions for urgent symptomology discussed. Patient verbalized understanding. Departure Impression Primary Impression: Bleeding of mouth Disposition: HOME, SELF-CARE Condition: Stable Departure-Patient Inst. Decision time for Depature: 14:00 Referrals: FAB BEAVER MD (PCP/Family) Primary Care Physician Patient Instructions: Bleeding Gums (DC) ARMANDO CHISHOLM APRN Jan 22, 2022 14:00
[2022-01-22 14:07] VITALS: BP 136/86
== END 2022-01-22 14:07 | disposition home or self-care (01) ==
LOC: EDUNIT# 13:11 → ER 13:13
DX: K13.79 Other lesions of oral mucosa (principal); Z99.81 Dependence on supplemental oxygen
CPT/HCPCS: 99281

== ENCOUNTER 2022-03-10 17:43 | Emergency (ER) | payer MEDICARE, MEDICAID ==
[~2022-03-10] VITALS: Ht 166 cm; Wt 66.0 kg
[2022-03-10 17:49] VITALS: BP 113/92
--- NOTE | 2022-03-10 18:11 | ED Lower Extremity ---
General Chief Complaint: Trauma-Non Activation Stated Complaint: FALL 03/09 - RIGHT LEG PAIN Nursing Triage Note: FELL OFF OF THE TOILET YESTERDAY MORNING AND HURT HER RIGHT LATERAL UPPER THIGH. DENIES LOC. Source: patient, caregiver Exam Limitations: no limitations History of Present Illness Date Seen by Provider: Mar 10, 2022 Time Seen by Provider: 18:00 Initial Comments 76-year-old female presents to ED with patient hourly caregiver from [facility] for right upper leg pain due to a fall yesterday morning around 7 AM. States she fell off the stool, denies dizziness, denies syncope prior to fall. Did not hit head, did not lose consciousness. States she has been able to walk since the fall, but has pain in right upper leg when walking. She is on a blood thinner. Onset: yesterday Pain/Injury Location: right thigh Method of Injury: fell Modifying Factors: Worse With Movement Allergies and Home Medications Allergies Coded Allergies: bacitracin (Verified Allergy, Mild, RASH, 03/10/22) neomycin (Verified Allergy, Mild, RASH, 03/10/22) niacin (Verified Allergy, Mild, RASH, 03/10/22) polymyxin B (Verified Allergy, Mild, RASH, 03/10/22) Patient Home Medication List Home Medication List Reviewed: Yes Acetaminophen (Tylenol Extra Strength) 500 Mg Tablet, 500 MG PO HS, (Reported) Entered as Reported by: MICHELA VELÁSQUEZ on 06/08/17 012 Amlodipine Besylate (Amlodipine Besylate) 10 Mg Tablet, 10 MG PO DAILY Prescribed by: AARTI GROSS on 08/17/17 0304 Antiox#10/Om3/Dha/Epa/Lut/Zeax (I-Caps with Lutein-[place] 3 Sfg) 1 Each Capsule, 1 EACH PO DAILY, (Reported) Entered as Reported by: MICHELA VELÁSQUEZ on 06/08/17 012 Apixaban (Eliquis) 5 Mg Tablet, 5 MG PO BID Prescribed by: ESTRELLITA KOLB on 01/20/19 0859 Aspirin (Aspirin) 81 Mg Tab.chew, 81 MG PO DAILY, (Reported) Entered as Reported by: GRAZYNA HURD on 10/09/19 1138 Atorvastatin Calcium (Atorvastatin Calcium) 10 Mg Tablet, 10 MG PO HS, (Reported) Entered as Reported by: ELIAS NULL on 10/15/162011 Cefdinir (Cefdinir) 300 Mg Capsule, 300 MG PO BID Prescribed by: AARTI GROSS on 09/09/21 1540 Diltiazem HCl (Diltiazem 24Hr Cd) 180 Mg Cap.er.24h, 180 MG PO DAILY Prescribed by: ESTRELLITA KOLB on 01/20/19 0859 Gemfibrozil (Gemfibrozil) 600 Mg Tablet, 600 MG PO BID, (Reported) Entered as Reported by: GRAZYNA HURD on 10/09/19 1138 Loratadine (Loratadine) 10 Mg Tablet, 10 MG PO DAILY, (Reported) Entered as Reported by: JAIRO WORRELL on 12/22/15 1218 Losartan Potassium (Losartan Potassium) 100 Mg Tablet, 100 MG PO DAILY Prescribed by: ESTRELLITA KOLB on 06/09/17 1033 Memantine HCl (Namenda Xr) 28 Mg Cap.spr.24, 28 MG PO HS, (Reported) Entered as Reported by: JAIRO WORRELL on 12/22/15 1216 Metformin HCl (Metformin HCl) 500 Mg Tablet, 500 MG PO BID, (Reported) Entered as Reported by: GRAZYNA HURD on 10/09/19 1138 Metoprolol Tartrate (Metoprolol Tartrate) 50 Mg Tablet, 100 MG PO BID Prescribed by: ESTRELLITA KOLB on 01/20/19 0859 Naproxen (Naprosyn) 500 Mg Tablet, 500 MG PO DAILY, (Reported) Entered as Reported by: ELIAS NULL on 06/07/172100 [place]-3 Acid Ethyl Esters (Lovaza) 1 Gm Capsule, 2 GM PO BID, (Reported) Entered as Reported by: JAIRO WORRELL on 12/22/15 1216 Quetiapine Fumarate (Seroquel) 100 Mg Tablet, 100 MG PO HS, (Reported) Entered as Reported by: JAIRO WORRELL on 12/22/15 1218 Quetiapine Fumarate (Seroquel) 100 Mg Tablet, 50 MG PO DAILY, (Reported) Entered as Reported by: MICHELA VELÁSQUEZ on 06/08/17 0116 Sitagliptin Phosphate (Januvia) 50 Mg Tablet, 50 MG PO DAILY, (Reported) Entered as Reported by: JAIRO WORRELL on 12/22/15 1218 Venlafaxine HCl (Effexor Xr) 150 Mg Cap.er.24h, 150 MG PO DAILY, (Reported) Entered as Reported by: GRAZYNA HURD on 10/09/19 1138 Review of Systems Constitutional: see HPI Past Xabbkvc-Ehdvqr-Cmdwtm Hx Patient Social History Tobacco Use?: No Use of E-Cig and/or Vaping dev: No Substance use?: No Alcohol Use?: No Pt feels they are or have been: No Immunizations Up To Date Tetanus Booster (TDap): Less than 5yrs Influenza Vaccine Up-to-Date: Yes; Up-to-Date First/Initial COVID19 Vaccinat: unknown date Second COVID19 Vaccination Rogelio: yes Third COVID19 Vaccination Date: unknown date COVID19 Vaccine It Risk And Assurance Senior Manager: UP TO DATE Seasonal Allergies Seasonal Allergies: Yes Past Medical History Surgery/Hospitalization HX: uses walker, on home o2, hypertension, afib, diabetic type II Surgeries: Yes (ANKLE FX; LEFT EYE REMOVED) Eye Surgery, Gallbladder, 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, Orthopedic Respiratory: Yes (ASPIRATION PNEUMONIA) Pneumonia Cardiac: Yes (MILD MITRAL REGURGITATION) High Cholesterol, Hypertension, Valvular Heart Disease Neurological: Yes Dementia, Stroke Reproductive Disorders: No Female Reproductive Disorders: Denies HIM MANAGER History: 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, Menopausal Sexually Transmitted Disease: No HIV/AIDS: No Genitourinary: No Gastrointestinal: Yes (DYSPLASTIC COLON POLYPS) Diverticulosis, Hemorrhoids, Polyps Musculoskeletal: Yes (RESTLESS LEGS; OSTEOMYELITIS RIGHT FOOT, SCIATICA;USES WALKER) Arthritis Endocrine: Yes Diabetes, Non-Insulin dep HEENT: Yes (LEFT EYE REMOVED/ PROSTHETIC EYE; WEARS GLASSES; ALL TEETH REMOVED) Cataract Loss of Vision: Left Cancer: Yes Skin Did You Recieve Any Treatments: Yes What Type of Treatment Did You: Surgical Intervention Psychosocial: Yes (SELF MUTILATION-"PICKS" ) Sleep Difficulties, Anxiety, Depression Integumentary: Yes (FOOT ULCERS; STAPH INFECTION; OSTEOMYELITIS RIGHT FOOT; BEARDEN TO FINGERS) Blood Disorders: No Adverse Reaction/Blood Tranf: No (HAS HAD BLOOD WITH NO REACTION) Family Medical History Colon cancer No Pertinent Family Hx SOCIAL HISTORY: -SMOKING-DENIES -ETOH-DENIES -DRUGS-DENIES PAST SURGICAL HISTORY: -COLONOSCOPIES/POLYPECTOMIES -REMOVAL OF SKIN LESIONS -DEBRIDEMENTS OF FOOT ULCERS -RIGHT GREAT TOE PINNING -PLATING OF RIGHT 5TH METATARSAL -CHOLECYSTECTOMY -HYSTERECTOMY -LEFT EYE REMOVED Physical Exam Vital Signs Vital Signs - First Documented 03/10/22 17:49 Temp 35.8 Pulse 66 Resp 18 B/P (MAP) 113/92 (99) Pulse Ox 100 O2 Delivery Nasal Cannula O2 Flow Rate 4.00 Capillary Refill : Height, Weight, BMI Height: 5'5.00" Weight: 150lbs. 0.0oz. 68.989628cp; 23.00 BMI Method:Stated General Appearance: WD/WN, no apparent distress Neck: supple, normal inspection Cardiovascular: regular rate, rhythm, no edema, no gallop, no JVD, no murmur Respiratory: lungs clear, normal breath sounds, no respiratory distress, no accessory muscle use Hips: right hip non-tender, right hip normal inspection, right hip normal range of motion, right hip no evidence of injury Legs: right leg ecchymosis, right leg soft tissue tenderness, right leg swelling Knees: right knee normal inspection, right knee normal range of motion, right knee no evidence of injury Neurologic/Psychiatric: alert, normal mood/affect Skin: normal color, warm/dry, ecchymosis (right, lateral, upper thigh) Procedures/Interventions Date of ETT Placement: Jan 11, 2019 Time of ETT Placement: 914 Progress/Results/Core Measures Results/Orders My Orders Orders - PETRONA MAYNARD APRN Femur, Right, 2 Views (03/10/22 18:06) Hip, Right, 2 Views (03/10/22 18:37) Vital Signs/I&O 03/10/22 17:49 Temp 35.8 Pulse 66 Resp 18 B/P (MAP) 113/92 (99) Pulse Ox 100 O2 Delivery Nasal Cannula O2 Flow Rate 4.00 Blood Pressure Mean: 99 Progress Progress Note #1: Time: 18:14 Progress Note Patient seen and evaluated, no acute distress. Based on symptoms and exam, right femur x-ray ordered. Progress Note #2: Time: 18:37 Progress Note Radiology report of right femur suggests obtaining right hip x-ray due to poor visibility of the right femoral neck. Right hip x-ray ordered. Progress Note #3: Time: 18:57 Progress Note Interpretation of right hip x-ray, no visible fractures noted, waiting for official radiology report. Progress Note #4: Time: 19:12 Progress Note No acute fracture noted on x-rays. Discussed test results with patient. Instructed patient to wear Andrew wrap, apply ice, and take Tylenol ibuprofen for pain. Instructed patient to follow-up with primary care provider. Return precautions provided. Diagnostic Imaging Diagonstic Imaging: Xray Plain Films/CT/US/NM/MRI: femur Comments [facility], [place] NAME: WILLIAM DO [facility] REC#: [id number] PT STATUS: REG ER : 1945 PHYSICIAN: PETRONA MAYNARD APRN ADMIT DATE: 03/10/22/ER Signed Date of Exam:03/10/22 FEMUR, RIGHT, 2 VIEWS EXAMINATION: Right femur radiographs, 2 views, 4 images. COMPARISON: None. HISTORY: 76-year-old female, right leg pain after fall. FINDINGS: There are some limitations of the exam relating to patient body habitus and soft tissue overlap. This is particularly a limitation at the level of the right hip. There is patellofemoral compartment osteoarthritis of the right knee. There are vascular calcifications. There is no identified large knee joint effusion. There is questionable lucency at the level of the femoral neck without clear offset of bone on the frontal view. IMPRESSION: . 1. The right femoral neck is difficult to definitively evaluate given limitations of the study. Consider dedicated right hip radiographs for further assessment or CT right hip if there is strong concern for a potential right femoral neck fracture. 2. Additional radiographic evaluation of the right femur is without identified acute bony abnormality. Dictated by: Dictated on workstation # [id number] Dict: 03/10/22 182 Trans: 03/10/22 183 [facility] [id number] Interpreted by: KERRIE CHEN MD Electronically signed by: KERRIE CHEN MD 03/10/22 183 Diagonstic Imaging: Xray Plain Films/CT/US/NM/MRI: hip Comments [place], [place] NAME: WILLIAM DO [facility] REC#: [id number] PT STATUS: REG ER : 1945 PHYSICIAN: PETRONA MAYNARD APRN ADMIT DATE: 03/10/22/ER Signed Date of Exam:03/10/22 HIP, RIGHT, 2 VIEWS EXAMINATION: Right hip radiographs, 2 views. COMPARISON: Right femur radiographs March 10, 2022. Right hip radiographs July 24, 2021. HISTORY: 76-year-old female, right hip pain. FINDINGS: There is no identified acute fracture including at the level of the femoral neck. The femoral head is normally positioned relative to the acetabulum. There is a normal variant os acetabula. There is mild osteoarthritis of the right hip with osteophyte formation. There is severe disc height loss at L5-S1. IMPRESSION: 1. No identified acute bony abnormality of the right hip. 2. Mild osteoarthritis of the right hip. Dictated by: Dictated on workstation # [id number] Dict: 03/10/221851 Trans: 03/10/221857 PJE [id number] Interpreted by: KERRIE CHEN MD Electronically signed by: KERRIE CHEN MD 03/10/221857 Departure Impression Primary Impression: Hematoma of leg Disposition: HOME, SELF-CARE Condition: Stable Departure-Patient Inst. Decision time for Depature: 19:05 Referrals: FAB BEAVER MD (PCP/Family) Primary Care Physician Patient Instructions: HEMATOMA Add. Discharge Instructions: Wear Andrew wrap to help with swelling. May apply ice for 20 minutes at a time to help with swelling and pain. May take Tylenol or ibuprofen for pain as needed. Follow-up with primary care provider. Return for any new, concerning, or worsening symptoms. All discharge instructions reviewed with patient and/or family. Voiced understanding. PETRONA MAYNARD APRN Mar 10, 2022 18:11
--- NOTE | 2022-03-10 18:27 | Diagnostic Imaging Report ---
EXAMINATION: Right femur radiographs, 2 views, 4 images. COMPARISON: None. HISTORY: 76-year-old female, right leg pain after fall. FINDINGS: There are some limitations of the exam relating to patient body habitus and soft tissue overlap. This is particularly a limitation at the level of the right hip. There is patellofemoral compartment osteoarthritis of the right knee. There are vascular calcifications. There is no identified large knee joint effusion. There is questionable lucency at the level of the femoral neck without clear offset of bone on the frontal view. IMPRESSION: . 1. The right femoral neck is difficult to definitively evaluate given limitations of the study. Consider dedicated right hip radiographs for further assessment or CT right hip if there is strong concern for a potential right femoral neck fracture. 2. Additional radiographic evaluation of the right femur is without identified acute bony abnormality. Dictated by: Dictated on workstation # [id number]
--- NOTE | 2022-03-10 18:56 | Diagnostic Imaging Report ---
EXAMINATION: Right hip radiographs, 2 views. COMPARISON: Right femur radiographs March 10, 2022. Right hip radiographs July 24, 2021. HISTORY: 76-year-old female, right hip pain. FINDINGS: There is no identified acute fracture including at the level of the femoral neck. The femoral head is normally positioned relative to the acetabulum. There is a normal variant os acetabula. There is mild osteoarthritis of the right hip with osteophyte formation. There is severe disc height loss at L5-S1. IMPRESSION: 1. No identified acute bony abnormality of the right hip. 2. Mild osteoarthritis of the right hip. Dictated by: Dictated on workstation # [id number]
== END 2022-03-10 19:15 | disposition home or self-care (01) ==
LOC: EDUNIT# 17:43 → ER 17:44
DX: S70.11XA Contusion of right thigh, initial encounter (principal); Z79.01 Long term (current) use of anticoagulants; W18.11XA Fall from or off toilet without subsequent striking against object, initial encounter
CPT/HCPCS: 73502; 73552

== ENCOUNTER → 2022-03-12 | Outpatient (CLI) | payer MEDICARE, MEDICAID ==
--- NOTE | 2022-03-12 18:11 | Diagnostic Imaging Report ---
INDICATION: Fall with right hip pain. TECHNIQUE: AP and frog-leg views of right hip are obtained with comparison made to study of 03/10/2022. FINDINGS: Concentric hip joint space narrowing is again identified with mild marginal spurring. There is no evidence of an acute fracture or subluxation. IMPRESSION: Continued appearance of right hip osteoarthritis without acute superimposed abnormality identified. Dictated by: Dictated on workstation # [id number]
== END ==
LOC: RAD 16:52
PROVIDERS: ATTEND Physician Assistant
DX: M16.11 Unilateral primary osteoarthritis, right hip (principal)
CPT/HCPCS: 73502

== ENCOUNTER → 2022-07-06 | Outpatient (CLI) | payer MEDICARE, MEDICAID ==
--- NOTE | 2022-07-06 09:41 | Diagnostic Imaging Report ---
INDICATION: Abdominal mass. PROCEDURE: Ultrasound abdomen complete. TECHNIQUE: Multiple real-time grayscale images were obtained of the abdomen in various projections. Liver is normal in size, approximately 15 cm. No discrete liver mass is identified. The portal vein is patent and shows normal direction of flow. The gallbladder is surgically absent. No biliary duct dilatation is seen. Pancreas was obscured by bowel gas. Spleen is normal in size at 13.6 cm. Aorta is nonaneurysmal. IVC is patent. Kidneys are without calculi or hydronephrosis. There is no ascites. Sonographic interrogation of the area of palpable abnormality was performed. There is a fairly homogeneous soft tissue mass measuring 3.9 x 2.0 x 4.9 cm. No internal vascularity is seen. This has the appearance of a lipoma. IMPRESSION: 1. Probable lipoma at the area of palpable abnormality. 2. Otherwise unremarkable abdominal ultrasound. Dictated by: Dictated on workstation # [id number]
== END ==
LOC: RAD 08:27
PROVIDERS: ATTEND Internal Medicine
DX: R19.00 Intra-abdominal and pelvic swelling, mass and lump, unspecified site (principal)
CPT/HCPCS: 76700

== ENCOUNTER 2022-08-31 20:55 | Emergency (ER) | payer MEDICARE, MEDICAID ==
[~2022-08-31] VITALS: Ht 165 cm; Wt 63.5 kg
[~2022-08-31 20:55] MED LIST changes: -LOSA100T57 PO; +LOSA100T58 PO
[2022-08-31] MEDS ORDERED: OXYMETAZOLINE (AFRIN) 0.05% NA 30 ML BTL ONE (21:21)
[2022-08-31 21:35] LABS: BASOPHILS % (AUTO) 0 % (0-10); EOSINOPHILS # (AUTO) 0.4 10^3/uL (0.0-0.3); EOSINOPHILS % (AUTO) 6 % (0-10); HEMATOCRIT 42 % (35-52); HEMOGLOBIN 14.5 g/dL (11.5-16.0); LYMPHOCYTES # (AUTO) 0.9 10^3/uL (1.0-4.0); LYMPHOCYTES % (AUTO) 14 % (12-44); MEAN CORPUSCULAR HEMOGLOBIN 30 pg (25-34); MEAN CORPUSCULAR HGB CONC 34 g/dL (32-36); MEAN CORPUSCULAR VOLUME 88 fL (80-99); MEAN PLATELET VOLUME 9.9 fL (9.0-12.2); MONOCYTES # (AUTO) 0.5 10^3/uL (0.0-1.0); MONOCYTES % (AUTO) 8 % (0-12); NEUTROPHILS # (AUTO) 4.8 10^3/uL (1.8-7.8); NEUTROPHILS % (AUTO) 72 % (42-75); PLATELET COUNT 159 10^3/uL (130-400); WHITE BLOOD COUNT 6.6 10^3/uL (4.3-11.0)
[2022-08-31 21:44] LABS: INR 1.2 (0.8-1.4)
--- NOTE | 2022-08-31 21:48 | ED EENT ---
History of Present Illness General Chief Complaint: Nasal Problems Stated Complaint: NOSE BLEED Nursing Triage Note: NOSE BLEED STARTED 0100 AM. ON/OFF ALL DAY. PATIENT STATES ON BLOOD THINNER. Source: patient Exam Limitations: no limitations History of Present Illness Date Seen by Provider: Aug 31, 2022 Time Seen by Provider: 21:14 Initial Comments 76-year-old female presents to the ER with complaints of a nosebleed which has been constant since 1 AM this morning. She states that it just keeps dripping. She does take Eliquis for previous stroke. She also wears oxygen as needed. Allergies and Home Medications Allergies Coded Allergies: bacitracin (Verified Allergy, Mild, RASH, 03/10/22) neomycin (Verified Allergy, Mild, RASH, 03/10/22) niacin (Verified Allergy, Mild, RASH, 03/10/22) polymyxin B (Verified Allergy, Mild, RASH, 03/10/22) Patient Home Medication List Home Medication List Reviewed: Yes Acetaminophen (Tylenol Extra Strength) 500 Mg Tablet, 500 MG PO HS, (Reported) Entered as Reported by: MICHELA VELÁSQUEZ on 06/08/17 012 Amlodipine Besylate (Amlodipine Besylate) 10 Mg Tablet, 10 MG PO DAILY Prescribed by: AARTI GROSS on 08/17/17 0304 Antiox#10/Om3/Dha/Epa/Lut/Zeax (I-Caps with Lutein-[place] 3 Sfg) 1 Each Capsule, 1 EACH PO DAILY, (Reported) Entered as Reported by: MICHELA VELÁSQUEZ on 06/08/17 0121 Apixaban (Eliquis) 5 Mg Tablet, 5 MG PO BID Prescribed by: ESTRELLITA KOLB on 01/20/19 0859 Aspirin (Aspirin) 81 Mg Tab.chew, 81 MG PO DAILY, (Reported) Entered as Reported by: GRAZYNA HURD on 10/09/19 1138 Atorvastatin Calcium (Atorvastatin Calcium) 10 Mg Tablet, 10 MG PO HS, (Reported) Entered as Reported by: ELIAS NULL on 10/15/162011 Cefdinir (Cefdinir) 300 Mg Capsule, 300 MG PO BID Prescribed by: AARTI GROSS on 09/09/21 1540 Diltiazem HCl (Diltiazem 24Hr Cd) 180 Mg Cap.er.24h, 180 MG PO DAILY Prescribed by: ESTRELLITA KOLB on 01/20/19 0859 Gemfibrozil (Gemfibrozil) 600 Mg Tablet, 600 MG PO BID, (Reported) Entered as Reported by: GRAZYNA HURD on 10/09/19 1138 Loratadine (Loratadine) 10 Mg Tablet, 10 MG PO DAILY, (Reported) Entered as Reported by: JAIRO WORRELL on 12/22/15 1218 Losartan Potassium (Losartan Potassium) 100 Mg Tablet, 100 MG PO DAILY Prescribed by: ESTRELLITA KOLB on 06/09/17 1033 Memantine HCl (Namenda Xr) 28 Mg Cap.spr.24, 28 MG PO HS, (Reported) Entered as Reported by: JAIRO WORRELL on 12/22/15 1216 Metformin HCl (Metformin HCl) 500 Mg Tablet, 500 MG PO BID, (Reported) Entered as Reported by: GRAZYNA HURD on 10/09/19 1138 Metoprolol Tartrate (Metoprolol Tartrate) 50 Mg Tablet, 100 MG PO BID Prescribed by: ESTRELLITA KOLB on 01/20/19 0859 Naproxen (Naprosyn) 500 Mg Tablet, 500 MG PO DAILY, (Reported) Entered as Reported by: ELIAS NULL on 06/07/17 210 [place]-3 Acid Ethyl Esters (Lovaza) 1 Gm Capsule, 2 GM PO BID, (Reported) Entered as Reported by: JAIRO WORRELL on 12/22/15 1216 Quetiapine Fumarate (Seroquel) 100 Mg Tablet, 100 MG PO HS, (Reported) Entered as Reported by: JAIRO WORRELL on 12/22/15 1218 Quetiapine Fumarate (Seroquel) 100 Mg Tablet, 50 MG PO DAILY, (Reported) Entered as Reported by: MICHELA VELÁSQUEZ on 06/08/17 0116 Sitagliptin Phosphate (Januvia) 50 Mg Tablet, 50 MG PO DAILY, (Reported) Entered as Reported by: JAIRO WORRELL on 12/22/15 1218 Venlafaxine HCl (Effexor Xr) 150 Mg Cap.er.24h, 150 MG PO DAILY, (Reported) Entered as Reported by: GRAZYNA HURD on 10/09/19 1138 Review of Systems Review of Systems Constitutional: no symptoms reported Nose: see HPI Past Qflinpo-Leoqju-Bcwxgt Hx Immunizations Up To Date Tetanus Booster (TDap): Less than 5yrs First/Initial COVID19 Vaccinat: unknown date Second COVID19 Vaccination Rogelio: yes Third COVID19 Vaccination Date: unknown date Seasonal Allergies Seasonal Allergies: Yes Past Medical History Surgery/Hospitalization HX: uses walker, on home o2, hypertension, afib, diabetic type II Surgeries: Yes (ANKLE FX; LEFT EYE REMOVED) Eye Surgery, Gallbladder, 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, Orthopedic Respiratory: Yes (ASPIRATION PNEUMONIA) Pneumonia Cardiac: Yes (MILD MITRAL REGURGITATION) High Cholesterol, Hypertension, Valvular Heart Disease Neurological: Yes Dementia, Stroke Reproductive Disorders: No Female Reproductive Disorders: Denies ROUSTABOUT HAND History: 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, Menopausal Sexually Transmitted Disease: No HIV/AIDS: No Genitourinary: No Gastrointestinal: Yes (DYSPLASTIC COLON POLYPS) Diverticulosis, Hemorrhoids, Polyps Musculoskeletal: Yes (RESTLESS LEGS; OSTEOMYELITIS RIGHT FOOT, SCIATICA;USES WALKER) Arthritis Endocrine: Yes Diabetes, Non-Insulin dep HEENT: Yes (LEFT EYE REMOVED/ PROSTHETIC EYE; WEARS GLASSES; ALL TEETH REMOVED) Cataract Loss of Vision: Left Cancer: Yes Skin Did You Recieve Any Treatments: Yes What Type of Treatment Did You: Surgical Intervention Psychosocial: Yes (SELF MUTILATION-"PICKS" ) Sleep Difficulties, Anxiety, Depression Integumentary: Yes (FOOT ULCERS; STAPH INFECTION; OSTEOMYELITIS RIGHT FOOT; BEARDEN TO FINGERS) Blood Disorders: No Adverse Reaction/Blood Tranf: No (HAS HAD BLOOD WITH NO REACTION) Family Medical History Colon cancer No Pertinent Family Hx SOCIAL HISTORY: -SMOKING-DENIES -ETOH-DENIES -DRUGS-DENIES PAST SURGICAL HISTORY: -COLONOSCOPIES/POLYPECTOMIES -REMOVAL OF SKIN LESIONS -DEBRIDEMENTS OF FOOT ULCERS -RIGHT GREAT TOE PINNING -PLATING OF RIGHT 5TH METATARSAL -CHOLECYSTECTOMY -HYSTERECTOMY -LEFT EYE REMOVED Physical Exam Vital Signs Vital Signs - First Documented 08/31/22 21:00 Temp 36.4 Pulse 64 Resp 82 B/P (MAP) 169/88 (115) Pulse Ox 82 O2 Delivery Room Air Height, Weight, BMI Height: 5'5.00" Weight: 150lbs. 0.0oz. 68.574781bx; 23.00 BMI Method:Stated General Appearance: WD/WN, no apparent distress Nose: active bleeding (Blood clot noted to septum of left nare, mild drip of blood noted) Neck: supple, normal inspection Cardiovascular: regular rate, rhythm Respiratory: lungs clear, normal breath sounds, no respiratory distress, no accessory muscle use Neurologic/Psychiatric: alert, normal mood/affect Skin: normal color, warm/dry Procedures/Interventions Date of ETT Placement: Jan 11, 2019 Time of ETT Placement: 914 Progress/Results/Core Measures Results/Orders Lab Results Laboratory Tests Test 08/31/22 21:25 Range/Units White Blood Count 6.6 4.3-11.0 10^3/uL Red Blood Count 4.81 3.80-5.11 10^6/uL Hemoglobin 14.5 11.5-16.0 g/dL Hematocrit 42 35-52 % Mean Corpuscular Volume 88 80-99 fL Mean Corpuscular Hemoglobin 30 25-34 pg Mean Corpuscular Hemoglobin Concent 34 32-36 g/dL Red Cell Distribution Width 14.1 10.0-14.5 % Platelet Count 159 130-400 10^3/uL Mean Platelet Volume 9.9 9.0-12.2 fL Immature Granulocyte % (Auto) 0 % Neutrophils (%) (Auto) 72 42-75 % Lymphocytes (%) (Auto) 14 12-44 % Monocytes (%) (Auto) 8 0-12 % Eosinophils (%) (Auto) 6 0-10 % Basophils (%) (Auto) 0 0-10 % Neutrophils # (Auto) 4.8 1.8-7.8 10^3/uL Lymphocytes # (Auto) 0.9 L 1.0-4.0 10^3/uL Monocytes # (Auto) 0.5 0.0-1.0 10^3/uL Eosinophils # (Auto) 0.4 H 0.0-0.3 10^3/uL Basophils # (Auto) 0.0 0.0-0.1 10^3/uL Immature Granulocyte # (Auto) 0.0 0.0-0.1 10^3/uL Prothrombin Time 15.0 H 12.2-14.7 SEC INR Comment 1.2 0.8-1.4 Activated Partial Thromboplast Time 36 H 24-35 SEC My Orders Orders - PETRONA MAYNARD APRN Cbc With Automated Diff (08/31/22 21:12) Protime With Inr (08/31/22 21:12) Partial Thromboplastin Time (08/31/22 21:12) Oxymetazoline 0.05% Nasal Sa[place]emin (Afrin 0. (09/01/22 09:00) Oxymetazoline 0.05% Nasal [place]emin (Afrin 0. (08/31/22 21:21) Vital Signs/I&O 08/31/22 08/31/22 21:00 22:50 Temp 36.4 Pulse 64 58 Resp 82 20 B/P (MAP) 169/88 (115) 150/83 Pulse Ox 82 100 O2 Delivery Room Air Room Air Blood Pressure Mean: 115 Progress Progress Note : Progress Note Patient seen and evaluated, resting comfortably in bed, no acute distress. I tr ied to have patient blow her nose to assess location of bleeding. She was unable to completely clear her nose. I was able to visualize a blood clot along the left septal wall. Small amount of blood trickling from site prior to patient blowing nose. Will leave the clot in place. 2 sprays of Afrin administered to left nostrils at 2119. We will continue to monitor at this time. Labs including CBC and coags are pending. 2234 it has been an hour and 15 minutes since Afrin was administered, patient has not had any return of bleeding. Labs reviewed, CBC grossly normal. Coags show slightly elevated PT 15, normal INR, slightly elevated APTT 36. I am comfortable discharging patient at this time, patient is ready to go. Discharge instructions and return precautions. Departure Impression Primary Impression: Epistaxis Disposition: 01 HOME, SELF-CARE Condition: Stable Departure-Patient Inst. Decision time for Depature: 22:34 Referrals: RIC CASTANO MD, JOHN D MD (PCP/Family) Primary Care Physician Patient Instructions: Nosebleeds (DC) Add. Discharge Instructions: Do not blow your nose for 24 hours. Return if you start bleeding again and it lasts greater than 15 minutes. Follow-up with Dr. Castano, ENT. Return for significant bleeding, shortness of breath, dizziness, passing out, nausea or vomiting, chest pain, or any other new, concerning, or worsening symptoms. All discharge instructions reviewed with patient and/or family. Voiced understanding. PETRONA MAYNARD APRN Aug 31, 2022 21:48
[2022-08-31 22:50] VITALS: BP 150/83
[2022-09-01] MEDS ORDERED: OXYMETAZOLINE (AFRIN) 0.05% NA 30 ML BTL SCH (09:00)
== END 2022-08-31 22:51 | disposition home or self-care (01) ==
LOC: EDUNIT# 20:55 → ER 20:56
DX: R04.0 Epistaxis (principal); Z79.02 Long term (current) use of antithrombotics/antiplatelets; Z99.81 Dependence on supplemental oxygen; Z86.73 Personal history of transient ischemic attack (TIA), and cerebral infarction without residual deficits
CPT/HCPCS: 36415; 85025; 85610; 85730